=== PATIENT | male | born 1945 | race Caucasian/White ===

== ENCOUNTER → 2016-07-08 | Outpatient (RCR) | payer MEDICARE ==
--- OUTSIDE RECORDS SUMMARY | 2016-04-09 12:25 | XMS REPORT | Continuity of Care Document ---
Author Author [facility] Organization [facility] Address Unknown Phone Unavailable Care Team Providers Care Director Prison Name Role Phone CHILO OCAMPO MD PCP Insurance Providers Payer Name Policy Number Subscriber Name Relationship [employer]ps Medicare [id number] Stephon Alarcon V 18 Self / Same As Patient Blue Cross [facility] Supp [id number] Stephon Alarcon V 18 Self / Same As Patient Advance Directives Directive Response Recorded Date/Time Advance Directives Yes 10/17/14 2:34pm Health Care Power of Business Continuity Consultant Yes 10/17/14 2:34pm Organ Donor No 10/17/14 2:34pm Resuscitation Status Full Code 10/17/14 2:34pm Problems Medical Problems Problem Onset Date Status Lumbar radiculopathy Unknown Active Spinal stenosis of lumbar region Unknown Active Medications Medication Dose Route Sig Days/Qty Instructions Order Date Discontinued Date Status Telmisartan 40 Mg PO DAILY 04/08/07 05/17/11 Discontinued [Aleve] 04/08/07 11/15/08 Discontinued Aspirin 09/13/08 01/05/09 Discontinued [Nexium] 09/13/08 01/05/09 Discontinued Telmisartan 10/04/08 01/05/09 Discontinued Aspirin 10/04/08 01/18/11 Discontinued Esomeprazole Magnesium 10/04/08 01/05/09 Discontinued Promethazine HCl 25 Mg PO THREE TIMES A DAY PRN 10/04/08 10/09/11 Discontinued Dicyclomine HCl 10/04/08 11/15/08 Discontinued Naproxen Sodium 10/04/08 11/15/08 Discontinued Alprazolam 11/15/08 01/05/09 Discontinued Metoclopramide HCl (Reglan) 1 Each PO BEFORE MEALS AND AT BEDTIME 40 Qty FOR STOMACH 11/15/08 04/13/09 Discontinued Pantoprazole Sodium 1 Tab PO DAILY 30 Qty 11/15/08 04/13/09 Discontinued Ondansetron HCl 4 Mg PO EVERY 4HRS 10 Qty FOR NAUSEA AND VOMITING. 04/13/09 Discontinued Hyoscyamine Sulfate 1 - 2 Each PO Q 4 - 6 HRS PRN 30 Qty 11/15/0805/10 Discontinued Pantoprazole Sodium 01/05/09 02/09/09 Discontinued [Mycelex ] 01/05/09 04/13/09 Discontinued Multivitamins 01/05/09 01/18/11 Discontinued Alprazolam 01/05/09 01/18/11 Discontinued Dicyclomine Hcl 04/13/09 01/18/11 Discontinued Cimetidine 04/13/09 01/18/11 Discontinued Finasteride 5 Mg PO BEDTIME 01/18/11 Active Isosorbide Mononitrate 01/18/11 01/18/11 Discontinued Diphenoxylate HCl/Atropine (Lomotil) 1 - 2 Tab PO FOUR TIMES DAILY PRN 2 tabs with 1st loost stool 01/18/11 10/09/11 Discontinued [Sutent] daily with meal 01/18/11 01/18/11 Discontinued Oxycodone Hcl/Acetaminophen 1 - 2 Tab PO EVERY 6 HOURS PRN 01/18/11 10/09/11 Discontinued Mirtazapine (Remeron) BEDTIME 01/18/11 01/18/11 Discontinued Allopurinol 300 Mg PO DAILY PRN 01/18/11 01/18/11 Discontinued Amlodipine Besylate 5 Mg PO DAILY 5 mg po daily while on sutent 01/18/11 Discontinued Isosorbide Mononitrate 30 Mg PO DAILY@0630 01/18/11 08/06/11 Discontinued Dicyclomine HCl 10 Mg PO EVERY 6 HOURS PRN 01/18/11 08/06/11 Discontinued Alprazolam 1 Mg PO TWICE A DAY 01/18/11 Active Mirtazapine (Remeron) 15 Mg PO BEDTIME PRN for sleep 01/18/11 Active Pantoprazole Sodium 40 Mg PO 1700 05/17/11 Active Ondansetron HCl 8 Mg PO EVERY 8HRS PRN for nausea and vomiting 02/21/12 Discontinued Aspirin 81 Mg PO DAILY 05/17/11 12/31/11 Discontinued Carvedilol 3.125 Mg PO TWICE A DAY 05/17/11 02/21/12 Discontinued Olmesartan Med/Amlodipine/Hctz 0.5 Tab PO DAILY 05/17/11 10/09/11 Discontinued Clonidine HCl 0.3 Mg PO TWICE A DAY PRN 05/17/11 12/31/11 Discontinued Vancomycin Hcl 125 Mg PO Every 48 Hours 07/28/11 12/31/11 Discontinued Everolimus 10 Mg PO 08/05/11 08/05/11 Discontinued Sucralfate 1 Gm PO TWICE A DAY 08/06/11 09/08/12 Discontinued Melatonin/Pyridoxine Hcl 1 Mg PO BEDTIME 08/06/11 12/31/11 Discontinued Amlodipine Besylate (Norvasc 5 Mg) 5 Mg PO DAILY 10/09/11 12/31/11 Discontinued Olmesartan Med/Amlodipine/Hctz 1 Each PO DAILY 12/31/11 02/21/12 Discontinued [Sutent] 37.5 Mg PO DAILY 12/31/11 01/20/12 Discontinued Dicyclomine Hcl 20 Mg PO THREE TIMES A DAY PRN 01/20/12 09/08/12 Discontinued Pyridoxine/Melatonin 3 Mg PO BEDTIME 01/20/12 09/08/12 Discontinued Hydromorphone Hcl 4 Mg PO EVERY 4HRS PRN for severe pain 01/20/1222/05 Discontinued Oxycodone Hcl/Acetaminophen 1 - 2 Each PO EVERY 6 HOURS PRN 01/20/12 09/08/12 Discontinued Aspirin 81 Mg PO DAILY 01/20/12 Active Acetaminophen 500 Mg PO THREE TIMES A DAY PRN 02/21/12 09/08/12 Discontinued Levofloxacin 1 Each PO DAILY 2 Days 02/21/12 09/08/12 Discontinued Mirtazapine 15 Each PO BEDTIME 09/08/12 09/08/12 Discontinued Amlodipine Besylate (Norvasc 5 Mg) 5 Mg PO DAILY 09/08/12 Active Ondansetron Hcl 8 Mg PO EVERY 8HRS PRN nausea 09/08/12 09/10/12 Discontinued Melatonin 5 Mg PO BEDTIME 09/08/12 09/08/12 Discontinued Amlodipine Besylate (Norvasc 5 Mg) 5 Mg PO BEDTIME PRN 09/08/12 Active Pyridoxine/Melatonin 3 Mg PO BEDTIME 09/08/12 Active Acetaminophen 650 Mg PO EVERY 4HRS PRN 09/10/12 Active Hydrocortisone/Oatmeal/Aloe/E 28.4 Gm TP TWICE A DAY PRN 09/10/12 Active Ciprofloxacin 300 Mg PO TWICE A DAY 7 Days 09/10/12 09/10/12 Discontinued Ciprofloxacin 500 Mg PO TWICE A DAY 09/10/12 Active Ciprofloxacin 1 Tab PO DAILY 09/12/12 09/15/12 Discontinued Nitroglycerin 0.4 Mg SL PRN 09/15/12 Active Oxycodone Hcl/Acetaminophen 1 Each PO THREE TIMES A DAY PRN SEVERE PAIN 20 Qty 10/17/14 Active Social History Social History Problem Response Recorded Date/Time Alcohol Use Denies Use 10/17/2014 2:34pm Recreational Drug Use No 10/17/2014 2:34pm Recent Foreign Travel No 01/26/2013 5:58am Recent Infectious Disease Exposure No 01/26/2013 5:58am Hospitalization with Isolation Denies 10/17/2014 2:25pm Sexually Transmitted Disease No 10/17/2014 2:34pm HIV/AIDS No 10/17/2014 2:34pm Smoking Status Unknown if Ever Smoked 10/17/2014 2:34pm Query Response Start Date Stop Date Smoking Status Unknown if Ever Smoked Hospital Discharge Instructions No hospital discharge instructions. Plan of Care No plan of care. Functional Status No functional status results. Allergies, Adverse Reactions, Alerts Allergen Type Severity Reaction Status Last Updated Procaine HCl Allergy Unknown Active 09/08/12 Metronidazole HCl Allergy Active 09/08/12 clopidogrel bisulfate Allergy Active 09/08/12 Prochlorperazine Allergy Mild Active 09/08/12 metronidazole ([id number]) Allergy Active 09/08/12 procaine ([id number]) Allergy Unknown Active 09/08/12 Immunizations Name Given Type Date of Pneumonia Vaccine 02/03/10 Historical Date of Influenza Vaccine 02/13/10 Historical Vital Signs Acute Vital Signs Vital Response Date/Time Temperature (Fahrenheit) 97.9 degrees F (97.6 - 99.5) Temperature (Calculated Celsius) 36.03387 degrees C (36.4 - 37.5) Temperature Source Temporal Pulse Rate (adult) 83 bpm (60 - 90) Respiratory Rate 20 bpm (12 - 24) O2 Sat by Pulse Oximetry 94 % (88 - 100) Blood Pressure 137/83 mm Hg Pain Pain Intensity 8 Height (Feet) 5 feet Height (Inches) 11 inches Height (Calculated Centimeters) 180.321414 cm Weight (Pounds) 260 pounds Weight (Calculated Kilograms) 117.708605 kilograms Calculated BMI 36.26 Results Laboratory Results Test Name Result Units Flags Reference Collection Date/Time Result Date/ Time Comments White Blood Count 7.4 10^3/uL 4.3-11.0 10/04/2014 1:12p10/04/2014 1: 25pm Red Blood Count 5.70 10^6/uL 4.35-5.85 10/04/2014 1:12p10/04/2014 1: 25pm Hemoglobin 15.6 G/DL 13.3-17.7 10/04/2014 1:12p10/04/2014 1:25pm Hematocrit 49 % 40-54 10/04/2014 1:12p10/04/2014 1:25pm Mean Corpuscular Volume 85 FL 80-99 10/04/2014 1:12p10/04/2014 1: 25pm Mean Corpuscular Hemoglobin 27 PG 25-34 10/04/2014 1:12p10/04/2014 1: 25pm Mean Corpuscular Hemoglobin Concent 32 G/DL 32-36 10/04/2014 1:12p09/2014 1:25pm Red Cell Distribution Width 15.6 % H 10.0-14.5 10/04/2014 1:12pm 2014 1:25pm Platelet Count 202 10^3/uL 130-400 10/04/2014 1:12p10/04/2014 1:25pm Mean Platelet Volume 9.0 FL 7.4-10.4 10/04/2014 1:10/04/2014 1: 25pm Neutrophils (%) (Auto) 61 % 42-75 10/04/2014 1:10/04/2014 1:25pm Lymphocytes (%) (Auto) 27 % 12-44 10/04/2014 1:10/04/2014 1:25pm Monocytes (%) (Auto) 8 % 0-12 10/04/2014 1:10/04/2014 1:25pm Eosinophils (%) (Auto) 4 % 0-10 10/04/2014 1:10/04/2014 1:25pm Basophils (%) (Auto) 1 % 0-10 10/04/2014 1:10/04/2014 1:25pm Neutrophils # (Auto) 4.5 X 10^3 1.8-7.8 10/04/2014 1:10/04/2014 1: 25pm Lymphocytes # (Auto) 2.0 X 10^3 1.0-4.0 10/04/2014 1:10/04/2014 1: 25pm Monocytes # (Auto) 0.6 X 10^3 0.0-1.0 10/04/2014 1:10/04/2014 1: 25pm Eosinophils # (Auto) 0.3 10^3/uL 0.0-0.3 10/04/2014 1:12p10/04/2014 1 :25pm Basophils # (Auto) 0.0 10^3/uL 0.0-0.1 10/04/2014 1:10/04/2014 1: 25pm Sodium Level 140 MMOL/L 135-145 10/04/2014 1:10/04/2014 1:57pm Potassium Level 3.7 MMOL/L 3.6-5.0 10/04/2014 1:10/04/2014 1:57pm Chloride Level 104 MMOL/L 98-107 10/04/2014 1:10/04/2014 1:57pm Carbon Dioxide Level 25 MMOL/L 21-32 10/04/2014 1:12p10/04/2014 1: 57pm Blood Urea Nitrogen 16 MG/DL 7-18 10/04/2014 1:10/04/2014 1:57pm Creatinine 1.34 MG/DL H 0.60-1.30 10/04/2014 1:10/04/2014 1:57pm BUN/Creatinine Ratio 12 10/04/2014 1:10/04/2014 1:57pm Estimat Glomerular Filtration Rate 53 10/04/2014 1:10/04/2014 1:57pm GFR INTERPRETIVE DATA UNITS FOR ESTIMATED GFR (eGFR): mL/min/1.73 M2 REFERENCE RANGE FOR ESTIMATED GFR (eGFR) eGFR NORMAL eGFR >60 MODERATELY DECREASED eGFR 30-59 SEVERLY DECREASED eGFR 15-29 KIDNEY FAILURE <15 (OR DIALYSIS) Glucose Level 122 MG/DL H 70-105 10/04/2014 1:10/04/2014 1:57pm Calcium Level 9.3 MG/DL 8.5-10.1 10/04/2014 1:10/04/2014 1:57pm Total Bilirubin 0.6 MG/DL 0.1-1.0 10/04/2014 1:10/04/2014 1:57pm Alkaline Phosphatase 55 U/L 40-136 10/04/2014 1:10/04/2014 1:57pm Aspartate Amino Transf (AST/SGOT) 19 U/L 5-34 10/04/2014 1:2014 1:57pm Alanine Aminotransferase (ALT/SGPT) 22 U/L 0-55 10/04/2014 1:10/04 1:57pm Lactate Dehydrogenase 148 U/L 125-220 10/04/2014 1:10/04/2014 1: 57pm Total Protein 6.9 G/DL 6.4-8.2 10/04/2014 1:10/04/2014 1:57pm Albumin 3.8 G/DL 3.2-4.5 10/04/2014 1:10/04/2014 1:57pm White Blood Count 7.6 10^3/uL 4.3-11.0 10/17/2014 3:05pm 10/17/2014 3: 36pm Red Blood Count 5.32 10^6/uL 4.35-5.85 10/17/2014 3:05pm 10/17/2014 3: 36pm Hemoglobin 14.8 G/DL 13.3-17.7 10/17/2014 3:05pm 10/17/2014 3:36pm Hematocrit 46 % 40-54 10/17/2014 3:05pm 10/17/2014 3:36pm Mean Corpuscular Volume 86 FL 80-99 10/17/2014 3:05pm 10/17/2014 3: 36pm Mean Corpuscular Hemoglobin 28 PG 25-34 10/17/2014 3:05pm 10/17/2014 3: 36pm Mean Corpuscular Hemoglobin Concent 32 G/DL 32-36 10/17/2014 3:05pm 3:36pm Red Cell Distribution Width 15.5 % H 10.0-14.5 10/17/2014 3:05pm 2014 3:36pm Platelet Count 179 10^3/uL 130-400 10/17/2014 3:05pm 10/17/2014 3:36pm Mean Platelet Volume 9.3 FL 7.4-10.4 10/17/2014 3:05pm 10/17/2014 3: 36pm Neutrophils (%) (Auto) 64 % 42-75 10/17/2014 3:05pm 10/17/2014 3:36pm Lymphocytes (%) (Auto) 25 % 12-44 10/17/2014 3:05pm 10/17/2014 3:36pm Monocytes (%) (Auto) 7 % 0-12 10/17/2014 3:05pm 10/17/2014 3:36pm Eosinophils (%) (Auto) 4 % 0-10 10/17/2014 3:05pm 10/17/2014 3:36pm Basophils (%) (Auto) 0 % 0-10 10/17/2014 3:05pm 10/17/2014 3:36pm Neutrophils # (Auto) 4.9 X 10^3 1.8-7.8 10/17/2014 3:05pm 10/17/2014 3: 36pm Lymphocytes # (Auto) 1.9 X 10^3 1.0-4.0 10/17/2014 3:05pm 10/17/2014 3: 36pm Monocytes # (Auto) 0.5 X 10^3 0.0-1.0 10/17/2014 3:05pm 10/17/2014 3: 36pm Eosinophils # (Auto) 0.3 10^3/uL 0.0-0.3 10/17/2014 3:05pm 10/17/2014 3 :36pm Basophils # (Auto) 0.0 10^3/uL 0.0-0.1 10/17/2014 3:05pm 10/17/2014 3: 36pm Erythrocyte Sedimentation Rate 5 MM/HR 0-30 10/17/2014 3:05pm 2014 3:46pm Sodium Level 142 MMOL/L 135-145 10/17/2014 3:05pm 10/17/2014 5:06pm Potassium Level 4.5 MMOL/L 3.6-5.0 10/17/2014 3:05pm 10/17/2014 5:06pm Chloride Level 106 MMOL/L 98-107 10/17/2014 3:05pm 10/17/2014 5:06pm Carbon Dioxide Level 27 MMOL/L 21-32 10/17/2014 3:05pm 10/17/2014 5: 06pm Blood Urea Nitrogen 17 MG/DL 7-18 10/17/2014 3:05pm 10/17/2014 5:06pm Creatinine 1.28 MG/DL 0.60-1.30 10/17/2014 3:05pm 10/17/2014 5:06pm BUN/Creatinine Ratio 13 10/17/2014 3:05pm 10/17/2014 5:06pm Estimat Glomerular Filtration Rate 56 10/17/2014 3:05pm 10/17/2014 5:06pm GFR INTERPRETIVE DATA UNITS FOR ESTIMATED GFR (eGFR): mL/min/1.73 M2 REFERENCE RANGE FOR ESTIMATED GFR (eGFR) eGFR NORMAL eGFR >60 MODERATELY DECREASED eGFR 30-59 SEVERLY DECREASED eGFR 15-29 KIDNEY FAILURE <15 (OR DIALYSIS) Glucose Level 92 MG/DL 70-105 10/17/2014 3:05pm 10/17/2014 5:06pm Calcium Level 9.2 MG/DL 8.5-10.1 10/17/2014 3:05pm 10/17/2014 5:06pm Total Bilirubin 0.6 MG/DL 0.1-1.0 10/17/2014 3:05pm 10/17/2014 5:06pm Alkaline Phosphatase 59 U/L 40-136 10/17/2014 3:05pm 10/17/2014 5:06pm Aspartate Amino Transf (AST/SGOT) 18 U/L 5-34 10/17/2014 3:05pm 2014 5:06pm Alanine Aminotransferase (ALT/SGPT) 21 U/L 0-55 10/17/2014 3:05pm 10/17 5:06pm Total Protein 7.1 G/DL 6.4-8.2 10/17/2014 3:05pm 10/17/2014 5:06pm Albumin 3.9 G/DL 3.2-4.5 10/17/2014 3:05pm 10/17/2014 5:06pm Procedures No known history of procedures. Encounters Encounter Location Date/Time Departed Emergency Room [facility] 10/17/14 2:08pm Registered Recurring [facility] 10/04/14 12:49pm Recent Diagnosis
[2016-04-09 13:08] LABS: BASOPHILS % (AUTO) 0 % (0-10); EOSINOPHILS # (AUTO) 0.2 10^3/uL (0.0-0.3); EOSINOPHILS % (AUTO) 3 % (0-10); LYMPHOCYTES # (AUTO) 1.7 X 10^3 (1.0-4.0); LYMPHOCYTES % (AUTO) 26 % (12-44); MEAN CORPUSCULAR HEMOGLOBIN 30 PG (25-34); MEAN CORPUSCULAR HGB CONC 33 G/DL (32-36); MEAN CORPUSCULAR VOLUME 91 FL (80-99); MEAN PLATELET VOLUME 8.7 FL (7.4-10.4); MONOCYTES # (AUTO) 0.5 X 10^3 (0.0-1.0); MONOCYTES % (AUTO) 8 % (0-12); NEUTROPHILS # (AUTO) 4.1 X 10^3 (1.8-7.8); NEUTROPHILS % (AUTO) 62 % (42-75); PLATELET COUNT 200 10^3/uL (130-400); RED BLOOD COUNT 5.29 10^6/uL (4.35-5.85); RED CELL DISTRIBUTION WIDTH 14.2 % (10.0-14.5); WHITE BLOOD COUNT 6.5 10^3/uL (4.3-11.0)
[2016-04-09 13:42] LABS: BILIRUBIN,URINE NEGATIVE (NEGATIVE); KETONES,URINE NEGATIVE (NEGATIVE); LEUKOCYTE ESTERASE ,URINE NEGATIVE (NEGATIVE); NITRITE,URINE NEGATIVE (NEGATIVE); PH,URINE 6 (5-9); PROTEIN,URINE NEGATIVE (NEGATIVE); UROBILINOGEN,URINE NORMAL (NORMAL)
[2016-04-09 13:59] LABS: SQUAMOUS EPITHELIAL CELL,UR RARE /HPF
[2016-04-09 14:08] LABS: BILIRUBIN,TOTAL 0.5 MG/DL (0.1-1.0); CALCIUM 9.2 MG/DL (8.5-10.1); CREATININE SERUM 1.34 MG/DL (0.60-1.30); TOTAL PROTEIN 6.4 G/DL (6.4-8.2)
--- NOTE | 2016-04-09 14:30 | Diagnostic Imaging Report ---
PA and lateral views of the chest. INDICATION: Renal cell carcinomatosis. FINDINGS: There are multiple pulmonary nodules mostly in the right upper lobe seen without change. The largest nodule appears to be 1.8 cm in size. The left lung is clear. The heart size is normal. There is no effusion or pneumothorax. The mediastinum and praful appear unremarkable. Surgical clips about the right hilum seen. IMPRESSION: Stable right upper lobe pulmonary nodules. Dictated by: Dictated on workstation # [id number]
[~2016-07-08] MED LIST: AC325T PO; AC500T PO; AGM875T PO; ALEVE; ALLP300T PO; ALPR1T; ALPR1T PO; ALPR1TAB7 PO; AML5T PO; AMLO5TAB2 PO; AMOX-355 PO; ASP81CT; ASP81CT PO; ASP81TEC PO; ASPI-892; ASPI-999 PO; ASPI325T32 PO; AZIT250T PO; BACL10TA PO; BISA10SU12 PR; CALC-250 PO; CARV3.12 PO; CEFD300C3 PO; CIME200T39; CIPR-17 PO; CIPR-225 PO; CIPR100T PO; CLON0.1T PO; CLON0.3T4 PO; CPR500T PO; DICY10CA26; DICY10CA26 PO; DICY20TA10 PO; DICY20TA57; DICY20TA57 PO; DIPH1TAB25 PO; ENOX40DI8 SC; EVER10TA PO; FENO145T18 PO; FENO145T20 PO; FINA5TAB6 PO; FNST5T PO; HYDR-2890 PO; HYDR-3820 PO; HYDR-757 PO; HYDR28CR10 TP; HYDR4TAB PO; HYOS0.1216 PO; IPRA3AMP INH; ISM30TCR; ISM30TCR PO; KRIL1CAP22 PO; LEVO500T2 PO; LEVO500T69 PO; LOPE1TAB13 PO; MELA1TAB11 PO; MELA1TAB9 PO; MELA5TAB12 PO; METO10TA3 PO; MIRT15TA6; MIRT15TA6 PO; MIRT15TA8 PO; MULT-608; MYCELEX; NAPR220T76; NF-ESOM40C; NF-TELM20T; NITR0.3T6 SL; NYST15CR3 TP; Nexium; OLME1TAB26 PO; OLME1TAB30 PO; OMEG10005 PO; ONDA4TAB10 PO; ONDA8TAB2 PO; ONDA8TAB6 PO; ONDAN4ODT PO; ONDN4T PO; OXYC-272 PO; OXYC-465 PO; OXYC1TAB16 PO; Oxycodone Hcl/Acetaminophen PO; PANT40SU PO; PANT40TA PO; PANT40TA3 PO; PHEN30SP4 NS; PNT40TEC; PNT40TEC PO; POLY17PO23 PO; PRM25T PO; PROBIOTIC1 EACH PO; SCR1T1 PO; SENN-20 PO; SUCR1TAB PO; SUCR1TAB36 PO; SUTENT; SUTENT PO; TELM40T PO; TRAM50TA2 PO; VANC125C2 PO
[2016-07-08 14:29] LABS: BASOPHILS % (AUTO) 0 % (0-10); EOSINOPHILS # (AUTO) 0.2 10^3/uL (0.0-0.3); EOSINOPHILS % (AUTO) 3 % (0-10); LYMPHOCYTES # (AUTO) 1.9 X 10^3 (1.0-4.0); LYMPHOCYTES % (AUTO) 24 % (12-44); MEAN CORPUSCULAR HEMOGLOBIN 30 PG (25-34); MEAN CORPUSCULAR HGB CONC 34 G/DL (32-36); MEAN CORPUSCULAR VOLUME 90 FL (80-99); MONOCYTES # (AUTO) 0.6 X 10^3 (0.0-1.0); MONOCYTES % (AUTO) 8 % (0-12); NEUTROPHILS # (AUTO) 5.2 X 10^3 (1.8-7.8); NEUTROPHILS % (AUTO) 65 % (42-75); PLATELET COUNT 207 10^3/uL (130-400); RED BLOOD COUNT 5.35 10^6/uL (4.35-5.85)
--- NOTE | 2016-07-08 14:44 | Diagnostic Imaging Report ---
INDICATION: Renal cell carcinoma. PA and lateral chest. FINDINGS: There are granulomatous changes in the right upper lobe. The largest granuloma measures 15 mm in diameter. There are no infiltrates, effusions or pneumothoraces. Heart size and pulmonary vascularity are normal. IMPRESSION: Several calcified granulomas in right upper lobe. No change compared to exam dated 04/09/2016. Dictated by: Dictated on workstation # [id number]
[2016-07-08 15:00] LABS: ALBUMIN 4.1 G/DL (3.2-4.5); BILIRUBIN,TOTAL 0.7 MG/DL (0.1-1.0); CALCIUM 9.4 MG/DL (8.5-10.1); CREATININE SERUM 1.31 MG/DL (0.60-1.30); POTASSIUM 4.6 MMOL/L (3.6-5.0); TOTAL PROTEIN 6.8 G/DL (6.4-8.2)
== END | disposition home or self-care (01) ==
LOC: ONC 04-09 12:21
PROVIDERS: ATTEND Internal Medicine Hematology & Oncology
DX: Z08 Encounter for follow-up examination after completed treatment for malignant neoplasm (principal); Z85.528 Personal history of other malignant neoplasm of kidney; Z85.118 Personal history of other malignant neoplasm of bronchus and lung; D50.9 Iron deficiency anemia, unspecified; L98.9 Disorder of the skin and subcutaneous tissue, unspecified; I25.10 Atherosclerotic heart disease of native coronary artery without angina pectoris; I12.9 Hypertensive chronic kidney disease with stage 1 through stage 4 chronic kidney disease, or unspecified chronic kidney disease; N18.3 Chronic kidney disease, stage 3 (moderate); J43.9 Emphysema, unspecified; Z79.899 Other long term (current) drug therapy
CPT/HCPCS: 36415; 71020; 80053; 81000; 82306; 83615; 85025; 99213

== ENCOUNTER 2016-09-02 11:31 | Outpatient (CLI) | payer MEDICARE ==
[~2016-09-02] VITALS: Ht 177.8 cm; Wt 97.5 kg
[~2016-09-02 11:31] MED LIST changes: -ALPR1TAB7 PO; -ASPI-999 PO; -ASPI325T32 PO; -BACL10TA PO; -BISA10SU12 PR; -CALC-250 PO; -ENOX40DI8 SC; -FENO145T20 PO; -IPRA3AMP INH; -KRIL1CAP22 PO; -ONDA4TAB10 PO; -PANT40TA3 PO; -POLY17PO23 PO; -SENN-20 PO; -SUCR1TAB PO; -TRAM50TA2 PO
[2016-09-02 11:40] VITALS: BP 102/67
[2016-09-02 12:44] LABS: KETONES,URINE NEGATIVE (NEGATIVE); LEUKOCYTE ESTERASE ,URINE 1+ (NEGATIVE); NITRITE,URINE NEGATIVE (NEGATIVE); PH,URINE 6 (5-9); PROTEIN,URINE NEGATIVE (NEGATIVE); UROBILINOGEN,URINE 1 MG/DL (NORMAL)
[2016-09-02 12:44] LABS: BASOPHILS % (AUTO) 1 % (0-10); EOSINOPHILS # (AUTO) 0.2 10^3/uL (0.0-0.3); EOSINOPHILS % (AUTO) 3 % (0-10); LYMPHOCYTES # (AUTO) 1.8 X 10^3 (1.0-4.0); LYMPHOCYTES % (AUTO) 27 % (12-44); MEAN CORPUSCULAR HEMOGLOBIN 31 PG (25-34); MEAN CORPUSCULAR HGB CONC 34 G/DL (32-36); MEAN CORPUSCULAR VOLUME 91 FL (80-99); MEAN PLATELET VOLUME 9.7 FL (7.4-10.4); MONOCYTES # (AUTO) 0.5 X 10^3 (0.0-1.0); MONOCYTES % (AUTO) 7 % (0-12); NEUTROPHILS # (AUTO) 4.1 X 10^3 (1.8-7.8); NEUTROPHILS % (AUTO) 62 % (42-75); PLATELET COUNT 192 10^3/uL (130-400); RED BLOOD COUNT 5.51 10^6/uL (4.35-5.85); RED CELL DISTRIBUTION WIDTH 13.9 % (10.0-14.5); WHITE BLOOD COUNT 6.5 10^3/uL (4.3-11.0)
[2016-09-02] MEDS ORDERED: HYDR-3820 PO (12:45)
[2016-09-02] MEDS ORDERED: SUCR1TAB PO (12:45)
[2016-09-02] MEDS ORDERED: CALC-250 PO (12:45)
[2016-09-02 13:02] LABS: INR 1.1 (0.8-1.4); PROTHROMBIN TIME PATIENT 13.6 SEC (12.2-14.7)
[2016-09-02 13:04] LABS: BILIRUBIN,URINE 1+ (NEGATIVE); CALCIUM OXALATE CRYSTALS,UR RARE /LPF; SQUAMOUS EPITHELIAL CELL,UR RARE /HPF; WBC,URINE 0-2 /HPF
[2016-09-02 13:07] LABS: CALCIUM 9.6 MG/DL (8.5-10.1); CREATININE SERUM 1.31 MG/DL (0.60-1.30)
== END 2016-09-02 12:30 | disposition home or self-care (01) ==
LOC: PREOP 11:31
PROVIDERS: ATTEND Orthopaedic Surgery
DX: Z01.812 Encounter for preprocedural laboratory examination (principal); Z11.2 Encounter for screening for other bacterial diseases; M16.12 Unilateral primary osteoarthritis, left hip
CPT/HCPCS: 36415; 80048; 81000; 85025; 85610; 86850; 86900; 86901; 87081

== ENCOUNTER 2016-09-16 06:00 | Inpatient (IN) | payer MEDICARE ==
[~2016-09-16] VITALS: Ht 177.8 cm; Wt 97.5 kg
[~2016-09-16 06:00] MED LIST changes: +CALC-250 PO; +SUCR1TAB PO
[2016-09-16] MEDS ORDERED: LIDOCAINE 1% 10 MG/ML 0.2 ML SYR (FOR IV START) ONE (06:08)
[2016-09-16] MEDS ORDERED: ceFAZolin 2 GM/50 ML NS 50 ML IV ONE (06:08)
[2016-09-16 06:34] VITALS: BP 112/81
[2016-09-16] MEDS ORDERED: FAMOTIDINE 20MG/2ML IV (PEPCID) ONE (06:37)
[2016-09-16] MEDS ORDERED: LIDOCAINE 1% 10 MG/ML 0.2 ML SYR (FOR IV START) INJ ONE (06:45)
[2016-09-16] MEDS ORDERED: FAMOTIDINE 20MG/2ML IV (PEPCID) IV ONE (06:45)
[2016-09-16] MEDS: LACTATED RINGERS 1,000 ML IV PRN ×3 (06:46→10:11)
[2016-09-16] MEDS ORDERED: MUPIROCIN 2% OINT 22 GM (BACTROBAN) TUBE ONE (06:54)
[2016-09-16] MEDS ORDERED: GENTAMICIN 40 MG/ML 2 ML INJ SDV ONE (06:54)
[2016-09-16] MEDS ORDERED: fentaNYL INJECTION 100 MCG/2 ML AMP ONE ×2 (07:02→11:02)
[2016-09-16] MEDS ORDERED: LIDOCAINE PF 2% 10 ML (XYLOCAINE) AMP ONE (07:02)
[2016-09-16] MEDS ORDERED: LACTATED RINGERS 1,000 ML IV ONE ×3 (07:02→10:00)
[2016-09-16] MEDS ORDERED: proPOfol 200 MG/20 ML (DIPRIVAN) VIAL IV ONE (07:02)
[2016-09-16] MEDS ORDERED: MIDAZOLAM 2 MG/2 ML (VERSED) VIAL ONE (07:02)
[2016-09-16] MEDS ORDERED: ROCURONIUM 50 MG/5 ML (ZEMURON) VIAL IV ONE (07:02)
[2016-09-16] MEDS ORDERED: ONDANSETRON 4 MG/2 ML (SDV) Z0FRAN ONE (07:02)
[2016-09-16] MEDS ORDERED: SUCCINYLCHOLINE INJ 100 MG/5 ML SYR ONE (07:02)
[2016-09-16] MEDS ORDERED: ceFAZolin 2 GM/NS 50 ML IV ONE (07:15)
[2016-09-16] MEDS ORDERED: CATHETER FLUSH 10 ML SYR IV PRN (07:15)
--- NOTE | 2016-09-16 07:40 | Anesthesia-Peripheral Nerve Bl ---
Procedure Start/Stop Time Date of Procedure: Sep 16, 2016 Start Time: 07:25 Referring Physician: Aaliyah Stop Time: 07:32 Peripheral Nerve Block Peripheral Nerve Blockade Risk/Benefits/Alternatives discussed, including IV injection leading to complications or seizures, nerve irritation or damage, pneumothorax, total spinal anesthesia, injection, and/or bleeding. Approach: Femoral Side Confirmed: LEFT Indication: Req Pain Mgmt by Surgeon Specifically requested for management of pain by:Dr. Alfaro Patient Condition Vital Signs Vital Signs Date Time Temp Pulse Resp B/P (MAP) Pulse Ox O2 Delivery O2 Flow Rate FiO2 09/16/16 06:34 97.1 60 16 112/81 98 Room Air Patient Condition: Sedate/contact maintained Indication Post operative pain management Procedure Prepartation: Chlorhexidine Position: Supine [place]: Short-bevel Needle (s) Size: 22g 2" Motor response or parethesia o: Left Quad response mA: 0.3 Depth (cm): 1.5 Sedation Given: Midazolam (2mg) Injectate: ropivacaine Concentration %: 0.5 Volume (ml): 30 Narrative Injection was made incrementally with constant monitoring. Aspiration every (mls): 5 Blood Aspirated: No Pain on injection noted: No Normal Resistance on injection: Yes Events Events: None:easy well tolerated Sucess: Complete Patient Conditon Post Peripheral Nerve Block Post Peripheral Nerve Block Vital Signs: Blood Pressure: Systolic Diastolic Heart Rate Blood Pressure Systolic: 112 Blood Pressure Diastolic: 81 Pulse Rate (adult): 60 TONIA SWEET CRNA Sep 16, 2016 07:40
--- NOTE | 2016-09-16 07:42 | Diagnostic Imaging Report ---
INDICATION: Preop findings. There is profound arthritic changes to the left hip with joint space obliteration superiorly, marked sclerosis, subcortical cyst and osteophytes along both sides of the joint. There is lower lumbar spondylosis and postoperative posterior and interbody fusion. The right hip revealed moderate arthritis. IMPRESSION: Profound, left hip arthritic changes. Dictated by: Dictated on workstation # [id number]
[2016-09-16] MEDS ORDERED: diphenhydrAMINE 50 MG/ML INJ (BENADRYL) IV PRN (07:45)
[2016-09-16] MEDS ORDERED: BISACODYL 10 MG SUPP (DULCOLAX) PR PRN (07:45)
[2016-09-16] MEDS ORDERED: TRANEXAMIC ACID 100 MG/ML 10 ML INJECTION IV ONE ×2 (08:17→09:17)
[2016-09-16] MEDS ORDERED: ROPIVACAINE 5MG/ML 30ML VIAL ONE (08:28)
[2016-09-16] MEDS ORDERED: NS (IVPB) 100 ML ONE (08:31)
[2016-09-16] MEDS ORDERED: SEVOFLURANE (ULTANE) 15 ML INHAL SOLN ONE ×6 (08:32→10:13)
[2016-09-16] MEDS ORDERED: NEO/POLY/BAC (NEOSPORIN) OINT 15 GM TUBE ONE (09:43)
--- NOTE | 2016-09-16 10:27 | Progress Note-Post Operative ---
Post-Operative Progess Note Surgeon (s)/Product Promoter Sales Person (s) Surgeon Giacomo Fischer DO Product Promoter Sales Person: Osito Concepcion, RAEC, SWITCHBOARD OPERATOR SUPERVISOR Pre-Operative Diagnosis Primary OA left hip Post-Operative Diagnosis same Post-Op Procedure Note Date of Procedure: Sep 16, 2016 Name of Procedure Performed: left NNAMDI Description of the Procedure: Normal NNAMDI Findings of the Procedure Primary OA left hip Anesthesia Type general with femoral block Estimated blood loss (mL): 400 Packing: N Specimen(s) collected/removed femoral head removed, not sent OSITO CONCEPCION APRN Sep 16, 2016 10:27 am
[2016-09-16] MEDS: morphine INJ 10 MG/ML 1ML (SYR OR VIAL) IVP PRN ×4 (10:31→18:17)
[2016-09-16] MEDS ORDERED: ONDANSETRON 4 MG/2 ML (SDV) Z0FRAN IVP PRN (10:45)
[2016-09-16] MEDS: HYDROmorphone (DILAUDID) 2 MG/ML VIAL IVP PRN ×2 (10:47→10:57)
[2016-09-16] MEDS ORDERED: fentaNYL INJECTION 100 MCG/2 ML AMP IVP PRN (11:15)
--- NOTE | 2016-09-16 11:45 | Diagnostic Imaging Report ---
EXAMINATION: AP view of the pelvis. INDICATION: Post left hip arthroplasty. FINDINGS: There is a partial left hip arthroplasty seen. The femoral component is well-seated and the acetabular component is in good position. The right hip demonstrates mild osteoarthritis. There is posterior fusion hardware in the lower lumbar spine. IMPRESSION: Baseline post left hip replacement in good position. Dictated by: Dictated on workstation # [id number]
[2016-09-16 12:21] VITALS: BP 149/73
[2016-09-16] MEDS: ONDANSETRON 4 MG/2 ML (SDV) Z0FRAN IVP PRN ×2 (12:40→19:57)
[2016-09-16] MEDS: KETOROLAC 15 MG/ML VIAL IVP PRN ×2 (12:41→20:01)
[2016-09-16] MEDS: D5 1/2 NS 1000 ML IV SOLUTION 1,000 ML IV SCH ×2 (12:42→21:39)
[2016-09-16] MEDS ORDERED: KRIL1CAP22 PO (14:36)
[2016-09-16] MEDS ORDERED: PANT40TA3 PO (14:36)
[2016-09-16] MEDS ORDERED: DICY20TA10 PO (14:36)
[2016-09-16] MEDS ORDERED: FENO145T20 PO (14:36)
[2016-09-16] MEDS ORDERED: MIRT15TA6 PO (14:36)
[2016-09-16] MEDS ORDERED: CLON0.1T PO (14:36)
[2016-09-16] MEDS ORDERED: ALPR1TAB7 PO (14:36)
[2016-09-16] MEDS ORDERED: ONDA4TAB10 PO (14:36)
[2016-09-16] MEDS ORDERED: FINA5TAB6 PO (14:36)
[2016-09-16] MEDS ORDERED: AMLO5TAB2 PO (14:36)
[2016-09-16] MEDS: ASPIRIN E.C. 325 MG (ECOTRIN) TABLET PO SCH (14:51)
[2016-09-16] MEDS: BACLOFEN 10 MG (LIORESAL) TAB PO SCH ×2 (14:51→20:37)
[2016-09-16 15:45] VITALS: BP 124/60
[2016-09-16] MEDS: ceFAZolin 2 GM/50 ML NS 50 ML IV SCH ×2 (15:53→23:16)
[2016-09-16] MEDS ORDERED: SUCRALFATE 1 GM (CARAFATE) TAB PO PRN (18:15)
[2016-09-16] MEDS: ALPRAZolam 1 MG (XANAX) TAB PO PRN (19:05)
[2016-09-16] MEDS: ENOXAPARIN 40 MG/0.4 ML (LOVENOX) SYR SC SCH (19:05)
[2016-09-16 19:55] VITALS: BP 119/66
[2016-09-16] MEDS: FINASTERIDE (PROSCAR) 5 MG TAB PO SCH (20:36)
[2016-09-16] MEDS: MIRTAZAPINE 15 MG (REMERON) TAB PO SCH (20:36)
[2016-09-17 00:55] VITALS: BP 133/63
[2016-09-17] MEDS: ONDANSETRON 4 MG/2 ML (SDV) Z0FRAN IVP PRN (01:56)
[2016-09-17] MEDS: ALPRAZolam 1 MG (XANAX) TAB PO PRN ×2 (01:56→09:58)
[2016-09-17] MEDS: D5 1/2 NS 1000 ML IV SOLUTION 1,000 ML IV SCH (01:58)
[2016-09-17] MEDS: KETOROLAC 15 MG/ML VIAL IVP PRN ×3 (02:01→18:44)
[2016-09-17 04:47] VITALS: BP 111/59
[2016-09-17] MEDS: morphine INJ 10 MG/ML 1ML (SYR OR VIAL) IVP PRN (06:41)
[2016-09-17 06:56] LABS: MEAN PLATELET VOLUME 9.6 FL (7.4-10.4); RED BLOOD COUNT 3.92 10^6/uL (4.35-5.85); RED CELL DISTRIBUTION WIDTH 13.5 % (10.0-14.5); WHITE BLOOD COUNT 12.4 10^3/uL (4.3-11.0)
[2016-09-17 07:17] LABS: CALCIUM 7.7 MG/DL (8.5-10.1); CREATININE SERUM 1.24 MG/DL (0.60-1.30); POTASSIUM 3.7 MMOL/L (3.6-5.0)
[2016-09-17 08:00] VITALS: BP 99/56
--- NOTE | 2016-09-17 08:22 | OPERATIVE REPORT ---
PROCEDURE PHYSICIAN: TAYLOR ESTRADA DATE OF PROCEDURE: 09/16/2016 DICTATING PHYSICIAN: Taylor Estrada DO PREOPERATIVE DIAGNOSIS: Primary osteoarthritis, left hip. POSTOPERATIVE DIAGNOSIS: Primary osteoarthritis left hip. PROCEDURE: Left total hip arthroplasty. SURGEON: Dr. Estrada EDGE GRINDER MACHINE: ALPA Rose. nursing assistants teacher was utilized throughout the entire procedure for patient positioning, retraction of soft tissues, placement of implants, wound closure, dressing application and patient transfer. ANESTHESIA: General with femoral nerve block. INDICATIONS AND FINDINGS: The patient is a 70-year-old male seen with chief complaint of progressive left hip pain, loss of motion and sensation of his left hip wanting to give way. Despite conservative treatment, the patient continued to have persistent pain as well. X-rays revealed complete collapse of his left hip with flattening of the femoral head, significant subchondral sclerosis, and significant peripheral osteophyte formation as well. The patient was taken to surgery where a total hip arthroplasty was performed without complication utilizing the Biomet Regenerex total hip system with a 62 mm Regenerex RingLoc limited hole acetabular cup with an ArCom XL RingLoc acetabular liner +3 Hi-wall. A 10 mm Taperloc complete primary femoral porous-coated stem reduced distal implant was utilized along with a 40 mm head diameter -6 neck modular head. PROCEDURE IN DETAIL: The patient was seen by anesthesia and a femoral nerve block was performed on the left to decrease postop pain and decrease the amount of medication required during the surgical procedure. The patient was transported the operating room where general inhalation anesthetic was administered. The patient was placed in a right lateral decubitus position and secured the operating table with the pegboard system. ChloraPrep and sterile drape of the left hip and left lower extremity was performed. A lateral longitudinal incision was then made centered over the greater trochanter. The incision was deepened. The iliotibial band was identified and this was divided longitudinally with electrocautery. Retractors were placed, a significant thickening hypertrophy of the trochanteric bursa was identified and this was excised. Electrocautery was then used to complete a [place] approach to the left hip with electrocautery used to divide the vastus lateralis fascia. The gluteus medius and minimus tendons were divided and the capsules reflected off the anterior aspect of femoral head and neck. Bone hook was inserted. The hip was externally rotated, flexed and dislocated. Hypertrophic osteophyte formation about the femoral neck was removed with a bone rongeur. An osteotomy through the femoral neck was completed. The femoral head was sized to a 58 mm diameter femoral head. Retractors were placed about the acetabulum. Acetabular labrum was excised. The acetabulum was reamed hemispherically up to a diameter of 61 mm. Subchondral cysts were curetted from the acetabulum. The acetabular reamer was then used to harvest bone from the femoral head which was grafted into position in the acetabulum after thoroughly irrigating the acetabulum. The 62 mm cup was then impacted into position, secure fixation was obtained. A provisional acetabular liner was placed. Attention was directed to the proximal femur were a box chisel was used to open the proximal femur. A canal finder was inserted. The proximal femur was broached up to a 10 mm stem. The patient's x-rays demonstrated a significantly narrowed femoral canal in both the right and left hip despite the size of the patient and his femoral head. The calcar was then smoothed. A provisional femoral head was inserted. The hip was taken through a range of motion. The hip was noted to be stable with soft tissue balancing and symmetric leg lengths with a -3 mm femoral neck. The provisional components were removed. The hip was again irrigated with normal saline solution. The Hi-wall acetabular liner was then impacted into position with the buildup of the acetabular liner over the anterior/superior aspect of the hip. The 10 mm porous-coated Taperloc stem was then impacted in position. The stem remained approximately 2 mm proud and a -3 mm femoral provisional femoral head was inserted. The hip was reduced, taken through a range of motion with satisfactory soft tissue balancing. The provisional femoral head was removed. The 40 mm magna modular head -6 mm neck was then impacted into position. The hip was reduced taken through a range of motion and the hip was noted to be stable. The vastus lateralis fascia was then closed with interrupted [id number] sutures of number 2 Ethibond, reinforced with the gluteus medius and minimus and the tendons were closed with interrupted [id number] sutures of number 2 Ethibond. The repair was reinforced with a running suture of number 2 Ethibond. The iliotibial band was closed with interrupted running suture of number 1 Vicryl. The subcutaneous tissues were closed in layers of 0 and 2-0 Vicryl sutures. The skin was closed with stainless steel stevie and Adaptic Neosporin bulky dressing was placed about the left hip. The patient was awakened and was transported postop recovery with anesthesia personnel present in satisfactory condition where an AP pelvic x-ray revealed satisfactory position and alignment of the total hip components. Job ID: [id number] Dictated Date: 09/16/2016 22:08:42 Wood Miller Date: 09/17/2016 07:56:17 / aguilar
--- NOTE | 2016-09-17 09:53 | Physical Therapy Evaluation ---
PT Evaluation-General Medical Diagnosis Admission Date Sep 16, 2016 at 06:00 Medical Diagnosis: left NNAMDI Onset Date: Sep 16, 2016 Therapy Diagnosis Therapy Diagnosis: generalized weakness and debility Height/Weight Height (Feet): 5 Height (Inches): 10.00 Weight (Pounds): 215 Weight (Ounces): 0.0 Precautions Precautions/Isolations: Standard Precautions Weight Bear Status Weight Bearing Restriction: Weight Bearing/Tolerated, Full Weight Bearing Location Restriction: L LE Referral Physician: Aaliyah Reason for Referral: Evaluation/Treatment Medical History Pertinent Medical History: CAD, GERD, HTN, OA Additional Medical History renal cell cancer (left nephrectomy) Barretts esophagus lumbar spine surgery Current History elective left NNAMDI secondary to OA Reviewed History: Yes Social History Home: Single Level Current Living Status: Spouse Prior/Core FIM Prior Level of Function Functional [place] Measure 0=Not Assessed/NA 4=Minimal Assistance 1=Total Assistance 5=Supervision or Setup 2=Maximal Assistance 6=Modified [place] 3=Moderate Assistance 7=Complete [place] Bed Mobility: 6 Transfers (B,C,W/C) (FIM): 6 Gait: 6 PRN use of FWW or cane PT Evaluation-Current Subjective Patient is reluctant to participate with PT, however, agrees after much encouragement. Pain Numeric Pain Scale: 10-Worst Possible Pain Location: Left Location Body Site: Hip Pain Description: Acute Pt/Family Goals return to home with spouse Objective Patient Orientation: Normal For Age Problem Solving: Good Attachments: Oxygen, IV ROM/Strength ROM Lower Extremities left hip precautions; right LE WFL Strenght Lower Extremities left knee flexion/extension 3/5; hip flexion NT; ankle dorsi/plantarflexion 3/5 right knee flexion/extension 4-/5; hip flexion 3/5; ankle dorsi/plantarflexion 2 /5 (drop foot from prior injury) Integumentary/Posture Integumentary refer to nursing notes Bowel Incontinence: No Bladder Incontinence: No Posture WNL Neuromuscular (Tone, Coordination, Reflexes) grossly intact Sensory Vision: Functional Hearing: Functional Sensation Right Lower Extremit: Intact Sensation Left Lower Extremity: Intact Transfers Functional [place] Measure 0=Not Assessed/NA 4=Minimal Assistance 1=Total Assistance 5=Supervision or Setup 2=Maximal Assistance 6=Modified [place] 3=Moderate Assistance 7=Complete [place] Transfers (B, C, W/C) (FIM): 4 Scootin Supine to/from Sit: 4 Sit to/from Stand: 4 CGA with gait belt in place for safety; PT assist for left LE with bed mobility Gait Mode of Locomotion: Walk Anticipated Mode of Locomotion: Walk Gait (FIM): 1 Distance (FIM): 1=up to 49 ft Distance: 5' Gait Level of Assist: 4 Gait Persons Needed: 1 Gait Assistive Device: FWW Comments/Gait Description patient self limits with distance; safe, antalgic Balance Sitting Static: Normal Sitting Dynamic: Normal Standing Static: Normal Standing Dynamic: Normal Assessment/Needs 70 y.o. male, s/p elective left NNAMDI, will benefit from skilled PT to address functional strength and mobility to improve current LOF and to safely return to home with spouse at maximum LOF. Rehab Potential: Good PT Skilled Nursing Goals Manager Search Engine Goals PT Manager Search Engine Goals Time Frame: Sep 24, 2016 Transfers (B,C,W/C) (FIM): 6 Gait (FIM): 6 Gait distance (FIM): 3=150 ft Distance: 200' Gait Level of Assist: 6 Gait Assistive Device: FWW PT Plan Problem List Problem List: Activity Tolerance Treatment/Plan Treatment Plan: Continue Plan of Care Treatment Plan: Bed Mobility, Education, Functional Activity Vaishali, Functional Strength, Gait, Safety, Therapeutic Exercise, Transfers Treatment Duration: Sep 24, 2016 # of days/week 6 Visits Per Week: 11 Pt/Family Agrees w/Plan: Yes Safety Risks/Education Patient Education: Reviewed Precautions Teaching Recipient: Patient Teaching Methods: Demonstration, Discussion Response to Teaching: Verbalize Understanding, Return Demonstration Discharge Recommendations Therapy D/C Recommendations: Home w/ Family Support, Physical Therapy Home Care Time/GCodes Time In: 820 Time Out: 845 Total Billed Treatment Time: 25 Total Billed Treatment 1 visit [facility] 25 min DORY CORRALES PT Sep 17, 2016 09:53
[2016-09-17] MEDS: PANTOPRAZOLE 40 MG (PROTONIX) TAB PO SCH (09:57)
[2016-09-17] MEDS: SENNA W/DOCUSATE (SENOKOT S) TABLET PO SCH ×2 (09:57→21:20)
[2016-09-17] MEDS: BACLOFEN 10 MG (LIORESAL) TAB PO SCH ×3 (09:57→21:21)
[2016-09-17] MEDS: ASPIRIN E.C. 325 MG (ECOTRIN) TABLET PO SCH (09:57)
[2016-09-17] MEDS: HYDROcodone/APAP 10 MG/325 MG (LORTAB) TAB PO PRN ×2 (09:58→15:19)
[2016-09-17] MEDS: ENOXAPARIN 40 MG/0.4 ML (LOVENOX) SYR SC SCH (09:58)
[2016-09-17] MEDS: amLODIPine 5 MG (NORVASC) TAB PO SCH (10:01)
[2016-09-17] MEDS: RT-ALBUTEROL/IPRATROPIUM 3 ML (DUONEB) VIAL INH SCH ×3 (10:47→19:39)
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
--- NOTE | 2016-09-17 11:22 | Consultation-Hospitalist ---
HPI History of Present Illness: HPI/Chief Complaint CC: Left hip arthroplasty HPI: This is a 70-year-old white male clinic patient of Dr. Heaton's with a past medical history of renal cell carcinoma and overall chronic debilitating resulting in lifelong disability that presents after an uncomplicated left total hip arthroplasty. Overall he is doing well but he did have complications in the past following back surgery with diverticulitis and pneumonia so will monitor closely and we did order nebulized treatments check chest x-ray today the lungs are clear and overall doing well from a postop management standpoint. I did review his labs at home medication and he is feeling much better and overall getting around well considering the extensive hip surgery he had yesterday. Source: patient Exam Limitations: no limitations Date Seen 09/17/16 Attending Physician Giacomo Fischer Floyd R MD Referring Physician Date of Admission Sep 16, 2016 at 06:00 Home Medications & Allergies Home Medications Reviewed patient Home Medication Reconciliation Form Allergies Allergies Coded Allergies prochlorperazine (Verified Allergy, Mild, 09/08/12) Metronidazole HCl (Verified Allergy, Unknown, 11/16/14) Procaine HCl (Verified Allergy, Unknown, 09/08/12) Gwaflry-Bhd-Vzn Reductase Inhibitor (Unverified Allergy, Unknown, R/T KIDNEY FUNCTION, 11/16/14) clopidogrel bisulfate (Verified Allergy, Unknown, 11/16/14) metronidazole (Verified Allergy, Unknown, 11/16/14) procaine (Verified Allergy, Unknown, 09/08/12) Past Rrshcxg-Ompnvk-Gkumko Hx Patient Social History Marrital Status: Employed/Student: unemployed Alcohol Use: Denies Use Recreational Drug Use: No Smoking Status: Former Smoker Former smoker/When Quit: Jun 02, 2008 Type Used: Cigarettes Physical Abuse Screen: No Sexual Abuse: No Recent Foreign Travel: No Contact w/other who traveled: No Recent Hopitalizations: No Recent Infectious Disease Expo: No Immunizations Up To Date Tetanus Booster (TDap): Unknown Date of Pneumonia Vaccine: Mar 02, 2016 Date of Influenza Vaccine: Feb 13, 2010 Seasonal Allergies Seasonal Allergies: Yes Surgeries HX Surgeries: Yes Surgeries: Appendectomy, Coronary Stent, Cystectomy, Gallbladder, Nephrectomy Respiratory Hx Respiratory Disorders: Yes (NODULE IN RIGHT LUNG-DR GOMEZ) Cardiovascular Hx Cardiovascular Disorders: Yes (STENT IN HIS LAD) Cardiac Disorders: Coronary Artery Disease, High Cholesterol, Hypertension Neurological Hx Neurological Disorders: Yes Reproductive System Hx Reproductive Disorders: No Sexually Transmitted Disease: No HIV/AIDS: No Genitourinary Hx Genitourinary Disorders: Yes (RENAL CELL CA LEFT NEPHRECTOMY 08/08) Gastrointestinal Hx Gastrointestinal Disorders: Yes (SPASTIC COLON/DIVERTICULITIS) Gastrointestinal Disorders: Gastroesophageal Reflux, Guadarrama's Esophagus, Diverticulosis, Chronic Diarrhea, Esophagitis, Irritable Bowel Musculoskeletal Hx Musculoskeletal Disorders: Yes (FX.L4-L5,S1,TAILBONE-SURGERY/ARTHRITIS/ NEUROPATHY R LEG/FOOT DROP) Musculoskeletal Disorders: Arthritis, Foot Drop, Chronic Back Pain, Fractures Endocrine Hx Endocrine Disorders: No HEENT HX ENT Disorders: No Cancer Hx Cancer: Yes Cancer: Skin, Kidney Psychosocial Hx Psychiatric Problems: No Integumentary HX Skin/Integumentary Disorder: No Blood Transfusions Hx Blood Disorders: No Adverse Reaction to a Blood Tr: No Family Medical History Significant Family History: No Pertinent Family Hx Family Hx: No Family History of: AIDS Alzheimer's disease Cardiovascular disease Colon cancer Completed stroke Diabetes mellitus Drug abuse Hypertension Kidney disease Myocardial infarction Parkinson's disease Prostate cancer Psychosocial problem Respiratory disorder Seizure disorder Thyroid disease Tuberculosis Visual disorder Review of Systems Constitutional: see HPI EENTM: no symptoms reported Respiratory: no symptoms reported Cardiovascular: no symptoms reported Gastrointestinal: no symptoms reported Genitourinary: no symptoms reported Musculoskeletal: no symptoms reported Skin: no symptoms reported Psychiatric/Neurological: No Symptoms Reported All Other Systems Reviewed Negative Unless Noted: Yes Physical Exam Physical Exam Vital Signs Vital Sign - Last 12Hours 09/16/16 06:34 Temp 97.1 Pulse 60 Resp 16 B/P (MAP) 112/81 Pulse Ox 98 O2 Delivery Room Air Capillary Refill : General Appearance: No Apparent Distress, WD/WN, Chronically ill Eyes: Bilateral Eye Normal Inspection, Bilateral Eye PERRL HEENT: PERRL/EOMI, Normal ENT Inspection, Pharynx Normal Neck: Full Range of Motion, Normal Inspection, Non Tender, Supple, Carotid Bruit Respiratory: Chest Non Tender, Lungs Clear, Normal Breath Sounds, No Accessory Muscle Use, No Respiratory Distress Cardiovascular: Regular Rate, Rhythm, No Edema, No Gallop, No JVD, No Murmur, Normal Peripheral Pulses Gastrointestinal: Normal Bowel Sounds, No Organomegaly, No Pulsatile Mass, Non Tender, Soft Back: Normal Inspection, No CVA Tenderness, No Vertebral Tenderness Extremity: Normal Capillary Refill, Normal Inspection, Non Tender, No Calf Tenderness, No Pedal Edema Neurologic/Psychiatric: Alert, Oriented x3, No Motor/Sensory Deficits, Normal Mood/Affect Skin: Normal Color, Warm/Dry Lymphatic: No Adenopathy Results Results/Procedures Lab Laboratory Tests 09/17/16 06:25 Assessment/Plan Admission Diagnosis Assessment: Left hip arthroplasty uncomplicated POD#1 History of renal cell carcinoma Chronic debility with lifelong disability History of diverticulitis History of pneumonia postop Chronic back pain Hypertension BPH Assessment and Plan Plan: Check chest x-ray results Nebulizer treatments with incentive spirometer use Monitor for urinary retention due to history of BPH We'll follow with you Clinical Quality Measures DVT/VTE Risk/Contraindication: Risk Factor Score Per Nursin RFS Level Per Nursing on Admit: 4+=Very High LOUIS DURAN DO Sep 17, 2016 11:22
--- NOTE | 2016-09-17 11:56 | Diagnostic Imaging Report ---
INDICATION: Rhonchi, shortness of air. COMPARISON: July 2016. FINDINGS: The calcified nodularity in the right upper lobe at the apex is unchanged. No new parenchymal opacity. The hilar and mediastinal contours are unremarkable. Post operative clips project over the right hilum and are stable. COPD and air trapping are chronic. There is thoracic spondylosis, chronic. No new abnormality. IMPRESSION: Calcified nodularity in the right upper lobe. Thoracic spondylosis, air trapping, and postoperative residua are all unchanged from the prior exam. Dictated by: Dictated on workstation # [id number]
[2016-09-17 12:00] VITALS: BP 111/53
--- NOTE | 2016-09-17 13:15 | Physical Therapy Daily Note ---
PT Daily Note-Current Subjective Patient agree to therapy. Pain Numeric Pain Scale: 5-Moderate Pain Location: Left Location Body Site: Hip Pain Description: Acute Mental Status Patient Orientation: Normal For Age Attachments: IV Transfers Functional [place] Measure 0=Not Assessed/NA 4=Minimal Assistance 1=Total Assistance 5=Supervision or Setup 2=Maximal Assistance 6=Modified [place] 3=Moderate Assistance 7=Complete IndependenceIRFPAI Quality Coding Scale 6 Independent with activity with or without an assistive device 5 Patient requires set up or clean up by helper. Patient completes activity by themselves 4 Supervision or touching assist (CGA). [place] provide cues , steadying assist 3 The helper provides less than half the effort to complete the activity 2 The helper provides more than half the effort to complete the activity 1 Dependent. The helper does all the effort to complete an activity 7 Patient refused to complete or attempt activity 9 The patient did not perform the activity before the current illness or injury 88 Not attempted due to Medical conditions or safety concerns Transfers (B, C, W/C) (FIM): 5 Scootin Sit to/from Stand: 5 Weight Bearing Weight Bearing Restriction: Weight Bearing/Tolerated Location Restriction: L LE Gait Training Gait (FIM): 5 Distance (FIM): 3=150 ft Distance: 150' Gait Level of Assist: 5 Gait Persons Needed: 1 Gait Assistive Device: FWW slow, antalgic gait sequence Exercises Seated Therapy Exercises: Long arc quads Seated Reps: 15 Assessment Current Status: Excellent Progress Patient is very motivated with progress and is up in hip chair to eat lunch. Pt to increase activity as tolerated. PT Arts And Crafts Instructor Goals Arts And Crafts Instructor Goals PT Fpc Goals Time Frame: Sep 24, 2016 Transfers (B,C,W/C) (FIM): 6 Gait (FIM): 6 Gait distance (FIM): 3=150 ft Distance: 200' Gait Level of Assist: 6 Gait Assistive Device: FWW PT Plan Treatment/Plan Treatment Plan: Continue Plan of Care Treatment Plan: Bed Mobility, Education, Functional Activity Vaishali, Functional Strength, Gait, Safety, Therapeutic Exercise, Transfers Treatment Duration: Sep 24, 2016 Visits Per Week: 11 Time/GCodes Time In: 1250 Time Out: 1307 Total Billed Treatment Time: 17 Total Billed Treatment 1 visit [facility] 17 min DOYR CORRALES PT Sep 17, 2016 13:14
--- NOTE | 2016-09-17 14:35 | Progress Note (SOAP) ---
Subjective Subjective/Events-last exam POD #1 s/p left NNAMDI, no complaints. Had dyspnea and cough this AM. Treated with duoneb and hospitalist consult. Doing much better now. no complaints. Objective Exam Vital Signs Date Time Temp Pulse Resp B/P (MAP) Pulse Ox O2 Delivery O2 Flow Rate FiO2 09/17/16 12:00 100.0 97 20 111/53 96 Nasal Cannula 3.00 09/17/16 10:47 96 2.00 09/17/16 08:00 100.6 85 20 99/56 96 Nasal Cannula 3.00 09/17/16 07:53 96 3.00 09/17/16 04:47 100.0 87 12 111/59 99 Nasal Cannula 3.00 09/17/16 02:24 96 3.00 09/17/16 02:01 100.7 09/17/16 00:55 100.1 92 16 133/63 98 Nasal Cannula 3.00 09/16/16 22:31 97 3.00 09/16/16 20:00 Nasal Cannula 3.00 09/16/16 19:55 100.4 80 12 119/66 99 Nasal Cannula 3.00 09/16/16 18:35 100 3.00 09/16/16 15:45 97.6 72 16 124/60 100 Nasal Cannula 3.00 09/16/16 15:34 99 3.00 I & O 09/17/16 07:00 Intake Total 4650 ml Output Total 925 ml Balance 3725 ml Capillary Refill : General Appearance: No Apparent Distress Gastrointestinal: non tender, soft Extremity: Normal Capillary Refill, Normal Inspection (dressing left hip CDI) Neurologic/Psychiatric: Alert, Oriented x3, No Motor/Sensory Deficits, Normal Mood/Affect Skin: Normal Color, Warm/Dry Results Lab Laboratory Tests 09/17/16 06:25: White Blood Count 12.4H, Red Blood Count 3.92L, Hemoglobin 12.0L, Hematocrit 37L , Mean Corpuscular Volume 94, Mean Corpuscular Hemoglobin 31, Mean Corpuscular Hemoglobin Concent 33, Red Cell Distribution Width 13.5, Platelet Count 153, Mean Platelet Volume 9.6, Sodium Level 139, Potassium Level 3.7, Chloride Level 107, Carbon Dioxide Level 25, Anion Gap 7, Blood Urea Nitrogen 13, Creatinine 1.24, Estimat Glomerular Filtration Rate 58, BUN/Creatinine Ratio 10, Glucose Level 104, Calcium Level 7.7L Assessment/Plan Assessment/Plan Assess & Plan/Chief Complaint A: s/p left NNAMDI P: Continue current treatment, Plan to DC to home with HHC on POD 2 or 3. Clinical Quality Measures DVT/VTE Risk/Contraindication: Risk Factor Score Per Nursin RFS Level Per Nursing on Admit: 4+=Very High OSITO CONCEPCION APRN Sep 17, 2016 2:35 pm
--- NOTE | 2016-09-17 15:11 | Anesthesia-General Post-Op ---
General Patient Condition Mental Status/LOC: Same as Preop Cardiovascular: Satisfactory Nausea/Vomiting: Absent Respiratory: Satisfactory Pain: Controlled Complications: Absent Post Op Complications Complications None Follow Up Care/Instructions Patient Instructions None needed. Anesthesia/Patient Condition Patient Condition Patient is doing well, no complaints, stable vital signs, no apparent adverse anesthesia problems. No complications reported per nursing. D/C home per [facility] Criteria: No ALEXA MILLER CRNA Sep 17, 2016 15:11
[2016-09-17 16:50] VITALS: BP 118/58
[2016-09-17] MEDS ORDERED: VITAMIN D3 5,000 UNITS (CHOLECALCIFEROL ) CAPSULE PO SCH (17:00)
[2016-09-17 20:10] VITALS: BP 105/59
[2016-09-17] MEDS ORDERED: MELATONIN 3 MG TABLET PO SCH (21:00)
[2016-09-17] MEDS: MIRTAZAPINE 15 MG (REMERON) TAB PO SCH (21:20)
[2016-09-17] MEDS: FINASTERIDE (PROSCAR) 5 MG TAB PO SCH (21:20)
[2016-09-18 00:35] VITALS: BP 101/65
[2016-09-18] MEDS: ALPRAZolam 1 MG (XANAX) TAB PO PRN (01:56)
[2016-09-18 04:30] VITALS: BP 106/70
[2016-09-18 06:11] LABS: MEAN PLATELET VOLUME 9.6 FL (7.4-10.4); RED BLOOD COUNT 3.49 10^6/uL (4.35-5.85); RED CELL DISTRIBUTION WIDTH 13.4 % (10.0-14.5); WHITE BLOOD COUNT 11.3 10^3/uL (4.3-11.0)
[2016-09-18 06:30] LABS: CALCIUM 7.8 MG/DL (8.5-10.1); CREATININE SERUM 1.24 MG/DL (0.60-1.30); POTASSIUM 3.7 MMOL/L (3.6-5.0)
[2016-09-18] MEDS: RT-ALBUTEROL/IPRATROPIUM 3 ML (DUONEB) VIAL INH SCH (07:15)
[2016-09-18] MEDS ORDERED: RT-ALBUTEROL/IPRATROPIUM 3 ML (DUONEB) VIAL INH PRN (07:30)
[2016-09-18 07:45] VITALS: BP 100/59
[2016-09-18] MEDS: ASPIRIN E.C. 325 MG (ECOTRIN) TABLET PO SCH (08:54)
[2016-09-18] MEDS: PANTOPRAZOLE 40 MG (PROTONIX) TAB PO SCH (08:54)
[2016-09-18] MEDS: SENNA W/DOCUSATE (SENOKOT S) TABLET PO SCH (08:54)
[2016-09-18] MEDS: BACLOFEN 10 MG (LIORESAL) TAB PO SCH (08:54)
[2016-09-18] MEDS: ENOXAPARIN 40 MG/0.4 ML (LOVENOX) SYR SC SCH (08:55)
[2016-09-18] MEDS: HYDROcodone/APAP 10 MG/325 MG (LORTAB) TAB PO PRN (08:55)
[2016-09-18] MEDS: amLODIPine 5 MG (NORVASC) TAB PO SCH (08:55)
[2016-09-18] MEDS ORDERED: POLYETHYLENE GLYCOL 17 GM (MIRALAX) PACK PO SCH (10:30)
[2016-09-18] MEDS ORDERED: IPRA3AMP INH ×2 (10:39)
[2016-09-18] MEDS ORDERED: TRAM50TA2 PO (10:39)
[2016-09-18] MEDS ORDERED: ENOX40DI8 SC (10:39)
[2016-09-18] MEDS ORDERED: BACL10TA PO (10:39)
[2016-09-18] MEDS ORDERED: ASPI325T32 PO (10:39)
[2016-09-18] MEDS ORDERED: SENN-20 PO (10:39)
[2016-09-18] MEDS ORDERED: BISA10SU12 PR (10:39)
[2016-09-18] MEDS ORDERED: POLY17PO23 PO (10:39)
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
[2016-09-18 11:30] LABS: BILIRUBIN,URINE NEGATIVE (NEGATIVE); KETONES,URINE NEGATIVE (NEGATIVE); LEUKOCYTE ESTERASE ,URINE NEGATIVE (NEGATIVE); NITRITE,URINE NEGATIVE (NEGATIVE); PH,URINE 6 (5-9); PROTEIN,URINE NEGATIVE (NEGATIVE); UROBILINOGEN,URINE NORMAL (NORMAL)
[2016-09-18 11:39] LABS: WBC,URINE RARE /HPF
[2016-09-18 14:18] VITALS: BP 100/59
[2016-09-19] MEDS ORDERED: ASPI-999 PO (08:13)
== END 2016-09-18 11:05 | DRG 470 ==
LOC: 4TH 06:00 → SURG 06:01 → 4TH 12:01
PROVIDERS: ADMIT Orthopaedic Surgery; ATTEND Orthopaedic Surgery
PROC: 0SRB02A Replacement of Left Hip Joint with Metal on Polyethylene Synthetic Substitute, Uncemented, Open Approach (ICD-10-PCS; principal; 2016-09-16 07:43)
DX: M16.12 Unilateral primary osteoarthritis, left hip (principal); I10 Essential (primary) hypertension; F41.9 Anxiety disorder, unspecified; K21.9 Gastro-esophageal reflux disease without esophagitis; J30.2 Other seasonal allergic rhinitis; I25.10 Atherosclerotic heart disease of native coronary artery without angina pectoris; E78.00 Pure hypercholesterolemia, unspecified; M21.371 Foot drop, right foot; M54.9 Dorsalgia, unspecified; G62.9 Polyneuropathy, unspecified; N40.0 Benign prostatic hyperplasia without lower urinary tract symptoms; R30.0 Dysuria; Z85.528 Personal history of other malignant neoplasm of kidney; Z87.891 Personal history of nicotine dependence; Z95.5 Presence of coronary angioplasty implant and graft; Z90.5 Acquired absence of kidney; Z87.19 Personal history of other diseases of the digestive system
CPT/HCPCS: 36415; 71010; 72170; 80048; 81000; 85027; 94640; 94664; 94760

== ENCOUNTER 2016-09-18 11:00 | Inpatient (IN) | payer MEDICARE ==
[~2016-09-18] VITALS: Ht 172.7 cm; Wt 97.5 kg
[~2016-09-18 11:00] MED LIST changes: +ALPR1TAB7 PO; +ASPI325T32 PO; +BACL10TA PO; +BISA10SU12 PR; +ENOX40DI8 SC; +FENO145T20 PO; +IPRA3AMP INH; +KRIL1CAP22 PO; +ONDA4TAB10 PO; +PANT40TA3 PO; +POLY17PO23 PO; +SENN-20 PO; +TRAM50TA2 PO
[2016-09-18 11:39] VITALS: BP 88/62
--- NOTE | 2016-09-18 11:42 | Physical Therapy Evaluation ---
PT Evaluation-General Medical Diagnosis Admission Date Sep 18, 2016 at 11:00 Medical Diagnosis: left NNAMDI Onset Date: Sep 16, 2016 Therapy Diagnosis Therapy Diagnosis: impaired mobility, debility, impaired strength, endurance Height/Weight Height (Feet): 5 Height (Inches): 10.00 Weight (Pounds): 215 Weight (Ounces): 0.0 Weight Bear Status Weight Bearing Restriction: Weight Bearing/Tolerated Location Restriction: LE Bilateral Referral Physician: Jose L Reason for Referral: Evaluation/Treatment Medical History Pertinent Medical History: CAD, GERD, HTN, Neuropathy, OA Additional Medical History renal cell cancer (left nephrectomy), Barretts esophagus, lumbar spine surg Current History elective surgery due to OA Reviewed History: Yes Social History Home: Single Level Current Living Status: Spouse Entry Into Home: Stairs With Railing PT Steps Into Home: 2 Patient does not actually have railing at stairs but has some sturdy objects for handholds Prior/Core FIM Prior Level of Function Functional [place] Measure 0=Not Assessed/NA 4=Minimal Assistance 1=Total Assistance 5=Supervision or Setup 2=Maximal Assistance 6=Modified [place] 3=Moderate Assistance 7=Complete [place] Bed Mobility: 6 Transfers (B,C,W/C) (FIM): 6 Gait: 6 Patient states he uses a cane, will need a rolling walker. PT Evaluation-Current Subjective Patient in bed pre tx, agrees to PT. Patient states he has pain of 4/10 in left hip. He says he has foot drop, neuropathy, numbness, and weakness in right leg due to a previous injury. Patient will need to get lower extremities dressed and he will be taken down to rehab. Pt/Family Goals to be independent at home. Objective Patient Orientation: Normal For Age ROM/Strength ROM Lower Extremities NT due to recent surgery. Strenght Lower Extremities NT due to recent surgery. Integumentary/Posture Bowel Incontinence: No Bladder Incontinence: No Neuromuscular (Tone, Coordination, Reflexes) WNL Sensory Vision: Functional Hearing: Functional Sensation Right Lower Extremit: Impaired Sensation Left Lower Extremity: Impaired Sensation Lower Extremities Patient states he has some numbness just around the incision on the left hip but has significant numbness in right leg. Transfers Functional [place] Measure 0=Not Assessed/NA 4=Minimal Assistance 1=Total Assistance 5=Supervision or Setup 2=Maximal Assistance 6=Modified [place] 3=Moderate Assistance 7=Complete IndependenceIRFPAI Quality Coding Scale 6 Independent with activity with or without an assistive device 5 Patient requires set up or clean up by helper. Patient completes activity by themselves 4 Supervision or touching assist (CGA). [place] provide cues , steadying assist 3 The helper provides less than half the effort to complete the activity 2 The helper provides more than half the effort to complete the activity 1 Dependent. The helper does all the effort to complete an activity 7 Patient refused to complete or attempt activity 9 The patient did not perform the activity before the current illness or injury 88 Not attempted due to Medical conditions or safety concerns Transfers (B, C, W/C) (FIM): 2 Scootin Rollin Roll Left to Right (QC): 4 Supine to/from Sit: 2 Sit to/from Stand: 4 bed t/f WC(FIM only if WC use): 4 Sit to Lying (QC): 2 Lying to Sitting/Side of Bed(Q: 2 Sit to Stand (QC): 3 Chair/Hhw-zx-Nfpyy Xfer(QC): 3 Car Transfer (QC): 88 Patient max assist for supine <-> sit but CGA for all other bed mobility, min assist for sit to stand and transfers. Cues for safety and hand placement. Gait Does the Patient Walk?: Yes Mode of Locomotion: Walk Anticipated Mode of Locomotion: Walk Gait (FIM): 2 Walk 10 feet (QC): 4 Walk 50 ft with 2 Turns(QC): 4 Walk 150 ft (QC): 88 Walking 10ft/uneven surface-QC: 88 Distance: 50'x2 Gait Level of Assist: 4 Gait Persons Needed: 1 Gait Assistive Device: FWW Comments/Gait Description Patient can ambulate 50' with a rolling walker with CGA (including 50' with at least 2 turns of 90 degrees), antalgic, slow, patient fatigues quickly, right foot drop, decreased stance time on left leg. Wheelchair Training Does the Pt Use a Wheelchair?: Yes Wheelchair (FIM): 6 Distance: 150'x2 Wheel 50 ft with 2 turns (QC): 6 Wheel 150 ft (QC): 6 Type of Wheelchair: Manual Stairs If not tested on admit;explain Not tested due to safety reasons, patient was getting nauseated after ambulation , combined with poor endurance, right leg numbness and foot drop, patient not safe to traverse stairs at this time. Balance Sitting Static: Normal Sitting Dynamic: Normal Standing Static: Fair Standing Dynamic: Fair Picking up an Object (QC): 88 Assessment/Needs Patient has impaired mobility, strength, endurance, also has impaired function in right leg due to a previous injury. Rehab Potential: Fair PT Short Term Goals Short Term Goals Time Frame: Sep 25, 2016 Transfers (B,C,W/C) (FIM): 4 (CGA) Gait (FIM): 2 Gait Distance Comment: 100' Gait Level of Assist: 4 (CGA) Gait Assistive Device: FWW PT Skilled Nursing Goals Plant Engineering Manager Goals PT Skilled Nursing Goals Time Frame: October 09, 2016 Transfers (B,C,W/C) (FIM): 5 Sit to Lying (QC): 4 Lying-Sitting on Side/Bed(QC): 4 Sit to Stand (QC): 4 Rollin Roll Left to Right (QC): 4 Chair/Ikd-va-Cgpfk Xfer(QC): 4 Car Transfer (QC): 4 Gait (FIM): 5 Distance: 150' Walk 10 feet (QC): 4 Walk 10ft-Uneven Surface(QC): 4 Walk 50ft with 2 Turns (QC): 4 Walk 150 ft (QC): 4 Gait Level of Assist: 5 Gait Assistive Device: FWW Stairs (FIM): 2 # of Steps: 4 1 Step (curb) (QC): 4 4 Steps (QC): 4 12 Steps (QC): 88 Stairs Level Of Assist: 4 Picking up an Object (QC): 88 PT Plan Problem List Problem List: Activity Tolerance, Functional Strength, Safety, Balance, Gait, Transfer, Bed Mobility, ROM Treatment/Plan Treatment Plan: Continue Plan of Care Treatment Plan: Bed Mobility, Education, Functional Activity Vaishali, Functional Strength, Group Therapy, Gait, Safety, Therapeutic Exercise, Transfers Treatment Duration: October 09, 2016 # of days/week 5-6 Visits Per Week: 10-11 Minutes/Day (M-F): 60-90 Minutes/Day (Sat/Rees): 15-30 Pt/Family Agrees w/Plan: Yes Safety Risks/Education Patient Education: Gait Training, Transfer Techniques, Reviewed Precautions, Correct Positioning, W/C Management, Disease Process, Safety Issues Teaching Recipient: Patient Teaching Methods: Demonstration, Discussion Response to Teaching: Reinforcement Needed Discharge Recommendations Plan Patient will perform bed mobility and transfer training, balance and endurance training, functional strengthening, stair training, gait training, education, to improve functional mobility and independence at home. Therapy D/C Recommendations: Home w/ Family Support Time/GCodes Time In: 1100 Time Out: 1130 Total Billed Treatment Time: 30 Total Billed Treatment 1 visit CAMRYN 15 min GT 15 min LYNETTE FONTANEZ PT Sep 18, 2016 11:42
[2016-09-18] MEDS ORDERED: RT-ALBUTEROL/IPRATROPIUM 3 ML (DUONEB) VIAL INH PRN (11:45)
[2016-09-18] MEDS ORDERED: cloNIDine 0.1 MG (CATAPRES) TAB PO PRN (11:45)
[2016-09-18] MEDS ORDERED: BISACODYL 10 MG SUPP (DULCOLAX) PR PRN (11:45)
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
[2016-09-18] MEDS: ONDANSETRON 4 MG (ZOFRAN) ORAL DISSOLVE TAB PO PRN (13:13)
[2016-09-18] MEDS: BACLOFEN 10 MG (LIORESAL) TAB PO SCH ×2 (14:12→20:32)
--- NOTE | 2016-09-18 14:37 | ST Cognitive Linguistic Eval ---
Speech Evaluation-General Medical Diagnosis left NNAMDI Onset Date: Sep 16, 2016 Therapy Diagnosis Therapy Diagnosis: Cognitive Linguistic Skills WFL Referral Referring Physician: Dr. Yury Domingo Reason for Referral: Evaluation/Treatment Cognitive Screen Medical History Pertinent Medical History: CAD, GERD, HTN, Neuropathy, OA Reviewed History: Yes Social History Current Living Status: Spouse Speech PLF-Current Status Prior Level of Function The patient denied cognitive, speech, or language deficits prior to admission. Subjective The patient was recently admitted to [facility] following a total hip replacement. The patient greeted the clinician appropriately and was agreeable to participation in the cognitive screen. Language Eval: Auditory Comprehends Simple Yes/No Ques: Functional Indent/Objects Multiple Ndiaye: Functional Ident/Pics in Multiple Ndiaye: Functional Follows 1-Step Commands: Functional Follows Complex Directions: Functional Follows General Conversations: Functional Language Eval: Verbal Language Completes Spontaneous Greeting: Functional Produces Auto, Serial Info: Functional Imitates Simple Words/Phrases: Functional Word Finding: Functional Requests Basic Needs: Functional States Basic Personal Info: Functional Expresses Complex Ideas: Functional Cognitive Patient Orientation The patient was oriented to self, location, month, day of week, and year. Objective Cognitive Domain Attention: WNL Memory: WNL Problem Solving: Functional Executive Functions: WNL Objective Impression The patient demonstrated cognitive linguistic skills grossly within normal limits and appropriate for completion of ADL's. Communication/Social Cognition Comprehension: 5 Expression: 6 Social Interaction: 6 Problem Solvin Memory: 5 Speech Patient Assess Expression of Ideas/Wants: Expression (4) Understanding V[place]al Content: Understands (4) Brief Interview-Mental Status: Yes Repetition of Three Words: Three (3) Temporal Orientation: Year: Correct (3) Temporal Orientation: Month: Accurate within 5 days(2) Temporal Orientation: Day: Correct (1) Recall : Wear to say "Sock": No, could not recall (0) Recall : Color: Yes, no cue required (2) Recall : Bed: Yes, no cue required (2) Speech-Plan Treatment Plan Speech Therapy Treatment Plan: Discontinue ST Evaluation, only. Rehab Potential: Fair Safety Risks/Education Teaching Recipient: Patient, Significant Other Teaching Methods: Discussion Response to Teaching: Verbalize Understanding Education Topics Provided: Plan of Care, Results, Recommendations Time Speech Therapy Time In: 14:10 Speech Therapy Time Out: 14:25 Total Billed Time: 15 Billed Treatment Time 1, SPSNDCOMP MARGIE,SHAWNEE ST Sep 18, 2016 14:37
--- NOTE | 2016-09-18 15:20 | Physical Therapy Daily Note ---
PT Daily Note-Current Subjective Patient in wheelchair in room, finishing up with ST, ready for PT. Patient states his pain is worse at 9/10 in left leg, but patient states he does not want any pain meds at this time. Appearance Patient in bed post tx with nurse call, phone, tray, all needs met. Mental Status Patient Orientation: Normal For Age Transfers Functional [place] Measure 0=Not Assessed/NA 4=Minimal Assistance 1=Total Assistance 5=Supervision or Setup 2=Maximal Assistance 6=Modified [place] 3=Moderate Assistance 7=Complete IndependenceIRFPAI Quality Coding Scale 6 Independent with activity with or without an assistive device 5 Patient requires set up or clean up by helper. Patient completes activity by themselves 4 Supervision or touching assist (CGA). [place] provide cues , steadying assist 3 The helper provides less than half the effort to complete the activity 2 The helper provides more than half the effort to complete the activity 1 Dependent. The helper does all the effort to complete an activity 7 Patient refused to complete or attempt activity 9 The patient did not perform the activity before the current illness or injury 88 Not attempted due to Medical conditions or safety concerns Transfers (B, C, W/C) (FIM): 3 Scootin Rollin Supine to/from Sit: 3 Sit to/from Stand: 4 Bed to/from Chair: 4 min assist for sit to stand, cues for safety and hand placement Gait Training Gait (FIM): 1 Distance: 20', 10', 5' Gait Level of Assist: 4 Gait Persons Needed: 1 Gait Assistive Device: FWW antalgic, very slow Wheelchair Training Does the Pt Use a Wheelchair?: Yes Wheelchair (FIM): 6 Distance: 150'x2 Type of Wheelchair: Manual Exercises Standing: Mini squats Standing Reps: 10 NuStep Minutes: 15 NuStep Workload: 3 Treatments wheelchair mobility, ambulation, functional strengthening and ROM, bed mobility and transfers Assessment Current Status: Fair Progress Patient has poor endurance and more pain this afternoon, he needed many rest breaks. PT Short Term Goals Short Term Goals Time Frame: Sep 25, 2016 Transfers (B,C,W/C) (FIM): 4 (CGA) Gait (FIM): 2 Gait Distance Comment: 100' Gait Level of Assist: 4 (CGA) Gait Assistive Device: FWW Wheelchair Distance: 150'x2 PT Residential Goals Residential Goals PT Residential Goals Time Frame: October 09, 2016 Transfers (B,C,W/C) (FIM): 5 Sit to Lying (QC): 4 Lying-Sitting on Side/Bed(QC): 4 Sit to Stand (QC): 4 Rollin Roll Left to Right (QC): 4 Chair/Iqu-oz-Uftkb Xfer(QC): 4 Car Transfer (QC): 4 Gait (FIM): 5 Distance: 150' Walk 10 feet (QC): 4 Walk 10ft-Uneven Surface(QC): 4 Walk 50ft with 2 Turns (QC): 4 Walk 150 ft (QC): 4 Gait Level of Assist: 5 Gait Assistive Device: FWW Stairs (FIM): 2 # of Steps: 4 1 Step (curb) (QC): 4 4 Steps (QC): 4 12 Steps (QC): 88 Stairs Level Of Assist: 4 Picking up an Object (QC): 88 PT Plan Problem List Problem List: Activity Tolerance, Functional Strength, Safety, Balance, Gait, Transfer, Bed Mobility, ROM Treatment/Plan Treatment Plan: Continue Plan of Care Treatment Plan: Bed Mobility, Education, Functional Activity Vaishali, Functional Strength, Group Therapy, Gait, Safety, Therapeutic Exercise, Transfers Treatment Duration: October 09, 2016 Visits Per Week: 10-11 Minutes/Day (M-F): 60-90 Minutes/Day (Sat/Rees): 15-30 Safety Risks/Education Patient Education: Gait Training, Transfer Techniques, Reviewed Precautions, Correct Positioning, W/C Management, Safety Issues Teaching Recipient: Patient Teaching Methods: Demonstration, Discussion Response to Teaching: Reinforcement Needed Time/GCodes Time In: 1430 Time Out: 1515 Total Billed Treatment Time: 45 Total Billed Treatment 1 visit [facility] 15' GT 15' EX 15' LYNETTE FONTANEZ PT Sep 18, 2016 15:20
--- NOTE | 2016-09-18 15:46 | Occupational Ther Daily Note ---
OT Current Status-Daily Note Subjective Pt seen in room, up in bed, agreeable to OT.No pain mentioned but he reported he was nauseated and would like some medication for that. Nursing notified Appearance Alert, cooperative Mental Status/Objective Functional [place] Measure 0=Not Assessed/NA 4=Minimal Assistance 1=Total Assistance 5=Supervision or Setup 2=Maximal Assistance 6=Modified [place] 3=Moderate Assistance 7=Complete [place] ADL-Treatment Pt transitioned from supine to sit EOB with SBA, although movements were very slow. Sit to stand with SBA, FWW, reminder to push up from bed, not pull up from walker. Transferred to w/c with CGA, FWW. Pt propelled himself to gym area. Skilled cues to lock brakes. Pt did 13 minutes bilat UE exercise ("This feels pretty good") set at 20W resistance. He also reported that he had previously lifted weights at home (25 pounds x 100+ reps). Pt fitted with w/c that did not rub against hips and provided with cushion to make chair tall enough. Reviewed hip precautions with pt and he has good understanding of them based on education from a friend who had a hip replacement a couple of months ago. Pt education on planned ADLs for tomorrow and adapted equipment set up ( dressing stick, sock aid, binder coverstitch). Pt propelled w/c back to his room and was left up in w/c, present, all needs met. Functional [place] Measure 0=Not Assessed/NA 4=Minimal Assistance 1=Total Assistance 5=Supervision or Setup 2=Maximal Assistance 6=Modified [place] 3=Moderate Assistance 7=Complete IndependenceIRFPAI Quality Coding Scale 6 Independent with activity with or without an assistive device 5 Patient requires set up or clean up by helper. Patient completes activity by themselves 4 Supervision or touching assist (CGA). [place] provide cues , steadying assist 3 The helper provides less than half the effort to complete the activity 2 The helper provides more than half the effort to complete the activity 1 Dependent. The helper does all the effort to complete an activity 7 Patient refused to complete or attempt activity 9 The patient did not perform the activity before the current illness or injury 88 Not attempted due to Medical conditions or safety concerns Education OT Patient Education: Modified ADL techniques, Purpose of tx/functional activities, Reviewed precautions, Transfer techniques, Use of adapted equipment Teaching Methods: Discussion Response to Teaching: Reinforcement Needed OT Short Term Goals Short Term Goals 1=Demonstrate adherence to instructed precautions during ADL tasks. 2=Patient will verbalize/demonstrate understanding of assistive devices/ modifications for ADL. 3=Patient will improve strength/tolerance for activity to enable patient to perform ADL's. OT Residential Goals Residential Goals Time Frame: October 02, 2016 Eating (FIM): 6 Eating (QC): 6 Groomin Oral Hygiene (QC): 6 Bathing(FIM): 6 Shower/Bathe Self (QC): 6 Upper Body Dressing(FIM): 6 Upper Body Dressing (QC): 6 Lower Body Dressing(FIM): 6 Lower Body Dressing (QC): 3 On/Off Footwear (QC): 6 Toileting(FIM): 6 Toileting Hygiene (QC): 6 Transfers (B,C,W/C) (FIM): 6 Toilet/Commode Transfer (QC): 6 Shower Transfer(FIM): 6 Additional Goals: 1-Demonstrate ADL Tasks, 2-Verbalize Understanding, 3- ImproveStrength/Vaishali 1=Demonstrate adherence to instructed precautions during ADL tasks. 2=Patient will verbalize/demonstrate understanding of assistive devices/ modifications for ADL. 3=Patient will improve strength/tolerance for activity to enable patient to perform ADL's. OT Education/Plan Problem List/Assessment High intensity due to decr activity tolerance from CA, decreased functional use R LE, decreased UE strength, decreased functional mobility, decr self care skills Discharge Recommendations Plan/Recommendations: Continue POC Treatment Plan/Plan of Care Patient would benefit from OT for education, treatment and training to promote independence in ADL's, mobility, safety and/or upper extremity function for ADL' s. Plan of Care: ADL Retraining, Functional Mobility, Group Exercise/Act as Ind ( education, exercise, activity tolerance, functional activities), UE Funct Exercise/Act, UE Neuromus Re-Ed/Coord Treatment Duration: October 02, 2016 Visits Per Week: 10-11 Minutes/Day (M-F): 75-90 Minutes/Day (Sat/Rees): PRN Agreement: Yes Rehab Potential: Good Time/GCodes Start Time: 13:05 Stop Time: 14:10 Total Time Billed (hr/min): 65 Billed Treatment Time visit, 30 minutes ADL, 35 minutes exercise ADY RODRIGES OT Sep 18, 2016 15:46
[2016-09-18] MEDS: RT-ALBUTEROL/IPRATROPIUM 3 ML (DUONEB) VIAL INH SCH ×2 (16:38→19:24)
[2016-09-18] MEDS ORDERED: NON-FORMULARY MEDICATION 1 EA EA PO SCH (17:00)
[2016-09-18 18:00] VITALS: BP 115/71
[2016-09-18] MEDS ORDERED: ENOXAPARIN 40 MG/0.4 ML (LOVENOX) SYR SC SCH (18:00)
[2016-09-18] MEDS: FENOFIBRATE 134 MG (LOFIBRA) CAPSULE PO SCH (18:03)
[2016-09-18] MEDS: VITAMIN D3 5,000 UNITS (CHOLECALCIFEROL ) CAPSULE PO SCH (18:03)
[2016-09-18] MEDS: SENNA W/DOCUSATE (SENOKOT S) TABLET PO SCH (20:32)
[2016-09-18] MEDS: FINASTERIDE (PROSCAR) 5 MG TAB PO SCH (20:32)
[2016-09-18] MEDS: MIRTAZAPINE 15 MG (REMERON) TAB PO SCH (20:32)
[2016-09-18] MEDS: MELATONIN 3 MG TABLET PO SCH (20:32)
[2016-09-18] MEDS: POLYETHYLENE GLYCOL 17 GM (MIRALAX) PACK PO SCH (20:33)
[2016-09-18] MEDS: ALPRAZolam 1 MG (XANAX) TAB PO PRN (22:16)
[2016-09-18] MEDS: SUCRALFATE 1 GM (CARAFATE) TAB PO PRN (22:16)
[2016-09-18] MEDS: HYDROcodone/APAP 10 MG/325 MG (LORTAB) TAB PO PRN (23:08)
[2016-09-19 05:20] VITALS: BP 96/65
[2016-09-19] MEDS: PANTOPRAZOLE 40 MG (PROTONIX) TAB PO SCH (06:10)
[2016-09-19] MEDS: RT-ALBUTEROL/IPRATROPIUM 3 ML (DUONEB) VIAL INH SCH ×4 (07:42→18:38)
--- NOTE | 2016-09-19 07:43 | PM&R Post Admission Assessment ---
Post Admission Physician Asses The preadmission screen agrees with the post admission assessment that the patient is a good candidate for inpatient rehabilitation. The patient will have a comprehensive program of inpatient rehabilitation with a goal of maximizing level of functional dependence prior to discharge home with [family]. The patient will have PT/OT ninety minutes per day, each discipline, five days a week for gait strengthening, conditioning, balance, ADLs , any patient/family/caregiver training necessary. Speech therapy to do cognitive assessment and treat as indicted. Rehabilitation nursing to assist with bowel, bladder, skin, wound care, medication administration, pain management. Marketing Support Coordinator to assist with discharge planning, community reentry. SCD's for DVT prophylaxis. He appears to be well motivated to participate in three hours of therapy a day. He should be able to tolerate three hours of therapy a day from a medical standpoint. He should benefit from the three hours of therapy a day. He has a reasonable discharge plan, reasonable discharge rehabilitation goals and a supportive family. He has various comorbidities that need to be closely monitored with medications and treatments adjusted on a daily basis as needed. These include: Post-op fever Post-op anemia Post-op resp insufficiency-02 dependent HTN with hypotension at this point Barriers to discharge for this patient who had been independent prior to this and for him to be modified independent to supervision for ADLs and mobility skills prior to discharge home with spouse as well as further management of above medical issues, so as to lessen the burden of the caregivers. Risks for this patient include: 1. Fall 2. Fracture 3. DVT 4. Pulmonary embolism 5. Wound infection 6. Skin breakdown 7. Contractures 8. Poorly controlled pain 9. Urinary retention 10. UTI 11. Respiratory infection 12. Aspiration 13. Worsening hypotension 14. Poorly controlled HTN 15...Hip dislocation 16. Worsening Resp insufficiency 17. Worsening Anemia 18. Worsening post-op fever Estimated Length of Stay: 2-3 weeks Prognosis: Rehab prognosis appears good for goal of discharge home with spouse modified independent to supervision for ADLs and mobility skills. KATHY STEWARD MD Sep 19, 2016 07:43
[2016-09-19] MEDS: ASPIRIN E.C. 325 MG (ECOTRIN) TABLET PO SCH (07:57)
[2016-09-19] MEDS: BACLOFEN 10 MG (LIORESAL) TAB PO SCH ×2 (07:57→11:40)
[2016-09-19] MEDS: FENOFIBRATE 134 MG (LOFIBRA) CAPSULE PO SCH (07:57)
[2016-09-19] MEDS: SENNA W/DOCUSATE (SENOKOT S) TABLET PO SCH ×2 (07:57→21:27)
[2016-09-19] MEDS: POLYETHYLENE GLYCOL 17 GM (MIRALAX) PACK PO SCH ×2 (07:59→21:27)
[2016-09-19] MEDS ORDERED: ASPI-999 PO (08:13)
[2016-09-19] MEDS: ALPRAZolam 1 MG (XANAX) TAB PO PRN ×2 (09:00→21:29)
[2016-09-19] MEDS ORDERED: cloNIDine 0.1 MG (CATAPRES) TAB PO SCH (09:00)
[2016-09-19] MEDS ORDERED: amLODIPine 5 MG (NORVASC) TAB PO SCH (09:00)
[2016-09-19] MEDS: ONDANSETRON 4 MG (ZOFRAN) ORAL DISSOLVE TAB PO PRN (09:00)
[2016-09-19] MEDS: HYDROcodone/APAP 10 MG/325 MG (LORTAB) TAB PO PRN (09:01)
--- NOTE | 2016-09-19 09:16 | HISTORY AND PHYSICAL ---
DATE OF SERVICE: 09/18/2016 CHIEF COMPLAINT: Difficulty with walking. HISTORY OF PRESENT ILLNESS: The patient is a 70-year-old male with past medical history significant for renal cell carcinoma and disability, who had painful DJD of the left hip refractory to conservative care. The patient was admitted to the service of orthopedics and underwent a left total hip replacement at [facility] with Dr. Fischer. The patient required assistance for his ADLs and mobility skills postoperatively. He had postop anemia as well as postop respiratory insufficiency and was on O2 by nasal cannula. He was referred to inpatient rehabilitation unit after being first assessed on the surgical floor by treated by PT and OT. Currently, the patient has dyspnea on exertion,as well as limited endurance. He had been modified independent with a cane prior to this and living with his spouse in a single-level home. Currently, he is min assist for transfers and ambulation short distances with a front-wheeled walker. He has fair standing balance. He is reported to be continent of bowel and bladder. He is modified independent for eating, set up for grooming, min assist for upper body dressing and max assist for lower body dressing, mod assist for toileting. PAST MEDICAL HISTORY: Coronary artery disease, hypercholesterolemia, hypertension, renal cancer. PAST SURGICAL HISTORY: Appendectomy, coronary stent, cystectomy, cholecystectomy, nephrectomy. He has a nodule in the right lung which is being followed by Dr. Simmons. ALLERGIES: MULTIPLE INTOLERANCES, include PLAVIX, COQ10, COMPAZINE, STATINS, METRONIDAZOLE. FAMILY HISTORY: Noncontributory. SOCIAL HISTORY: Disabled, retired, as per above. REVIEW OF SYSTEMS: A 10-point review of systems is significant for hip pain, shortness of breath. MEDICATIONS: ASA 225 mg p.o. q. day, amlodipine 5 mg p.o. q. day, Catapres 0.1 mg p.o. q. day, Protonix 40 mg p.o. q. day, MiraLax 34 grams p.o. b.i.d., Senokot S one tablet p.o. b.i.d., Proscar 5 mg p.o. q. night, melatonin 3 mg p.o. q. night, Remeron 15 mg p.o. q. night, Lovenox 40 mg subcu q. day, vitamin D 5,000 units p.o. q. day, Lofibra 134 mg p.o. q. day, DuoNeb treatments q.i.d., Baclofen 10 mg p.o. t.i.d., Tramadol 50 mg p.o. q. 6 hours p.r.n. mild pain, Xanax 1 mg p.o. q. 6 hours p.r.n. anxiety, Lortab 10 one tablet p.o. q. 6 hours p.r.n. moderate pain, Carafate 1 gram p.o. q. morning and night p.r.n. heartburn. PHYSICAL EXAMINATION: GENERAL: Pleasant male sitting up at side of bed with therapy, in no acute distress. VITAL SIGNS: Temp is 99.6, pulse is 80, respirations 16, blood pressure 96/65, O2 sat 92% on 3 liters. Temperature on 09/18 was 100 degrees last evening. PRIMARY CARE PHYSICIAN: Dr. Heaton. His H and H on 09/18 was 10.7/33, WBC 11.3, platelet count 145,000. HEENT: The patient's speech is clear, grossly intact. No oral lesion is noted. O2 by nasal cannula in place. NECK: Supple without mass. HEART: Regular rhythm. LUNGS: Clear. ABDOMEN: Soft, nontender. Bowel sounds present. EXTREMITIES: Trace edema, left ankle. Incision site healing well. No calf tenderness. MUSCULOSKELETAL: The patient has function and active range of motion in both upper extremities and right lower extremity. The left lower extremity functional distal not tested, hip, due to recent surgery. NEUROLOGIC: Sensation is grossly intact to touch. Cognition intact. Strength, both upper limbs is 4/5 grossly, as well as right lower extremity, left lower extremity limited and guarded due to pain in the left hip. Distal strength, left leg, in knee and ankle, 4- to 4/5. IMPRESSION: 1. Ambulatory dysfunction secondary to degenerative joint disease of the left hip, status post left total hip replacement by Dr. Fischer, [facility]. Weightbearing as tolerated. 2. Low-grade postop fever. Monitor. 3. Postop anemia. 4. Renal cell carcinoma, status post nephrectomy. 5. Right lung lesion, being followed by Dr. Simmons, medical oncology. 6. Deep vein thrombus prophylaxis postop, on Lovenox. 7. History of diverticulitis. 8. History of postop pneumonia. 9. Chronic back pain. 10. Hypertension. Continue home medication. 11. Benign prostatic hyperplasia, on medicines. PLAN: The patient will have a comprehensive program of inpatient orthopedic rehabilitation with the goal of maximizing level of functional independence prior to discharge home with spouse and home health care. Patient will have PT, OT 90 minutes per day for gait, strengthening, conditioning and OT for ADLs and patient, family training as necessary. Any adaptive equipment and training necessary. Speech therapy to do cognitive assessment, treat as indicated. Rehabilitation Nursing to assist with bowel, bladder, skin, wound care, medication administration, pain management. Respiratory therapy to assist with O2 administration, respiratory treatments.. Will follow up regarding any weaning from 02 as necessary. director field services to assist with discharge planning and community reentry. Follow up with Dr. Vuong and Hospitalist service in lieu of Dr. Heaton as well as Dr. Fischer , orthopedics as per their schedule. Trend labs and O2 sats. Patient appears to be somewhat hypotensive at this point, will follow up with hospitalist service regarding adjusting antihypertensive medications as needed. ESTIMATED LENGTH OF STAY: Two weeks. PROGNOSIS: Rehab prognosis appears good for goal of discharging home with spouse, modified independent with supervision of ADLs with mobility skills with home health care. DIET: Regular. CODE STATUS: Full code. Job ID: [id number] DocumentID: [id number] Dictated Date: 09/19/2016 07:33:09 Mall Manager Date: 09/19/2016 08:21:14 Dictated By: KATHY STEWARD MD MTDD
--- NOTE | 2016-09-19 10:50 | Occupational Ther Daily Note ---
OT Current Status-Daily Note Subjective Pt seen in room, up in bed, agreeable to OT. Pain when moving rated 6-7 in L hip. Not described. Appearance Alert, cooperative, aware of hip precautions Mental Status/Objective Functional [place] Measure 0=Not Assessed/NA 4=Minimal Assistance 1=Total Assistance 5=Supervision or Setup 2=Maximal Assistance 6=Modified [place] 3=Moderate Assistance 7=Complete [place] ADL-Treatment Pt recalled hip precautions and followed them throughout ADLs. Functional [place] Measure 0=Not Assessed/NA 4=Minimal Assistance 1=Total Assistance 5=Supervision or Setup 2=Maximal Assistance 6=Modified [place] 3=Moderate Assistance 7=Complete IndependenceIRFPAI Quality Coding Scale 6 Independent with activity with or without an assistive device 5 Patient requires set up or clean up by helper. Patient completes activity by themselves 4 Supervision or touching assist (CGA). [place] provide cues , steadying assist 3 The helper provides less than half the effort to complete the activity 2 The helper provides more than half the effort to complete the activity 1 Dependent. The helper does all the effort to complete an activity 7 Patient refused to complete or attempt activity 9 The patient did not perform the activity before the current illness or injury 88 Not attempted due to Medical conditions or safety concerns Eating (FIM): 6 (No teeth, no dentures. Can cut up food and feed himself) Eating (QC): 6 Grooming (FIM): 5 (Washed face and hands in shower. Does not have teeth and does not have dentures. No hair to comb. ) Oral Hygiene (QC): 5 (setup) Bathing (FIM): 4 (Washed and dried all parts except lower legs (hip precautions.) Provided with long handled sponge and he was able to wash feet. pt education use of long handled sponge to wash and dry lower legs. Shower chair , grab bars, hand held shower. ) Shower/Bathe Self (QC): 3 Upper Body (FIM): 5 (Doffed and donned t shirt with setup) Upper Body Dressing (QC): 5 Lower Body Dressing (FIM): 3 (CGA when standing to lower pants. Pt educ use of dressing stick to don pants and remove socks and use of sock aid to don socks. FWW for standing. Limited due to hip precautions) Lower Body Dressing (QC): 3 On/Off Footwear (QC): 1 Toileting (FIM): 3 (CGA when standing to manage clothing, FWW. BSC. Help to wipe bottom. Pt reported he is able to use urinal without assistance. ) Toileting Hygiene (QC): 3 Transfers (B, C, W/C) (FIM): 4 (Min to CGA sit to stand and stand to sit. ABle to get legs in and out of bed. ) Toilet/Commode Transfer (FIM): 4 (CGA, BSC, FW) Toilet Transfer (QC): 4 Shower Transfer(FIM): 4 (CGA, pt education for handplacement for shower. Sgower chair, grab bars, FWW) Pt left up on BSC, call light available. All needs met. OT Short Term Goals Short Term Goals 1=Demonstrate adherence to instructed precautions during ADL tasks. 2=Patient will verbalize/demonstrate understanding of assistive devices/ modifications for ADL. 3=Patient will improve strength/tolerance for activity to enable patient to perform ADL's. OT Slot Router Goals Senior Living Goals Time Frame: October 02, 2016 Eating (FIM): 6 Eating (QC): 6 Groomin Oral Hygiene (QC): 6 Bathing(FIM): 6 Shower/Bathe Self (QC): 6 Upper Body Dressing(FIM): 6 Upper Body Dressing (QC): 6 Lower Body Dressing(FIM): 6 Lower Body Dressing (QC): 3 On/Off Footwear (QC): 6 Toileting(FIM): 6 Toileting Hygiene (QC): 6 Transfers (B,C,W/C) (FIM): 6 Toilet/Commode Transfer (QC): 6 Shower Transfer(FIM): 6 Additional Goals: 1-Demonstrate ADL Tasks, 2-Verbalize Understanding, 3- ImproveStrength/Vaishali 1=Demonstrate adherence to instructed precautions during ADL tasks. 2=Patient will verbalize/demonstrate understanding of assistive devices/ modifications for ADL. 3=Patient will improve strength/tolerance for activity to enable patient to perform ADL's. OT Education/Plan Problem List/Assessment High intensity due to decr activity tolerance from CA, decreased functional use R LE, decreased UE strength, decreased functional mobility, decr self care skills Discharge Recommendations Plan/Recommendations: Continue POC Treatment Plan/Plan of Care Patient would benefit from OT for education, treatment and training to promote independence in ADL's, mobility, safety and/or upper extremity function for ADL' s. Plan of Care: ADL Retraining, Functional Mobility, Group Exercise/Act as Ind ( education, exercise, activity tolerance, functional activities), UE Funct Exercise/Act, UE Neuromus Re-Ed/Coord Treatment Duration: October 02, 2016 Visits Per Week: 10-11 Minutes/Day (M-F): 75-90 Minutes/Day (Sat/Rees): PRN Agreement: Yes Rehab Potential: Good Time/GCodes Start Time: 08:30 Stop Time: 09:30 Total Time Billed (hr/min): 60 Billed Treatment Time visit, 60 minutes ADL ADY RODRIGES OT Sep 19, 2016 10:50
--- NOTE | 2016-09-19 11:28 | Progress Note-Hospitalist ---
Progress Note Progress Notes/Assess & Plan Date Seen 09/19/16 Diagonsis/Assessment & Plan Chart Review: Max fever 100, Hgb 11.4, Urine negative obtained yesterday, receiving Neb treatments, and DVT prophylaxis bar helper: Pt is feeling nauseous on meds. DC Baclofen. Patient Interview: Physical exam stable Pt has been ambulating Urine test normal Pt will continue breathing treatments Pt's current PCP is Dr. Heaton No fever, vital signs stable, pleasant, improved Regular rate and rhythm, clear to auscultation bilaterally Positive bowel sounds No edema Assessment: Left hip arthroplasty uncomplicated POD#3 History of renal cell carcinoma Chronic debility with lifelong disability History of diverticulitis History of pneumonia postop receiving Nebs and using IS with good results Chronic back pain Hypertension BPH Dysuria post op checking UA which was negative Plan: DC Baclofen Monitor closely Scribed by Reyes Faulkner under the direct supervision of Dr. Vuong. LOUIS VUONG DO Sep 19, 2016 11:28
--- NOTE | 2016-09-19 12:44 | Physical Therapy Daily Note ---
PT Daily Note-Current Subjective AGreeable to PT. Transfers Functional [place] Measure 0=Not Assessed/NA 4=Minimal Assistance 1=Total Assistance 5=Supervision or Setup 2=Maximal Assistance 6=Modified [place] 3=Moderate Assistance 7=Complete IndependenceIRFPAI Quality Coding Scale 6 Independent with activity with or without an assistive device 5 Patient requires set up or clean up by helper. Patient completes activity by themselves 4 Supervision or touching assist (CGA). [place] provide cues , steadying assist 3 The helper provides less than half the effort to complete the activity 2 The helper provides more than half the effort to complete the activity 1 Dependent. The helper does all the effort to complete an activity 7 Patient refused to complete or attempt activity 9 The patient did not perform the activity before the current illness or injury 88 Not attempted due to Medical conditions or safety concerns Transfers (B, C, W/C) (FIM): 4 Scootin Rollin Supine to/from Sit: 4 Sit to/from Stand: 4 (CGA for safety) Weight Bearing Weight Bearing Restriction: Weight Bearing/Tolerated Gait Training Does the Patient Walk?: Yes Gait (FIM): 5 Distance (FIM): 3=150 ft Distance: 150 ft x 3 Gait Assistive Device: FWW gait is steady with no noted LOB Exercises Supine Ex: Ankle pumps, Quad Set, Heel Slides, Short Arc Quads, Hip abd/add Supine Reps: 12 (to increase functional strngth for gait and transfers) Assessment Current Status: Good Progress Improved functional transfers and increased ambulation distance. Pt making functional gains. PT Short Term Goals Short Term Goals Time Frame: Sep 25, 2016 Gait (FIM): 2 Gait Distance Comment: 100' Gait Level of Assist: 4 (CGA) Gait Assistive Device: FWW Wheelchair Distance: 150'x2 PT Manufacturing Director Goals Manufacturing Director Goals PT Detention Goals Time Frame: October 09, 2016 Transfers (B,C,W/C) (FIM): 5 Sit to Lying (QC): 4 Lying-Sitting on Side/Bed(QC): 4 Sit to Stand (QC): 4 Rollin Roll Left to Right (QC): 4 Chair/Etz-jq-Aohqj Xfer(QC): 4 Car Transfer (QC): 4 Gait (FIM): 5 Distance: 150' Walk 10 feet (QC): 4 Walk 10ft-Uneven Surface(QC): 4 Walk 50ft with 2 Turns (QC): 4 Walk 150 ft (QC): 4 Gait Level of Assist: 5 Gait Assistive Device: FWW Stairs (FIM): 2 # of Steps: 4 1 Step (curb) (QC): 4 4 Steps (QC): 4 12 Steps (QC): 88 Stairs Level Of Assist: 4 Picking up an Object (QC): 88 PT Plan Problem List Problem List: Activity Tolerance, Functional Strength Treatment/Plan Treatment Plan: Continue Plan of Care Treatment Plan: Bed Mobility, Education, Functional Activity Vaishali, Functional Strength, Group Therapy, Gait, Safety, Therapeutic Exercise, Transfers Treatment Duration: October 09, 2016 Visits Per Week: 10-11 Minutes/Day (M-F): 60-90 Minutes/Day (Sat/Rees): 15-30 Safety Risks/Education Patient Education: Transfer Techniques, Safety Issues Teaching Recipient: Patient Teaching Methods: Demonstration, Discussion Response to Teaching: Reinforcement Needed Time/GCodes Time In: 1000 Time Out: 1100 Total Billed Treatment Time: 60 Total Billed Treatment visit EX 30 GT 30 SARAI REGAN PT Sep 19, 2016 12:44
--- NOTE | 2016-09-19 15:35 | Physical Therapy Daily Note ---
PT Daily Note-Current Subjective Agreeable to PT. Expresses that he does not like to ride the nu step. Mental Status Patient Orientation: Person, Place, Time, Situation Transfers Functional [place] Measure 0=Not Assessed/NA 4=Minimal Assistance 1=Total Assistance 5=Supervision or Setup 2=Maximal Assistance 6=Modified [place] 3=Moderate Assistance 7=Complete IndependenceIRFPAI Quality Coding Scale 6 Independent with activity with or without an assistive device 5 Patient requires set up or clean up by helper. Patient completes activity by themselves 4 Supervision or touching assist (CGA). [place] provide cues , steadying assist 3 The helper provides less than half the effort to complete the activity 2 The helper provides more than half the effort to complete the activity 1 Dependent. The helper does all the effort to complete an activity 7 Patient refused to complete or attempt activity 9 The patient did not perform the activity before the current illness or injury 88 Not attempted due to Medical conditions or safety concerns Treatments Gait training with FWW to include up down curb step with cues/education on correct sequencing, able to complete with 50% cues and CGA. Pt then went up/ down 4 steps with B handrails with skilled cues for sequencing. Gait x 200 ft with FWW with CGA. Pt sat on side of bed, then decided to toilet. Pt able to walk to toilet with FWW with SBA and transferred onto commode with SBA. Assessment Current Status: Good Progress Functional gait and tranfers are improving. Progressing towards est goals. PT Short Term Goals Short Term Goals Time Frame: Sep 25, 2016 Gait (FIM): 2 (met 09/19/16) Gait Distance Comment: 100' Gait Level of Assist: 4 (CGA) Gait Assistive Device: FWW Wheelchair Distance: 150'x2 PT Correction Goals Sole Leveler Machine Goals PT Correction Goals Time Frame: October 09, 2016 Transfers (B,C,W/C) (FIM): 5 Sit to Lying (QC): 4 Lying-Sitting on Side/Bed(QC): 4 Sit to Stand (QC): 4 Rollin Roll Left to Right (QC): 4 Chair/Ujz-af-Ooujg Xfer(QC): 4 Car Transfer (QC): 4 Gait (FIM): 5 Distance: 150' Walk 10 feet (QC): 4 Walk 10ft-Uneven Surface(QC): 4 Walk 50ft with 2 Turns (QC): 4 Walk 150 ft (QC): 4 Gait Level of Assist: 5 Gait Assistive Device: FWW Stairs (FIM): 2 # of Steps: 4 1 Step (curb) (QC): 4 4 Steps (QC): 4 12 Steps (QC): 88 Stairs Level Of Assist: 4 Picking up an Object (QC): 88 PT Plan Problem List Problem List: Activity Tolerance, Functional Strength, Safety, Balance, Gait, Transfer, Bed Mobility Treatment/Plan Treatment Plan: Continue Plan of Care Treatment Plan: Bed Mobility, Education, Functional Activity Vaishali, Functional Strength, Group Therapy, Gait, Safety, Therapeutic Exercise, Transfers Treatment Duration: October 09, 2016 Visits Per Week: 10-11 Minutes/Day (M-F): 60-90 Minutes/Day (Sat/Rees): 15-30 Safety Risks/Education Patient Education: Steps Teaching Recipient: Patient Teaching Methods: Demonstration, Discussion Response to Teaching: Return Demonstration Time/GCodes Time In: 1405 Time Out: 1435 Total Billed Treatment Time: 30 Total Billed Treatment visit GT 30 SARAI REGAN PT Sep 19, 2016 15:35
--- NOTE | 2016-09-19 15:35 | Occupational Ther Daily Note ---
OT Current Status-Daily Note Subjective Pt seen in room, up in bed, agreeable to OT. No pain mentioned Appearance Alert, cooperative Mental Status/Objective Functional [place] Measure 0=Not Assessed/NA 4=Minimal Assistance 1=Total Assistance 5=Supervision or Setup 2=Maximal Assistance 6=Modified [place] 3=Moderate Assistance 7=Complete [place] ADL-Treatment Functional [place] Measure 0=Not Assessed/NA 4=Minimal Assistance 1=Total Assistance 5=Supervision or Setup 2=Maximal Assistance 6=Modified [place] 3=Moderate Assistance 7=Complete IndependenceIRFPAI Quality Coding Scale 6 Independent with activity with or without an assistive device 5 Patient requires set up or clean up by helper. Patient completes activity by themselves 4 Supervision or touching assist (CGA). [place] provide cues , steadying assist 3 The helper provides less than half the effort to complete the activity 2 The helper provides more than half the effort to complete the activity 1 Dependent. The helper does all the effort to complete an activity 7 Patient refused to complete or attempt activity 9 The patient did not perform the activity before the current illness or injury 88 Not attempted due to Medical conditions or safety concerns Other Treatment Pt transitioned from supine to sit EOB without assistance, but moving slowly. Sit to stand with CGA, FWW. Walked to www/c and sat with CGA, FWW. pt propelled himself to the gym and did 15 minutes bilat UE exercise on arm bike set at 20W resistance (increased time). Exercise to help with standing during ADLs and transfers. Pt worked at steady pace and did not require any recovery periods. Pt was left up in gym in w/c for PT, all needs met. Education OT Patient Education: Exercise program, Progress toward Goal/Update tx plan, Purpose of tx/functional activities Teaching Methods: Discussion OT Short Term Goals Short Term Goals 1=Demonstrate adherence to instructed precautions during ADL tasks. 2=Patient will verbalize/demonstrate understanding of assistive devices/ modifications for ADL. 3=Patient will improve strength/tolerance for activity to enable patient to perform ADL's. OT Vocational Counselor Goals Vocational Counselor Goals Time Frame: October 02, 2016 Eating (FIM): 6 Eating (QC): 6 Groomin Oral Hygiene (QC): 6 Bathing(FIM): 6 Shower/Bathe Self (QC): 6 Upper Body Dressing(FIM): 6 Upper Body Dressing (QC): 6 Lower Body Dressing(FIM): 6 Lower Body Dressing (QC): 3 On/Off Footwear (QC): 6 Toileting(FIM): 6 Toileting Hygiene (QC): 6 Transfers (B,C,W/C) (FIM): 6 Toilet/Commode Transfer (QC): 6 Shower Transfer(FIM): 6 Additional Goals: 1-Demonstrate ADL Tasks, 2-Verbalize Understanding, 3- ImproveStrength/Vaishali 1=Demonstrate adherence to instructed precautions during ADL tasks. 2=Patient will verbalize/demonstrate understanding of assistive devices/ modifications for ADL. 3=Patient will improve strength/tolerance for activity to enable patient to perform ADL's. OT Education/Plan Problem List/Assessment High intensity due to decr activity tolerance from CA, decreased functional use R LE, decreased UE strength, decreased functional mobility, decr self care skills Discharge Recommendations Plan/Recommendations: Continue POC Treatment Plan/Plan of Care Patient would benefit from OT for education, treatment and training to promote independence in ADL's, mobility, safety and/or upper extremity function for ADL' s. Plan of Care: ADL Retraining, Functional Mobility, Group Exercise/Act as Ind ( education, exercise, activity tolerance, functional activities), UE Funct Exercise/Act, UE Neuromus Re-Ed/Coord Treatment Duration: October 02, 2016 Visits Per Week: 10-11 Minutes/Day (M-F): 75-90 Minutes/Day (Sat/Rees): PRN Agreement: Yes Rehab Potential: Good Time/GCodes Start Time: 13:30 Stop Time: 14:00 Total Time Billed (hr/min): 30 Billed Treatment Time visit, 30 minutes exercise ADY RODRIGES OT Sep 19, 2016 15:35
[2016-09-19] MEDS: VITAMIN D3 5,000 UNITS (CHOLECALCIFEROL ) CAPSULE PO SCH (18:03)
[2016-09-19 18:20] VITALS: BP 97/60
[2016-09-19] MEDS: LOPERAMIDE 2 MG (IMODIUM) CAP PO PRN (21:26)
[2016-09-19] MEDS: FINASTERIDE (PROSCAR) 5 MG TAB PO SCH (21:27)
[2016-09-19] MEDS: MELATONIN 3 MG TABLET PO SCH (21:27)
[2016-09-19] MEDS: MIRTAZAPINE 15 MG (REMERON) TAB PO SCH (21:27)
[2016-09-20 06:00] VITALS: BP 96/60
[2016-09-20] MEDS: RT-ALBUTEROL/IPRATROPIUM 3 ML (DUONEB) VIAL INH SCH ×4 (06:30→18:27)
[2016-09-20] MEDS: PANTOPRAZOLE 40 MG (PROTONIX) TAB PO SCH (06:45)
[2016-09-20] MEDS: FENOFIBRATE 134 MG (LOFIBRA) CAPSULE PO SCH (07:42)
[2016-09-20] MEDS: VITAMIN D3 5,000 UNITS (CHOLECALCIFEROL ) CAPSULE PO SCH (07:42)
[2016-09-20] MEDS: ALPRAZolam 1 MG (XANAX) TAB PO PRN ×2 (07:43→23:02)
[2016-09-20] MEDS: ASPIRIN E.C. 325 MG (ECOTRIN) TABLET PO SCH (07:43)
[2016-09-20] MEDS: SENNA W/DOCUSATE (SENOKOT S) TABLET PO SCH ×2 (07:54→19:59)
[2016-09-20] MEDS: POLYETHYLENE GLYCOL 17 GM (MIRALAX) PACK PO SCH ×2 (07:54→20:00)
[2016-09-20 09:48] LABS: BASOPHILS % (AUTO) 0 % (0-10); EOSINOPHILS # (AUTO) 0.5 10^3/uL (0.0-0.3); EOSINOPHILS % (AUTO) 6 % (0-10); LYMPHOCYTES # (AUTO) 1.4 X 10^3 (1.0-4.0); LYMPHOCYTES % (AUTO) 17 % (12-44); MEAN CORPUSCULAR HEMOGLOBIN 31 PG (25-34); MEAN CORPUSCULAR HGB CONC 33 G/DL (32-36); MEAN CORPUSCULAR VOLUME 93 FL (80-99); MEAN PLATELET VOLUME 9.6 FL (7.4-10.4); MONOCYTES # (AUTO) 0.6 X 10^3 (0.0-1.0); MONOCYTES % (AUTO) 7 % (0-12); NEUTROPHILS # (AUTO) 5.9 X 10^3 (1.8-7.8); NEUTROPHILS % (AUTO) 70 % (42-75); PLATELET COUNT 67 10^3/uL (130-400); RED BLOOD COUNT 3.74 10^6/uL (4.35-5.85); RED CELL DISTRIBUTION WIDTH 13.4 % (10.0-14.5); WHITE BLOOD COUNT 8.4 10^3/uL (4.3-11.0)
[2016-09-20 10:08] LABS: ALANINE AMINOTRANSFERASE 12 U/L (0-55); ANION GAP 12 MMOL/L (5-14); ASPARTATE AMINO TRANSFERASE 20 U/L (5-34); BILIRUBIN,TOTAL 0.7 MG/DL (0.1-1.0); BLOOD UREA NITROGEN 15 MG/DL (7-18); BUN/CREATININE RATIO 14; CALCIUM 8.4 MG/DL (8.5-10.1); CARBON DIOXIDE 20 MMOL/L (21-32); CHLORIDE 107 MMOL/L (98-107); CREATININE SERUM 1.09 MG/DL (0.60-1.30); GFR ESTIMATED > 60; GLUCOSE 130 MG/DL (70-105); POTASSIUM 4.1 MMOL/L (3.6-5.0); SODIUM 139 MMOL/L (135-145); TOTAL PROTEIN 5.5 G/DL (6.4-8.2)
--- NOTE | 2016-09-20 10:32 | Physical Therapy Daily Note ---
PT Daily Note-Current Subjective Patient states, "So you're going to torture me?" Agrees to PT. Patient states he does not want pain medication because of how it makes him feel. Pain Numeric Pain Scale: 8 Location: Left Location Body Site: Hip Pain Description: Acute Comment: refuses pain medication Mental Status Patient Orientation: Normal For Age Transfers Functional [place] Measure 0=Not Assessed/NA 4=Minimal Assistance 1=Total Assistance 5=Supervision or Setup 2=Maximal Assistance 6=Modified [place] 3=Moderate Assistance 7=Complete IndependenceIRFPAI Quality Coding Scale 6 Independent with activity with or without an assistive device 5 Patient requires set up or clean up by helper. Patient completes activity by themselves 4 Supervision or touching assist (CGA). [place] provide cues , steadying assist 3 The helper provides less than half the effort to complete the activity 2 The helper provides more than half the effort to complete the activity 1 Dependent. The helper does all the effort to complete an activity 7 Patient refused to complete or attempt activity 9 The patient did not perform the activity before the current illness or injury 88 Not attempted due to Medical conditions or safety concerns Transfers (B, C, W/C) (FIM): 5 Scootin Supine to/from Sit: 5 Sit to/from Stand: 5 Sit to Lying (QC): 5 Sit to Stand (QC): 5 Weight Bearing Weight Bearing Restriction: Weight Bearing/Tolerated Location Restriction: L LE Gait Training Does the Patient Walk?: Yes Gait (FIM): 5 Distance (FIM): 3=150 ft Distance: 150' x 4 Walk 10 feet (QC): 5 Walk 50 ft with 2 Turns(QC): 5 Walk 150 ft (QC): 5 Gait Level of Assist: 5 Gait Assistive Device: FWW slow, steady gait sequence Exercises Supine Ex: Ankle pumps, Quad Set, Heel Slides, Short Arc Quads Supine Reps: 20 (x 3 sets in supine AROM) Seated Therapy Exercises: Ankle pumps, Long arc quads Seated Reps: 20 (x 3 set AROM) Assessment Patient self limits with activity and is refusing to participate with Group activity this p.m. Education with patient on importance of fully participating with program and patient continues to decline activity. PT to increase activity as tolerated by patient. PT Short Term Goals Short Term Goals Time Frame: Sep 25, 2016 Gait (FIM): 2 (met 09/19/16) Gait Distance Comment: 100' Gait Level of Assist: 4 (CGA) Gait Assistive Device: FWW Wheelchair Distance: 150'x2 PT Longterm Goals Longterm Goals PT Longterm Goals Time Frame: October 09, 2016 Transfers (B,C,W/C) (FIM): 5 Sit to Lying (QC): 4 Lying-Sitting on Side/Bed(QC): 4 Sit to Stand (QC): 4 Rollin Roll Left to Right (QC): 4 Chair/Mac-ue-Bpjxa Xfer(QC): 4 Car Transfer (QC): 4 Gait (FIM): 5 Distance: 150' Walk 10 feet (QC): 4 Walk 10ft-Uneven Surface(QC): 4 Walk 50ft with 2 Turns (QC): 4 Walk 150 ft (QC): 4 Gait Level of Assist: 5 Gait Assistive Device: FWW Stairs (FIM): 2 # of Steps: 4 1 Step (curb) (QC): 4 4 Steps (QC): 4 12 Steps (QC): 88 Stairs Level Of Assist: 4 Picking up an Object (QC): 88 PT Plan Treatment/Plan Treatment Plan: Continue Plan of Care Treatment Plan: Bed Mobility, Education, Functional Activity Vaishali, Functional Strength, Group Therapy, Gait, Safety, Therapeutic Exercise, Transfers Treatment Duration: October 09, 2016 Visits Per Week: 10-11 Minutes/Day (M-F): 60-90 Minutes/Day (Sat/Rees): 15-30 Time/GCodes Time In: 1000 Time Out: 1100 Total Billed Treatment Time: 60 Total Billed Treatment 1 visit EX x 2 30 min GT x 2 30 min DORY CORRALES PT Sep 20, 2016 10:32
--- NOTE | 2016-09-20 11:43 | Occupational Ther Daily Note ---
OT Current Status-Daily Note Subjective Pt seen in room, up in bed, agreeable to OT, with encouragement. Pt reported he had multiple bouts of diarrhea last night and is fatigued from this. He is concerned about getting dehydrated. Appearance Alert, cooperative Mental Status/Objective Functional [place] Measure 0=Not Assessed/NA 4=Minimal Assistance 1=Total Assistance 5=Supervision or Setup 2=Maximal Assistance 6=Modified [place] 3=Moderate Assistance 7=Complete [place] ADL-Treatment Pt was able to move from supine to sit EOB without assistance. He stood with SBA , FWW, with bed elevated. He bathed tanya area in front with bath pack and had help to wash tanya in back. Pt walked SBA for safety, FWW to w/c and propelled himself to gym. Functional [place] Measure 0=Not Assessed/NA 4=Minimal Assistance 1=Total Assistance 5=Supervision or Setup 2=Maximal Assistance 6=Modified [place] 3=Moderate Assistance 7=Complete IndependenceIRFPAI Quality Coding Scale 6 Independent with activity with or without an assistive device 5 Patient requires set up or clean up by helper. Patient completes activity by themselves 4 Supervision or touching assist (CGA). [place] provide cues , steadying assist 3 The helper provides less than half the effort to complete the activity 2 The helper provides more than half the effort to complete the activity 1 Dependent. The helper does all the effort to complete an activity 7 Patient refused to complete or attempt activity 9 The patient did not perform the activity before the current illness or injury 88 Not attempted due to Medical conditions or safety concerns Lower Body Dressing (FIM): 5 (Donned slipper socks with sock aid on L, no help on R. Pt is careful to follow hip precautions. Pants up and down with SBA, FWW) Other Treatment Pt did 15 minutes bilat UE exercise on arm bike set at 25W (increased resistance ). He also did 15 reps bilat UE ex with 2.5# weight bar. Strengthening to help with transfers and standing during ADLs. pt reported some discomfort in L shoulder and, after discussion, we think it might be from increased use of arms during weight-bearing with FWW. He said it is not painful enough to stop doing exercise. Pt returned to his room per w/c, transferred to bed with SBA, FWW and was able to get legs into bed. All needs met. Education OT Patient Education: Modified ADL techniques, Progress toward Goal/Update tx plan, Purpose of tx/functional activities, Transfer techniques, Use of adapted equipment Teaching Recipient: Patient Response to Teaching: Reinforcement Needed OT Short Term Goals Short Term Goals 1=Demonstrate adherence to instructed precautions during ADL tasks. 2=Patient will verbalize/demonstrate understanding of assistive devices/ modifications for ADL. 3=Patient will improve strength/tolerance for activity to enable patient to perform ADL's. OT Air Traffic Supervisor Goals Shelter Goals Time Frame: October 02, 2016 Eating (FIM): 6 Eating (QC): 6 Groomin Oral Hygiene (QC): 6 Bathing(FIM): 6 Shower/Bathe Self (QC): 6 Upper Body Dressing(FIM): 6 Upper Body Dressing (QC): 6 Lower Body Dressing(FIM): 6 Lower Body Dressing (QC): 3 On/Off Footwear (QC): 6 Toileting(FIM): 6 Toileting Hygiene (QC): 6 Transfers (B,C,W/C) (FIM): 6 Toilet/Commode Transfer (QC): 6 Shower Transfer(FIM): 6 Additional Goals: 1-Demonstrate ADL Tasks, 2-Verbalize Understanding, 3- ImproveStrength/Vaishali 1=Demonstrate adherence to instructed precautions during ADL tasks. 2=Patient will verbalize/demonstrate understanding of assistive devices/ modifications for ADL. 3=Patient will improve strength/tolerance for activity to enable patient to perform ADL's. OT Education/Plan Problem List/Assessment High intensity due to decr activity tolerance from CA, decreased functional use R LE, decreased UE strength, decreased functional mobility, decr self care skills Discharge Recommendations Plan/Recommendations: Continue POC Treatment Plan/Plan of Care Patient would benefit from OT for education, treatment and training to promote independence in ADL's, mobility, safety and/or upper extremity function for ADL' s. Plan of Care: ADL Retraining, Functional Mobility, Group Exercise/Act as Ind ( education, exercise, activity tolerance, functional activities), UE Funct Exercise/Act, UE Neuromus Re-Ed/Coord Treatment Duration: October 02, 2016 Visits Per Week: 10-11 Minutes/Day (M-F): 75-90 Minutes/Day (Sat/Rees): PRN Agreement: Yes Rehab Potential: Good Time/GCodes Start Time: 09:00 Stop Time: 10:00 Total Time Billed (hr/min): 60 Billed Treatment Time visit, 30 minutes ADL, 30 minutes exercise ADY RODRIGES OT Sep 20, 2016 11:43
[2016-09-20] MEDS: DICYCLOMINE 10 MG (BENTYL) CAP PO PRN ×2 (15:25→23:02)
[2016-09-20] MEDS: LOPERAMIDE 2 MG (IMODIUM) CAP PO PRN ×2 (15:25→23:04)
--- NOTE | 2016-09-20 15:31 | Physical Therapy Daily Note ---
PT Daily Note-Current Subjective Patient in bed pre tx, agrees to PT, reports pain of 8-9/10 in left hip and states he has had diarrhea and requests some meds from the nurse for that. Appearance Patient BTB post tx with nurse call, phone, tray, all needs met. Family in the room. Mental Status Patient Orientation: Normal For Age Transfers Functional [place] Measure 0=Not Assessed/NA 4=Minimal Assistance 1=Total Assistance 5=Supervision or Setup 2=Maximal Assistance 6=Modified [place] 3=Moderate Assistance 7=Complete IndependenceIRFPAI Quality Coding Scale 6 Independent with activity with or without an assistive device 5 Patient requires set up or clean up by helper. Patient completes activity by themselves 4 Supervision or touching assist (CGA). [place] provide cues , steadying assist 3 The helper provides less than half the effort to complete the activity 2 The helper provides more than half the effort to complete the activity 1 Dependent. The helper does all the effort to complete an activity 7 Patient refused to complete or attempt activity 9 The patient did not perform the activity before the current illness or injury 88 Not attempted due to Medical conditions or safety concerns Transfers (B, C, W/C) (FIM): 4 Scootin Rollin Supine to/from Sit: 4 Sit to/from Stand: 4 Patient min assist for getting left leg into and out of bed, CGA for transfers Gait Training Gait (FIM): 4 Distance: 150'x2 Gait Level of Assist: 4 Gait Persons Needed: 1 Gait Assistive Device: FWW antalgic, slow, CGA Exercises Patient abided by hip precautions while on the NuStep NuStep Minutes: 10 NuStep Workload: 3 Treatments bed mobility and transfers, ambulation, functional strengthening Assessment Current Status: Fair Progress improving endurance and strength PT Short Term Goals Short Term Goals Time Frame: Sep 25, 2016 Gait (FIM): 2 (met 09/19/16) Gait Distance Comment: 100' Gait Level of Assist: 4 (CGA) Gait Assistive Device: FWW Wheelchair Distance: 150'x2 PT Scrap Separator Goals Scrap Separator Goals PT Scrap Separator Goals Time Frame: October 09, 2016 Transfers (B,C,W/C) (FIM): 5 Sit to Lying (QC): 4 Lying-Sitting on Side/Bed(QC): 4 Sit to Stand (QC): 4 Rollin Roll Left to Right (QC): 4 Chair/Din-xl-Klaeo Xfer(QC): 4 Car Transfer (QC): 4 Gait (FIM): 5 Distance: 150' Walk 10 feet (QC): 4 Walk 10ft-Uneven Surface(QC): 4 Walk 50ft with 2 Turns (QC): 4 Walk 150 ft (QC): 4 Gait Level of Assist: 5 Gait Assistive Device: FWW Stairs (FIM): 2 # of Steps: 4 1 Step (curb) (QC): 4 4 Steps (QC): 4 12 Steps (QC): 88 Stairs Level Of Assist: 4 Picking up an Object (QC): 88 PT Plan Problem List Problem List: Activity Tolerance, Functional Strength, Safety, Balance, Gait, Transfer, Bed Mobility, ROM Treatment/Plan Treatment Plan: Continue Plan of Care Treatment Plan: Bed Mobility, Education, Functional Activity Vaishali, Functional Strength, Group Therapy, Gait, Safety, Therapeutic Exercise, Transfers Treatment Duration: October 09, 2016 Visits Per Week: 10-11 Minutes/Day (M-F): 60-90 Minutes/Day (Sat/Rees): 15-30 Safety Risks/Education Patient Education: Gait Training, Transfer Techniques, Correct Positioning, Safety Issues Teaching Recipient: Patient Teaching Methods: Demonstration, Discussion Response to Teaching: Reinforcement Needed Time/GCodes Time In: 1500 Time Out: 1530 Total Billed Treatment Time: 30 Total Billed Treatment 1 visit EX 10 min GT 20 min LYNETTE FONTANEZ PT Sep 20, 2016 15:30
--- NOTE | 2016-09-20 15:39 | Occupational Ther Daily Note ---
OT Current Status-Daily Note Subjective Pt seen inroom, up in bed, agreeable to OT. Did not want to do group therapy and preferred 1:1 time. Appearance Alert, cooperative Mental Status/Objective Functional [place] Measure 0=Not Assessed/NA 4=Minimal Assistance 1=Total Assistance 5=Supervision or Setup 2=Maximal Assistance 6=Modified [place] 3=Moderate Assistance 7=Complete [place] ADL-Treatment Functional [place] Measure 0=Not Assessed/NA 4=Minimal Assistance 1=Total Assistance 5=Supervision or Setup 2=Maximal Assistance 6=Modified [place] 3=Moderate Assistance 7=Complete IndependenceIRFPAI Quality Coding Scale 6 Independent with activity with or without an assistive device 5 Patient requires set up or clean up by helper. Patient completes activity by themselves 4 Supervision or touching assist (CGA). [place] provide cues , steadying assist 3 The helper provides less than half the effort to complete the activity 2 The helper provides more than half the effort to complete the activity 1 Dependent. The helper does all the effort to complete an activity 7 Patient refused to complete or attempt activity 9 The patient did not perform the activity before the current illness or injury 88 Not attempted due to Medical conditions or safety concerns Transfers (B, C, W/C) (FIM): 5 (Able to get legs out and in bed, following hip precautions. Sit to stand SBA, FWW) Other Treatment Pt walked with SBA for safety, FWW to gym area. Did 15 reps bilat UE ex with 3# weight, working on shoulders, elbows, forearms and wrists. Also did chair pushups which he said helped with the discomfort on his shoulder. Exercise to strengthen arms to help with transfers and standing during ADLs. Pt walked back to his room, SBA, FWW and got into bed with SBA, following hip precautions. Pt left up in bed, all needs met. Education OT Patient Education: Exercise program, Progress toward Goal/Update tx plan OT Short Term Goals Short Term Goals 1=Demonstrate adherence to instructed precautions during ADL tasks. 2=Patient will verbalize/demonstrate understanding of assistive devices/ modifications for ADL. 3=Patient will improve strength/tolerance for activity to enable patient to perform ADL's. OT Retirement Goals Retirement Goals Time Frame: October 02, 2016 Eating (FIM): 6 Eating (QC): 6 Groomin Oral Hygiene (QC): 6 Bathing(FIM): 6 Shower/Bathe Self (QC): 6 Upper Body Dressing(FIM): 6 Upper Body Dressing (QC): 6 Lower Body Dressing(FIM): 6 Lower Body Dressing (QC): 3 On/Off Footwear (QC): 6 Toileting(FIM): 6 Toileting Hygiene (QC): 6 Transfers (B,C,W/C) (FIM): 6 Toilet/Commode Transfer (QC): 6 Shower Transfer(FIM): 6 Additional Goals: 1-Demonstrate ADL Tasks, 2-Verbalize Understanding, 3- ImproveStrength/Vaishali 1=Demonstrate adherence to instructed precautions during ADL tasks. 2=Patient will verbalize/demonstrate understanding of assistive devices/ modifications for ADL. 3=Patient will improve strength/tolerance for activity to enable patient to perform ADL's. OT Education/Plan Problem List/Assessment High intensity due to decr activity tolerance from CA, decreased functional use R LE, decreased UE strength, decreased functional mobility, decr self care skills Discharge Recommendations Plan/Recommendations: Continue POC Treatment Plan/Plan of Care Patient would benefit from OT for education, treatment and training to promote independence in ADL's, mobility, safety and/or upper extremity function for ADL' s. Plan of Care: ADL Retraining, Functional Mobility, Group Exercise/Act as Ind ( education, exercise, activity tolerance, functional activities), UE Funct Exercise/Act, UE Neuromus Re-Ed/Coord Treatment Duration: October 02, 2016 Visits Per Week: 10-11 Minutes/Day (M-F): 75-90 Minutes/Day (Sat/Rees): PRN Agreement: Yes Rehab Potential: Good Time/GCodes Start Time: 13:15 Stop Time: 13:50 Total Time Billed (hr/min): 35 Billed Treatment Time visit, 35 minutes exercise ADY RODRIGES OT Sep 20, 2016 15:39
[2016-09-20] MEDS: HYDROcodone/APAP 10 MG/325 MG (LORTAB) TAB PO PRN (16:28)
[2016-09-20 18:57] VITALS: BP 92/56
--- NOTE | 2016-09-20 21:45 | PM & R (SOAP) Progress Note ---
Subjective Subjective/Events-last exam Patient was seen in his room this evening Had BM with [facility] Patient min assist for transfers Appreciate DR Watts note Mild post-op fever resolved Objective Exam Last Set of Vital Signs Vital Signs Date Time Temp Pulse Resp B/P (MAP) Pulse Ox O2 Delivery O2 Flow Rate FiO2 09/20/16 18:57 96.5 81 16 92/56 97 Room Air 09/19/16 09:07 3.00 Capillary Refill : I&O Intake and Output 09/20/16 00:00 Intake Total 1670 ml Output Total 2175 ml Balance -505 ml Intake Oral 1670 ml Output Urine Total 2175 ml General: Alert, Oriented X3, Cooperative, No Acute Distress HEENT: Atraumatic, PERRLA, EOMI, Mucous Memb Moist/[place] Neck: Supple, No JVD Lungs: Clear to Auscultation Heart: Regular Rate Abdomen: Normal Bowel Sounds, Soft, No Tenderness Extremities: No Edema (trace edema left ankle) Neuro: Other (weakness left proximal hip due to recent surgery) Results Lab Laboratory Tests 09/19/16 07:05: Hemoglobin 11.4L, Hematocrit 34L 09/20/16 09:42: Hemoglobin 11.5L, Hematocrit 35L, White Blood Count 8.4, Red Blood Count 3.74L, Mean Corpuscular Volume 93, Mean Corpuscular Hemoglobin 31, Mean Corpuscular Hemoglobin Concent 33, Red Cell Distribution Width 13.4, Platelet Count 67L, Mean Platelet Volume 9.6, Neutrophils (%) (Auto) 70, Lymphocytes (%) (Auto) 17, Monocytes (%) (Auto) 7, Eosinophils (%) (Auto) 6, Basophils (%) (Auto) 0, Neutrophils # (Auto) 5.9, Lymphocytes # (Auto) 1.4, Monocytes # (Auto) 0.6, Eosinophils # (Auto) 0.5H, Basophils # (Auto) 0.0, Sodium Level 139, Potassium Level 4.1, Chloride Level 107, Carbon Dioxide Level 20L, Anion Gap 12, Blood Urea Nitrogen 15, Creatinine 1.09, Estimat Glomerular Filtration Rate > 60, BUN/ Creatinine Ratio 14, Glucose Level 130H, Calcium Level 8.4L, Total Bilirubin 0.7 , Aspartate Amino Transf (AST/SGOT) 20, Alanine Aminotransferase (ALT/SGPT) 12, Alkaline Phosphatase 37L, Total Protein 5.5L, Albumin 3.0L Assessment/Plan Assessment L THR for DJD DR Fischer Lowgrade fever postop resolved renal cell CA s/p nephrectomy-remote DVT Prophylaxis on Lovenox HTN controlled Chronic back pain POstop anemia BPH on meds Plan Continue PT/OT ST has signed off F/U with KATHY Hayes MD Sep 20, 2016 21:45
--- NOTE | 2016-09-20 21:51 | Individualized Plan of Care ---
Individualized Plan of Care Rehab Nursing IPOC Order Admission Date Sep 18, 2016 at 11:00 Current Orders Orders Cbc With Automated Diff (09/20/16 09:29) Comprehensive Metabolic Panel (09/20/16 09:29) Patient Visit (09/20/16 ) Exercise Therap, Ea 15 Min (09/20/16 ) Gait Training, Ea 15 Min (09/20/16 ) Patient Visit (09/20/16 ) Gait Training, Ea 15 Min (09/20/16 ) Exercise Therap, Ea 15 Min (09/20/16 ) Rehab Nursing Orders: Diseage Management, Pain Management, Wound Management Toilet every (bladder): (hrs): 2 hours while awake prn Other Nursing Orders: Adjust meds as needed for postop constipation PT IPOC Problem List: Activity Tolerance, Functional Strength, Safety, Balance, Gait, Transfer, Bed Mobility, ROM Treatment Plan: Continue Plan of Care Bed Mobility, Education, Functional Activity Vaishali, Functional Strength, Group Therapy, Gait, Safety, Therapeutic Exercise, Transfers Treatment Duration: October 09, 2016 Visits Per Week: 10-11 Minutes/Day (M-F): 60-90 Minutes/Day (Sat/Rees): 15-30 OT IPOC Problems: Decreased Activ Tolerance, Decreased UE Strength, Dependent Transfers , Impaired Funct Balance, Impaired Self-Care Skills OT Problems High intensity due to decr activity tolerance from CA, decreased functional use R LE, decreased UE strength, decreased functional mobility, decr self care skills Plan of Care: ADL Retraining, Functional Mobility, Group Exercise/Act as Ind ( education, exercise, activity tolerance, functional activities), UE Funct Exercise/Act, UE Neuromus Re-Ed/Coord Treatment Duration: October 02, 2016 Visits Per Week: 10-11 Minutes/Day (M-F): 75-90 Minutes/Day (Sat/Rees): PRN ST IPOC Speech Therapy Treatment Plan: Discontinue ST Physician IPOC Medical Issues being managed closely and that require the 24 hour availability of a physician:pain management postop constipation Chronic back pain Post-op fever resolved Medical Issues: Bowel/Bladder Function, DVT Prophylaxis, Falls Precautions, Fluid/Electrolyte/Nutrition Balance, Infection Protection, Pain Management, Wound Care, Other (List) (as per above) Brief Synthesis of Preadmission Screen, Post-Admission Evaluation, and Therapy Evaluations: 70 yo male s/p Left THR for painful DJD refractory to conservative care Patient has multiple comorbidities including chronic back pain renal cell CA s/p nephrectomy BPH and HTN and postop anemia and low grade fever resolved Had been Independent prior to this Medical Prognosis: good Anticipated Length of Stay: 10/02/16 Rehab Goals Modified [place] for adls and mobility skills Anticipated discharge destinat: Home with spouse and [facility] KATHY STEWARD MD Sep 20, 2016 21:51
[2016-09-20] MEDS: MELATONIN 3 MG TABLET PO SCH (23:02)
[2016-09-20] MEDS: FINASTERIDE (PROSCAR) 5 MG TAB PO SCH (23:02)
[2016-09-20] MEDS: MIRTAZAPINE 15 MG (REMERON) TAB PO SCH (23:02)
[2016-09-21] MEDS: HYDROcodone/APAP 10 MG/325 MG (LORTAB) TAB PO PRN ×2 (04:54→23:08)
[2016-09-21 05:38] VITALS: BP 97/60
[2016-09-21] MEDS: PANTOPRAZOLE 40 MG (PROTONIX) TAB PO SCH (05:53)
[2016-09-21] MEDS: RT-ALBUTEROL/IPRATROPIUM 3 ML (DUONEB) VIAL INH SCH ×4 (06:35→19:41)
[2016-09-21] MEDS: ALPRAZolam 1 MG (XANAX) TAB PO PRN ×2 (07:46→20:50)
[2016-09-21] MEDS: FENOFIBRATE 134 MG (LOFIBRA) CAPSULE PO SCH (07:46)
[2016-09-21] MEDS: POLYETHYLENE GLYCOL 17 GM (MIRALAX) PACK PO SCH ×2 (07:47→20:50)
[2016-09-21] MEDS: ASPIRIN E.C. 325 MG (ECOTRIN) TABLET PO SCH (07:47)
[2016-09-21] MEDS: SENNA W/DOCUSATE (SENOKOT S) TABLET PO SCH ×2 (07:47→20:51)
--- NOTE | 2016-09-21 09:44 | Physical Therapy Daily Note ---
PT Daily Note-Current Subjective Patient is in bed and agrees to PT. Pain Numeric Pain Scale: 5-Moderate Pain Location: Left Location Body Site: Hip Pain Description: Acute Mental Status Patient Orientation: Normal For Age Transfers Functional [place] Measure 0=Not Assessed/NA 4=Minimal Assistance 1=Total Assistance 5=Supervision or Setup 2=Maximal Assistance 6=Modified [place] 3=Moderate Assistance 7=Complete IndependenceIRFPAI Quality Coding Scale 6 Independent with activity with or without an assistive device 5 Patient requires set up or clean up by helper. Patient completes activity by themselves 4 Supervision or touching assist (CGA). [place] provide cues , steadying assist 3 The helper provides less than half the effort to complete the activity 2 The helper provides more than half the effort to complete the activity 1 Dependent. The helper does all the effort to complete an activity 7 Patient refused to complete or attempt activity 9 The patient did not perform the activity before the current illness or injury 88 Not attempted due to Medical conditions or safety concerns Transfers (B, C, W/C) (FIM): 5 Scootin Rollin Roll Left to Right (QC): 5 Supine to/from Sit: 5 Sit to/from Stand: 5 Sit to Lying (QC): 5 Sit to Stand (QC): 5 Weight Bearing Weight Bearing Restriction: Weight Bearing/Tolerated Location Restriction: L LE Gait Training Does the Patient Walk?: Yes Gait (FIM): 5 Distance: 200' Walk 10 feet (QC): 5 Walk 50 ft with 2 Turns(QC): 5 Walk 150 ft (QC): 5 Gait Level of Assist: 5 Gait Assistive Device: FWW very slow and antalgic with 2 standing recovery periods Assessment Patient is progressing with treatment with increase in distance. PT to increase activity as tolerated by patient. PT Short Term Goals Short Term Goals Time Frame: Sep 25, 2016 Gait (FIM): 2 (met 09/19/16) Gait Distance Comment: 100' Gait Level of Assist: 4 (CGA) Gait Assistive Device: FWW Wheelchair Distance: 150'x2 PT [facility]ci Goals Customs Entry Writer Goals PT Customs Entry Writer Goals Time Frame: October 09, 2016 Transfers (B,C,W/C) (FIM): 5 Sit to Lying (QC): 4 Lying-Sitting on Side/Bed(QC): 4 Sit to Stand (QC): 4 Rollin Roll Left to Right (QC): 4 Chair/Hyq-vq-Fobiu Xfer(QC): 4 Car Transfer (QC): 4 Gait (FIM): 5 Distance: 150' Walk 10 feet (QC): 4 Walk 10ft-Uneven Surface(QC): 4 Walk 50ft with 2 Turns (QC): 4 Walk 150 ft (QC): 4 Gait Level of Assist: 5 Gait Assistive Device: FWW Stairs (FIM): 2 # of Steps: 4 1 Step (curb) (QC): 4 4 Steps (QC): 4 12 Steps (QC): 88 Stairs Level Of Assist: 4 Picking up an Object (QC): 88 PT Plan Treatment/Plan Treatment Plan: Continue Plan of Care Treatment Plan: Bed Mobility, Education, Functional Activity Vaishali, Functional Strength, Group Therapy, Gait, Safety, Therapeutic Exercise, Transfers Treatment Duration: October 09, 2016 Visits Per Week: 10-11 Minutes/Day (M-F): 60-90 Minutes/Day (Sat/Rees): 15-30 Time/GCodes Time In: 850 Time Out: 905 Total Billed Treatment Time: 15 Total Billed Treatment 1 visit GT 15 min DORY CORRALES PT Sep 21, 2016 09:44
[2016-09-21] MEDS: DICYCLOMINE 10 MG (BENTYL) CAP PO PRN ×2 (14:32→20:50)
[2016-09-21] MEDS: VITAMIN D3 5,000 UNITS (CHOLECALCIFEROL ) CAPSULE PO SCH (17:17)
[2016-09-21 18:00] VITALS: BP 104/68
[2016-09-21] MEDS: SUCRALFATE 1 GM (CARAFATE) TAB PO PRN (20:49)
[2016-09-21] MEDS: MELATONIN 3 MG TABLET PO SCH (20:50)
[2016-09-21] MEDS: MIRTAZAPINE 15 MG (REMERON) TAB PO SCH (20:50)
[2016-09-21] MEDS: FINASTERIDE (PROSCAR) 5 MG TAB PO SCH (20:50)
[2016-09-22 06:00] VITALS: BP 106/65
[2016-09-22] MEDS: PANTOPRAZOLE 40 MG (PROTONIX) TAB PO SCH (06:11)
[2016-09-22] MEDS: RT-ALBUTEROL/IPRATROPIUM 3 ML (DUONEB) VIAL INH SCH ×4 (06:21→19:20)
[2016-09-22] MEDS: FENOFIBRATE 134 MG (LOFIBRA) CAPSULE PO SCH (09:18)
[2016-09-22] MEDS: POLYETHYLENE GLYCOL 17 GM (MIRALAX) PACK PO SCH ×2 (09:18→21:28)
[2016-09-22] MEDS: ALPRAZolam 1 MG (XANAX) TAB PO PRN ×2 (09:18→21:31)
[2016-09-22] MEDS: ASPIRIN E.C. 325 MG (ECOTRIN) TABLET PO SCH (09:18)
[2016-09-22] MEDS: HYDROcodone/APAP 10 MG/325 MG (LORTAB) TAB PO PRN ×2 (09:19→17:36)
[2016-09-22] MEDS: SENNA W/DOCUSATE (SENOKOT S) TABLET PO SCH ×2 (09:20→21:29)
[2016-09-22] MEDS: DICYCLOMINE 10 MG (BENTYL) CAP PO PRN ×2 (10:45→17:36)
[2016-09-22] MEDS: VITAMIN D3 5,000 UNITS (CHOLECALCIFEROL ) CAPSULE PO SCH (17:20)
[2016-09-22 17:49] VITALS: BP 102/66
[2016-09-22] MEDS: SUCRALFATE 1 GM (CARAFATE) TAB PO PRN (21:30)
[2016-09-22] MEDS: FINASTERIDE (PROSCAR) 5 MG TAB PO SCH (21:31)
[2016-09-22] MEDS: MIRTAZAPINE 15 MG (REMERON) TAB PO SCH (21:31)
[2016-09-22] MEDS: MELATONIN 3 MG TABLET PO SCH (21:31)
[2016-09-23 06:05] VITALS: BP 122/72
[2016-09-23] MEDS: RT-ALBUTEROL/IPRATROPIUM 3 ML (DUONEB) VIAL INH SCH ×4 (06:32→20:00)
[2016-09-23] MEDS: PANTOPRAZOLE 40 MG (PROTONIX) TAB PO SCH (06:40)
[2016-09-23] MEDS: ALPRAZolam 1 MG (XANAX) TAB PO PRN ×2 (08:38→21:20)
[2016-09-23] MEDS: FENOFIBRATE 134 MG (LOFIBRA) CAPSULE PO SCH (08:38)
[2016-09-23] MEDS: ASPIRIN E.C. 325 MG (ECOTRIN) TABLET PO SCH (08:38)
[2016-09-23] MEDS: POLYETHYLENE GLYCOL 17 GM (MIRALAX) PACK PO SCH ×2 (08:38→08:52)
[2016-09-23] MEDS: SENNA W/DOCUSATE (SENOKOT S) TABLET PO SCH ×2 (08:38→21:22)
[2016-09-23] MEDS: LOPERAMIDE 2 MG (IMODIUM) CAP PO PRN (09:00)
[2016-09-23] MEDS: ONDANSETRON 4 MG (ZOFRAN) ORAL DISSOLVE TAB PO PRN (09:00)
--- NOTE | 2016-09-23 09:58 | Physical Therapy Daily Note ---
PT Daily Note-Current Subjective Patient in bed pre tx, he does not want to participate in therapy due to nausea and diarrhea. Patient has called for meds for both of those reasons. With encouragement he agrees to bed exercises but he does not want to ambulate or get to the gym because he is afraid he will throw up or have a bowel accident. Pain rated at 4/10 in left hip. Patient has significant swelling in left leg 3 + edema. Appearance Patient on toilet post tx, has nurse call, instructed to call them when he is done going to the bathroom. Mental Status Patient Orientation: Normal For Age Transfers Functional [place] Measure 0=Not Assessed/NA 4=Minimal Assistance 1=Total Assistance 5=Supervision or Setup 2=Maximal Assistance 6=Modified [place] 3=Moderate Assistance 7=Complete IndependenceIRFPAI Quality Coding Scale 6 Independent with activity with or without an assistive device 5 Patient requires set up or clean up by helper. Patient completes activity by themselves 4 Supervision or touching assist (CGA). [place] provide cues , steadying assist 3 The helper provides less than half the effort to complete the activity 2 The helper provides more than half the effort to complete the activity 1 Dependent. The helper does all the effort to complete an activity 7 Patient refused to complete or attempt activity 9 The patient did not perform the activity before the current illness or injury 88 Not attempted due to Medical conditions or safety concerns Transfers (B, C, W/C) (FIM): 4 Scootin Rollin Roll Left to Right (QC): 6 Supine to/from Sit: 6 Sit to/from Stand: 4 Sit to Lying (QC): 6 Sit to Stand (QC): 4 Chair/Wpn-sc-Mfipm Xfer(QC): 4 Bed to/from Chair: 4 Car Transfer (QC): 88 Patient performs bed mobility with mod I, transfers with CGA. Patient transferred from the bed to the recliner and then after sitting and doing an exercises he needed to go to the bathroom, patient performed a toilet transfers with CGA. Gait Training Gait (FIM): 1 Distance: 20' Walk 10 feet (QC): 4 Gait Level of Assist: 4 Gait Persons Needed: 1 Gait Assistive Device: FWW Patient ambulated from his chair to the bathroom and onto the toilet with CGA using a rolling walker. Exercises Supine Ex: Ankle pumps, Quad Set, Glut sets, Heel Slides, Short Arc Quads, Straight leg raise, Hip abd/add Supine Reps: 20 Treatments bed mobility and transfers, ambulation, functional strengthening Assessment Current Status: Poor Progress No change in mobility. Patient needed extra time and rest due to nausea and anxiousness about diarrhea. PT Short Term Goals Short Term Goals Time Frame: Sep 25, 2016 Gait (FIM): 2 (met 09/19/16) Gait Distance Comment: 100' Gait Level of Assist: 4 (CGA) Gait Assistive Device: FWW Wheelchair Distance: 150'x2 PT Mcc Goals Mcc Goals PT [place] Goals Time Frame: October 09, 2016 Transfers (B,C,W/C) (FIM): 5 Sit to Lying (QC): 4 Lying-Sitting on Side/Bed(QC): 4 Sit to Stand (QC): 4 Rollin Roll Left to Right (QC): 4 Chair/Mvr-up-[place] Xfer(QC): 4 Car Transfer (QC): 4 Gait (FIM): 5 Distance: 150' Walk 10 feet (QC): 4 Walk 10ft-Uneven Surface(QC): 4 Walk 50ft with 2 Turns (QC): 4 Walk 150 ft (QC): 4 Gait Level of Assist: 5 Gait Assistive Device: FWW Stairs (FIM): 2 # of Steps: 4 1 Step (curb) (QC): 4 4 Steps (QC): 4 12 Steps (QC): 88 Stairs Level Of Assist: 4 Picking up an Object (QC): 88 PT Plan Problem List Problem List: Activity Tolerance, Functional Strength, Safety, Balance, Gait, Transfer, Bed Mobility Treatment/Plan Treatment Plan: Continue Plan of Care Treatment Plan: Bed Mobility, Education, Functional Activity Vaishali, Functional Strength, Group Therapy, Gait, Safety, Therapeutic Exercise, Transfers Treatment Duration: October 09, 2016 Visits Per Week: 10-11 Minutes/Day (M-F): 60-90 Minutes/Day (Sat/Rees): 15-30 Safety Risks/Education Patient Education: Gait Training, Transfer Techniques, Correct Positioning, Safety Issues Teaching Recipient: Patient Teaching Methods: Demonstration, Discussion Response to Teaching: Reinforcement Needed Time/GCodes Time In: 845 Time Out: 930 Total Billed Treatment Time: 45 Total Billed Treatment 1 visit EX 15min GT 10 min FA 20 min LYNETTE FONTANEZ PT Sep 23, 2016 09:58
[2016-09-23] MEDS: DICYCLOMINE 10 MG (BENTYL) CAP PO PRN ×2 (13:53→21:19)
--- NOTE | 2016-09-23 15:52 | Occupational Ther Daily Note ---
OT Current Status-Daily Note Subjective Pt seen in room, up in bed, agreeable to OT. Pt asked for shower. occasional pain mentioned in L hip but not rated or described. Pt concerned about having diarrhea and doesn't want to get far from toilet. Appearance Alert, cooperative. Unhappy about confusion re: discharge and options Mental Status/Objective Functional [place] Measure 0=Not Assessed/NA 4=Minimal Assistance 1=Total Assistance 5=Supervision or Setup 2=Maximal Assistance 6=Modified [place] 3=Moderate Assistance 7=Complete [place] ADL-Treatment Functional [place] Measure 0=Not Assessed/NA 4=Minimal Assistance 1=Total Assistance 5=Supervision or Setup 2=Maximal Assistance 6=Modified [place] 3=Moderate Assistance 7=Complete IndependenceIRFPAI Quality Coding Scale 6 Independent with activity with or without an assistive device 5 Patient requires set up or clean up by helper. Patient completes activity by themselves 4 Supervision or touching assist (CGA). [place] provide cues , steadying assist 3 The helper provides less than half the effort to complete the activity 2 The helper provides more than half the effort to complete the activity 1 Dependent. The helper does all the effort to complete an activity 7 Patient refused to complete or attempt activity 9 The patient did not perform the activity before the current illness or injury 88 Not attempted due to Medical conditions or safety concerns Bathing (FIM): 5 (Pt washed and dried all parts, shower chair, grab bar, hand held shower, long handled sponge. ) Upper Body (FIM): 5 (Doffed and donned shirt with setup) Lower Body Dressing (FIM): 4 (CGA when standing to pull pants up, FWW. Doffed slipper sock with dressing stick and donned sock with sock aid. pt follows hip precautions.) Transfers (B, C, W/C) (FIM): 4 (CGA, FWW. Pt was able to get both legs into bed without help. ) Shower Transfer(FIM): 4 (CGA, shower chair, FWW. With grab bars) Pt left up in bed, all needs met. present Education OT Patient Education: Modified ADL techniques, Progress toward Goal/Update tx plan, Purpose of tx/functional activities, Transfer techniques, Use of adapted equipment Teaching Recipient: Patient Teaching Methods: Demonstration, Discussion Response to Teaching: Verbalize Understanding, Return Demonstration, Reinforcement Needed OT Short Term Goals Short Term Goals 1=Demonstrate adherence to instructed precautions during ADL tasks. 2=Patient will verbalize/demonstrate understanding of assistive devices/ modifications for ADL. 3=Patient will improve strength/tolerance for activity to enable patient to perform ADL's. OT Quality Checker Goals Quality Checker Goals Time Frame: October 02, 2016 Eating (FIM): 6 Eating (QC): 6 Groomin Oral Hygiene (QC): 6 Bathing(FIM): 6 Shower/Bathe Self (QC): 6 Upper Body Dressing(FIM): 6 Upper Body Dressing (QC): 6 Lower Body Dressing(FIM): 6 Lower Body Dressing (QC): 3 On/Off Footwear (QC): 6 Toileting(FIM): 6 Toileting Hygiene (QC): 6 Transfers (B,C,W/C) (FIM): 6 Toilet/Commode Transfer (QC): 6 Shower Transfer(FIM): 6 Additional Goals: 1-Demonstrate ADL Tasks, 2-Verbalize Understanding, 3- ImproveStrength/Vaishali 1=Demonstrate adherence to instructed precautions during ADL tasks. 2=Patient will verbalize/demonstrate understanding of assistive devices/ modifications for ADL. 3=Patient will improve strength/tolerance for activity to enable patient to perform ADL's. OT Education/Plan Problem List/Assessment High intensity due to decr activity tolerance from CA, decreased functional use R LE, decreased UE strength, decreased functional mobility, decr self care skills Discharge Recommendations Plan/Recommendations: Continue POC Treatment Plan/Plan of Care Patient would benefit from OT for education, treatment and training to promote independence in ADL's, mobility, safety and/or upper extremity function for ADL' s. Plan of Care: ADL Retraining, Functional Mobility, Group Exercise/Act as Ind ( education, exercise, activity tolerance, functional activities), UE Funct Exercise/Act, UE Neuromus Re-Ed/Coord Treatment Duration: October 02, 2016 Visits Per Week: 10-11 Minutes/Day (M-F): 75-90 Minutes/Day (Sat/Rees): PRN Agreement: Yes Rehab Potential: Good Time/GCodes Start Time: 11:25 Stop Time: 12:25 Total Time Billed (hr/min): 60 Billed Treatment Time visit, 60 minutes ADL ADY RODRIGES OT Sep 23, 2016 15:52
--- NOTE | 2016-09-23 16:05 | Occupational Ther Daily Note ---
OT Current Status-Daily Note Subjective Pt seen in room, up in bed, agreeable to OT. Appearance Alert, cooperative Mental Status/Objective Functional [place] Measure 0=Not Assessed/NA 4=Minimal Assistance 1=Total Assistance 5=Supervision or Setup 2=Maximal Assistance 6=Modified [place] 3=Moderate Assistance 7=Complete [place] ADL-Treatment Pt was able to get legs out of bed without help. CGA sit to stand and walking to w/c. Pt was transported to gym per w/c (in case he has bowel trouble) and did 16 minutes bilat UE ex with arm bike set at 25W resistance. Exercise to strengthen arms to help with transfers and standing during ADLs. He needed to toilet so was returned to room, toilet transfer completed and pt left up on toilet with call light and in room. Functional [place] Measure 0=Not Assessed/NA 4=Minimal Assistance 1=Total Assistance 5=Supervision or Setup 2=Maximal Assistance 6=Modified [place] 3=Moderate Assistance 7=Complete IndependenceIRFPAI Quality Coding Scale 6 Independent with activity with or without an assistive device 5 Patient requires set up or clean up by helper. Patient completes activity by themselves 4 Supervision or touching assist (CGA). [place] provide cues , steadying assist 3 The helper provides less than half the effort to complete the activity 2 The helper provides more than half the effort to complete the activity 1 Dependent. The helper does all the effort to complete an activity 7 Patient refused to complete or attempt activity 9 The patient did not perform the activity before the current illness or injury 88 Not attempted due to Medical conditions or safety concerns Toileting (FIM): 4 (CGA managing clothing, tall toilet, grab bars, FWW) Toilet/Commode Transfer (FIM): 4 (CGA, tall toilet, grab bars, FWW) Education OT Patient Education: Exercise program, Modified ADL techniques, Progress toward Goal/Update tx plan, Transfer techniques Response to Teaching: Verbalize Understanding, Return Demonstration OT Short Term Goals Short Term Goals 1=Demonstrate adherence to instructed precautions during ADL tasks. 2=Patient will verbalize/demonstrate understanding of assistive devices/ modifications for ADL. 3=Patient will improve strength/tolerance for activity to enable patient to perform ADL's. OT Director Educational Radio Goals Assisted Goals Time Frame: October 02, 2016 Eating (FIM): 6 Eating (QC): 6 Groomin Oral Hygiene (QC): 6 Bathing(FIM): 6 Shower/Bathe Self (QC): 6 Upper Body Dressing(FIM): 6 Upper Body Dressing (QC): 6 Lower Body Dressing(FIM): 6 Lower Body Dressing (QC): 3 On/Off Footwear (QC): 6 Toileting(FIM): 6 Toileting Hygiene (QC): 6 Transfers (B,C,W/C) (FIM): 6 Toilet/Commode Transfer (QC): 6 Shower Transfer(FIM): 6 Additional Goals: 1-Demonstrate ADL Tasks, 2-Verbalize Understanding, 3- ImproveStrength/Vaishali 1=Demonstrate adherence to instructed precautions during ADL tasks. 2=Patient will verbalize/demonstrate understanding of assistive devices/ modifications for ADL. 3=Patient will improve strength/tolerance for activity to enable patient to perform ADL's. OT Education/Plan Problem List/Assessment High intensity due to decr activity tolerance from CA, decreased functional use R LE, decreased UE strength, decreased functional mobility, decr self care skills Discharge Recommendations Plan/Recommendations: Continue POC Treatment Plan/Plan of Care Patient would benefit from OT for education, treatment and training to promote independence in ADL's, mobility, safety and/or upper extremity function for ADL' s. Plan of Care: ADL Retraining, Functional Mobility, Group Exercise/Act as Ind ( education, exercise, activity tolerance, functional activities), UE Funct Exercise/Act, UE Neuromus Re-Ed/Coord Treatment Duration: October 02, 2016 Visits Per Week: 10-11 Minutes/Day (M-F): 75-90 Minutes/Day (Sat/Rees): PRN Agreement: Yes Rehab Potential: Good Time/GCodes Start Time: 13:10 Stop Time: 13:40 Total Time Billed (hr/min): 30 Billed Treatment Time visit, 25 minutes exercise, 5 minutes ADL ADY RODRIGES OT Sep 23, 2016 16:05
[2016-09-23] MEDS: VITAMIN D3 5,000 UNITS (CHOLECALCIFEROL ) CAPSULE PO SCH (17:36)
[2016-09-23 18:00] VITALS: BP 117/66
--- NOTE | 2016-09-23 19:17 | PM & R (SOAP) Progress Note ---
Subjective Subjective/Events-last exam Patient was seen in his room this evening C/O loose stools Meds adjusted.Patient min assist for transfers Appreciate current therapy notes as well as labs Objective Exam Last Set of Vital Signs Vital Signs Date Time Temp Pulse Resp B/P (MAP) Pulse Ox O2 Delivery O2 Flow Rate FiO2 09/23/16 15:10 94 09/23/16 09:00 Room Air 09/23/16 06:05 99.4 86 20 122/72 09/19/16 09:07 3.00 Capillary Refill : I&O Intake and Output 09/23/16 00:00 Intake Total 1850 ml Balance 1850 ml Intake Oral 1850 ml # Voids 9 # Bowel Movements 2 General: Alert, Oriented X3, Cooperative, No Acute Distress HEENT: Atraumatic, PERRLA, EOMI, Mucous Memb Moist/[place] Neck: Supple, No JVD Lungs: Clear to Auscultation Heart: Regular Rate Abdomen: Normal Bowel Sounds, Soft, No Tenderness Extremities: No Edema (trace edema left ankle) Neuro: Other (weakness left proximal hip due to recent surgery) Assessment/Plan Assessment L THR for DJD DR Fischer Lowgrade fever postop resolved renal cell CA s/p nephrectomy-remote DVT Prophylaxis on Lovenox HTN controlled Chronic back pain POstop anemia BPH on meds Plan Continue PT/OT ST has signed off F/U with DR Yevgeniy marquez-Appreciate her notes Adjusst bowel prep meds See orderes. KATHY STEWARD MD Sep 23, 2016 19:17
[2016-09-23] MEDS: MIRTAZAPINE 15 MG (REMERON) TAB PO SCH (21:19)
[2016-09-23] MEDS: MELATONIN 3 MG TABLET PO SCH (21:20)
[2016-09-23] MEDS: FINASTERIDE (PROSCAR) 5 MG TAB PO SCH (21:21)
[2016-09-23] MEDS: HYDROcodone/APAP 10 MG/325 MG (LORTAB) TAB PO PRN (22:07)
[2016-09-24 06:00] VITALS: BP 112/70
[2016-09-24] MEDS: PANTOPRAZOLE 40 MG (PROTONIX) TAB PO SCH (06:50)
[2016-09-24] MEDS: RT-ALBUTEROL/IPRATROPIUM 3 ML (DUONEB) VIAL INH SCH ×4 (06:54→18:39)
[2016-09-24] MEDS: FENOFIBRATE 134 MG (LOFIBRA) CAPSULE PO SCH (08:20)
[2016-09-24] MEDS: ALPRAZolam 1 MG (XANAX) TAB PO PRN ×2 (08:20→22:06)
[2016-09-24] MEDS: HYDROcodone/APAP 10 MG/325 MG (LORTAB) TAB PO PRN ×2 (08:20→22:57)
[2016-09-24] MEDS: SENNA W/DOCUSATE (SENOKOT S) TABLET PO SCH ×2 (08:20→22:06)
[2016-09-24] MEDS: ASPIRIN E.C. 325 MG (ECOTRIN) TABLET PO SCH (08:20)
--- NOTE | 2016-09-24 10:01 | Physical Therapy Daily Note ---
PT Daily Note-Current Subjective Patient in bed pre tx, agrees to PT, states he is feeling better and has 3/10 pain in left leg. He still has 3+ pitting edema in thigh. Patient is discharging home tomorrow. Appearance Patient BTB post tx with nurse call, phone, tray, all needs met. Mental Status Patient Orientation: Normal For Age Transfers Functional [place] Measure 0=Not Assessed/NA 4=Minimal Assistance 1=Total Assistance 5=Supervision or Setup 2=Maximal Assistance 6=Modified [place] 3=Moderate Assistance 7=Complete IndependenceIRFPAI Quality Coding Scale 6 Independent with activity with or without an assistive device 5 Patient requires set up or clean up by helper. Patient completes activity by themselves 4 Supervision or touching assist (CGA). [place] provide cues , steadying assist 3 The helper provides less than half the effort to complete the activity 2 The helper provides more than half the effort to complete the activity 1 Dependent. The helper does all the effort to complete an activity 7 Patient refused to complete or attempt activity 9 The patient did not perform the activity before the current illness or injury 88 Not attempted due to Medical conditions or safety concerns Transfers (B, C, W/C) (FIM): 6 Scootin Rollin Roll Left to Right (QC): 6 Supine to/from Sit: 6 Sit to/from Stand: 6 Sit to Lying (QC): 6 Sit to Stand (QC): 6 Chair/Uub-rv-Uatxi Xfer(QC): 6 Bed to/from Chair: 6 Car Transfer (QC): 88 safe transfers, appropriate use of hands Gait Training Does the Patient Walk?: Yes Gait (FIM): 5 Distance: 150'x2 Walk 10 feet (QC): 5 Walk 50 ft with 2 Turns(QC): 5 Walk 150 ft (QC): 5 Walking 10ft/uneven surface-QC: 5 Gait Level of Assist: 5 Gait Persons Needed: 1 Gait Assistive Device: FWW slow, antalgic ambulation Stair Training Stair Training: Handrails/: 2 handrails Stairs (FIM): 5 #of Steps: 12 1 Step (curb) (QC): 4 4 Steps (QC): 4 12 Steps (QC): 4 Stairs: Pattern: Step to Level of Assist: 5 cues for foot placement Balance Picking up an Object (QC): 88 Exercises LAQ alternating for 5 min NuStep Minutes: 15 NuStep Workload: 4 Treatments bed mobility and transfers, ambulation, functional strengthening, stair training Assessment Current Status: Fair Progress Patient still fatigues fairly easily and needs rest breaks between activities PT Short Term Goals Short Term Goals Time Frame: Sep 25, 2016 Gait (FIM): 2 (met 09/19/16) Gait Distance Comment: 100' Gait Level of Assist: 4 (CGA) Gait Assistive Device: FWW Wheelchair Distance: 150'x2 PT Space Control Supervisor Goals Detention Goals PT Space Control Supervisor Goals Time Frame: October 09, 2016 Transfers (B,C,W/C) (FIM): 5 Sit to Lying (QC): 4 Lying-Sitting on Side/Bed(QC): 4 Sit to Stand (QC): 4 Rollin Roll Left to Right (QC): 4 Chair/Pgd-lm-Zhkrk Xfer(QC): 4 Car Transfer (QC): 4 Gait (FIM): 5 Distance: 150' Walk 10 feet (QC): 4 Walk 10ft-Uneven Surface(QC): 4 Walk 50ft with 2 Turns (QC): 4 Walk 150 ft (QC): 4 Gait Level of Assist: 5 Gait Assistive Device: FWW Stairs (FIM): 2 # of Steps: 4 1 Step (curb) (QC): 4 4 Steps (QC): 4 12 Steps (QC): 88 Stairs Level Of Assist: 4 Picking up an Object (QC): 88 PT Plan Problem List Problem List: Activity Tolerance, Functional Strength, Safety, Balance, Gait, Transfer, ROM Treatment/Plan Treatment Plan: Continue Plan of Care Treatment Plan: Bed Mobility, Education, Functional Activity Vaishali, Functional Strength, Group Therapy, Gait, Safety, Therapeutic Exercise, Transfers Treatment Duration: October 09, 2016 Visits Per Week: 10-11 Minutes/Day (M-F): 60-90 Minutes/Day (Sat/Rees): 15-30 Safety Risks/Education Patient Education: Gait Training, Transfer Techniques, Steps, Safety Issues Teaching Recipient: Patient Teaching Methods: Demonstration, Discussion Response to Teaching: Reinforcement Needed Time/GCodes Time In: 900 Time Out: 1000 Total Billed Treatment Time: 60 Total Billed Treatment 1 visit EX 15 min FA 15 min GT 30 min LYNETTE FONTANEZ PT Sep 24, 2016 10:00
--- NOTE | 2016-09-24 13:28 | Physical Therapy Daily Note ---
PT Daily Note-Current Subjective Patient agrees to PT. He report he is very motivated to return to home tomorrow. Pain Numeric Pain Scale: 5-Moderate Pain Location: Left Location Body Site: Hip Pain Description: Ache Mental Status Patient Orientation: Normal For Age Transfers Functional [place] Measure 0=Not Assessed/NA 4=Minimal Assistance 1=Total Assistance 5=Supervision or Setup 2=Maximal Assistance 6=Modified [place] 3=Moderate Assistance 7=Complete IndependenceIRFPAI Quality Coding Scale 6 Independent with activity with or without an assistive device 5 Patient requires set up or clean up by helper. Patient completes activity by themselves 4 Supervision or touching assist (CGA). [place] provide cues , steadying assist 3 The helper provides less than half the effort to complete the activity 2 The helper provides more than half the effort to complete the activity 1 Dependent. The helper does all the effort to complete an activity 7 Patient refused to complete or attempt activity 9 The patient did not perform the activity before the current illness or injury 88 Not attempted due to Medical conditions or safety concerns Transfers (B, C, W/C) (FIM): 6 Scootin Rollin Roll Left to Right (QC): 5 Supine to/from Sit: 6 Sit to/from Stand: 6 Sit to Lying (QC): 5 Sit to Stand (QC): 5 Weight Bearing Weight Bearing Restriction: Weight Bearing/Tolerated Location Restriction: L LE Gait Training Does the Patient Walk?: Yes Gait (FIM): 6 Distance (FIM): 3=150 ft Distance: 350' x 1; 250' x 2 Walk 10 feet (QC): 6 Walk 50 ft with 2 Turns(QC): 6 Walk 150 ft (QC): 6 Gait Level of Assist: 6 Gait Assistive Device: FWW antalgic; functional Exercises Seated Therapy Exercises: Ankle pumps, Long arc quads Seated Reps: 20 Assessment Patient is very pleased with progress and will return to home with home health intervention. PT Short Term Goals Short Term Goals Time Frame: Sep 25, 2016 Gait (FIM): 2 (met 09/19/16) Gait Distance Comment: 100' Gait Level of Assist: 4 (CGA) Gait Assistive Device: FWW Wheelchair Distance: 150'x2 PT Field Crop Grower Goals Mcfp Goals PT Field Crop Grower Goals Time Frame: October 09, 2016 Transfers (B,C,W/C) (FIM): 5 Sit to Lying (QC): 4 Lying-Sitting on Side/Bed(QC): 4 Sit to Stand (QC): 4 Rollin Roll Left to Right (QC): 4 Chair/Kux-dp-Gjflx Xfer(QC): 4 Car Transfer (QC): 4 Gait (FIM): 5 Distance: 150' Walk 10 feet (QC): 4 Walk 10ft-Uneven Surface(QC): 4 Walk 50ft with 2 Turns (QC): 4 Walk 150 ft (QC): 4 Gait Level of Assist: 5 Gait Assistive Device: FWW Stairs (FIM): 2 # of Steps: 4 1 Step (curb) (QC): 4 4 Steps (QC): 4 12 Steps (QC): 88 Stairs Level Of Assist: 4 Picking up an Object (QC): 88 PT Plan Treatment/Plan Treatment Plan: Continue Plan of Care Treatment Plan: Bed Mobility, Education, Functional Activity Vaishali, Functional Strength, Group Therapy, Gait, Safety, Therapeutic Exercise, Transfers Treatment Duration: October 09, 2016 Visits Per Week: 10-11 Minutes/Day (M-F): 60-90 Minutes/Day (Sat/Rees): 15-30 Time/GCodes Time In: 1255 Time Out: 1325 Total Billed Treatment Time: 30 Total Billed Treatment 1 visit GT x 2 30 min DORY CORRALES PT Sep 24, 2016 13:28
--- NOTE | 2016-09-24 15:33 | Occupational Ther Daily Note ---
OT Current Status-Daily Note Subjective Pt seen in room, up in bed, agreeable to OT. Pt reported L leg was less swollen today and felt much better. He is looking forward to going home tomorrow. Appearance Alert, cooperative Mental Status/Objective Functional [place] Measure 0=Not Assessed/NA 4=Minimal Assistance 1=Total Assistance 5=Supervision or Setup 2=Maximal Assistance 6=Modified [place] 3=Moderate Assistance 7=Complete [place] ADL-Treatment pt follows hip precautions 100% of the time during ADLs and functional activities. Functional [place] Measure 0=Not Assessed/NA 4=Minimal Assistance 1=Total Assistance 5=Supervision or Setup 2=Maximal Assistance 6=Modified [place] 3=Moderate Assistance 7=Complete IndependenceIRFPAI Quality Coding Scale 6 Independent with activity with or without an assistive device 5 Patient requires set up or clean up by helper. Patient completes activity by themselves 4 Supervision or touching assist (CGA). [place] provide cues , steadying assist 3 The helper provides less than half the effort to complete the activity 2 The helper provides more than half the effort to complete the activity 1 Dependent. The helper does all the effort to complete an activity 7 Patient refused to complete or attempt activity 9 The patient did not perform the activity before the current illness or injury 88 Not attempted due to Medical conditions or safety concerns Eating (FIM): 7 (Pt able to cut food and feed himself. Does not have teeth or dentures) Eating (QC): 6 Grooming (FIM): 5 (Pt washed face and hands with setup. Does not have hair to brush or dentures to clean. has not shaved. ) Oral Hygiene (QC): 5 (setup to rinse mouth) Bathing (FIM): 5 (Washed and dried all parts with SBA when standing. Long handled sponge to wash and dry L foot. ) Shower/Bathe Self (QC): 5 (setup) Upper Body (FIM): 5 (undressed and dressed with setup) Upper Body Dressing (QC): 5 (setup) Lower Body Dressing (FIM): 5 (Setup, SBA when standing, FWW. Used soft sock aid and liked it better than hard one. Also used dressing stick and head mva reactor operator. Pt is interested in purchasing a hip kit and separate sock aid. SW notified) Lower Body Dressing (QC): 4 (SBA when standing) On/Off Footwear (QC): 5 (setup) Toileting (FIM): 5 (SBA for standing, tall toilet, grab bars, FWW) Toileting Hygiene (QC): 4 (SBA when standing, FWW, tall toielt, grab bars) Toilet/Commode Transfer (FIM): 5 (SBA, tall toilet, grab bars, FWW) Toilet Transfer (QC): 4 (SBA) Shower Transfer(FIM): 5 (SBA, shower chair, grab bars, FWW) Other Treatment Pt walked to gym with SBA for safety, FWW, stopping one time for a brief recovery period. Got in and out of chair made taller with w/c cushion with SBA, FWW. Pt did 17 minutes bilat UE exercise with arm bike set at 25W resistance, with no breaks. To strengthen arms to make it easier to gt up and down from chairs with arms. While exercising, also talked about chairs at home and how he can modify his recliner to keep within hip precautions. pt returned to room, got into bed with SBA, all needs met. Education OT Patient Education: Modified ADL techniques, Purpose of tx/functional activities, Use of adapted equipment Teaching Recipient: Patient Teaching Methods: Demonstration, Discussion Response to Teaching: Return Demonstration OT Short Term Goals Short Term Goals 1=Demonstrate adherence to instructed precautions during ADL tasks. 2=Patient will verbalize/demonstrate understanding of assistive devices/ modifications for ADL. 3=Patient will improve strength/tolerance for activity to enable patient to perform ADL's. OT Patient Care Representative Goals Detention Goals Time Frame: October 02, 2016 Eating (FIM): 6 Eating (QC): 6 Groomin Oral Hygiene (QC): 6 Bathing(FIM): 6 Shower/Bathe Self (QC): 6 Upper Body Dressing(FIM): 6 Upper Body Dressing (QC): 6 Lower Body Dressing(FIM): 6 Lower Body Dressing (QC): 3 On/Off Footwear (QC): 6 Toileting(FIM): 6 Toileting Hygiene (QC): 6 Transfers (B,C,W/C) (FIM): 6 Toilet/Commode Transfer (QC): 6 Shower Transfer(FIM): 6 Additional Goals: 1-Demonstrate ADL Tasks, 2-Verbalize Understanding, 3- ImproveStrength/Vaishali 1=Demonstrate adherence to instructed precautions during ADL tasks. 2=Patient will verbalize/demonstrate understanding of assistive devices/ modifications for ADL. 3=Patient will improve strength/tolerance for activity to enable patient to perform ADL's. OT Education/Plan Problem List/Assessment High intensity due to decr activity tolerance from CA, decreased functional use R LE, decreased UE strength, decreased functional mobility, decr self care skills Discharge Recommendations Plan/Recommendations: Continue POC Treatment Plan/Plan of Care Patient would benefit from OT for education, treatment and training to promote independence in ADL's, mobility, safety and/or upper extremity function for ADL' s. Plan of Care: ADL Retraining, Functional Mobility, Group Exercise/Act as Ind ( education, exercise, activity tolerance, functional activities), UE Funct Exercise/Act, UE Neuromus Re-Ed/Coord Treatment Duration: October 02, 2016 Visits Per Week: 10-11 Minutes/Day (M-F): 75-90 Minutes/Day (Sat/Rees): PRN Agreement: Yes Rehab Potential: Good Time/GCodes Start Time: 11:00 Stop Time: 12:00 Total Time Billed (hr/min): 60 Billed Treatment Time visit, 38 minutes ADL, 22 minutes exercise ADY RODRIGES OT Sep 24, 2016 15:33
--- NOTE | 2016-09-24 15:57 | Occupational Ther Daily Note ---
OT Current Status-Daily Note Subjective Pt seen inroom, up in bed, agreeable to OT but preferred to do exercises in bed. No pain mentioned but he had just finished with PT and was tired. Appearance Alert, cooperative Mental Status/Objective Functional [place] Measure 0=Not Assessed/NA 4=Minimal Assistance 1=Total Assistance 5=Supervision or Setup 2=Maximal Assistance 6=Modified [place] 3=Moderate Assistance 7=Complete [place] ADL-Treatment Functional [place] Measure 0=Not Assessed/NA 4=Minimal Assistance 1=Total Assistance 5=Supervision or Setup 2=Maximal Assistance 6=Modified [place] 3=Moderate Assistance 7=Complete IndependenceIRFPAI Quality Coding Scale 6 Independent with activity with or without an assistive device 5 Patient requires set up or clean up by helper. Patient completes activity by themselves 4 Supervision or touching assist (CGA). [place] provide cues , steadying assist 3 The helper provides less than half the effort to complete the activity 2 The helper provides more than half the effort to complete the activity 1 Dependent. The helper does all the effort to complete an activity 7 Patient refused to complete or attempt activity 9 The patient did not perform the activity before the current illness or injury 88 Not attempted due to Medical conditions or safety concerns Other Treatment Pt did bilat UE ex with 3# weight, doing as many as 25 reps. Pt demonstrated the different exercises that he has done at home (he used a 4# weight, he thought) in the evening. Weight was backed off a pound due to decreased activity tolerance after surgery. 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 Pt worked on shoulder, elbows, forearms and wrists, to help with getting up and down for transfers and dressing. pt left up in bed, 2 rails up, all needs met. OT Short Term Goals Short Term Goals 1=Demonstrate adherence to instructed precautions during ADL tasks. 2=Patient will verbalize/demonstrate understanding of assistive devices/ modifications for ADL. 3=Patient will improve strength/tolerance for activity to enable patient to perform ADL's. OT Intermediate Goals Pharmacy Benefits Coordinator Goals Time Frame: October 02, 2016 Eating (FIM): 6 Eating (QC): 6 Groomin Oral Hygiene (QC): 6 Bathing(FIM): 6 Shower/Bathe Self (QC): 6 Upper Body Dressing(FIM): 6 Upper Body Dressing (QC): 6 Lower Body Dressing(FIM): 6 Lower Body Dressing (QC): 3 On/Off Footwear (QC): 6 Toileting(FIM): 6 Toileting Hygiene (QC): 6 Transfers (B,C,W/C) (FIM): 6 Toilet/Commode Transfer (QC): 6 Shower Transfer(FIM): 6 Additional Goals: 1-Demonstrate ADL Tasks, 2-Verbalize Understanding, 3- ImproveStrength/Vaishali 1=Demonstrate adherence to instructed precautions during ADL tasks. 2=Patient will verbalize/demonstrate understanding of assistive devices/ modifications for ADL. 3=Patient will improve strength/tolerance for activity to enable patient to perform ADL's. OT Education/Plan Problem List/Assessment High intensity due to decr activity tolerance from CA, decreased functional use R LE, decreased UE strength, decreased functional mobility, decr self care skills Discharge Recommendations Plan/Recommendations: Continue POC Treatment Plan/Plan of Care Patient would benefit from OT for education, treatment and training to promote independence in ADL's, mobility, safety and/or upper extremity function for ADL' s. Plan of Care: ADL Retraining, Functional Mobility, Group Exercise/Act as Ind ( education, exercise, activity tolerance, functional activities), UE Funct Exercise/Act, UE Neuromus Re-Ed/Coord Treatment Duration: October 02, 2016 Visits Per Week: 10-11 Minutes/Day (M-F): 75-90 Minutes/Day (Sat/Rees): PRN Agreement: Yes Rehab Potential: Good Time/GCodes Start Time: 13:30 Stop Time: 14:00 Total Time Billed (hr/min): 30 Billed Treatment Time visit, 30 minutes exercise ADY RODRIGES OT Sep 24, 2016 15:56
[2016-09-24] MEDS: VITAMIN D3 5,000 UNITS (CHOLECALCIFEROL ) CAPSULE PO SCH (17:26)
[2016-09-24] MEDS: DICYCLOMINE 10 MG (BENTYL) CAP PO PRN (17:39)
[2016-09-24] MEDS: ONDANSETRON 4 MG (ZOFRAN) ORAL DISSOLVE TAB PO PRN (18:43)
[2016-09-24 18:57] VITALS: BP 115/75
--- NOTE | 2016-09-24 18:57 | PM & R (SOAP) Progress Note ---
Subjective Subjective/Events-last exam Patient was seen in his room this AM Discussed case with SW Patient insistent upon discharge tomorrow Patient SBA for transfers Objective Exam Last Set of Vital Signs Vital Signs Date Time Temp Pulse Resp B/P (MAP) Pulse Ox O2 Delivery O2 Flow Rate FiO2 09/24/16 18:39 97 09/24/16 06:00 98.7 85 18 112/70 Room Air 09/19/16 09:07 3.00 Capillary Refill : I&O Intake and Output 09/24/16 00:00 Intake Total 2050 ml Output Total 1900 ml Balance 150 ml Intake Oral 2050 ml Output Urine Total 1900 ml # Bowel Movements 4 General: Alert, Oriented X3, Cooperative, No Acute Distress HEENT: Atraumatic, PERRLA, EOMI, Mucous Memb Moist/[place] Neck: Supple, No JVD Lungs: Clear to Auscultation Heart: Regular Rate Abdomen: Normal Bowel Sounds, Soft, No Tenderness Extremities: No Edema (trace edema left ankle) Neuro: Other (weakness left proximal hip due to recent surgery) Assessment/Plan Assessment L THR for DJD DR Fischer Lowgrade fever postop resolved renal cell CA s/p nephrectomy-remote DVT Prophylaxis on Lovenox HTN controlled Chronic back pain POstop anemia BPH on meds Plan Continue PT/OT ST has signed off F/U with DR Yevgeniy marquez-Appreciate her notes Adjusted bowel prep meds Discharge moved up to tomorrow See orders RX for DME Walker provided F/U with PCP and DR Fischer Orth[facility]. KATHY STEWARD MD Sep 24, 2016 18:57
[2016-09-24] MEDS ORDERED: HYDR-3820 PO (19:02)
[2016-09-24] MEDS: SUCRALFATE 1 GM (CARAFATE) TAB PO PRN (21:05)
[2016-09-24] MEDS: MIRTAZAPINE 15 MG (REMERON) TAB PO SCH (22:06)
[2016-09-24] MEDS: FINASTERIDE (PROSCAR) 5 MG TAB PO SCH (22:06)
[2016-09-24] MEDS: MELATONIN 3 MG TABLET PO SCH (22:06)
[2016-09-25 05:00] VITALS: BP 117/58
[2016-09-25] MEDS: PANTOPRAZOLE 40 MG (PROTONIX) TAB PO SCH (06:03)
[2016-09-25] MEDS: RT-ALBUTEROL/IPRATROPIUM 3 ML (DUONEB) VIAL INH SCH (07:06)
--- NOTE | 2016-09-25 08:16 | PM & R (SOAP) Progress Note ---
Subjective Subjective/Events-last exam Patient was seen in his room this AM Concerened re recurrent Pneumonia that he has had in the past Discussed with RN Chest clear both anteriorly and posteriorly Objective Exam Last Set of Vital Signs Vital Signs Date Time Temp Pulse Resp B/P (MAP) Pulse Ox O2 Delivery O2 Flow Rate FiO2 09/25/16 07:08 94 09/25/16 05:00 98.0 80 20 117/58 Room Air 09/19/16 09:07 3.00 Capillary Refill : I&O Intake and Output 09/25/16 00:00 Intake Total 1960 ml Output Total 1000 ml Balance 960 ml Intake Oral 1960 ml Output Urine Total 1000 ml # Voids 3 General: Alert, Oriented X3, Cooperative, No Acute Distress HEENT: Atraumatic, PERRLA, EOMI, Mucous Memb Moist/Phenix Neck: Supple, No JVD Lungs: Clear to Auscultation Heart: Regular Rate Abdomen: Normal Bowel Sounds, Soft, No Tenderness Extremities: No Edema (trace edema left ankle) Neuro: Other (weakness left proximal hip due to recent surgery) Assessment/Plan Assessment L THR for DJD DR Fischer Lowgrade fever postop resolved renal cell CA s/p nephrectomy-remote DVT Prophylaxis on Lovenox HTN controlled Chronic back pain POstop anemia BPH on meds Plan Discharge today to home with family and HHC RX for DME Walker provided F/U with PCP and DR Fischer [facility]. See orders Patient reassured KATHY STEWARD MD Sep 25, 2016 08:16
[2016-09-25] MEDS: ASPIRIN E.C. 325 MG (ECOTRIN) TABLET PO SCH (09:14)
[2016-09-25] MEDS: FENOFIBRATE 134 MG (LOFIBRA) CAPSULE PO SCH (09:14)
[2016-09-25] MEDS: SENNA W/DOCUSATE (SENOKOT S) TABLET PO SCH (09:38)
[2016-09-25] MEDS: DICYCLOMINE 10 MG (BENTYL) CAP PO PRN (10:25)
[2016-09-25] MEDS: HYDROcodone/APAP 10 MG/325 MG (LORTAB) TAB PO PRN (10:58)
[2016-09-25 11:20] VITALS: BP 117/58
--- NOTE | 2016-09-25 13:07 | Occupational Ther Daily Note ---
OT Current Status-Daily Note Subjective Pt seen in room, up in bed, agreeable to OT. Pt and voiced no concerns about going home and feel prepared. Mental Status/Objective Functional [place] Measure 0=Not Assessed/NA 4=Minimal Assistance 1=Total Assistance 5=Supervision or Setup 2=Maximal Assistance 6=Modified [place] 3=Moderate Assistance 7=Complete [place] ADL-Treatment Functional [place] Measure 0=Not Assessed/NA 4=Minimal Assistance 1=Total Assistance 5=Supervision or Setup 2=Maximal Assistance 6=Modified [place] 3=Moderate Assistance 7=Complete IndependenceIRFPAI Quality Coding Scale 6 Independent with activity with or without an assistive device 5 Patient requires set up or clean up by helper. Patient completes activity by themselves 4 Supervision or touching assist (CGA). [place] provide cues , steadying assist 3 The helper provides less than half the effort to complete the activity 2 The helper provides more than half the effort to complete the activity 1 Dependent. The helper does all the effort to complete an activity 7 Patient refused to complete or attempt activity 9 The patient did not perform the activity before the current illness or injury 88 Not attempted due to Medical conditions or safety concerns Other Treatment Pt and have talked with social work about hip kit equipment and believe that they have all ADL issues addressed. He is confident that he can follow hip precautions. Pt would benefit from home health OT home evaluation. DC OT. See tx plan for goals met. OT Short Term Goals Short Term Goals 1=Demonstrate adherence to instructed precautions during ADL tasks. 2=Patient will verbalize/demonstrate understanding of assistive devices/ modifications for ADL. 3=Patient will improve strength/tolerance for activity to enable patient to perform ADL's. OT Fci Goals Fci Goals Time Frame: October 02, 2016 Eating (FIM): 6 (met -25-17) Eating (QC): 6 (met 25-17) Groomin (Not met -25-17) Oral Hygiene (QC): 6 (Not met -25-17) Bathing(FIM): 6 (Not met -25-17) Shower/Bathe Self (QC): 6 (Not met -25-17) Upper Body Dressing(FIM): 6 (Not met -25-17) Upper Body Dressing (QC): 6 (Not met -25-17) Lower Body Dressing(FIM): 6 (Not met 4-25-17) Lower Body Dressing (QC): 3 (Not met 09-24-16) On/Off Footwear (QC): 6 (Not met 09-24-16) Toileting(FIM): 6 (Not met 09-24-16) Toileting Hygiene (QC): 6 (Not met 09-24-16) Transfers (B,C,W/C) (FIM): 6 (Not met 09-24-16) Toilet/Commode Transfer(FIM): 6 (Not met 09-24-16) Toilet/Commode Transfer (QC): 6 (Not met 09-24-16) Shower Transfer(FIM): 6 (Not met 09-24-16) Additional Goals: 1-Demonstrate ADL Tasks, 2-Verbalize Understanding, 3- ImproveStrength/Vaishali 1=Demonstrate adherence to instructed precautions during ADL tasks. 2=Patient will verbalize/demonstrate understanding of assistive devices/ modifications for ADL. 3=Patient will improve strength/tolerance for activity to enable patient to perform ADL's. OT Education/Plan Problem List/Assessment High intensity due to decr activity tolerance from CA, decreased functional use R LE, decreased UE strength, decreased functional mobility, decr self care skills Discharge Recommendations Plan/Recommendations: Discharge/Goals Met (see tx plan for specifics) Therapy D/C Recommendations: Occupational Therapy Home Care Equpiment Recommendations-D/C: Hip Kit, Sock Aide Treatment Plan/Plan of Care Patient would benefit from OT for education, treatment and training to promote independence in ADL's, mobility, safety and/or upper extremity function for ADL' s. Plan of Care: ADL Retraining, Functional Mobility, Group Exercise/Act as Ind ( education, exercise, activity tolerance, functional activities), UE Funct Exercise/Act, UE Neuromus Re-Ed/Coord Treatment Duration: October 02, 2016 Visits Per Week: 10-11 Minutes/Day (M-F): 75-90 Minutes/Day (Sat/Rees): PRN Agreement: Yes Rehab Potential: Good Time/GCodes Start Time: 09:20 Stop Time: 09:25 Total Time Billed (hr/min): 5 Billed Treatment Time visit, 5 min ADL ADY RODRIGES OT Sep 25, 2016 13:07
--- NOTE | 2016-09-25 13:13 | Therapy Team Discharge Summary ---
Therapy Discharge Summary Discharge Recommendations Date of Discharge Therapy D/C Recommendations: Home w/ Family Support Physical Therapy Patient came to rehab following a left NNAMDI. Upon admission, patient performed supine to sit with max assist, CGA for other bed mobility, and min assist for transfers, was able to ambulate 50' with a rolling walker with CGA, and propel a manual wheelchair 150' with mod I. Patient has been performing bed mobility and transfer training, balance and endurance training, functional strengthening , stair training, gait training, and education. 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 Now, patient performs bed mobility and transfers with mod I, ambulates 150' with a rolling walker with SBA (including 50' with at least 2 turns of 90 degrees and 10' over an uneven surface), and can go up and down 12 steps using 2 handrails with CGA. Patient is being discharged from this facility and will be discharged from PT at this time. PT Gang Sawyer Goals Assisted Goals PT Gang Sawyer Goals Time Frame: October 09, 2016 Transfers (B,C,W/C) (FIM): 5 Roll Left to Right (QC): 4 Sit to Lying (QC): 4 Lying-Sitting on Side/Bed(QC): 4 Sit to Stand (QC): 4 Chair/Gdd-ab-Zdlaj Xfer(QC): 4 Car Transfer (QC): 4 Gait (FIM): 5 Distance: 150' Walk 10 feet (QC): 4 Walk 10ft-Uneven Surface(QC): 4 Walk 50ft with 2 Turns (QC): 4 Walk 150 ft (QC): 4 Gait Level of Assist: 5 Gait Assistive Device: FWW Stairs (FIM): 2 # of Steps: 4 1 Step (curb) (QC): 4 4 Steps (QC): 4 12 Steps (QC): 88 Stairs Level Of Assist: 4 Picking up an Object (QC): 88 OT Assisted Goals Assisted Goals Time Frame: October 02, 2016 Eating (FIM): 6 Eating (QC): 6 Oral Hygiene (QC): 6 Grooming(FIM): 6 Bathing(FIM): 6 Shower/Bathe Self (QC): 6 Upper Body Dressing(FIM): 6 Upper Body Dressing (QC): 6 Lower Body Dressing(FIM): 6 Lower Body Dressing (QC): 3 On/Off Footwear (QC): 6 Toileting(FIM): 6 Toileting Hygiene (QC): 6 Transfers (B,C,W/C) (FIM): 6 Toilet/Commode Transfer (QC): 6 Shower Transfer(FIM): 6 Additional Goals: 1-Demonstrate ADL Tasks, 2-Verbalize Understanding, 3- ImproveStrength/Vaishali 1=Demonstrate adherence to instructed precautions during ADL tasks. 2=Patient will verbalize/demonstrate understanding of assistive devices/ modifications for ADL. 3=Patient will improve strength/tolerance for activity to enable patient to perform ADL's. LYNETTE FONTANEZ PT Sep 25, 2016 13:13
--- NOTE | 2016-09-25 13:17 | Therapy Team Discharge Summary ---
Therapy Discharge Summary Discharge Recommendations Date of Discharge Therapy D/C Recommendations: Occupational Therapy Home Care Occupational Therapy Pt was seen for skilled OT to increase his independence in basic self care to allow him to return home safely after total hip replacement, with recovery made more difficult by decreased functional use R LE and hip precautions. On admission pt needed setup help for grooming, was mod I with eating, needed min assist with bathing, upper body dressing, toilet transfer and shower transfer and needed mod assist with lower body dressing and toileting. By discharge he was independent with eating, needed setup with grooming, bathing, dressing and SBA for toileting, toilet transfers and shower transfers. Equipment used included financial administrator, dressing stick, sock aid and long handled sponge. Pt would benefit from home health OT. See tx plan for goals met. DC OT. PT Archery Equipment Hay Sorter Goals Assisted Goals PT Assisted Goals Time Frame: October 09, 2016 Transfers (B,C,W/C) (FIM): 5 Roll Left to Right (QC): 4 Sit to Lying (QC): 4 Lying-Sitting on Side/Bed(QC): 4 Sit to Stand (QC): 4 Chair/Hqn-nv-Qfhak Xfer(QC): 4 Car Transfer (QC): 4 Gait (FIM): 5 Distance: 150' Walk 10 feet (QC): 4 Walk 10ft-Uneven Surface(QC): 4 Walk 50ft with 2 Turns (QC): 4 Walk 150 ft (QC): 4 Gait Level of Assist: 5 Gait Assistive Device: FWW Stairs (FIM): 2 # of Steps: 4 1 Step (curb) (QC): 4 4 Steps (QC): 4 12 Steps (QC): 88 Stairs Level Of Assist: 4 Picking up an Object (QC): 88 OT Assisted Goals Assisted Goals Time Frame: October 02, 2016 Eating (FIM): 6 (met 4-25-17) Eating (QC): 6 (met 4-25-17) Oral Hygiene (QC): 6 (Not met 4-25-17) Grooming(FIM): 6 (Not met 4-25-17) Bathing(FIM): 6 (Not met 4-25-17) Shower/Bathe Self (QC): 6 (Not met 4-25-17) Upper Body Dressing(FIM): 6 (Not met 4-25-17) Upper Body Dressing (QC): 6 (Not met 09-24-16) Lower Body Dressing(FIM): 6 (Not met 09-24-16) Lower Body Dressing (QC): 3 (Not met 09-24-16) On/Off Footwear (QC): 6 (Not met 09-24-16) Toileting(FIM): 6 (Not met 09-24-16) Toileting Hygiene (QC): 6 (Not met 09-24-16) Transfers (B,C,W/C) (FIM): 6 (Not met 09-24-16) Toilet/Commode Transfer(FIM): 6 (Not met 09-24-16) Toilet/Commode Transfer (QC): 6 (Not met 09-24-16) Shower Transfer(FIM): 6 (Not met 09-24-16) Additional Goals: 1-Demonstrate ADL Tasks, 2-Verbalize Understanding, 3- ImproveStrength/Vaishali 1=Demonstrate adherence to instructed precautions during ADL tasks. 2=Patient will verbalize/demonstrate understanding of assistive devices/ modifications for ADL. 3=Patient will improve strength/tolerance for activity to enable patient to perform ADL's. ADY RODRIGES OT Sep 25, 2016 13:17
--- NOTE | 2016-09-26 09:55 | Physical Therapy Daily Note ---
PT Daily Note-Current Transfers Functional [place] Measure 0=Not Assessed/NA 4=Minimal Assistance 1=Total Assistance 5=Supervision or Setup 2=Maximal Assistance 6=Modified [place] 3=Moderate Assistance 7=Complete IndependenceIRFPAI Quality Coding Scale 6 Independent with activity with or without an assistive device 5 Patient requires set up or clean up by helper. Patient completes activity by themselves 4 Supervision or touching assist (CGA). [place] provide cues , steadying assist 3 The helper provides less than half the effort to complete the activity 2 The helper provides more than half the effort to complete the activity 1 Dependent. The helper does all the effort to complete an activity 7 Patient refused to complete or attempt activity 9 The patient did not perform the activity before the current illness or injury 88 Not attempted due to Medical conditions or safety concerns Transfers (B, C, W/C) (FIM): 6 Scootin Rollin Supine to/from Sit: 6 Weight Bearing Weight Bearing Restriction: Weight Bearing/Tolerated Location Restriction: L LE Gait Training Gait (FIM): 6 Distance (FIM): 3=150 ft Distance: 250' x 2 Gait Level of Assist: 6 Gait Assistive Device: FWW slow and antalgic Exercises Supine Ex: Ankle pumps, Quad Set, Heel Slides Supine Reps: 15 Seated Therapy Exercises: Long arc quads Seated Reps: 15 Assessment Patient tolerated treatment and will dismiss to home this week. PT Short Term Goals Short Term Goals Time Frame: Sep 25, 2016 Gait (FIM): 2 (met 09/19/16) Gait Distance Comment: 100' Gait Level of Assist: 4 (CGA) Gait Assistive Device: FWW Wheelchair Distance: 150'x2 PT Skilled Nursing Goals Skilled Nursing Goals PT Neuropathologist Goals Time Frame: October 09, 2016 Transfers (B,C,W/C) (FIM): 5 Gait (FIM): 5 Distance: 150' Gait Level of Assist: 5 Gait Assistive Device: FWW Stairs (FIM): 2 # of Steps: 4 Stairs Level Of Assist: 4 PT Plan Treatment/Plan Treatment Plan: Continue Plan of Care Treatment Plan: Bed Mobility, Education, Functional Activity Vaishali, Functional Strength, Group Therapy, Gait, Safety, Therapeutic Exercise, Transfers Treatment Duration: October 09, 2016 Visits Per Week: 10-11 Minutes/Day (M-F): 60-90 Minutes/Day (Sat/Rees): 15-30 Time/GCodes Time In: 1300 Time Out: 1330 Total Billed Treatment Time: 30 Total Billed Treatment 1 visit EX 15 min GT 15 min Note from 09/23/16 (had charted in wrong chart) this is the correction DORY CORRALES PT Sep 26, 2016 09:55
--- NOTE | 2016-09-27 15:18 | DISCHARGE SUMMARY ---
DATE OF SERVICE: 09/25/2016 HISTORY OF PRESENT ILLNESS: The patient is a 70-year-old male with a past medical history significant for renal cell carcinoma and disability who had painful DJD of the left hip, refractory to conservative care. The patient was admitted to the service of orthopedics, Dr. Fischer, and underwent a left total hip replacement at [facility]. The patient required assistance for his ADLs and mobility skills postoperatively. He had postop anemia as well as postop respiratory insufficiency and was on O2 by nasal cannula. He was referred to inpatient rehabilitation unit for ongoing therapies. The patient had some dyspnea on exertion associated with limited endurance. He had been modified independent with a cane prior to this, living with his spouse in a single level home. PAST MEDICAL HISTORY: Coronary artery disease, hypercholesterolemia, hypertension, renal cancer, appendectomy, coronary stents, cholecystectomy, nephrectomy, has a nodule in the right lung which is being followed by Dr. Lombardo in medical oncology. MEDICAL COURSE: The patient was followed by Drs. Domigno and Yevgeniy while on rehab unit. His incision was healing well. He had decreased pain. He was afebrile during his stay. Pulse on 09/25 was 80, respirations 20, blood pressure 117/58, O2 sat 94% on room air. Chemistry on 09/20, showed normal electrolytes, BUN and creatinine, CO2 was low at 20, albumin low at 3, total protein 5.5, alk phos low at 37, glucose elevated at 130, calcium low at 8.4. CBC on 09/20 showed WBC 8.4, H and H 11.5/38, platelet count 67K. REHABILITATION COURSE: He progress well with his therapies. He had increased strength and endurance. He requested an early discharge to home with family with home health care. Speech therapy did initial cognitive assessment and found him to be functional and signed off. OCCUPATIONAL THERAPY NOTE: Upon admission, he required set up for grooming, was modified independent for eating, was min assist for bathing, upper body dressing, toilet transfers and shower transfers and required mod assist for lower body dressing and toileting. By discharge, he independent with eating, needed set up for grooming, bathing, dressing, and standby assist for toileting, toilet transfers and shower transfers. Equipment used included plastering supervisor, dressing stick, sock and long handled sponge. OT noted the patient would benefit from home health OT. PHYSICAL THERAPY NOTE: Upon admission, the patient performed supine to sit with max assist. He was contact guard for other bed mobility. He was min assist for transfers. He was able to ambulate 50 feet with a wheeled walker with contact guard and propelled a manual wheelchair 150 feet with modified independence. Upon discharge, he is modified independent with bed mobility and transfers, can ambulate 150 feet with a wheeled walker with standby assist and go up and down 12 steps using 2 handrails with contact guard. His hypertension was well controlled. He did have a low grade postop fever which resolved with nebulized treatments and incentive spirometry with respiratory therapy assisting with this. DISCHARGE INSTRUCTIONS: The patient is discharged to home with and home health care. He is weightbearing as tolerated, left lower extremity. he will have follow up with Dr. Fischer and PCP, Dr. Heaton as per their schedule. DISCHARGE MEDICATIONS: Hydrocodone APAP 10/325 one tablet p.o. q. 6 hours p.r.n. moderate pain, Xanax 1 mg p.o. q. 6 hours p.r.n. anxiety, ASA 1 mg p.o. daily, vitamin D 5000 units p.o. daily, dicyclomine 20 mg p.o. t.i.d., p.r.n. abdominal pain, fenofibrate 145 mg p.o. daily, Melatonin 5 mg p.o. at bedtime, Shahbaz Red omega-3 krill oil soft gels 1 capsule p.o. q. evening, Imodium 1 tablet p.o. daily p.r.n. diarrhea, melatonin 1 mg p.o. at bedtime, mirtazapine 15 mg p.o. at bedtime, Zofran 4 mg p.o. q. 8 hours p.r.n. nausea and vomiting, Protonix 40 mg p.o. daily, Carafate 1 g p.o. q.i.d. a.c. and at bedtime p.r.n. heartburn. DISCHARGE DIAGNOSES: 1. Rehabilitation, ambulatory dysfunction secondary to DJD left hip, refractory to conservative care, status post left total hip replacement with Dr. Fischer. Weightbearing as tolerated. Improving. 2. Right lung lesion being followed by Dr. Lombardo. 3. Hypertension controlled on medication. 4. Coronary artery disease, stable. 5. Hypercholesterolemia on medication. 6. History of kidney cancer. 7. Benign prostatic hypertrophy. 8. Status post nephrectomy. 9. Postop anemia, improving. 10. Postop fever, resolved. 11. Hypoalbuminemia. 12. Hypoglycemia. 13. Hypocalcemia. CONDITION AT DISCHARGE: Improved and stable. PROGNOSIS: Rehab prognosis appears good for continued improvement at home with home health care, return to independent living with assistance from spouse as needed. Job ID: [id number] DocumentID: [id number] Dictated Date: 09/26/2016 19:50:57 Acetylene Operator Date: 09/27/2016 15:17:12 Dictated By: KATHY DOMINGO MD MTDD
== END 2016-09-25 17:17 | disposition home health service (06) | DRG 561 ==
LOC: ENPENDDIS 09-25 12:00
PROVIDERS: ADMIT Physical Medicine & Rehabilitation; ATTEND Physical Medicine & Rehabilitation
DX: Z47.1 Aftercare following joint replacement surgery (principal); Z96.642 Presence of left artificial hip joint; R91.1 Solitary pulmonary nodule; I10 Essential (primary) hypertension; I25.10 Atherosclerotic heart disease of native coronary artery without angina pectoris; E78.00 Pure hypercholesterolemia, unspecified; N40.0 Benign prostatic hyperplasia without lower urinary tract symptoms; Z85.528 Personal history of other malignant neoplasm of kidney; Z90.5 Acquired absence of kidney; D64.9 Anemia, unspecified; R50.82 Postprocedural fever
CPT/HCPCS: 36415; 80053; 85014; 85018; 85025; 94640; 94760

== ENCOUNTER 2016-11-05 12:34 | Outpatient (RCR) | payer MEDICARE ==
[~2016-11-05 12:34] MED LIST changes: +ASPI-999 PO
[2016-11-05 13:14] LABS: BASOPHILS % (AUTO) 1 % (0-10); EOSINOPHILS # (AUTO) 0.3 10^3/uL (0.0-0.3); EOSINOPHILS % (AUTO) 4 % (0-10); LYMPHOCYTES # (AUTO) 1.8 X 10^3 (1.0-4.0); LYMPHOCYTES % (AUTO) 26 % (12-44); MEAN CORPUSCULAR HEMOGLOBIN 29 PG (25-34); MEAN CORPUSCULAR HGB CONC 32 G/DL (32-36); MEAN CORPUSCULAR VOLUME 91 FL (80-99); MEAN PLATELET VOLUME 8.9 FL (7.4-10.4); MONOCYTES # (AUTO) 0.6 X 10^3 (0.0-1.0); MONOCYTES % (AUTO) 8 % (0-12); NEUTROPHILS # (AUTO) 4.3 X 10^3 (1.8-7.8); NEUTROPHILS % (AUTO) 62 % (42-75); PLATELET COUNT 251 10^3/uL (130-400); RED BLOOD COUNT 4.84 10^6/uL (4.35-5.85); RED CELL DISTRIBUTION WIDTH 14.1 % (10.0-14.5)
[2016-11-05 13:58] LABS: ALANINE AMINOTRANSFERASE 10 U/L (0-55); ALBUMIN 3.7 G/DL (3.2-4.5); ANION GAP 8 MMOL/L (5-14); ASPARTATE AMINO TRANSFERASE 13 U/L (5-34); BILIRUBIN,TOTAL 0.5 MG/DL (0.1-1.0); BLOOD UREA NITROGEN 16 MG/DL (7-18); BUN/CREATININE RATIO 14; CALCIUM 9.3 MG/DL (8.5-10.1); CARBON DIOXIDE 26 MMOL/L (21-32); CHLORIDE 107 MMOL/L (98-107); CREATININE SERUM 1.17 MG/DL (0.60-1.30); GFR ESTIMATED > 60; GLUCOSE 94 MG/DL (70-105); LACTATE DEHYDROGENASE 141 U/L (125-220); POTASSIUM 4.3 MMOL/L (3.6-5.0); SODIUM 141 MMOL/L (135-145); TOTAL PROTEIN 6.4 G/DL (6.4-8.2)
--- NOTE | 2016-11-05 14:37 | Diagnostic Imaging Report ---
INDICATION: Renal cell carcinoma. EXAMINATION: PA and lateral chest. FINDINGS: There are some opacifications in the right upper lobe that could be granulomas. These were present on the CT dated 02/04/2016 and appear unchanged. There are no infiltrates, effusions, or pneumothoraces. The heart size and pulmonary vascularity are normal. IMPRESSION: Multiple opacities in the right upper lobe, stable from prior studies. These are likely granulomas. No acute abnormality is seen. Dictated by: Dictated on workstation # [id number]
[2016-12-05] MEDS ORDERED: CLON0.1T PO (11:00)
[2016-12-05] MEDS ORDERED: HYDR-3816 PO (12:49)
== END 2017-02-03 | disposition home or self-care (01) ==
LOC: ONC 12:34
PROVIDERS: ATTEND Internal Medicine Hematology & Oncology
DX: Z08 Encounter for follow-up examination after completed treatment for malignant neoplasm (principal); Z85.528 Personal history of other malignant neoplasm of kidney; Z85.118 Personal history of other malignant neoplasm of bronchus and lung; D50.9 Iron deficiency anemia, unspecified; L98.9 Disorder of the skin and subcutaneous tissue, unspecified; I25.10 Atherosclerotic heart disease of native coronary artery without angina pectoris; I12.9 Hypertensive chronic kidney disease with stage 1 through stage 4 chronic kidney disease, or unspecified chronic kidney disease; N18.3 Chronic kidney disease, stage 3 (moderate); J43.9 Emphysema, unspecified; Z79.899 Other long term (current) drug therapy
CPT/HCPCS: 36415; 71020; 80053; 83615; 85025; 99213

== ENCOUNTER 2016-12-02 05:31 | Outpatient (CLI) | payer MEDICARE ==
[~2016-12-02] VITALS: Ht 177.8 cm; Wt 93.0 kg
== END 2016-12-02 10:20 ==
LOC: PREOP 05:31
PROVIDERS: ATTEND Surgery
DX: Z01.818 Encounter for other preprocedural examination (principal); H93.92 Unspecified disorder of left ear

== ENCOUNTER 2016-12-05 09:59 | Day surgery (SDC) | payer MEDICARE ==
[~2016-12-05] VITALS: Ht 177.8 cm; Wt 93.0 kg
[2016-12-05] MEDS ORDERED: ceFAZolin 1,000 MG (ANCEF) VIAL ONE (10:04)
[2016-12-05] MEDS ORDERED: NS (IVPB) 50 ML ONE (10:04)
--- OUTSIDE RECORDS SUMMARY | 2016-12-05 10:12 | XMS REPORT | Continuity of Care Document ---
Author Author [facility] Organization [facility] Address Unknown Phone Unavailable Allergies Active Description Code Type Severity Reaction Onset Reported/Identified Relationship to Patient Clinical Status Yes prochlorperazine [id number] Drug Allergy Mild N/A 09/08/2012 Yes procaine [id number] Drug Allergy Unknown N/A 09/08/2012 Yes Procaine HCl [id number] Drug Allergy Unknown N/A 09/08/2012 Yes clopidogrel bisulfate [id number] Drug Allergy Unknown N/A 11/16/2014 Yes metronidazole [id number] Drug Allergy Unknown N/A 11/16/2014 Yes Metronidazole HCl [id number] Drug Allergy Unknown N/A 11/16/2014 Yes Zhbdmlm-Qlo-Mgh Reductase Inhibitor [id number] Drug Allergy Unknown R/T KIDNEY FUNC 11/16/2014 Medications Problems Date Dx Coded Attending Type Code Diagnosis Diagnosed By 10/09/2011 Ot 008.45 10/09/2011 Ot 197.0 10/09/2011 Ot 276.51 10/09/2011 Ot 584.9 10/09/2011 Ot 585.9 10/09/2011 Ot 724.2 10/09/2011 Ot 789.03 10/09/2011 Ot V10.52 10/09/2011 Ot V45.73 01/23/2012 Ot 189.0 01/23/2012 Ot 276.50 01/23/2012 Ot 427.31 01/23/2012 Ot 496 01/23/2012 Ot V15.82 01/02/2014 MEI GOMEZ Ot 189.0 MALIG NEOPL KIDNEY 01/02/2014 MEI GOMEZ Ot 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 01/02/2014 MEI GOMEZ Ot 272.4 HYPERLIPIDEMIA NEC/NOS 01/02/2014 MEI GOMEZ Ot V58.69 OTH MED,LT,CURRENT USE 06/09/2014 MEI GOMEZ Ot 189.0 06/09/2014 JASON, BOBAN N Ot 197.0 06/09/2014 JASON, BOBAN N Ot 272.4 06/09/2014 JASON, BOBAN N Ot V58.69 06/09/2014 JASON, BOBAN N Ot 189.0 06/09/2014 JASON, BOBAN N Ot 197.0 06/09/2014 JASON, BOBAN N Ot 272.4 06/09/2014 JASON, BOBAN N Ot V58.69 06/16/2014 JASON, BOBAN N Ot 189.0 06/16/2014 JASON, BOBAN N Ot 197.0 06/16/2014 JASON, BOBAN N Ot 272.4 06/16/2014 JASON, BOBAN N Ot V58.69 06/17/2014 JASON, BOBAN N Ot 189.0 06/17/2014 JASON, BOBAN N Ot 197.0 06/17/2014 JASON, BOBAN N Ot 272.4 06/17/2014 JASON, BOBAN N Ot V58.69 07/07/2014 DILIA WHITE DIRECT RESPONSE CONSULTANT Ot 189.0 07/11/2014 DILIA WHITE DIRECT RESPONSE CONSULTANT Ot 189.0 07/28/2014 JASON, BOBAN N Ot 189.0 07/28/2014 JASON, BOBAN N Ot 197.0 07/28/2014 JASON, BOBAN N Ot 272.4 07/28/2014 JASON, BOBAN N Ot V58.69 07/28/2014 JASON, BOBAN N Ot 189.0 07/28/2014 JASON, BOBAN N Ot 197.0 07/28/2014 JASON, BOBAN N Ot 272.4 07/28/2014 JASON, BOBAN N Ot V58.69 09/14/2014 JASON, BOBAN N Ot 189.0 MALIG NEOPL KIDNEY 09/14/2014 JASON, BOBAN N Ot 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 09/14/2014 JASON, BOBAN N Ot 272.4 HYPERLIPIDEMIA NEC/NOS 09/14/2014 JASON, BOBAN N Ot V58.69 OTH MED,LT,CURRENT USE 10/04/2014 JASON, BOBAN N Ot 189.0 10/04/2014 JASON, BOBAN N Ot 197.0 10/04/2014 JASON, BOBAN N Ot 272.4 10/04/2014 JASON, BOBAN N Ot V58.69 10/04/2014 JASON, BOBAN N Ot 189.0 10/04/2014 JASON, BOBAN N Ot 197.0 10/04/2014 JASON, BOBAN N Ot 272.4 10/04/2014 JASON, BOBAN N Ot V58.69 10/04/2014 JASON, BOBAN N Ot 189.0 10/04/2014 JASON, BOBAN N Ot 197.0 10/04/2014 JASON, BOBAN N Ot 272.4 10/04/2014 JASON, BOBAN N Ot V58.69 10/04/2014 JASON, BOBAN N Ot 189.0 10/04/2014 JASON, BOBAN N Ot 197.0 10/04/2014 JASON, BOBAN N Ot 272.4 10/04/2014 JASON, BOBAN N Ot V58.69 10/04/2014 JASON, MEI N Ot 189.0 10/04/2014 JASON, MEI N Ot 197.0 10/04/2014 JASON, BOBAN N Ot 272.4 10/04/2014 JASON, BOBAN N Ot V58.69 10/05/2014 JASON, MEI N Ot 189.0 10/05/2014 JASON, BOBAN N Ot 197.0 10/05/2014 JASON, BOBAN N Ot 272.4 10/05/2014 JASON, BOBAN N Ot V58.69 10/17/2014 HARSH STEARNS WAIST CUTTER Ot 724.02 SPINAL STENOSIS, LUMBAR REG, W/OUT NEURO 10/17/2014 HARSH STEARNS WAIST CUTTER Ot 724.2 LUMBAGO 10/17/2014 HARSH STEARNS WAIST CUTTER Ot 724.4 LUMBOSACRAL NEURITIS NOS 10/17/2014 Ot 189.0 10/17/2014 Ot 197.0 10/17/2014 Ot 492.8 10/17/2014 Ot 562.10 10/17/2014 Ot 786.6 10/17/2014 DILIA WHITE DIRECT RESPONSE CONSULTANT Ot 189.0 10/17/2014 DILIA WHITE DIRECT RESPONSE CONSULTANT Ot 197.0 10/17/2014 DILIA WHITE DIRECT RESPONSE CONSULTANT Ot 403.90 10/17/2014 DILIA WHITE S DIRECT RESPONSE CONSULTANT Ot 414.00 10/17/2014 WHITEDILIA Sanchez S DIRECT RESPONSE CONSULTANT Ot 492.8 10/17/2014 WHITEDILIA Sanchez S DIRECT RESPONSE CONSULTANT Ot 585.3 10/17/2014 DILIA WHITE S DIRECT RESPONSE CONSULTANT Ot V58.69 10/17/2014 WHITEDILIA Sanchez S DIRECT RESPONSE CONSULTANT Ot 189.0 10/17/2014 WHITEDILIA Sanchez S DIRECT RESPONSE CONSULTANT Ot 197.0 10/17/2014 WHITEDILIA Sanchez S DIRECT RESPONSE CONSULTANT Ot 268.9 10/17/2014 WHITEDILIA Sanchez S DIRECT RESPONSE CONSULTANT Ot 403.90 10/17/2014 WHITEDILIA S DIRECT RESPONSE CONSULTANT Ot 414.00 10/17/2014 WHITEDILIA Sanchez S DIRECT RESPONSE CONSULTANT Ot 492.8 10/17/2014 WHITEDILIA Sanchez S DIRECT RESPONSE CONSULTANT Ot 585.3 10/17/2014 DILIA WHITE S DIRECT RESPONSE CONSULTANT Ot V58.69 10/17/2014 DILIA WHITE S DIRECT RESPONSE CONSULTANT Ot 189.0 10/17/2014 JSAON, BOBAN N Ot 189.0 10/17/2014 JASON, BOBAN N Ot 197.0 10/17/2014 JASON, BOBAN N Ot 272.4 10/17/2014 JASON, BOBAN N Ot V58.69 12/01/2014 MIGUEL HOU JESSI [place] Ot 278.01 12/01/2014 MIGUEL HOU JESSI [place] Ot 327.23 12/01/2014 MIGUEL HOU JESSI Baylee Ot 458.9 12/01/2014 JESSI RIVERA DO Ot 530.81 12/01/2014 MIGUEL HOU JESSI [place] Ot 722.10 12/01/2014 MIGUEL HOU JESSI [place] Ot 785.0 12/01/2014 MIGUEL HOU JESSI [place] Ot V10.51 12/01/2014 MIGUEL HOU JESSI [place] Ot V45.4 12/01/2014 MIGUEL HOU JESSI [place] Ot V85.37 12/01/2014 MIGUEL HOU JESSI [place] Ot 278.01 12/01/2014 MIGUEL HOU JESSI [place] Ot 327.23 12/01/2014 MIGUEL HOU JESSI [place] Ot 458.9 12/01/2014 JESSI RIVERA DO Ot 530.81 12/01/2014 MIGUEL HOU JESSI [place] Ot 722.10 12/01/2014 JESSI RIVERA DO Ot 785.0 12/01/2014 JESSI RIVERA DO Ot V10.51 12/01/2014 JESSI RIVERA DO Ot V45.4 12/01/2014 JESSI RIVERA DO Ot V85.37 12/06/2014 JESSI RIVERA DO Ot 278.01 12/06/2014 JESSI RIVERA DO Ot 327.23 12/06/2014 JESSI RIVERA DO Ot 458.9 12/06/2014 JESSI RIVERA DO Ot 530.81 12/06/2014 JESSI RIVERA DO Ot 722.10 12/06/2014 JESSI RIVERA DO Ot 785.0 12/06/2014 JESSI RIVERA DO Ot V10.51 12/06/2014 JESSI RIVERA DO Ot V45.4 12/06/2014 JESSI RIVERA DO Ot V85.37 12/06/2014 JESSI RIVERA DO Ot 273.8 DIS PLAS PROTEIN MET NEC 12/06/2014 JESSI RIVERA DO Ot 276.2 ACIDOSIS 12/06/2014 JESSI RIVERA DO Ot 276.50 VOLUME DEPLETION, UNSPECIFIED 12/06/2014 JESSI RIVERA DO Ot 276.69 OTHER FLUID OVERLOAD 12/06/2014 JESSI RIVERA DO Ot 276.8 HYPOPOTASSEMIA 12/06/2014 JESSI RIVERA DO Ot 278.01 MORBID OBESITY 12/06/2014 JESSI RIVERA DO Ot 300.00 ANXIETY STATE NOS 12/06/2014 JESSI RIVERA DO Ot 327.23 OBSTRUCTIVE SLEEP APNEA (ADULT) (PEDIATR 12/06/2014 JESSI RIVERA DO Ot 403.90 HYPTNSV [facility] KID DIS, UNSPEC, W CHR KD ST 12/06/2014 JESSI RIVERA DO Ot 414.00 CORON ATHEROSCLER NOS TYPE VESSEL, NATIV 12/06/2014 JESSI RIVERA DO Ot 458.29 OTHER IATROGENIC HYPOTENSION 12/06/2014 JESSI RIVERA DO Ot 458.9 12/06/2014 JESSI RIVERA DO Ot 530.81 ESOPHAGEAL REFLUX 12/06/2014 JESSI RIVERA DO Ot 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 12/06/2014 JESSI RIVERA DO Ot 564.1 IRRITABLE BOWEL SYNDROME 12/06/2014 JESSI RIVERA DO Ot 584.9 ACUTE RENAL FAILURE, UNSPECIFIED 12/06/2014 JESSI RIVERA DO Ot 585.9 CHRONIC KIDNEY DISEASE, UNSPECIFIED 12/06/2014 JESSI RIVERA DO Ot 714.0 RHEUMATOID ARTHRITIS 12/06/2014 JESSI RIVERA DO Ot 719.59 JT STIFFNESS NEC-MULT JT 12/06/2014 JESSI RIVERA DO Ot 722.10 LUMBAR DISC DISPLACEMENT 12/06/2014 JESSI RIVERA DO Ot 785.0 12/06/2014 JESSI RIVERA DO Ot 907.3 LT EFF NERV INJ TRNK NEC 12/06/2014 JESSI RIVERA DO Ot 995.94 SIRS DUE TO NONINFECTIOUS PROCESS W ACUT 12/06/2014 JESSI RIVERA DO Ot 998.11 HEMOR COMPLIC A PROCEDURE 12/06/2014 JESSI RIVERA DO Ot E929.9 LATE EFF ACCIDENT NOS 12/06/2014 JESSI RIVERA DO Ot V10.51 12/06/2014 JESSI RIVERA DO Ot V10.52 HX OF KIDNEY MALIGNANCY 12/06/2014 JESSI RIVERA DO Ot V45.4 ARTHRODESIS STATUS 12/06/2014 JESSI RIVERA DO Ot V45.73 ACQRD ABSENCE OF KIDNEY 12/06/2014 JESSI RIVERA DO Ot V45.82 PERCUTANEOUS TRANSLUM CORON ANGIOPLASTY 12/06/2014 JESSI RIVERA DO Ot V85.37 BODY MASS INDEX 37.0-37.9, ADULT 12/07/2014 JASON, BOBAN N Ot 189.0 12/07/2014 JASON, BOBHUEY N Ot 197.0 12/07/2014 JASON, BOBAN N Ot 272.4 12/07/2014 JASON, BOBAN N Ot V58.69 12/08/2014 JASON, BOBAN N Ot 189.0 12/08/2014 JASON, BOBAN N Ot 197.0 12/08/2014 JASON, BOBAN N Ot 272.4 12/08/2014 JASON, BOBAN N Ot V58.69 01/02/2015 JASON, BOBAN N Ot 189.0 MALIG NEOPL KIDNEY 01/02/2015 JASON, BOBAN N Ot 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 01/02/2015 JASON, BOBAN N Ot 272.4 HYPERLIPIDEMIA NEC/NOS 01/02/2015 JASON, BOBAN N Ot V58.69 OTH MED,LT,CURRENT USE 01/25/2015 JASON, BOBAN N Ot 189.0 01/25/2015 JASON, BOBAN N Ot 197.0 01/25/2015 JASON, BOBAN N Ot 272.4 01/25/2015 JASON, BOBAN N Ot V58.69 01/25/2015 JASON, BOBAN N Ot 189.0 01/25/2015 JASON, BOBAN N Ot 197.0 01/25/2015 JASON, BOBAN N Ot 272.4 01/25/2015 JASON, BOBAN N Ot V58.69 02/22/2015 JASON, BOBAN N Ot 189.0 02/22/2015 JASON, BOBAN N Ot 197.0 02/22/2015 JASON, BOBAN N Ot 272.4 02/22/2015 JASON, BOBAN N Ot C64.9 02/22/2015 JASON, BOBAN N Ot C78.00 02/22/2015 JASON, BOBAN N Ot V58.69 02/22/2015 DILIA WHITE DIRECT RESPONSE CONSULTANT Ot 189.0 02/22/2015 DILIA WHITE DIRECT RESPONSE CONSULTANT Ot 197.0 02/22/2015 DILIA WHITE DIRECT RESPONSE CONSULTANT Ot 272.4 02/22/2015 DILIA WHITE DIRECT RESPONSE CONSULTANT Ot V58.69 03/01/2015 JASON, BOBAN N Ot 189.0 MALIG NEOPL KIDNEY 03/01/2015 JASON, BOBAN N Ot 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 03/01/2015 JASON, BOBAN N Ot 272.4 HYPERLIPIDEMIA NEC/NOS 03/01/2015 JASON, BOBAN N Ot 280.9 IRON DEFIC ANEMIA NOS 03/01/2015 JASON, BOBAN N Ot 403.90 HYPTNSV CHR KID DIS, UNSPEC, W CHR KD ST 03/01/2015 JASON, BOBAN N Ot 414.00 CORON ATHEROSCLER NOS TYPE VESSEL, NATIV 03/01/2015 JASON, BOBAN N Ot 492.8 EMPHYSEMA NEC 03/01/2015 JASON, BOBAN N Ot 585.3 CHRONIC KIDNEY DISEASE, STAGE III (MODER 03/01/2015 MEI GOMEZ Ot C64.9 03/01/2015 MEI GOMEZ Ot C78.00 03/01/2015 MEI GOMEZ Ot V58.69 OT MED,LT,CURRENT USE 03/01/2015 MEI GOMEZ Ot V87.41 PERSONAL HISTORY OF ANTINEOPLASTIC CHEMO 03/01/2015 WHITEDILIA Sanchez S DIRECT RESPONSE CONSULTANT Ot 189.0 03/01/2015 WHITEDILIA Sanchez S DIRECT RESPONSE CONSULTANT Ot 197.0 03/01/2015 WHITEDILIA Sanchez S DIRECT RESPONSE CONSULTANT Ot 272.4 03/01/2015 DILIA WHITE S DIRECT RESPONSE CONSULTANT Ot V58.69 03/08/2015 WHITEDILIA S DIRECT RESPONSE CONSULTANT Ot 189.0 03/08/2015 WHITEDILIA S DIRECT RESPONSE CONSULTANT Ot 197.0 03/15/2015 WHITEDILIA S DIRECT RESPONSE CONSULTANT Ot 189.0 03/15/2015 WHITEDILIA S DIRECT RESPONSE CONSULTANT Ot 197.0 03/20/2015 WHITEDILIA S DIRECT RESPONSE CONSULTANT Ot 189.0 03/20/2015 WHITEDILIA S DIRECT RESPONSE CONSULTANT Ot 197.0 03/23/2015 WHITEDILIA S DIRECT RESPONSE CONSULTANT Ot 189.0 03/23/2015 WHITEDILIA Sanchez S DIRECT RESPONSE CONSULTANT Ot 197.0 04/12/2015 Ot E78.5 04/12/2015 Ot I10 04/12/2015 Ot I25.10 04/12/2015 Ot R07.89 04/19/2015 Ot E78.5 04/19/2015 Ot I10 04/19/2015 Ot I25.10 04/19/2015 Ot R07.89 04/24/2015 CHANELLE SINGER MD Ot E78.5 04/24/2015 CHANELLE SINGER MD Ot I10 04/24/2015 CHANELLE SINGER MD Ot I25.10 04/24/2015 CHANELLE SINGER MD Ot R07.89 05/02/2015 CHANELLE SINGER MD Ot E78.5 05/02/2015 CHANELLE SINGER MD Ot I10 05/02/2015 CHANELLE SINGER MD Ot I25.10 05/02/2015 CHANELLE SINGER MD Ot R07.89 05/23/2015 DILIA WHITE DIRECT RESPONSE CONSULTANT Ot D50.9 05/23/2015 WHITEDILIA Sanchez DIRECT RESPONSE CONSULTANT Ot I12.9 05/23/2015 WHITEDILIA Sanchez DIRECT RESPONSE CONSULTANT Ot I25.10 05/23/2015 WHITEDILIA Sanchez DIRECT RESPONSE CONSULTANT Ot J43.9 05/23/2015 WHITEDILIA Sanchez DIRECT RESPONSE CONSULTANT Ot L98.9 05/23/2015 WHITEDILIA DIRECT RESPONSE CONSULTANT Ot N18.9 05/23/2015 CHRISTOPHERDILIA DIRECT RESPONSE CONSULTANT Ot Z08 05/23/2015 WHITEDILIA Sanchez DIRECT RESPONSE CONSULTANT Ot Z79.899 05/23/2015 CHRISTOPHERDILIA DIRECT RESPONSE CONSULTANT Ot Z85.118 05/23/2015 CHRISTOPHERDILIA DIRECT RESPONSE CONSULTANT Ot Z85.528 05/24/2015 WHITEDILIA Sanchez DIRECT RESPONSE CONSULTANT Ot D50.9 05/24/2015 CHRISTOPHERDILIA DIRECT RESPONSE CONSULTANT Ot I12.9 05/24/2015 CHRISTOPHERDILIA DIRECT RESPONSE CONSULTANT Ot I25.10 05/24/2015 WHITEDILIA Sanchez DIRECT RESPONSE CONSULTANT Ot J43.9 05/24/2015 WHITEDILIA Sanchez DIRECT RESPONSE CONSULTANT Ot L98.9 05/24/2015 WHITEDILIA Sanchez DIRECT RESPONSE CONSULTANT Ot N18.9 05/24/2015 WHITEDILIA Sanchez DIRECT RESPONSE CONSULTANT Ot Z08 05/24/2015 WHITEDILIA Sanchez DIRECT RESPONSE CONSULTANT Ot Z79.899 05/24/2015 WHITEDILIA Sanchez DIRECT RESPONSE CONSULTANT Ot Z85.118 05/24/2015 CHRISTOPHERDILIA DIRECT RESPONSE CONSULTANT Ot Z85.528 06/14/2015 Ot 189.0 06/14/2015 Ot 197.0 06/14/2015 Ot 492.8 06/14/2015 Ot 562.10 06/14/2015 Ot 786.6 06/14/2015 CHRISTOPHERDILIA DIRECT RESPONSE CONSULTANT Ot 189.0 06/14/2015 CHRISTOPHERDILIA DIRECT RESPONSE CONSULTANT Ot 197.0 06/14/2015 CHRISTOPHERDILIA S DIRECT RESPONSE CONSULTANT Ot 403.90 06/14/2015 CHRISTOPHER DILIA Sanchez DIRECT RESPONSE CONSULTANT Ot 414.00 06/14/2015 CHRISTOPHER DILIA S DIRECT RESPONSE CONSULTANT Ot 492.8 06/14/2015 CHRISTOPHER DILIA S DIRECT RESPONSE CONSULTANT Ot 585.3 06/14/2015 DILIA WHITE DIRECT RESPONSE CONSULTANT Ot V58.69 06/14/2015 DILIA WHITE S DIRECT RESPONSE CONSULTANT Ot 189.0 06/14/2015 DILIA WHITE S DIRECT RESPONSE CONSULTANT Ot 197.0 06/14/2015 DILIA WHITE S DIRECT RESPONSE CONSULTANT Ot 268.9 06/14/2015 DILIA WHITE S DIRECT RESPONSE CONSULTANT Ot 403.90 06/14/2015 DILIA WHITE S DIRECT RESPONSE CONSULTANT Ot 414.00 06/14/2015 DILIA WHITE S DIRECT RESPONSE CONSULTANT Ot 492.8 06/14/2015 DILIA WHITE S DIRECT RESPONSE CONSULTANT Ot 585.3 06/14/2015 DILIA WHITE S DIRECT RESPONSE CONSULTANT Ot V58.69 06/14/2015 DILIA WHITE S DIRECT RESPONSE CONSULTANT Ot 189.0 06/14/2015 DILIA WHITE S DIRECT RESPONSE CONSULTANT Ot 189.0 06/14/2015 DILIA WHITE S DIRECT RESPONSE CONSULTANT Ot 197.0 06/14/2015 DILIA WHITE S DIRECT RESPONSE CONSULTANT Ot 272.4 06/14/2015 DILIA WHITE S DIRECT RESPONSE CONSULTANT Ot V58.69 06/14/2015 JESIS RIVERA DO Ot 724.00 06/14/2015 JESSI RIVERA DO Ot V72.84 06/14/2015 DILIA WHITE DIRECT RESPONSE CONSULTANT Ot 189.0 06/14/2015 DILIA WHITE DIRECT RESPONSE CONSULTANT Ot 197.0 06/14/2015 DILIA WHITE S DIRECT RESPONSE CONSULTANT Ot 189.0 06/14/2015 DILIA WHITE S DIRECT RESPONSE CONSULTANT Ot 197.0 06/14/2015 MEI GOMEZ N Ot 189.0 06/14/2015 JASON, BOBAN N Ot 197.0 06/14/2015 JASON, BOBAN N Ot 272.4 06/14/2015 JASON, BOBAN N Ot C64.9 06/14/2015 JASON, BOBAN N Ot C78.00 06/14/2015 JASON, BOBAN N Ot V58.69 06/14/2015 Ot E78.5 06/14/2015 Ot I10 06/14/2015 Ot I25.10 06/14/2015 Ot R07.89 06/14/2015 CHANELLE SINGER MD Ot E78.5 06/14/2015 CHANELLE SINGER MD Ot I10 06/14/2015 ENMANUEL BONILLA, BASHAR J Ot I25.10 06/14/2015 ENMANUEL BONILLA, BASDEANDRE J Ot R07.89 06/14/2015 DILIA WHITE DIRECT RESPONSE CONSULTANT Ot D50.9 06/14/2015 DILIA WHITE S DIRECT RESPONSE CONSULTANT Ot I12.9 06/14/2015 DILIA WHITE S DIRECT RESPONSE CONSULTANT Ot I25.10 06/14/2015 DILIA WHITE S DIRECT RESPONSE CONSULTANT Ot J43.9 06/14/2015 DILIA WHITE S DIRECT RESPONSE CONSULTANT Ot L98.9 06/14/2015 DILIA WHITE S DIRECT RESPONSE CONSULTANT Ot N18.9 06/14/2015 WHITEDILIA Sanchez S DIRECT RESPONSE CONSULTANT Ot Z08 06/14/2015 DILIA WHITE S DIRECT RESPONSE CONSULTANT Ot Z79.899 06/14/2015 DILIA WHITE S DIRECT RESPONSE CONSULTANT Ot Z85.118 06/14/2015 DILIA WHITE S DIRECT RESPONSE CONSULTANT Ot Z85.528 06/14/2015 Ot 189.0 06/14/2015 Ot 197.0 06/14/2015 Ot 492.8 06/14/2015 Ot 562.10 06/14/2015 Ot 786.6 06/14/2015 WHITEDILIA Sanchez S DIRECT RESPONSE CONSULTANT Ot 189.0 06/14/2015 WHITEDILIA Sanchez S DIRECT RESPONSE CONSULTANT Ot 197.0 06/14/2015 WHITEDILIA Sanchez S DIRECT RESPONSE CONSULTANT Ot 403.90 06/14/2015 WHITEDILIA Sanchez S DIRECT RESPONSE CONSULTANT Ot 414.00 06/14/2015 WHITEDILIA S DIRECT RESPONSE CONSULTANT Ot 492.8 06/14/2015 WHITEDILIA Sanchez S DIRECT RESPONSE CONSULTANT Ot 585.3 06/14/2015 WHITEDILIA Sanchez S DIRECT RESPONSE CONSULTANT Ot V58.69 06/14/2015 WHITEDILIA Sanchez S DIRECT RESPONSE CONSULTANT Ot 189.0 06/14/2015 WHITEDILIA S DIRECT RESPONSE CONSULTANT Ot 197.0 06/14/2015 CHRISTOPHERDILIA S DIRECT RESPONSE CONSULTANT Ot 268.9 06/14/2015 WHITEDILIA S DIRECT RESPONSE CONSULTANT Ot 403.90 06/14/2015 CHRISTOPHERDILIA S DIRECT RESPONSE CONSULTANT Ot 414.00 06/14/2015 CHRISTOPHER DILIA S DIRECT RESPONSE CONSULTANT Ot 492.8 06/14/2015 CHRISTOPHER DILIA S DIRECT RESPONSE CONSULTANT Ot 585.3 06/14/2015 DILIA WHITE S DIRECT RESPONSE CONSULTANT Ot V58.69 06/14/2015 DILIA WHITE S DIRECT RESPONSE CONSULTANT Ot 189.0 06/14/2015 WHITEDILIA Sanchez S DIRECT RESPONSE CONSULTANT Ot 189.0 06/14/2015 WHITEDILIA Sanchez S DIRECT RESPONSE CONSULTANT Ot 197.0 06/14/2015 WHITEDILIA Sanchez S DIRECT RESPONSE CONSULTANT Ot 272.4 06/14/2015 WHITEDILIA Sanchez S DIRECT RESPONSE CONSULTANT Ot V58.69 06/14/2015 JESSI RIVERA DO Ot 724.00 06/14/2015 JESSI RIVERA DO Ot V72.84 06/14/2015 DILIA WHITE S DIRECT RESPONSE CONSULTANT Ot 189.0 06/14/2015 DILIA WHITE S DIRECT RESPONSE CONSULTANT Ot 197.0 06/14/2015 WHITEDILIA Sanchez S DIRECT RESPONSE CONSULTANT Ot 189.0 06/14/2015 DILIA WHITE S DIRECT RESPONSE CONSULTANT Ot 197.0 06/14/2015 MEI GOMEZ N Ot 189.0 06/14/2015 JASON, BOBHUEY N Ot 197.0 06/14/2015 JASON, BOBAN N Ot 272.4 06/14/2015 JASON, BOBAN N Ot C64.9 06/14/2015 JASON, BOBAN N Ot C78.00 06/14/2015 JASON, BOBAN N Ot V58.69 06/14/2015 Ot E78.5 06/14/2015 Ot I10 06/14/2015 Ot I25.10 06/14/2015 Ot R07.89 06/14/2015 ENMANUEL BONILLA, CHANELLE Robb Ot E78.5 06/14/2015 ENMANUEL BONILLA, CHANELLE Robb Ot I10 06/14/2015 ENMANUEL BONILLA, CHANELLE Robb Ot I25.10 06/14/2015 ENMANUEL BONILLA, CHANELLE Robb Ot R07.89 06/14/2015 DILIA WHITE S DIRECT RESPONSE CONSULTANT Ot D50.9 06/14/2015 WHITEDILIA Sanchez S DIRECT RESPONSE CONSULTANT Ot I12.9 06/14/2015 WHITEDILIA Sanchez S DIRECT RESPONSE CONSULTANT Ot I25.10 06/14/2015 WHITEDILIA Sanchez S DIRECT RESPONSE CONSULTANT Ot J43.9 06/14/2015 WHITEDILIA S DIRECT RESPONSE CONSULTANT Ot L98.9 06/14/2015 DILIA WHITE DIRECT RESPONSE CONSULTANT Ot N18.9 06/14/2015 DILIA WHITE DIRECT RESPONSE CONSULTANT Ot Z08 06/14/2015 DILIA WHITE DIRECT RESPONSE CONSULTANT Ot Z79.899 06/14/2015 DILIA WHITE DIRECT RESPONSE CONSULTANT Ot Z85.118 06/14/2015 DILIA WHITE DIRECT RESPONSE CONSULTANT Ot Z85.528 07/10/2015 JESSI RIVERA DO Ot M25.561 07/10/2015 JESSI RIVERA DO Ot M54.5 07/13/2015 JESSI RIVERA DO Ot M25.561 07/13/2015 JESSI RIVERA DO Ot M54.5 08/21/2015 JASONJUANAN N Ot 189.0 08/21/2015 JASON, BOBAN N Ot 197.0 08/21/2015 JASON, BOBAN N Ot 272.4 08/21/2015 JASON BOBHUEY N Ot C64.9 08/21/2015 JASONMEI N Ot C78.00 08/21/2015 JASON BOBAN N Ot V58.69 08/29/2015 JASON, BOBAN N Ot 189.0 08/29/2015 JASON, BOBAN N Ot 197.0 08/29/2015 JASON, BOBAN N Ot 272.4 08/29/2015 JASON, BOBAN N Ot V58.69 09/29/2015 JASON BOBAN N Ot D50.9 IRON DEFICIENCY ANEMIA, UNSPECIFIED 09/29/2015 JASONMEI JAMES N Ot I12.9 HYPERTENSIVE CHRONIC KIDNEY DISEASE W ST 09/29/2015 JUAN GOMEZAN N Ot I25.10 ATHSCL HEART DISEASE OF [place] CORONARY 09/29/2015 JASONJUAN JAMESAN N Ot J43.9 EMPHYSEMA, UNSPECIFIED 09/29/2015 JASONJUANAN N Ot L98.9 DISORDER OF THE SKIN AND SUBCUTANEOUS TI 09/29/2015 MEI GOMEZ N Ot N18.9 CHRONIC KIDNEY DISEASE, UNSPECIFIED 09/29/2015 JUAN GOMEZAN N Ot Z08 ENCNTR FOR FOLLOW-UP EXAM AFTER TRTMT FO 09/29/2015 MEI GOMEZ N Ot Z79.899 OTHER NURSING HOME (CURRENT) DRUG THERAPY 09/29/2015 MEI GOMEZ N Ot Z85.118 PERSONAL HISTORY OF MALIGNANT NEOPLASM O 09/29/2015 MEI GOMEZ N Ot Z85.528 PERSONAL HISTORY OF OTHER MALIGNANT NEOP 10/04/2015 MEI GOMEZ Deja Ot D50.9 IRON DEFICIENCY ANEMIA, UNSPECIFIED 10/04/2015 MEI GOMEZ N Ot I12.9 HYPERTENSIVE CHRONIC KIDNEY DISEASE W ST 10/04/2015 JASON JUANHUEY N Ot I25.10 ATHSCL HEART DISEASE OF [place] CORONARY 10/04/2015 JASON JUANHUEY N Ot J43.9 EMPHYSEMA, UNSPECIFIED 10/04/2015 MEI GOMEZ N Ot L98.9 DISORDER OF THE SKIN AND SUBCUTANEOUS TI 10/04/2015 JASON JUANHUEY N Ot N18.9 CHRONIC KIDNEY DISEASE, UNSPECIFIED 10/04/2015 JASON, JUANHUEY N Ot Z08 ENCNTR FOR FOLLOW-UP EXAM AFTER TRTMT FO 10/04/2015 MEI GOMEZ N Ot Z79.899 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 10/04/2015 JASON, JUANHUEY N Ot Z85.118 PERSONAL HISTORY OF MALIGNANT NEOPLASM O 10/04/2015 JASONMEI JAMES N Ot Z85.528 PERSONAL HISTORY OF OTHER MALIGNANT NEOP 11/26/2015 MEI GOMEZ N Ot D50.9 IRON DEFICIENCY ANEMIA, UNSPECIFIED 11/26/2015 MEI GOMEZ N Ot I12.9 HYPERTENSIVE CHRONIC KIDNEY DISEASE W ST 11/26/2015 MEI GOMEZ N Ot I25.10 ATHSCL HEART DISEASE OF [place] CORONARY 11/26/2015 MEI GOMEZ N Ot J43.9 EMPHYSEMA, UNSPECIFIED 11/26/2015 JASON JUANHUEY N Ot L98.9 DISORDER OF THE SKIN AND SUBCUTANEOUS TI 11/26/2015 MEI GOMEZ N Ot N18.9 CHRONIC KIDNEY DISEASE, UNSPECIFIED 11/26/2015 JASON, JUANHUEY N Ot Z08 ENCNTR FOR FOLLOW-UP EXAM AFTER TRTMT FO 11/26/2015 JASON JUANHUEY N Ot Z79.899 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 11/26/2015 JASON JUANHUEY N Ot Z85.118 PERSONAL HISTORY OF MALIGNANT NEOPLASM O 11/26/2015 JASON, JUANHUEY N Ot Z85.528 PERSONAL HISTORY OF OTHER MALIGNANT NEOP 11/28/2015 MEI GOMEZ N Ot D50.9 IRON DEFICIENCY ANEMIA, UNSPECIFIED 11/28/2015 MEI GOMEZ N Ot I12.9 HYPERTENSIVE CHRONIC KIDNEY DISEASE W ST 11/28/2015 MEI GOMEZ N Ot I25.10 ATHSCL HEART DISEASE OF [place] CORONARY 11/28/2015 MEI GOMEZ N Ot J43.9 EMPHYSEMA, UNSPECIFIED 11/28/2015 MEI GOMEZ N Ot L98.9 DISORDER OF THE SKIN AND SUBCUTANEOUS TI 11/28/2015 MEI GOMEZ N Ot N18.9 CHRONIC KIDNEY DISEASE, UNSPECIFIED 11/28/2015 MEI GOMEZ N Ot Z08 ENCNTR FOR FOLLOW-UP EXAM AFTER TRTMT FO 11/28/2015 MEI GOMEZ N Ot Z79.899 OTHER NURSING HOME (CURRENT) DRUG THERAPY 11/28/2015 JASONMEI JAMES N Ot Z85.118 PERSONAL HISTORY OF MALIGNANT NEOPLASM O 11/28/2015 JASON, JUANHUEY N Ot Z85.528 PERSONAL HISTORY OF OTHER MALIGNANT NEOP 12/01/2015 MEI GOMEZ N Ot D50.9 IRON DEFICIENCY ANEMIA, UNSPECIFIED 12/01/2015 MEI GOMEZ N Ot I12.9 HYPERTENSIVE CHRONIC KIDNEY DISEASE W ST 12/01/2015 MEI GOMEZ N Ot I25.10 ATHSCL HEART DISEASE OF [place] CORONARY 12/01/2015 MEI GOMEZ N Ot J43.9 EMPHYSEMA, UNSPECIFIED 12/01/2015 MEI GOMEZ N Ot L98.9 DISORDER OF THE SKIN AND SUBCUTANEOUS TI 12/01/2015 MEI GOMEZ N Ot N18.9 CHRONIC KIDNEY DISEASE, UNSPECIFIED 12/01/2015 MEI GOMEZ N Ot Z08 ENCNTR FOR FOLLOW-UP EXAM AFTER TRTMT FO 12/01/2015 MEI GOMEZ N Ot Z79.899 OTHER NURSING HOME (CURRENT) DRUG THERAPY 12/01/2015 JASON JUANHUEY N Ot Z85.118 PERSONAL HISTORY OF MALIGNANT NEOPLASM O 12/01/2015 JASON BOBAN N Ot Z85.528 PERSONAL HISTORY OF OTHER MALIGNANT NEOP 12/05/2015 HARSH STEARNS APRN Ot C64.2 MALIGNANT NEOPLASM OF LEFT KIDNEY, EXCEP 12/05/2015 HARSH STEARNS APRN Ot C79.9 SECONDARY MALIGNANT NEOPLASM OF UNSPECIF 12/05/2015 HARSH STEARNS WAIST CUTTER Ot K57.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 12/05/2015 HARSH STEARNS WAIST CUTTER Ot R91.1 SOLITARY PULMONARY NODULE 12/05/2015 HARSH STEARNS WAIST CUTTER Ot Z90.5 ACQUIRED ABSENCE OF KIDNEY 12/07/2015 HARSH STEARNS WAIST CUTTER Ot C64.2 MALIGNANT NEOPLASM OF LEFT KIDNEY, EXCEP 12/07/2015 HARSH STEARNS WAIST CUTTER Ot C79.9 SECONDARY MALIGNANT NEOPLASM OF UNSPECIF 12/07/2015 HARSH STEARNS WAIST CUTTER Ot K57.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 12/07/2015 HARSH STEARNS WAIST CUTTER Ot R91.1 SOLITARY PULMONARY NODULE 12/07/2015 HARSH STEARNS WAIST CUTTER Ot Z90.5 ACQUIRED ABSENCE OF KIDNEY 12/27/2015 DILIA WHITE DIRECT RESPONSE CONSULTANT Ot C64.2 MALIGNANT NEOPLASM OF LEFT KIDNEY, EXCEP 12/27/2015 DILIA WHITE DIRECT RESPONSE CONSULTANT Ot 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 01/01/2016 DILIA WHITE DIRECT RESPONSE CONSULTANT Ot C64.2 MALIGNANT NEOPLASM OF LEFT KIDNEY, EXCEP 01/01/2016 DILIA WHITEP Ot 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 01/03/2016 DILIA WHITEP Ot D50.9 IRON DEFICIENCY ANEMIA, UNSPECIFIED 01/03/2016 DILIA WHITE DIRECT RESPONSE CONSULTANT Ot I12.9 HYPERTENSIVE CHRONIC KIDNEY DISEASE W ST 01/03/2016 DILIA WHITE DIRECT RESPONSE CONSULTANT Ot I25.10 ATHSCL HEART DISEASE OF [place] CORONARY 01/03/2016 DILIA WHITE DIRECT RESPONSE CONSULTANT Ot J43.9 EMPHYSEMA, UNSPECIFIED 01/03/2016 DILIA WHITEP Ot L98.9 DISORDER OF THE SKIN AND SUBCUTANEOUS TI 01/03/2016 DILIA WHITEP Ot N18.3 CHRONIC KIDNEY DISEASE, STAGE 3 ( MODERAT 01/03/2016 DILIA WHITEP Ot Z08 ENCNTR FOR FOLLOW-UP EXAM AFTER TRTMT FO 01/03/2016 DILIA WHITEP Ot Z79.899 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 01/03/2016 DILIA WHITE DIRECT RESPONSE CONSULTANT Ot Z85.118 PERSONAL HISTORY OF MALIGNANT NEOPLASM O 01/03/2016 DILIA WHITE DIRECT RESPONSE CONSULTANT Ot Z85.528 PERSONAL HISTORY OF OTHER MALIGNANT NEOP 01/11/2016 MEEK SORIA MD Ot Z01.818 ENCOUNTER FOR OTHER PREPROCEDURAL EXAMIN 01/16/2016 DILIA WHITE DIRECT RESPONSE CONSULTANT Ot C64.2 MALIGNANT NEOPLASM OF LEFT KIDNEY, EXCEP 01/16/2016 DILIA WHITE DIRECT RESPONSE CONSULTANT Ot 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 01/17/2016 Ot 189.0 MALIG NEOPL KIDNEY 01/17/2016 Ot 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 01/17/2016 Ot 492.8 EMPHYSEMA NEC 01/17/2016 Ot 562.10 DIVERTICULOSIS COLON (W/O MENT OF HEMORR 01/17/2016 Ot 786.6 CHEST SWELLING/MASS/LUMP 01/17/2016 DILIA WHITE DIRECT RESPONSE CONSULTANT Ot 189.0 MALIG NEOPL KIDNEY 01/17/2016 DILIA WHITE S DIRECT RESPONSE CONSULTANT Ot 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 01/17/2016 DILIA WHITE S DIRECT RESPONSE CONSULTANT Ot 403.90 HYPTNSV CHR KID DIS, UNSPEC, W CHR KD ST 01/17/2016 DILIA WHITE S DIRECT RESPONSE CONSULTANT Ot 414.00 CORON ATHEROSCLER NOS TYPE VESSEL, NATIV 01/17/2016 DILIA WHITE S DIRECT RESPONSE CONSULTANT Ot 492.8 EMPHYSEMA NEC 01/17/2016 DILIA WHITE S DIRECT RESPONSE CONSULTANT Ot 585.3 CHRONIC KIDNEY DISEASE, STAGE III ( MODER 01/17/2016 DILIA WHITE DIRECT RESPONSE CONSULTANT Ot V58.69 OTH MED,LT,CURRENT USE 01/17/2016 DILIA WHITE S DIRECT RESPONSE CONSULTANT Ot 189.0 MALIG NEOPL KIDNEY 01/17/2016 DILIA WHITE S DIRECT RESPONSE CONSULTANT Ot 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 01/17/2016 DILIA WHITE S DIRECT RESPONSE CONSULTANT Ot 268.9 VITAMIN D DEFICIENCY NOS 01/17/2016 DILIA WHITE S DIRECT RESPONSE CONSULTANT Ot 403.90 HYPTNSV CHR 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, UNSPEC, W CHR KD ST 01/17/2016 DILIA WHITE S DIRECT RESPONSE CONSULTANT Ot 414.00 CORON ATHEROSCLER NOS TYPE VESSEL, NATIV 01/17/2016 DILIA WHITE S DIRECT RESPONSE CONSULTANT Ot 492.8 EMPHYSEMA NEC 01/17/2016 DILIA WHITE S DIRECT RESPONSE CONSULTANT Ot 585.3 CHRONIC KIDNEY DISEASE, STAGE III ( MODER 01/17/2016 DILIA WHITE S DIRECT RESPONSE CONSULTANT Ot V58.69 OTH MED,LT,CURRENT USE 01/17/2016 DILIA WHITE S DIRECT RESPONSE CONSULTANT Ot 189.0 MALIG NEOPL KIDNEY 01/17/2016 WHITE, HILAH S DIRECT RESPONSE CONSULTANT Ot 189.0 MALIG NEOPL KIDNEY 01/17/2016 WHITE, HILAH S DIRECT RESPONSE CONSULTANT Ot 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 01/17/2016 DILIA WHITE S DIRECT RESPONSE CONSULTANT Ot 272.4 HYPERLIPIDEMIA NEC/NOS 01/17/2016 DILIA WHITE S DIRECT RESPONSE CONSULTANT Ot V58.69 OTH MED,LT,CURRENT USE 01/17/2016 MIGUEL DO JESSI [place] Ot 724.00 SPINAL STENOSIS NOS 01/17/2016 MIGUEL HOU JESSI [place] Ot V72.84 EXAM PRE-OPERATIVE NOS 01/17/2016 DILIA WHITE S DIRECT RESPONSE CONSULTANT Ot 189.0 MALIG NEOPL KIDNEY 01/17/2016 WHITE, DILIA S DIRECT RESPONSE CONSULTANT Ot 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 01/17/2016 WHITE, DILIA S DIRECT RESPONSE CONSULTANT Ot 189.0 MALIG NEOPL KIDNEY 01/17/2016 WHITE, HILAH S DIRECT RESPONSE CONSULTANT Ot 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 01/17/2016 Ot E78.5 HYPERLIPIDEMIA, UNSPECIFIED 01/17/2016 Ot I10 ESSENTIAL (PRIMARY) HYPERTENSION 01/17/2016 Ot I25.10 ATHSCL HEART DISEASE OF [place] CORONARY 01/17/2016 Ot R07.89 OTHER CHEST PAIN 01/17/2016 CHANELLE SINGER MD Ot E78.5 HYPERLIPIDEMIA, UNSPECIFIED 01/17/2016 CHANELLE SINGER MD Ot I10 ESSENTIAL (PRIMARY) HYPERTENSION 01/17/2016 CHANELLE SINGER MD Ot I25.10 ATHSCL HEART DISEASE OF [place] CORONARY 01/17/2016 CHANELLE SINGER MD Ot R07.89 OTHER CHEST PAIN 01/17/2016 DILIA WHITE S DIRECT RESPONSE CONSULTANT Ot D50.9 IRON DEFICIENCY ANEMIA, UNSPECIFIED 01/17/2016 DILIA WHITE S DIRECT RESPONSE CONSULTANT Ot I12.9 HYPERTENSIVE CHRONIC KIDNEY DISEASE W ST 01/17/2016 DILIA WHITE DIRECT RESPONSE CONSULTANT Ot I25.10 ATHSCL HEART DISEASE OF [place] CORONARY 01/17/2016 DILIA WHITEP Ot J43.9 EMPHYSEMA, UNSPECIFIED 01/17/2016 DILIA WHITE Ot L98.9 DISORDER OF THE SKIN AND SUBCUTANEOUS TI 01/17/2016 DILIA WHITE DIRECT RESPONSE CONSULTANT Ot N18.9 CHRONIC KIDNEY DISEASE, UNSPECIFIED 01/17/2016 DILIA WHITEP Ot Z08 ENCNTR FOR FOLLOW-UP EXAM AFTER TRTMT FO 01/17/2016 DILIA WHITEP Ot Z79.899 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 01/17/2016 DILIA WHITEP Ot Z85.118 PERSONAL HISTORY OF MALIGNANT NEOPLASM O 01/17/2016 DILIA WHITEP Ot Z85.528 PERSONAL HISTORY OF OTHER MALIGNANT NEOP 01/17/2016 JESSI RIVERA DO Ot M25.561 PAIN IN RIGHT KNEE 01/17/2016 JESSI RIVERA DO Ot M54.5 LOW BACK PAIN 01/17/2016 MEI GOMEZ Ot D50.9 IRON DEFICIENCY ANEMIA, UNSPECIFIED 01/17/2016 MEI GOMEZ Ot I12.9 HYPERTENSIVE CHRONIC KIDNEY DISEASE W ST 01/17/2016 MEI GOMEZ Ot I25.10 ATHSCL HEART DISEASE OF [place] CORONARY 01/17/2016 MEI GOMEZ Ot J43.9 EMPHYSEMA, UNSPECIFIED 01/17/2016 MEI GOMEZ Ot L98.9 DISORDER OF THE SKIN AND SUBCUTANEOUS TI 01/17/2016 MEI GOMEZ Ot N18.9 CHRONIC KIDNEY DISEASE, UNSPECIFIED 01/17/2016 MEI GOMEZ Ot Z08 ENCNTR FOR FOLLOW-UP EXAM AFTER TRTMT FO 01/17/2016 MEI GOMEZ Ot Z79.899 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 01/17/2016 MEI GOMEZ N Ot Z85.118 PERSONAL HISTORY OF MALIGNANT NEOPLASM O 01/17/2016 MEI GOMEZ N Ot Z85.528 PERSONAL HISTORY OF OTHER MALIGNANT NEOP 01/17/2016 DILIA WHITE DIRECT RESPONSE CONSULTANT Ot C64.2 MALIGNANT NEOPLASM OF LEFT KIDNEY, EXCEP 01/17/2016 WHITE, HILAH S DIRECT RESPONSE CONSULTANT Ot 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 01/17/2016 WHITEDILIA DIRECT RESPONSE CONSULTANT Ot D50.9 IRON DEFICIENCY ANEMIA, UNSPECIFIED 01/17/2016 CHRISTOPHER DILIA Sanchez DIRECT RESPONSE CONSULTANT Ot I12.9 HYPERTENSIVE CHRONIC KIDNEY DISEASE W ST 01/17/2016 CHRISTOPHER DILIA LYNP Ot I25.10 ATHSCL HEART DISEASE OF [place] CORONARY 01/17/2016 CHRISTOPHER DILIA Sanchez DIRECT RESPONSE CONSULTANT Ot J43.9 EMPHYSEMA, UNSPECIFIED 01/17/2016 CHRISTOPHER DILIA Sanchez DIRECT RESPONSE CONSULTANT Ot L98.9 DISORDER OF THE SKIN AND SUBCUTANEOUS TI 01/17/2016 CHRISTOPHER DILIA Sanchez DIRECT RESPONSE CONSULTANT Ot N18.3 CHRONIC KIDNEY DISEASE, STAGE 3 ( MODERAT 01/17/2016 CHRISTOPHER DILIA Sanchez DIRECT RESPONSE CONSULTANT Ot Z08 ENCNTR FOR FOLLOW-UP EXAM AFTER TRTMT FO 01/17/2016 CHRISTOPHER DILIA Sanchez DIRECT RESPONSE CONSULTANT Ot Z79.899 OTHER NURSING HOME (CURRENT) DRUG THERAPY 01/17/2016 CHRISTOPHER DILIA Sanchez DIRECT RESPONSE CONSULTANT Ot Z85.118 PERSONAL HISTORY OF MALIGNANT NEOPLASM O 01/17/2016 CHRISTOPHER DILIA Sanchez DIRECT RESPONSE CONSULTANT Ot Z85.528 PERSONAL HISTORY OF OTHER MALIGNANT NEOP 01/17/2016 MEEK SORIA MD Ot K21.0 GASTRO-ESOPHAGEAL REFLUX DISEASE WITH ES 01/17/2016 MEEK SORIA MD, Ot 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 01/17/2016 MEEK SORIA MD, Ot K29.70 GASTRITIS, UNSPECIFIED, WITHOUT BLEEDING 01/17/2016 MEEK SORIA MD, Ot K57.90 DVRTCLOS OF INTEST, PART UNSP, W/O PERF 01/17/2016 MEEK SORIA MD, Ot K64.0 FIRST DEGREE HEMORRHOIDS 01/18/2016 MEEK SORIA MD, Ot K21.0 GASTRO-ESOPHAGEAL REFLUX DISEASE WITH ES 01/18/2016 MEEK SORIA MD, Ot 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 01/18/2016 MEEK SORIA MD, Ot K29.70 GASTRITIS, UNSPECIFIED, WITHOUT BLEEDING 01/18/2016 MEEK SORIA MD Ot K57.90 DVRTCLOS OF INTEST, PART UNSP, W/O PERF 01/18/2016 MEEK SORIA MD, Ot K64.0 FIRST DEGREE HEMORRHOIDS 01/23/2016 MEEK SORIA MD, Ot K21.0 GASTRO-ESOPHAGEAL REFLUX DISEASE WITH ES 01/23/2016 MEEK SORIA MD, Ot 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 01/23/2016 MEEK SORIA MD, Ot K29.70 GASTRITIS, UNSPECIFIED, WITHOUT BLEEDING 01/23/2016 MEEK SORIA MD, Ot K57.90 DVRTCLOS OF INTEST, PART UNSP, W/O PERF 01/23/2016 MEEK SORIA MD, Ot K64.0 FIRST DEGREE HEMORRHOIDS 01/23/2016 DILIA WHITEP Ot D50.9 IRON DEFICIENCY ANEMIA, UNSPECIFIED 01/23/2016 DILIA WHITEP Ot I12.9 HYPERTENSIVE CHRONIC KIDNEY DISEASE W ST 01/23/2016 DILIA WHITEP Ot I25.10 ATHSCL HEART DISEASE OF [place] CORONARY 01/23/2016 DILIA WHITEP Ot J43.9 EMPHYSEMA, UNSPECIFIED 01/23/2016 DILIA WHITE Ot L98.9 DISORDER OF THE SKIN AND SUBCUTANEOUS TI 01/23/2016 DILIA WHITEP Ot N18.3 CHRONIC KIDNEY DISEASE, STAGE 3 ( MODERAT 01/23/2016 DILIA WHITE DIRECT RESPONSE CONSULTANT Ot Z08 ENCNTR FOR FOLLOW-UP EXAM AFTER TRTMT FO 01/23/2016 DILIA WHITE DIRECT RESPONSE CONSULTANT Ot Z79.899 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 01/23/2016 DILIA WHITEP Ot Z85.118 PERSONAL HISTORY OF MALIGNANT NEOPLASM O 01/23/2016 DILIA WHITE DIRECT RESPONSE CONSULTANT Ot Z85.528 PERSONAL HISTORY OF OTHER MALIGNANT NEOP 01/25/2016 DILIA WHITEP Ot C64.2 MALIGNANT NEOPLASM OF LEFT KIDNEY, EXCEP 01/25/2016 DILIA WHITEP Ot 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 01/27/2016 MEEK SORIA MD, Ot K21.0 GASTRO-ESOPHAGEAL REFLUX DISEASE WITH ES 01/27/2016 MEEK SORIA MD, Ot 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 01/27/2016 MEEK SORIA MD, Ot K29.70 GASTRITIS, UNSPECIFIED, WITHOUT BLEEDING 01/27/2016 MEEK SORIA MD, Ot K57.90 DVRTCLOS OF INTEST, PART UNSP, W/O PERF 01/27/2016 MEEK SORIA MD, Ot K64.0 FIRST DEGREE HEMORRHOIDS 02/01/2016 DILIA WHITE Ot D50.9 IRON DEFICIENCY ANEMIA, UNSPECIFIED 02/01/2016 DILIA WHITE Ot I12.9 HYPERTENSIVE CHRONIC KIDNEY DISEASE W ST 02/01/2016 DILIA WHITE Ot I25.10 ATHSCL HEART DISEASE OF [place] CORONARY 02/01/2016 DILIA WHITE Ot J43.9 EMPHYSEMA, UNSPECIFIED 02/01/2016 DILIA WHITE Ot L98.9 DISORDER OF THE SKIN AND SUBCUTANEOUS TI 02/01/2016 DILIA WHITE Ot N18.3 CHRONIC KIDNEY DISEASE, STAGE 3 ( MODERAT 02/01/2016 DILIA WHITE Ot Z08 ENCNTR FOR FOLLOW-UP EXAM AFTER TRTMT FO 02/01/2016 DILIA WHITE Ot Z79.899 OTHER NURSING HOME (CURRENT) DRUG THERAPY 02/01/2016 DILIA WHITE Ot Z85.118 PERSONAL HISTORY OF MALIGNANT NEOPLASM O 02/01/2016 DILIA WHITE Ot Z85.528 PERSONAL HISTORY OF OTHER MALIGNANT NEOP 02/04/2016 CAMERON MAX MD, Ot I10 ESSENTIAL (PRIMARY) HYPERTENSION 02/04/2016 CAMERON MAX MD, Ot I25.10 ATHSCL HEART DISEASE OF [place] CORONARY 02/04/2016 CAMERON MAX MD, Ot I45.10 UNSPECIFIED RIGHT BUNDLE-BRANCH BLOCK 02/04/2016 CAMERON MAX MD, Ot J43.9 EMPHYSEMA, UNSPECIFIED 02/04/2016 CAMERON MAX MD, Ot K21.9 GASTRO-ESOPHAGEAL REFLUX DISEASE WITHOUT 02/04/2016 CAMERON MAX MD, Ot K57.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 02/04/2016 BRUEGGEMANN MD, CAMERON T Ot M16.12 UNILATERAL PRIMARY OSTEOARTHRITIS, LEFT 02/04/2016 CAMERON MAX MD Ot N39.0 URINARY TRACT INFECTION, SITE NOT SPECIF 02/04/2016 CAMERON MAX MD Ot R07.89 OTHER CHEST PAIN 02/04/2016 CAMERON MAX MD Ot Z85.528 PERSONAL HISTORY OF OTHER MALIGNANT NEOP 02/04/2016 CAMERON MAX MD Ot Z90.49 ACQUIRED ABSENCE OF OTHER SPECIFIED PART 02/04/2016 CAMERON MAX MD Ot Z90.5 ACQUIRED ABSENCE OF KIDNEY 02/14/2016 CHILO OCAMPO MD Ot E78.5 HYPERLIPIDEMIA, UNSPECIFIED 02/14/2016 CHILO OCAMPO MD Ot G57.91 UNSPECIFIED MONONEUROPATHY OF RIGHT [place] 02/14/2016 CHILO OCAMPO MD Ot I10 ESSENTIAL (PRIMARY) HYPERTENSION 02/14/2016 CHILO OCAMPO MD R Ot I25.10 ATHSCL HEART DISEASE OF [place] CORONARY 02/14/2016 CHILO OCAMPO MD R Ot I65.23 OCCLUSION AND STENOSIS OF BILATERAL [place] 02/14/2016 CHILO OCAMPO MD R Ot J18.9 PNEUMONIA, UNSPECIFIED ORGANISM 02/14/2016 CHILO OCAMPO MD Ot 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 02/14/2016 CHILO OCAMPO MD Ot M21.371 FOOT DROP, RIGHT FOOT 02/14/2016 CHILO OCAMPO MD Ot R07.9 CHEST PAIN, UNSPECIFIED 02/14/2016 CHILO OCAMPO MD Ot R91.8 OTHER NONSPECIFIC ABNORMAL FINDING OF [place] 02/14/2016 CHILO OCAMPO MD R Ot Z85.528 PERSONAL HISTORY OF OTHER MALIGNANT NEOP 02/14/2016 CHILO OCAMPO MD Ot Z87.440 PERSONAL HISTORY OF URINARY (TRACT) INFE 02/14/2016 CHILO OCAMPO MD Ot Z87.891 PERSONAL HISTORY OF NICOTINE DEPENDENCE 02/14/2016 CHILO OCAMPO MD R Ot Z90.5 ACQUIRED ABSENCE OF KIDNEY 02/14/2016 CHILO OCAMPO MD R Ot Z95.5 PRESENCE OF CORONARY ANGIOPLASTY IMPLANT 05/24/2016 MEI GOMEZ N Ot D50.9 IRON DEFICIENCY ANEMIA, UNSPECIFIED 05/24/2016 MEI GOMEZ N Ot I12.9 HYPERTENSIVE CHRONIC KIDNEY DISEASE W ST 05/24/2016 MEI GOMEZ N Ot I25.10 ATHSCL HEART DISEASE OF [place] CORONARY 05/24/2016 MEI GOMEZ N Ot J43.9 EMPHYSEMA, UNSPECIFIED 05/24/2016 JASON MEI N Ot L98.9 DISORDER OF THE SKIN AND SUBCUTANEOUS TI 05/24/2016 JASON JUANHUEY N Ot N18.3 CHRONIC KIDNEY DISEASE, STAGE 3 (MODERAT 05/24/2016 JASON MEI N Ot Z08 ENCNTR FOR FOLLOW-UP EXAM AFTER TRTMT FO 05/24/2016 JASON MEI N Ot Z79.899 OTHER NURSING HOME (CURRENT) DRUG THERAPY 05/24/2016 JASON, MEI N Ot Z85.118 PERSONAL HISTORY OF MALIGNANT NEOPLASM O 05/24/2016 JASON, MEI N Ot Z85.528 PERSONAL HISTORY OF OTHER MALIGNANT NEOP 06/06/2016 JASONMEI N Ot D50.9 IRON DEFICIENCY ANEMIA, UNSPECIFIED 06/06/2016 JASON MEI N Ot I12.9 HYPERTENSIVE CHRONIC KIDNEY DISEASE W ST 06/06/2016 JASON JUANHUEY N Ot I25.10 ATHSCL HEART DISEASE OF [place] CORONARY 06/06/2016 JASON JUANHUEY N Ot J43.9 EMPHYSEMA, UNSPECIFIED 06/06/2016 JASON MEI N Ot L98.9 DISORDER OF THE SKIN AND SUBCUTANEOUS TI 06/06/2016 JASON MEI N Ot N18.3 CHRONIC KIDNEY DISEASE, STAGE 3 (MODERAT 06/06/2016 JASON MEI N Ot Z08 ENCNTR FOR FOLLOW-UP EXAM AFTER TRTMT FO 06/06/2016 JASON MEI N Ot Z79.899 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 06/06/2016 JASONMEI N Ot Z85.118 PERSONAL HISTORY OF MALIGNANT NEOPLASM O 06/06/2016 JASONMEI N Ot Z85.528 PERSONAL HISTORY OF OTHER MALIGNANT NEOP 07/08/2016 JASONMEI N Ot D50.9 IRON DEFICIENCY ANEMIA, UNSPECIFIED 07/08/2016 MEI GOMEZ N Ot I12.9 HYPERTENSIVE CHRONIC KIDNEY DISEASE W ST 07/08/2016 MEI GOMEZ N Ot I25.10 ATHSCL HEART DISEASE OF [place] CORONARY 07/08/2016 MEI GOMEZ N Ot J43.9 EMPHYSEMA, UNSPECIFIED 07/08/2016 MEI GOMEZ N Ot L98.9 DISORDER OF THE SKIN AND SUBCUTANEOUS TI 07/08/2016 JASON JUANHUEY N Ot N18.3 CHRONIC KIDNEY DISEASE, STAGE 3 (MODERAT 07/08/2016 JASON JUANHUEY N Ot Z08 ENCNTR FOR FOLLOW-UP EXAM AFTER TRTMT FO 07/08/2016 MEI GOMEZ N Ot Z79.899 OTHER NURSING HOME (CURRENT) DRUG THERAPY 07/08/2016 JASON MEI N Ot Z85.118 PERSONAL HISTORY OF MALIGNANT NEOPLASM O 07/08/2016 JASON MEI N Ot Z85.528 PERSONAL HISTORY OF OTHER MALIGNANT NEOP 07/09/2016 JASONMEI Ot D50.9 IRON DEFICIENCY ANEMIA, UNSPECIFIED 07/09/2016 JASON JUANHUEY N Ot I12.9 HYPERTENSIVE CHRONIC KIDNEY DISEASE W ST 07/09/2016 MEI GOMEZ N Ot I25.10 ATHSCL HEART DISEASE OF [place] CORONARY 07/09/2016 MEI GOMEZ Deja Ot J43.9 EMPHYSEMA, UNSPECIFIED 07/09/2016 MEI GOMEZ N Ot L98.9 DISORDER OF THE SKIN AND SUBCUTANEOUS TI 07/09/2016 JASON JUANHUEY N Ot N18.3 CHRONIC KIDNEY DISEASE, STAGE 3 (MODERAT 07/09/2016 JASON MEI Short Ot Z08 ENCNTR FOR FOLLOW-UP EXAM AFTER TRTMT FO 07/09/2016 JASON MEI N Ot Z79.899 OTHER NURSING HOME (CURRENT) DRUG THERAPY 07/09/2016 JASON MEI N Ot Z85.118 PERSONAL HISTORY OF MALIGNANT NEOPLASM O 07/09/2016 JASONMEI N Ot Z85.528 PERSONAL HISTORY OF OTHER MALIGNANT NEOP 07/31/2016 Ot 189.0 MALIG NEOPL KIDNEY 07/31/2016 Ot 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 07/31/2016 Ot 585.9 CHRONIC KIDNEY DISEASE, UNSPECIFIED 09/02/2016 TAYLOR ESTRADA DO Ot M16.12 UNILATERAL PRIMARY OSTEOARTHRITIS, LEFT 09/02/2016 NATALIE DO, TAYLOR Caballero Ot Z01.812 ENCOUNTER FOR PREPROCEDURAL LABORATORY E 09/02/2016 NATALIE DO, TAYLOR Caballero Ot Z11.2 ENCOUNTER FOR SCREENING FOR OTHER BACTER 09/03/2016 NATALIE DO, TAYLOR Caballero Ot M16.12 UNILATERAL PRIMARY OSTEOARTHRITIS, LEFT 09/03/2016 NATALIE DO, TAYLOR Caballero Ot Z01.812 ENCOUNTER FOR PREPROCEDURAL LABORATORY E 09/03/2016 NATALIE DO, TAYLOR Federico Ot Z11.2 ENCOUNTER FOR SCREENING FOR OTHER BACTER 09/08/2016 NATALIE DO, TAYLOR Caballero Ot M16.12 UNILATERAL PRIMARY OSTEOARTHRITIS, LEFT 09/08/2016 NATALIE DO, TAYLOR Caballero Ot Z01.812 ENCOUNTER FOR PREPROCEDURAL LABORATORY E 09/08/2016 NATALIE DO, TAYLOR Caballero Ot Z11.2 ENCOUNTER FOR SCREENING FOR OTHER BACTER 09/18/2016 NATALIE DO, TYALOR Federico Ot E78.00 PURE HYPERCHOLESTEROLEMIA, UNSPECIFIED 09/18/2016 NATALIE DO, TAYLOR Caballero Ot F41.9 ANXIETY DISORDER, UNSPECIFIED 09/18/2016 NATALIE DO, TAYLOR Caballero Ot G62.9 POLYNEUROPATHY, UNSPECIFIED 09/18/2016 NATALIE DO, TAYLOR Caballero Ot I10 ESSENTIAL (PRIMARY) HYPERTENSION 09/18/2016 NATALIE DO, TAYLRO Caballero Ot I25.10 ATHSCL HEART DISEASE OF [place] CORONARY 09/18/2016 NATALIE DO, TAYLOR Caballero Ot J30.2 OTHER SEASONAL ALLERGIC RHINITIS 09/18/2016 NATALIE DO, TAYLOR Caballero Ot K21.9 GASTRO-ESOPHAGEAL REFLUX DISEASE WITHOUT 09/18/2016 NATALIE DO, TAYLOR Caballero Ot M16.12 UNILATERAL PRIMARY OSTEOARTHRITIS, LEFT 09/18/2016 NATALIE DO, TAYLOR Caballero Ot M21.371 FOOT DROP, RIGHT FOOT 09/18/2016 NATALIE DO, TAYLOR Caballero Ot M54.9 DORSALGIA, UNSPECIFIED 09/18/2016 NATALIE DOTAYLOR Ot N40.0 BENIGN PROSTATIC HYPERPLASIA WITHOUT LOW 09/18/2016 NATALIE DO, TAYLOR Caballero Ot R30.0 DYSURIA 09/18/2016 NATALIE DO, TAYLOR Caballero Ot Z85.528 PERSONAL HISTORY OF OTHER MALIGNANT NEOP 09/18/2016 NATALIE DOTAYLOR Ot Z87.19 PERSONAL HISTORY OF OTHER DISEASES OF TH 09/18/2016 NATALIE TAYLOR HOU Ot Z87.891 PERSONAL HISTORY OF NICOTINE DEPENDENCE 09/18/2016 NATALIE HOUTAYLOR Ot Z90.5 ACQUIRED ABSENCE OF KIDNEY 09/18/2016 NATALIE HOU TAYLOR Caballero Ot Z95.5 PRESENCE OF CORONARY ANGIOPLASTY IMPLANT 09/18/2016 DILIA WHITE DIRECT RESPONSE CONSULTANT Ot C64.2 MALIGNANT NEOPLASM OF LEFT KIDNEY, EXCEP 09/18/2016 DILIA WHITE DIRECT RESPONSE CONSULTANT Ot 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 09/25/2016 NICHELLE BONILLA KATHY E Ot D64.9 ANEMIA, UNSPECIFIED 09/25/2016 NICHELLE BONILLA KATHY E Ot E78.00 PURE HYPERCHOLESTEROLEMIA, UNSPECIFIED 09/25/2016 NICHELLE BONILLA KATHY E Ot I10 ESSENTIAL (PRIMARY) HYPERTENSION 09/25/2016 NICHELLE BONILLA KATHY E Ot I25.10 ATHSCL HEART DISEASE OF [place] CORONARY 09/25/2016 KATHY STEWARD MD E Ot N40.0 BENIGN PROSTATIC HYPERPLASIA WITHOUT LOW 09/25/2016 NICHELLE BONILLA KATHY E Ot R50.82 POSTPROCEDURAL FEVER 09/25/2016 NICHELLE BONILLA KATHY E Ot R91.1 SOLITARY PULMONARY NODULE 09/25/2016 KATHY STEWARD MD E Ot Z47.1 AFTERCARE FOLLOWING JOINT REPLACEMENT GREGORY 09/25/2016 KATHY STEWARD MD E Ot Z85.528 PERSONAL HISTORY OF OTHER MALIGNANT NEOP 09/25/2016 STEPHEN STEWARD MDIC E Ot Z90.5 ACQUIRED ABSENCE OF KIDNEY 09/25/2016 NICHELLE BONILLA KATHY E Ot Z96.642 PRESENCE OF LEFT ARTIFICIAL HIP JOINT 10/17/2016 DILIA WHITE DIRECT RESPONSE CONSULTANT Ot C64.2 MALIGNANT NEOPLASM OF LEFT KIDNEY, EXCEP 10/17/2016 DILIA WHITE DIRECT RESPONSE CONSULTANT Ot 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 10/17/2016 JESSI RIVERA DO Ot M25.561 PAIN IN RIGHT KNEE 10/17/2016 JESSI RIVERA DO Ot M54.5 LOW BACK PAIN 11/05/2016 MEI GOMEZ Ot D50.9 IRON DEFICIENCY ANEMIA, UNSPECIFIED 11/05/2016 MEI GOMEZ Ot I12.9 HYPERTENSIVE CHRONIC KIDNEY DISEASE W ST 11/05/2016 MEI GOMEZ Ot I25.10 ATHSCL HEART DISEASE OF [place] CORONARY 11/05/2016 MEI GOMEZ Ot J43.9 EMPHYSEMA, UNSPECIFIED 11/05/2016 JASON, MEI N Ot L98.9 DISORDER OF THE SKIN AND SUBCUTANEOUS TI 11/05/2016 MEI GOMEZ N Ot N18.3 CHRONIC KIDNEY DISEASE, STAGE 3 (MODERAT 11/05/2016 MEI GOMEZ N Ot Z08 ENCNTR FOR FOLLOW-UP EXAM AFTER TRTMT FO 11/05/2016 MEI GOMEZ N Ot Z79.899 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 11/05/2016 JASONEMI N Ot Z85.118 PERSONAL HISTORY OF MALIGNANT NEOPLASM O 11/05/2016 JASON BOBAN N Ot Z85.528 PERSONAL HISTORY OF OTHER MALIGNANT NEOP 11/07/2016 JASON, BOBHUEY N Ot D50.9 IRON DEFICIENCY ANEMIA, UNSPECIFIED 11/07/2016 JASON, BOBHUEY N Ot I12.9 HYPERTENSIVE CHRONIC KIDNEY DISEASE W ST 11/07/2016 JASON JUANHUEY N Ot I25.10 ATHSCL HEART DISEASE OF [place] CORONARY 11/07/2016 JASONMEI N Ot J43.9 EMPHYSEMA, UNSPECIFIED 11/07/2016 JASON, BOBHUEY N Ot L98.9 DISORDER OF THE SKIN AND SUBCUTANEOUS TI 11/07/2016 MEI GOMEZ N Ot N18.3 CHRONIC KIDNEY DISEASE, STAGE 3 (MODERAT 11/07/2016 MEI GOMEZ N Ot Z08 ENCNTR FOR FOLLOW-UP EXAM AFTER TRTMT FO 11/07/2016 MEI GOMEZ N Ot Z79.899 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 11/07/2016 JASONMEI N Ot Z85.118 PERSONAL HISTORY OF MALIGNANT NEOPLASM O 11/07/2016 JASON, BOBAN N Ot Z85.528 PERSONAL HISTORY OF OTHER MALIGNANT NEOP 11/07/2016 JASON, BOBAN N Ot D50.9 IRON DEFICIENCY ANEMIA, UNSPECIFIED 11/07/2016 JASON, BOBAN N Ot I12.9 HYPERTENSIVE CHRONIC KIDNEY DISEASE W ST 11/07/2016 JASON, BOBAN N Ot I25.10 ATHSCL HEART DISEASE OF [place] CORONARY 11/07/2016 JASON, JUANAN N Ot J43.9 EMPHYSEMA, UNSPECIFIED 11/07/2016 JASON, BOBAN N Ot L98.9 DISORDER OF THE SKIN AND SUBCUTANEOUS TI 11/07/2016 MEI GOMEZ N Ot N18.3 CHRONIC KIDNEY DISEASE, STAGE 3 (MODERAT 11/07/2016 MEI GOMEZ N Ot Z08 ENCNTR FOR FOLLOW-UP EXAM AFTER TRTMT FO 11/07/2016 MEI GOMEZ N Ot Z79.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 11/07/2016 MEI GOMEZ N Ot Z85.118 PERSONAL HISTORY OF MALIGNANT NEOPLASM O 11/07/2016 MEI GOMEZ N Ot Z85.528 PERSONAL HISTORY OF OTHER MALIGNANT NEOP 11/07/2016 MEI GOMEZ N Ot D50.9 IRON DEFICIENCY ANEMIA, UNSPECIFIED 11/07/2016 MEI GOMEZ N Ot I12.9 HYPERTENSIVE CHRONIC KIDNEY DISEASE W ST 11/07/2016 MEI GOMEZ Deja Ot I25.10 ATHSCL HEART DISEASE OF [place] CORONARY 11/07/2016 MEI GOMEZ Deja Ot J43.9 EMPHYSEMA, UNSPECIFIED 11/07/2016 MEI GOMEZ Deja Ot L98.9 DISORDER OF THE SKIN AND SUBCUTANEOUS TI 11/07/2016 MEI GOMEZ N Ot N18.3 CHRONIC KIDNEY DISEASE, STAGE 3 (MODERAT 11/07/2016 MEI GOMEZ N Ot Z08 ENCNTR FOR FOLLOW-UP EXAM AFTER TRTMT FO 11/07/2016 MEI GOMEZ N Ot Z79.899 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 11/07/2016 MEI GOMEZ N Ot Z85.118 PERSONAL HISTORY OF MALIGNANT NEOPLASM O 11/07/2016 MEI GOMEZ N Ot Z85.528 PERSONAL HISTORY OF OTHER MALIGNANT NEOP 11/30/2016 Ot 189.0 MALIG NEOPL KIDNEY 11/30/2016 Ot 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 11/30/2016 Ot 585.9 CHRONIC KIDNEY DISEASE, UNSPECIFIED Procedures Code Description Performed By Performed On 77.79 11/28/2014 81.37 11/28/2014 81.62 11/28/2014 84.51 11/28/2014 [id number] REPLACE L HIP JT W METAL ON POLY, UNCEME 09/16/2016 Results Test Result Range Complete blood count (CBC) with automated white blood cell (WBC) differential - 02/04/16 11:01 Blood leukocytes automated count (number/volume) 8.0 10*3/ uL 4.3-11.0 Blood erythrocytes automated count (number/volume) 5.72 10*6 /uL 4.35-5.85 Venous blood hemoglobin measurement (mass/volume) 17.3 g/dL 13.3-17.7 Blood hematocrit (volume fraction) 51 % 40-54 Automated erythrocyte mean corpuscular volume 89 [foz_us] 80-99 Automated erythrocyte mean corpuscular hemoglobin (mass per erythrocyte) 30 pg 25-34 Automated erythrocyte mean corpuscular hemoglobin concentration measurement ( mass/volume) 34 g/dL 32-36 Automated erythrocyte distribution width ratio 14.0 % 10.0-14.5 Automated blood platelet count (count/volume) 203 10*3/uL 130-400 Automated blood platelet mean volume measurement 9.4 [foz_us ] 7.4-10.4 Automated blood neutrophils/100 leukocytes 64 % 42-75 Automated blood lymphocytes/100 leukocytes 25 % 12-44 Blood monocytes/100 leukocytes 8 % 0-12 Automated blood eosinophils/100 leukocytes 3 % 0-10 Automated blood basophils/100 leukocytes 0 % 0-10 Blood neutrophils automated count (number/volume) 5.1 10*3 1.8-7.8 Blood lymphocytes automated count (number/volume) 2.0 10*3 1.0-4.0 Blood monocytes automated count (number/volume) 0.6 10*3 0.0-1.0 Automated eosinophil count 0.3 10*3/uL 0.0-0.3 Automated blood basophil count (count/volume) 0.0 10*3/uL 0.0-0.1 Comprehensive metabolic panel - 02/04/16 11:01 Serum or plasma sodium measurement (moles/volume) 141 mmol/ L 135-145 Serum or plasma potassium measurement (moles/volume) 3.9 mmol/L 3.6-5.0 Serum or plasma chloride measurement (moles/volume) 107 mmol /L 98-107 Carbon dioxide 23 mmol/L 21-32 Serum or plasma anion gap determination (moles/volume) 11 mmol/L 5-14 Serum or plasma urea nitrogen measurement (mass/volume) 13 mg/dL 7-18 Serum or plasma creatinine measurement (mass/volume) 1.39 mg /dL 0.60-1.30 Serum or plasma urea nitrogen/creatinine mass ratio 9 NRG Serum or plasma creatinine measurement with calculation of estimated glomerular filtration rate 51 NRG Serum or plasma glucose measurement (mass/volume) 103 mg/dL 70-105 Serum or plasma calcium measurement (mass/volume) 9.5 mg/dL 8.5-10.1 Serum or plasma total bilirubin measurement (mass/volume) 0.8 mg/dL 0.1-1.0 Serum or plasma alkaline phosphatase measurement (enzymatic activity/volume) 53 U/L 40-136 Serum or plasma aspartate aminotransferase measurement (enzymatic activity/ volume) 19 U/L 5-34 Serum or plasma alanine aminotransferase measurement (enzymatic activity/volume ) 25 U/L 0-55 Serum or plasma protein measurement (mass/volume) 6.8 g/dL 6.4-8.2 Serum or plasma albumin measurement (mass/volume) 4.2 g/dL 3.2-4.5 Magnesium - 02/04/16 11:01 Magnesium 2.1 mg/dL 1.8-2.4 Serum or plasma troponin i.cardiac measurement (mass/volume) - 02/04/16 11:01 Serum or plasma troponin i.cardiac measurement (mass/volume) < ng/mL <0.30 Myoglobin, serum - 02/04/16 11:01 Myoglobin, serum 74.7 ng/mL 10.0-92.0 Lipase - 02/04/16 11:01 Lipase 17 U/L 8-78 PT panel in platelet poor plasma by coagulation assay - 02/04/16 11:01 Prothrombin time (PT) in platelet poor plasma by coagulation assay 13.3 s 12.2-14.7 INR in platelet poor plasma or blood by coagulation assay 1.0 0.8-1.4 Activated partial thromboplastin time (aPTT) in platelet poor plasma bycoagulation assay - 02/04/16 11:01 Activated partial thromboplastin time (aPTT) in platelet poor plasma bycoagulation assay 31 s 24-35 Complete urinalysis with reflex to culture - 02/04/16 11:20 Urine color determination YELLOW NRG Urine clarity determination CLEAR NRG Urine pH measurement by test strip 6.5 5 -9 Specific gravity of urine by test strip 1.010 1.016-1.022 Urine protein assay by test strip, semi-quantitative 1+ NEGATIVE Urine glucose detection by automated test strip NEGATIVE NEGATIVE Erythrocytes detection in urine sediment by light microscopy NEGATIVE NEGATIVE Urine ketones detection by automated test strip NEGATIVE NEGATIVE Urine nitrite detection by test strip NEGATIVE NEGATIVE Urine total bilirubin detection by test strip 1+ NEGATIVE Urine urobilinogen measurement by automated test strip (mass/volume) 1 mg/dL NORMAL Urine leukocyte esterase detection by dipstick 1+ NEGATIVE Automated urine sediment erythrocyte count by microscopy (number/high power field) NONE NRG Automated urine sediment leukocyte count by microscopy (number/high power field ) [HPF] NRG Bacteria detection in urine sediment by light microscopy MODERATE NRG Squamous epithelial cells detection in urine sediment by light microscopy NONE NRG Crystals detection in urine sediment by light microscopy NONE NRG Casts detection in urine sediment by light microscopy NONE NRG Mucus detection in urine sediment by light microscopy LARGE NRG Complete urinalysis with reflex to culture YES NRG Bacterial urine culture - 02/04/16 11:20 Bacterial urine culture NG NRG Complete blood count (CBC) with automated white blood cell (WBC) differential - 02/11/16 11:05 Blood leukocytes automated count (number/volume) 8.1 10*3/ uL 4.3-11.0 Blood erythrocytes automated count (number/volume) 5.72 10*6 /uL 4.35-5.85 Venous blood hemoglobin measurement (mass/volume) 17.3 g/dL 13.3-17.7 Blood hematocrit (volume fraction) 50 % 40-54 Automated erythrocyte mean corpuscular volume 88 [foz_us] 80-99 Automated erythrocyte mean corpuscular hemoglobin (mass per erythrocyte) 30 pg 25-34 Automated erythrocyte mean corpuscular hemoglobin concentration measurement ( mass/volume) 35 g/dL 32-36 Automated erythrocyte distribution width ratio 14.0 % 10.0-14.5 Automated blood platelet count (count/volume) 193 10*3/uL 130-400 Automated blood platelet mean volume measurement 9.5 [foz_us ] 7.4-10.4 Automated blood neutrophils/100 leukocytes 49 % 42-75 Automated blood lymphocytes/100 leukocytes 39 % 12-44 Blood monocytes/100 leukocytes 9 % 0-12 Automated blood eosinophils/100 leukocytes 3 % 0-10 Automated blood basophils/100 leukocytes 0 % 0-10 Blood neutrophils automated count (number/volume) 4.0 10*3 1.8-7.8 Blood lymphocytes automated count (number/volume) 3.1 10*3 1.0-4.0 Blood monocytes automated count (number/volume) 0.7 10*3 0.0-1.0 Automated eosinophil count 0.2 10*3/uL 0.0-0.3 Automated blood basophil count (count/volume) 0.0 10*3/uL 0.0-0.1 Comprehensive metabolic panel - 02/11/16 11:05 Serum or plasma sodium measurement (moles/volume) 140 mmol/ L 135-145 Serum or plasma potassium measurement (moles/volume) 3.4 mmol/L 3.6-5.0 Serum or plasma chloride measurement (moles/volume) 106 mmol /L 98-107 Carbon dioxide 21 mmol/L 21-32 Serum or plasma anion gap determination (moles/volume) 13 mmol/L 5-14 Serum or plasma urea nitrogen measurement (mass/volume) 15 mg/dL 7-18 Serum or plasma creatinine measurement (mass/volume) 1.53 mg /dL 0.60-1.30 Serum or plasma urea nitrogen/creatinine mass ratio 10 NRG Serum or plasma creatinine measurement with calculation of estimated glomerular filtration rate 45 NRG Serum or plasma glucose measurement (mass/volume) 99 mg/dL 70-105 Serum or plasma calcium measurement (mass/volume) 9.5 mg/dL 8.5-10.1 Serum or plasma total bilirubin measurement (mass/volume) 0.7 mg/dL 0.1-1.0 Serum or plasma alkaline phosphatase measurement (enzymatic activity/volume) 52 U/L 40-136 Serum or plasma aspartate aminotransferase measurement (enzymatic activity/ volume) 17 U/L 5-34 Serum or plasma alanine aminotransferase measurement (enzymatic activity/volume ) 18 U/L 0-55 Serum or plasma protein measurement (mass/volume) 7.0 g/dL 6.4-8.2 Serum or plasma albumin measurement (mass/volume) 4.2 g/dL 3.2-4.5 Serum or plasma troponin i.cardiac measurement (mass/volume) - 02/11/16 11:05 Serum or plasma troponin i.cardiac measurement (mass/volume) < ng/mL <0.30 Serum or plasma troponin i.cardiac measurement (mass/volume) - 02/11/16 16:53 Serum or plasma troponin i.cardiac measurement (mass/volume) < ng/mL <0.30 Complete urinalysis with reflex to culture - 02/11/16 18:55 Urine color determination YELLOW NRG Urine clarity determination CLEAR NRG Urine pH measurement by test strip 6 5- 9 Specific gravity of urine by test strip 1.015 1.016-1.022 Urine protein assay by test strip, semi-quantitative NEGATIVE NEGATIVE Urine glucose detection by automated test strip NEGATIVE NEGATIVE Erythrocytes detection in urine sediment by light microscopy 1+ NEGATIVE Urine ketones detection by automated test strip NEGATIVE NEGATIVE Urine nitrite detection by test strip NEGATIVE NEGATIVE Urine total bilirubin detection by test strip NEGATIVE NEGATIVE Urine urobilinogen measurement by automated test strip (mass/volume) NORMAL NORMAL Urine leukocyte esterase detection by dipstick NEGATIVE NEGATIVE Automated urine sediment erythrocyte count by microscopy (number/high power field) [HPF] NRG Automated urine sediment leukocyte count by microscopy (number/high power field ) NONE NRG Bacteria detection in urine sediment by light microscopy NONE NRG Crystals detection in urine sediment by light microscopy NONE NRG Casts detection in urine sediment by light microscopy NONE NRG Mucus detection in urine sediment by light microscopy NEGATIVE NRG Complete urinalysis with reflex to culture YES NRG Bacterial urine culture - 02/11/16 18:55 Bacterial urine culture NG NRG Complete blood count (CBC) with automated white blood cell (WBC) differential - 02/12/16 04:35 Blood leukocytes automated count (number/volume) 8.1 10*3/ uL 4.3-11.0 Blood erythrocytes automated count (number/volume) 4.98 10*6 /uL 4.35-5.85 Venous blood hemoglobin measurement (mass/volume) 15.2 g/dL 13.3-17.7 Blood hematocrit (volume fraction) 44 % 40-54 Automated erythrocyte mean corpuscular volume 88 [foz_us] 80-99 Automated erythrocyte mean corpuscular hemoglobin (mass per erythrocyte) 31 pg 25-34 Automated erythrocyte mean corpuscular hemoglobin concentration measurement ( mass/volume) 35 g/dL 32-36 Automated erythrocyte distribution width ratio 14.0 % 10.0-14.5 Automated blood platelet count (count/volume) 193 10*3/uL 130-400 Automated blood platelet mean volume measurement 9.6 [foz_us ] 7.4-10.4 Automated blood neutrophils/100 leukocytes 90 % 42-75 Automated blood lymphocytes/100 leukocytes 9 % 12-44 Blood monocytes/100 leukocytes 1 % 0-12 Automated blood eosinophils/100 leukocytes 0 % 0-10 Automated blood basophils/100 leukocytes 0 % 0-10 Blood neutrophils automated count (number/volume) 7.3 10*3 1.8-7.8 Blood lymphocytes automated count (number/volume) 0.7 10*3 1.0-4.0 Blood monocytes automated count (number/volume) 0.1 10*3 0.0-1.0 Automated eosinophil count 0.0 10*3/uL 0.0-0.3 Automated blood basophil count (count/volume) 0.0 10*3/uL 0.0-0.1 Blood manual differential performed detection - 02/12/16 04:35 Blood monocytes/100 leukocytes 1 % NRG Manual blood segmented neutrophils/100 leukocytes 90 % NRG Blood band neutrophils/100 leukocytes 0 % NRG Manual blood lymphocytes/100 leukocytes 9 % NRG Manual eosinophils/100 leukocytes in nose 0 % NRG Manual blood basophils/100 leukocytes 0 % NRG Blood erythrocyte morphology finding identification NORMAL NRG Magnesium - 02/12/16 04:35 Magnesium 2.0 mg/dL 1.8-2.4 Arterial blood gas measurement - 02/12/16 10:50 Blood pCO2 33 mm[Hg] 35-45 Blood pO2 68 mm[Hg] 79-93 Arterial blood bicarbonate measurement (moles/volume) 21 mmol/L 23-27 Arterial blood base excess by calculation -3.2 mmol/L -2.5-2.5 Arterial blood oxygen saturation measurement 95 % 94-100 * Inhaled oxygen flow rate NC NRG Arterial blood pH measurement with patient temperature correction 7.42 7.37-7.43 Arterial blood carbon dioxide, total measurement (moles/volume) 21.5 mmol/L 21.0-31.0 Body site RT RAD NRG Assessment of wrist artery patency prior to arterial puncture YES-POS NRG Setting of ventilation mode NO NRG Measurement of body temperature 97.6 NRG Capillary blood glucose measurement by glucometer (mass/volume) - 02/12/16 16: 13 Capillary blood glucose measurement by glucometer (mass/volume) 142 mg/dL 70-110 Complete blood count (CBC) with automated white blood cell (WBC) differential - 02/13/16 04:30 Blood leukocytes automated count (number/volume) 16.5 10*3/ uL 4.3-11.0 Blood erythrocytes automated count (number/volume) 4.74 10*6 /uL 4.35-5.85 Venous blood hemoglobin measurement (mass/volume) 14.7 g/dL 13.3-17.7 Blood hematocrit (volume fraction) 43 % 40-54 Automated erythrocyte mean corpuscular volume 90 [foz_us] 80-99 Automated erythrocyte mean corpuscular hemoglobin (mass per erythrocyte) 31 pg 25-34 Automated erythrocyte mean corpuscular hemoglobin concentration measurement ( mass/volume) 34 g/dL 32-36 Automated erythrocyte distribution width ratio 14.4 % 10.0-14.5 Automated blood platelet count (count/volume) 183 10*3/uL 130-400 Automated blood platelet mean volume measurement 9.6 [foz_us ] 7.4-10.4 Automated blood neutrophils/100 leukocytes 81 % 42-75 Automated blood lymphocytes/100 leukocytes 14 % 12-44 Blood monocytes/100 leukocytes 6 % 0-12 Automated blood eosinophils/100 leukocytes 0 % 0-10 Automated blood basophils/100 leukocytes 0 % 0-10 Blood neutrophils automated count (number/volume) 13.3 10*3 1.8-7.8 Blood lymphocytes automated count (number/volume) 2.3 10*3 1.0-4.0 Blood monocytes automated count (number/volume) 0.9 10*3 0.0-1.0 Automated eosinophil count 0.0 10*3/uL 0.0-0.3 Automated blood basophil count (count/volume) 0.0 10*3/uL 0.0-0.1 Comprehensive metabolic panel - 02/13/16 04:30 Serum or plasma sodium measurement (moles/volume) 142 mmol/ L 135-145 Serum or plasma potassium measurement (moles/volume) 4.1 mmol/L 3.6-5.0 Serum or plasma chloride measurement (moles/volume) 113 mmol /L 98-107 Carbon dioxide 21 mmol/L 21-32 Serum or plasma anion gap determination (moles/volume) 8 mmol/L 5-14 Serum or plasma urea nitrogen measurement (mass/volume) 19 mg/dL 7-18 Serum or plasma creatinine measurement (mass/volume) 1.23 mg /dL 0.60-1.30 Serum or plasma urea nitrogen/creatinine mass ratio 15 NRG Serum or plasma creatinine measurement with calculation of estimated glomerular filtration rate 59 NRG Serum or plasma glucose measurement (mass/volume) 105 mg/dL 70-105 Serum or plasma calcium measurement (mass/volume) 8.4 mg/dL 8.5-10.1 Serum or plasma total bilirubin measurement (mass/volume) 0.2 mg/dL 0.1-1.0 Serum or plasma alkaline phosphatase measurement (enzymatic activity/volume) 38 U/L 40-136 Serum or plasma aspartate aminotransferase measurement (enzymatic activity/ volume) 12 U/L 5-34 Serum or plasma alanine aminotransferase measurement (enzymatic activity/volume ) 13 U/L 0-55 Serum or plasma protein measurement (mass/volume) 5.3 g/dL 6.4-8.2 Serum or plasma albumin measurement (mass/volume) 3.3 g/dL 3.2-4.5 Complete blood count (CBC) with automated white blood cell (WBC) differential - 02/14/16 04:50 Blood leukocytes automated count (number/volume) 8.2 10*3/ uL 4.3-11.0 Blood erythrocytes automated count (number/volume) 4.60 10*6 /uL 4.35-5.85 Venous blood hemoglobin measurement (mass/volume) 14.2 g/dL 13.3-17.7 Blood hematocrit (volume fraction) 42 % 40-54 Automated erythrocyte mean corpuscular volume 91 [foz_us] 80-99 Automated erythrocyte mean corpuscular hemoglobin (mass per erythrocyte) 31 pg 25-34 Automated erythrocyte mean corpuscular hemoglobin concentration measurement ( mass/volume) 34 g/dL 32-36 Automated erythrocyte distribution width ratio 14.6 % 10.0-14.5 Automated blood platelet count (count/volume) 156 10*3/uL 130-400 Automated blood platelet mean volume measurement 9.6 [foz_us ] 7.4-10.4 Automated blood neutrophils/100 leukocytes 54 % 42-75 Automated blood lymphocytes/100 leukocytes 35 % 12-44 Blood monocytes/100 leukocytes 7 % 0-12 Automated blood eosinophils/100 leukocytes 3 % 0-10 Automated blood basophils/100 leukocytes 0 % 0-10 Blood neutrophils automated count (number/volume) 4.5 10*3 1.8-7.8 Blood lymphocytes automated count (number/volume) 2.9 10*3 1.0-4.0 Blood monocytes automated count (number/volume) 0.6 10*3 0.0-1.0 Automated eosinophil count 0.3 10*3/uL 0.0-0.3 Automated blood basophil count (count/volume) 0.0 10*3/uL 0.0-0.1 Whole blood basic metabolic panel - 02/14/16 04:50 Serum or plasma sodium measurement (moles/volume) 142 mmol/ L 135-145 Serum or plasma potassium measurement (moles/volume) 3.9 mmol/L 3.6-5.0 Serum or plasma chloride measurement (moles/volume) 111 mmol /L 98-107 Carbon dioxide 21 mmol/L 21-32 Serum or plasma anion gap determination (moles/volume) 10 mmol/L 5-14 Serum or plasma urea nitrogen measurement (mass/volume) 20 mg/dL 7-18 Serum or plasma creatinine measurement (mass/volume) 1.21 mg /dL 0.60-1.30 Serum or plasma urea nitrogen/creatinine mass ratio 17 NRG Serum or plasma creatinine measurement with calculation of estimated glomerular filtration rate 60 NRG Serum or plasma glucose measurement (mass/volume) 82 mg/dL 70-105 Serum or plasma calcium measurement (mass/volume) 8.1 mg/dL 8.5-10.1 Methicillin resistant Staphylococcus aureus (MRSA) screening culture - 12:15 Methicillin resistant Staphylococcus aureus (MRSA) screening culture NEG NRG Complete blood count (CBC) with automated white blood cell (WBC) differential - 09/02/16 12:20 Blood leukocytes automated count (number/volume) 6.5 10*3/ uL 4.3-11.0 Blood erythrocytes automated count (number/volume) 5.51 10*6 /uL 4.35-5.85 Venous blood hemoglobin measurement (mass/volume) 17.1 g/dL 13.3-17.7 Blood hematocrit (volume fraction) 50 % 40-54 Automated erythrocyte mean corpuscular volume 91 [foz_us] 80-99 Automated erythrocyte mean corpuscular hemoglobin (mass per erythrocyte) 31 pg 25-34 Automated erythrocyte mean corpuscular hemoglobin concentration measurement ( mass/volume) 34 g/dL 32-36 Automated erythrocyte distribution width ratio 13.9 % 10.0-14.5 Automated blood platelet count (count/volume) 192 10*3/uL 130-400 Automated blood platelet mean volume measurement 9.7 [foz_us ] 7.4-10.4 Automated blood neutrophils/100 leukocytes 62 % 42-75 Automated blood lymphocytes/100 leukocytes 27 % 12-44 Blood monocytes/100 leukocytes 7 % 0-12 Automated blood eosinophils/100 leukocytes 3 % 0-10 Automated blood basophils/100 leukocytes 1 % 0-10 Blood neutrophils automated count (number/volume) 4.1 10*3 1.8-7.8 Blood lymphocytes automated count (number/volume) 1.8 10*3 1.0-4.0 Blood monocytes automated count (number/volume) 0.5 10*3 0.0-1.0 Automated eosinophil count 0.2 10*3/uL 0.0-0.3 Automated blood basophil count (count/volume) 0.0 10*3/uL 0.0-0.1 PT panel in platelet poor plasma by coagulation assay - 09/02/16 12:20 Prothrombin time (PT) in platelet poor plasma by coagulation assay 13.6 s 12.2-14.7 INR in platelet poor plasma or blood by coagulation assay 1.1 0.8-1.4 Whole blood basic metabolic panel - 09/02/16 12:20 Serum or plasma sodium measurement (moles/volume) 141 mmol/ L 135-145 Serum or plasma potassium measurement (moles/volume) 4.0 mmol/L 3.6-5.0 Serum or plasma chloride measurement (moles/volume) 108 mmol /L 98-107 Carbon dioxide 25 mmol/L 21-32 Serum or plasma anion gap determination (moles/volume) 8 mmol/L 5-14 Serum or plasma urea nitrogen measurement (mass/volume) 17 mg/dL 7-18 Serum or plasma creatinine measurement (mass/volume) 1.31 mg /dL 0.60-1.30 Serum or plasma urea nitrogen/creatinine mass ratio 13 NRG Serum or plasma creatinine measurement with calculation of estimated glomerular filtration rate 54 NRG Serum or plasma glucose measurement (mass/volume) 98 mg/dL 70-105 Serum or plasma calcium measurement (mass/volume) 9.6 mg/dL 8.5-10.1 Blood type T Indirect antibody screen panel - 09/02/16 12:20 ABO+Rh group OP NRG Blood group antibody screen NEGATIVE NRG Complete urinalysis with reflex to culture - 09/02/16 12:23 Urine color determination YELLOW NRG Urine clarity determination CLEAR NRG Urine pH measurement by test strip 6 5- 9 Specific gravity of urine by test strip 1.025 1.016-1.022 Urine protein assay by test strip, semi-quantitative NEGATIVE NEGATIVE Urine glucose detection by automated test strip NEGATIVE NEGATIVE Erythrocytes detection in urine sediment by light microscopy NEGATIVE NEGATIVE Urine ketones detection by automated test strip NEGATIVE NEGATIVE Urine nitrite detection by test strip NEGATIVE NEGATIVE Urine total bilirubin detection by test strip 1+ NEGATIVE Urine urobilinogen measurement by automated test strip (mass/volume) 1 mg/dL NORMAL Urine leukocyte esterase detection by dipstick 1+ NEGATIVE Automated urine sediment erythrocyte count by microscopy (number/high power field) NONE NRG Automated urine sediment leukocyte count by microscopy (number/high power field ) [HPF] NRG Bacteria detection in urine sediment by light microscopy TRACE NRG Squamous epithelial cells detection in urine sediment by light microscopy RARE NRG Crystals detection in urine sediment by light microscopy PRESENT NRG Casts detection in urine sediment by light microscopy NONE NRG Mucus detection in urine sediment by light microscopy SMALL NRG Complete urinalysis with reflex to culture NO NRG Calcium oxalate crystals detection in urine sediment by light microscopy RARE NRG Blood type T Indirect antibody screen panel - 09/16/16 06:20 ABO+Rh group OP NRG Transfusion band number [id number] NRG Blood group antibody screen NEGATIVE NRG Automated blood complete blood count (hemogram) panel - 09/17/16 06:25 Blood leukocytes automated count (number/volume) 12.4 10*3/ uL 4.3-11.0 Blood erythrocytes automated count (number/volume) 3.92 10*6 /uL 4.35-5.85 Venous blood hemoglobin measurement (mass/volume) 12.0 g/dL 13.3-17.7 Blood hematocrit (volume fraction) 37 % 40-54 Automated erythrocyte mean corpuscular volume 94 [foz_us] 80-99 Automated erythrocyte mean corpuscular hemoglobin (mass per erythrocyte) 31 pg 25-34 Automated erythrocyte mean corpuscular hemoglobin concentration measurement ( mass/volume) 33 g/dL 32-36 Automated erythrocyte distribution width ratio 13.5 % 10.0-14.5 Automated blood platelet count (count/volume) 153 10*3/uL 130-400 Automated blood platelet mean volume measurement 9.6 [foz_us ] 7.4-10.4 Whole blood basic metabolic panel - 09/17/16 06:25 Serum or plasma sodium measurement (moles/volume) 139 mmol/ L 135-145 Serum or plasma potassium measurement (moles/volume) 3.7 mmol/L 3.6-5.0 Serum or plasma chloride measurement (moles/volume) 107 mmol /L 98-107 Carbon dioxide 25 mmol/L 21-32 Serum or plasma anion gap determination (moles/volume) 7 mmol/L 5-14 Serum or plasma urea nitrogen measurement (mass/volume) 13 mg/dL 7-18 Serum or plasma creatinine measurement (mass/volume) 1.24 mg /dL 0.60-1.30 Serum or plasma urea nitrogen/creatinine mass ratio 10 NRG Serum or plasma creatinine measurement with calculation of estimated glomerular filtration rate 58 NRG Serum or plasma glucose measurement (mass/volume) 104 mg/dL 70-105 Serum or plasma calcium measurement (mass/volume) 7.7 mg/dL 8.5-10.1 Automated blood complete blood count (hemogram) panel - 09/18/16 05:43 Blood leukocytes automated count (number/volume) 11.3 10*3/ uL 4.3-11.0 Blood erythrocytes automated count (number/volume) 3.49 10*6 /uL 4.35-5.85 Venous blood hemoglobin measurement (mass/volume) 10.7 g/dL 13.3-17.7 Blood hematocrit (volume fraction) 33 % 40-54 Automated erythrocyte mean corpuscular volume 93 [foz_us] 80-99 Automated erythrocyte mean corpuscular hemoglobin (mass per erythrocyte) 31 pg 25-34 Automated erythrocyte mean corpuscular hemoglobin concentration measurement ( mass/volume) 33 g/dL 32-36 Automated erythrocyte distribution width ratio 13.4 % 10.0-14.5 Automated blood platelet count (count/volume) 145 10*3/uL 130-400 Automated blood platelet mean volume measurement 9.6 [foz_us ] 7.4-10.4 Whole blood basic metabolic panel - 09/18/16 05:43 Serum or plasma sodium measurement (moles/volume) 136 mmol/ L 135-145 Serum or plasma potassium measurement (moles/volume) 3.7 mmol/L 3.6-5.0 Serum or plasma chloride measurement (moles/volume) 104 mmol /L 98-107 Carbon dioxide 24 mmol/L 21-32 Serum or plasma anion gap determination (moles/volume) 8 mmol/L 5-14 Serum or plasma urea nitrogen measurement (mass/volume) 17 mg/dL 7-18 Serum or plasma creatinine measurement (mass/volume) 1.24 mg /dL 0.60-1.30 Serum or plasma urea nitrogen/creatinine mass ratio 14 NRG Serum or plasma creatinine measurement with calculation of estimated glomerular filtration rate 58 NRG Serum or plasma glucose measurement (mass/volume) 116 mg/dL 70-105 Serum or plasma calcium measurement (mass/volume) 7.8 mg/dL 8.5-10.1 Complete urinalysis with reflex to culture - 09/18/16 11:25 Urine color determination YELLOW NRG Urine clarity determination CLEAR NRG Urine pH measurement by test strip 6 5- 9 Specific gravity of urine by test strip 1.010 1.016-1.022 Urine protein assay by test strip, semi-quantitative NEGATIVE NEGATIVE Urine glucose detection by automated test strip NEGATIVE NEGATIVE Erythrocytes detection in urine sediment by light microscopy NEGATIVE NEGATIVE Urine ketones detection by automated test strip NEGATIVE NEGATIVE Urine nitrite detection by test strip NEGATIVE NEGATIVE Urine total bilirubin detection by test strip NEGATIVE NEGATIVE Urine urobilinogen measurement by automated test strip (mass/volume) NORMAL NORMAL Urine leukocyte esterase detection by dipstick NEGATIVE NEGATIVE Automated urine sediment erythrocyte count by microscopy (number/high power field) NONE NRG Automated urine sediment leukocyte count by microscopy (number/high power field ) RARE NRG Bacteria detection in urine sediment by light microscopy NEGATIVE NRG Crystals detection in urine sediment by light microscopy NONE NRG Casts detection in urine sediment by light microscopy NONE NRG Mucus detection in urine sediment by light microscopy NEGATIVE NRG Complete urinalysis with reflex to culture NO NRG Whole blood hemoglobin and hematocrit panel - 09/19/16 07:05 Venous blood hemoglobin measurement (mass/volume) 11.4 g/dL 13.3-17.7 Blood hematocrit (volume fraction) 34 % 40-54 Complete blood count (CBC) with automated white blood cell (WBC) differential - 09/20/16 09:42 Blood leukocytes automated count (number/volume) 8.4 10*3/ uL 4.3-11.0 Blood erythrocytes automated count (number/volume) 3.74 10*6 /uL 4.35-5.85 Venous blood hemoglobin measurement (mass/volume) 11.5 g/dL 13.3-17.7 Blood hematocrit (volume fraction) 35 % 40-54 Automated erythrocyte mean corpuscular volume 93 [foz_us] 80-99 Automated erythrocyte mean corpuscular hemoglobin (mass per erythrocyte) 31 pg 25-34 Automated erythrocyte mean corpuscular hemoglobin concentration measurement ( mass/volume) 33 g/dL 32-36 Automated erythrocyte distribution width ratio 13.4 % 10.0-14.5 Automated blood platelet count (count/volume) 67 10*3/uL 130-400 Automated blood platelet mean volume measurement 9.6 [foz_us ] 7.4-10.4 Automated blood neutrophils/100 leukocytes 70 % 42-75 Automated blood lymphocytes/100 leukocytes 17 % 12-44 Blood monocytes/100 leukocytes 7 % 0-12 Automated blood eosinophils/100 leukocytes 6 % 0-10 Automated blood basophils/100 leukocytes 0 % 0-10 Blood neutrophils automated count (number/volume) 5.9 10*3 1.8-7.8 Blood lymphocytes automated count (number/volume) 1.4 10*3 1.0-4.0 Blood monocytes automated count (number/volume) 0.6 10*3 0.0-1.0 Automated eosinophil count 0.5 10*3/uL 0.0-0.3 Automated blood basophil count (count/volume) 0.0 10*3/uL 0.0-0.1 Comprehensive metabolic panel - 09/20/16 09:42 Serum or plasma sodium measurement (moles/volume) 139 mmol/ L 135-145 Serum or plasma potassium measurement (moles/volume) 4.1 mmol/L 3.6-5.0 Serum or plasma chloride measurement (moles/volume) 107 mmol /L 98-107 Carbon dioxide 20 mmol/L 21-32 Serum or plasma anion gap determination (moles/volume) 12 mmol/L 5-14 Serum or plasma urea nitrogen measurement (mass/volume) 15 mg/dL 7-18 Serum or plasma creatinine measurement (mass/volume) 1.09 mg /dL 0.60-1.30 Serum or plasma urea nitrogen/creatinine mass ratio 14 NRG Serum or plasma creatinine measurement with calculation of estimated glomerular filtration rate > NRG Serum or plasma glucose measurement (mass/volume) 130 mg/dL 70-105 Serum or plasma calcium measurement (mass/volume) 8.4 mg/dL 8.5-10.1 Serum or plasma total bilirubin measurement (mass/volume) 0.7 mg/dL 0.1-1.0 Serum or plasma alkaline phosphatase measurement (enzymatic activity/volume) 37 U/L 40-136 Serum or plasma aspartate aminotransferase measurement (enzymatic activity/ volume) 20 U/L 5-34 Serum or plasma alanine aminotransferase measurement (enzymatic activity/volume ) 12 U/L 0-55 Serum or plasma protein measurement (mass/volume) 5.5 g/dL 6.4-8.2 Serum or plasma albumin measurement (mass/volume) 3.0 g/dL 3.2-4.5 Encounters ACCT No. Visit Date/Time Discharge Status Pt. Type Provider Facility Loc./Unit Complaint [id number] 09/18/2016 11:00:00 2016 17:17:00 DIS Inpatient NICHELLE BONILLA, KATHY Anaya [facility] IRF LEFT HIP OA S/P LEFT THR [id number] 09/16/2016 06:00:00 2016 11:05:00 DIS Inpatient TAYLOR ESTRADA DO [facility] 4TH LEFT HIP POA [id number] 09/02/2016 11:31:00 2016 12:30:00 DIS Outpatient TAYLOR ESTRADA DO [facility] PREOP LEFT HIP POA [id number] 07/08/2016 14:02:00 2016 00:01:00 DIS Outpatient MEI GOMEZ [facility] ONC [id number] 02/11/2016 12:28:00 2015 13:10:00 DIS Inpatient DAMARIS BONILLA, CHILO R [facility] 4TH MULTILOBAR LUNG INFILTRATE/SOB [id number] 02/04/2016 10:55:00 2015 14:00:00 DIS Emergency WINTER BONILLA, CAMERON Boggs [facility] ER CHEST PAIN, ABD PAIN, NAUSEA [id number] 01/17/2016 09:01:00 2015 12:45:00 DIS Outpatient MEEK SORIA MD [facility] SDC SCREENINGCIRO [id number] 01/11/2016 05:36:00 2015 11:02:00 DIS Outpatient MEEK SORIA MD [facility] PREOP SCREENING,CIRO [id number] 12/05/2015 17:08:00 2015 19:23:00 DIS Emergency STEARNSHARSH WAIST CUTTER [facility] ER CHEST PAIN [id number] 08/28/2015 14:39:00 2015 00:01:00 DIS Outpatient MEI GOMEZ [facility] ONC [id number] 04/25/2015 12:24:00 2014 23:59:59 CLS Outpatient WHITEASHWINIAH S DIRECT RESPONSE CONSULTANT [facility] ONC [id number] 03/22/2015 07:53:00 2014 23:59:59 CLS Outpatient ENMANUEL BONILLA, CHANELLE Robb [facility] CARD CAD,HTN,HLD [id number] 02/28/2015 13:06:00 2014 00:01:00 DIS Outpatient MEI GOMEZ [facility] ONC [id number] 02/21/2015 09:09:00 2014 23:59:59 CLS Outpatient WHITEASHWINIAH S DIRECT RESPONSE CONSULTANT [facility] RAD RENAL CELL CARCINOMA W/LUNG METS [id number] 02/13/2015 10:44:00 2014 23:59:59 CLS Outpatient WHITE HILAH S DIRECT RESPONSE CONSULTANT [facility] RAD RENAL CELL CARCINOMA [id number] 01/31/2015 12:41:00 2014 23:59:59 CLS Outpatient WHITE HILAH S DIRECT RESPONSE CONSULTANT [facility] ONC [id number] 10/04/2014 12:49:00 2014 00:01:00 DIS Outpatient MEI GOMEZ [facility] ONC [id number] 11/29/2014 08:55:00 2014 09:40:00 DIS Inpatient JESSI RIVERA DO [facility] SURGICAL STENOSIS [id number] 11/16/2014 15:47:00 2014 23:59:59 CLS Outpatient JESSI RIVERA DO [facility] PREOP STENOSIS [id number] 10/17/2014 14:08:00 2014 17:10:00 DIS Emergency HARSH STEARNS Cezar BAUMAN [facility] ER BACK PAIN [id number] 06/16/2014 12:41:00 2014 00:01:00 DIS Outpatient MEI GOMEZ Deja [facility] ONC [id number] 06/07/2014 13:04:00 2014 23:59:59 CLS Outpatient DILIA WHITEP [facility] RAD RENAL CELL CARCINOMA [id number] 03/08/2014 12:32:00 2013 23:59:59 CLS Outpatient DILIA WHITEP [facility] ONC [id number] 10/04/2013 13:25:00 2013 00:01:00 DIS Outpatient MEI GOMEZ Deja [facility] ONC [id number] 11/30/2013 12:58:00 2013 23:59:59 CLS Outpatient DILIA WHITE DIRECT RESPONSE CONSULTANT [facility] ONC [id number] 08/23/2013 13:06:00 2013 00:01:00 DIS Outpatient [id number] 06/08/2013 10:28:00 2013 23:59:59 CLS Outpatient [id number] 05/18/2013 12:22:00 2012 23:59:59 CLS Outpatient [id number] 02/23/2013 12:26:00 2012 23:59:59 CLS Outpatient [id number] 01/26/2013 05:59:00 2012 08:27:00 DIS Emergency [id number] 01/19/2013 14:04:00 2012 23:59:59 CLS Outpatient [id number] 12/17/2012 14:27:00 2012 23:59:59 CLS Outpatient [id number] 10/21/2012 15:13:00 2012 12:58:00 DIS Outpatient [id number] 10/13/2012 12:22:00 2012 23:59:59 CLS Outpatient [id number] 12/05/2016 11:00:00 PEN MEEK Armas MD [facility] SDC LESION LEFT EAR [id number] 11/05/2016 12:34:00 ACT Outpatient MEI GOMEZ [facility] ONC [id number] 01/02/2016 12:34:00 ACT Outpatient DILIA WHITE DIRECT RESPONSE CONSULTANT [facility] ONC [id number] 12/26/2015 13:07:00 ACT Outpatient DILIA WHITE [facility] RAD PULMONARY NODULE,RENAL CELL CARCINOMA [id number] 06/14/2015 14:31:00 ACT Outpatient JESSI RIVERA DO [facility] RAD KNEE PAIN, BACK PAIN [id number] 03/20/2015 12:34:00 Document Registration [id number] 11/16/2014 16:08:00 Document Registration [id number] 11/16/2014 16:08:00 Document Registration [id number] 08/16/2013 09:53:00 Document Registration [id number] 02/24/2012 16:00:00 Document Registration
[2016-12-05 10:15] VITALS: BP 111/72
[2016-12-05] MEDS ORDERED: CATHETER FLUSH 10 ML SYR IV PRN (10:15)
[2016-12-05] MEDS: LACTATED RINGERS 1,000 ML IV SCH ×2 (10:15→12:36)
[2016-12-05] MEDS ORDERED: ceFAZolin 1 GM/NS 50 ML IVPB IV ONE ×2 (10:15)
--- NOTE | 2016-12-05 10:25 | Progress Note-Pre Operative ---
Pre-Operative Progress Note H&P Reviewed The H&P was reviewed, patient examined and no changes noted. Date Seen by Provider: Dec 05, 2016 Time Seen by Provider: 10:24 Date H&P Reviewed: Dec 05, 2016 Time H&P Reviewed: 10:24 Pre-Operative Diagnosis: left ear recurrent basal cell cancer MEEK SORIA MD Dec 05, 2016 10:25
[2016-12-05] MEDS ORDERED: ACETAMINOPHEN 325 MG TABLET/CAPLET (TYLENOL) PO PRN (10:30)
[2016-12-05] MEDS ORDERED: HYDROcodone/APAP 5 MG/325 MG (LORTAB) TAB PO ONE (10:30)
[2016-12-05] MEDS ORDERED: ONDANSETRON 4 MG/2 ML (SDV) Z0FRAN IVP PRN ×2 (10:30→13:45)
[2016-12-05] MEDS ORDERED: morphine INJ 10 MG/ML 1ML (SYR OR VIAL) IVP PRN (10:30)
[2016-12-05] MEDS ORDERED: CLON0.1T PO (11:00)
[2016-12-05] MEDS ORDERED: BUP/EPI 0.5% 1:200,000 (MARCAINE) 10ML VIAL IJ ONE (11:32)
[2016-12-05] MEDS ORDERED: proPOfol 200 MG/20 ML (DIPRIVAN) VIAL IV ONE (11:49)
[2016-12-05] MEDS ORDERED: fentaNYL INJECTION 100 MCG/2 ML AMP ONE (11:49)
[2016-12-05] MEDS ORDERED: MIDAZOLAM 2 MG/2 ML (VERSED) VIAL ONE (11:49)
[2016-12-05] MEDS ORDERED: SEVOFLURANE (ULTANE) 15 ML INHAL SOLN ONE (11:54)
[2016-12-05] MEDS ORDERED: LACTATED RINGERS 1,000 ML IV ONE (11:54)
[2016-12-05] MEDS ORDERED: ONDANSETRON 4 MG/2 ML (SDV) Z0FRAN ONE (11:54)
[2016-12-05] MEDS ORDERED: NEO/POLY/BAC (NEOSPORIN) OINT 15 GM TUBE ONE (12:38)
--- NOTE | 2016-12-05 12:48 | Progress Note-Post Operative ---
Post-Operative Progess Note Surgeon (s)/Car Construction Superintendent (s) Surgeon MEEK SORIA MD Car Construction Superintendent: wilfred lee MUSIC ENGRAVER Pre-Operative Diagnosis left ear recurrent basal cell cancer Post-Operative Diagnosis same 2.5x1.5cm. Procedure & Operative Findings Date of Procedure 12/05/16 Procedure Performed/Findings excision skin lesion left ear 2.5x1.5cm with intermediate closure. Anesthesia Type general LMA Estimated Blood Loss Estimated blood loss (mL): minimal Specimens/Packing Specimens Removed left ear lesion MEEK SORIA MD Dec 05, 2016 12:48 pm
[2016-12-05] MEDS ORDERED: HYDR-3816 PO (12:49)
--- NOTE | 2016-12-05 12:50 | Discharge Inst-Surgical ---
D/C Lap Instructions-ESTELLA New, Converted, or Re-Newed RX: RX on Chart Follow Up Appt in 1 week Activity as tolerated Regular Diet Symptoms to Report: Fever over 101 degree F, Nausea/Vomiting Infection Signs and Symptoms to report: Increased redness, Foul odor of wound, Increased drainage Bathing instructions: May shower Operative Area Clean/Dry; Keep incision clean/dry If any problems/questions: Contact your physician or go to Emergency Room MEEK SORIA MD Dec 05, 2016 12:50 pm
[2016-12-05] MEDS ORDERED: NEO/POLY/BAC (NEOSPORIN) OINT 15 GM TUBE TOP SCH (13:00)
[2016-12-05] MEDS ORDERED: NEO/POLY/BAC (NEOSPORIN) OINT 15 GM TUBE TOP ONE (13:15)
[2016-12-05 13:50] VITALS: BP 116/90
[2016-12-05] MEDS ORDERED: HYDROcodone/APAP 7.5 MG/325 MG (LORTAB, LORCET PLUS) TABLET PO ONE (13:50)
[2016-12-05] MEDS ORDERED: HYDROcodone/APAP 7.5 MG/325 MG (LORTAB, LORCET PLUS) TABLET PO PRN (14:06)
[2016-12-05 14:15] VITALS: BP 109/72
--- NOTE | 2016-12-06 15:01 | OPERATIVE REPORT ---
PROCEDURE PHYSICIAN: MEEK LEYVA DATE OF PROCEDURE: 12/06/2016 ATTENDING PRIMARY CARE PHYSICIAN: Dr. Wolf Heaton. PREOPERATIVE DIAGNOSIS: Symptomatic recurrent basal cell skin cancer of the left ear. POSTOPERATIVE DIAGNOSIS: Symptomatic recurrent basal cell skin cancer of the left ear. Detentions approximately 2.5 x 1.5 cm in size. PROCEDURE: Excision left ear lesion and intermediate closure. SURGEON: Dr. Leyva. AD TERMINAL MAKEUP OPERATOR: Shantanu Garibay APRN. ANESTHESIA: General laryngeal mask airway. ESTIMATED BLOOD LOSS: Minimal. FINDINGS: Superficial lesion, which is recurrent approximately 2.5 x 1.5 cm in size. Mr. Mike Alarcon is a 71-year-old male known to us. We had seen him for a history of Guadarrama's esophagus, as well as findings of a high-grade dysplasia noted. He then was referred to gastroenterology where he underwent an ablative procedure. His last EGD was in April 2016 which showed Guadarrama's with a low grade dysplasia. He was seen in the office for a persistent lesion of the left ear for the past year. He reports that this first dry and scaly and would flake off and then heal. He also states that the lesion would become pruritic and bleed. The lesion was a raised, hyperkeratotic at approximately 2.5 x 1.5 cm in size. This appeared to be consistent with a basal cell skin cancer. He has also had basal cell skin cancers removed from the left upper and inner nose. He tried medical management with Efudex cream; however, the lesion grew larger in size. The patient was brought to the operating room, laid supine on the table. After adequate IV pain and sedative medications and general laryngeal mask airway intubation, the left ear and face were prepped and draped in standard surgical fashion. 0.5% Marcaine with epinephrine was used to anesthetize skin of the lesion. The lesion was measured out to approximately 2.5 x 1.5 cm in size and along the most lateral rim of the midportion of the ear. We then proceeded with full excision of the lesion using a 15 blade until the cartilage was identified and part of the cartilage was resected using a 15 blade as well. Good hemostasis was achieved using electrocautery. We then proceeded with lateral flaps using electrocautery. The skin edges were then approximated using interrupted 3-0 Prolene interrupted sutures. Good hemostasis was observed. The wound was then cleaned and covered with bacitracin ointment. The patient tolerated well. We will start IV and oral pain medications as well as a clear liquid diet. Once he is tolerating clears, has good pain control with oral pain medication, and ambulating well, we will discharge him home. He will be instructed to follow-up in the office in approximately 7 to 10 days for reevaluation of the wound as well as suture removal. Job ID: [id number] Dictated Date: 12/05/2016 12:44:25 Musical Engineer Date: 12/06/2016 14:41:52 / aguilar
== END 2016-12-05 14:54 | disposition home or self-care (01) ==
LOC: SDC 09:59
PROVIDERS: ATTEND Surgery
DX: C44.219 Basal cell carcinoma of skin of left ear and external auricular canal (principal); I25.10 Atherosclerotic heart disease of native coronary artery without angina pectoris; I10 Essential (primary) hypertension; E78.5 Hyperlipidemia, unspecified; Z85.528 Personal history of other malignant neoplasm of kidney; Z79.899 Other long term (current) drug therapy; Z95.5 Presence of coronary angioplasty implant and graft
CPT/HCPCS: 87081

== ENCOUNTER 2017-02-22 16:37 | Emergency (ER) | payer MEDICARE ==
[~2017-02-22] VITALS: Ht 180.3 cm; Wt 95.3 kg
[~2017-02-22 16:37] MED LIST changes: +HYDR-3816 PO
[2017-02-22] MEDS ORDERED: ONDANSETRON 4 MG/2 ML (SDV) Z0FRAN IVP ONE (17:30)
[2017-02-22 17:35] LABS: BASOPHILS % (AUTO) 0 % (0-10); EOSINOPHILS # (AUTO) 0.2 10^3/uL (0.0-0.3); EOSINOPHILS % (AUTO) 2 % (0-10); LYMPHOCYTES % (AUTO) 27 % (12-44); MEAN CORPUSCULAR HEMOGLOBIN 30 PG (25-34); MEAN CORPUSCULAR HGB CONC 34 G/DL (32-36); MEAN CORPUSCULAR VOLUME 88 FL (80-99); MEAN PLATELET VOLUME 9.4 FL (7.4-10.4); MONOCYTES # (AUTO) 0.5 X 10^3 (0.0-1.0); MONOCYTES % (AUTO) 8 % (0-12); NEUTROPHILS # (AUTO) 4.5 X 10^3 (1.8-7.8); NEUTROPHILS % (AUTO) 63 % (42-75); PLATELET COUNT 206 10^3/uL (130-400); RED CELL DISTRIBUTION WIDTH 14.5 % (10.0-14.5); WHITE BLOOD COUNT 7.2 10^3/uL (4.3-11.0)
[2017-02-22 17:45] LABS: INR 1.1 (0.8-1.4)
[2017-02-22 17:51] LABS: ALANINE AMINOTRANSFERASE 14 U/L (0-55); ALBUMIN 3.7 GM/DL (3.2-4.5); ANION GAP 11 MMOL/L (5-14); ASPARTATE AMINO TRANSFERASE 17 U/L (5-34); BILIRUBIN,TOTAL 0.7 MG/DL (0.1-1.0); BLOOD UREA NITROGEN 14 MG/DL (7-18); BUN/CREATININE RATIO 11; CALCIUM 9.2 MG/DL (8.5-10.1); CARBON DIOXIDE 21 MMOL/L (21-32); CHLORIDE 107 MMOL/L (98-107); CREATININE SERUM 1.22 MG/DL (0.60-1.30); GFR ESTIMATED 59; GLUCOSE 98 MG/DL (70-105); MAGNESIUM 1.8 MG/DL (1.8-2.4); SODIUM 139 MMOL/L (135-145); TOTAL PROTEIN 6.4 GM/DL (6.4-8.2)
--- NOTE | 2017-02-22 17:51 | Diagnostic Imaging Report ---
EXAMINATION: Chest radiograph, portable AP view. DATE: February 22, 2017 at 1732 hours. INDICATION: 71-year-old male, chest pain for several days. Elevated blood pressure. COMPARISON: November 05, 2016. FINDINGS: There are multiple subjacent nodular opacities in the right upper lobe. There is a larger right upper lobe nodular opacity which measures 1.5 cm in size. These nodules appeared present previously. There are also subtle very small areas of nodularity overlying the left upper lobe. These were also previously present. Stable overall appearance of the cardiomediastinal silhouette. There is no identified pneumothorax. There is no large pleural effusion. There is no identified interval focal airspace consolidation. IMPRESSION: 1. Multiple small bilateral upper lobe pulmonary nodules including 1.5 cm right upper lobe pulmonary nodule. These do appear similar since November 05, 2016. Pulmonary nodules are seen on comparison CT chest imaging dating back to August 16, 2013 and are unchanged compatible with benign etiology. Some of these are also compatible with benign calcified granulomas. 2. No identified interval acute cardiopulmonary abnormality. Dictated by: Dictated on workstation # [id number]
[2017-02-22 17:57] LABS: MYOGLOBIN SERUM 48.8 NG/ML (10.0-92.0)
[2017-02-22] MEDS ORDERED: PROCHLORPERAZINE 10 MG/2ML INJ (COMPAZINE) IV ONE (18:00)
[2017-02-22] MEDS ORDERED: diphenhydrAMINE 50 MG/ML INJ (BENADRYL) IVP ONE (18:00)
[2017-02-22] MEDS ORDERED: IOHEXOL 350 MG/ML 100 ML (OMNIPAQUE 350) VIAL IV ONE (18:00)
[2017-02-22] MEDS ORDERED: NS 100 ML (IVPB) BAG IV ONE (18:00)
--- NOTE | 2017-02-22 18:00 | ED Chest Pain ---
General Chief Complaint: Chest Pain Stated Complaint: CP Source: patient, family Exam Limitations: no limitations History of Present Illness Time seen by provider: 17:55 Initial Comments This 71-year-old white male presents with a complaint of abdominal pain diarrhea and nausea without vomiting for the last 2 days after completion of a 14 day course of Keflex for an ear infection. The patient states that the epigastric fullness concerns him that it may be his heart. The patient's had no associated shortness of breath, fever, or chill. Significant past medical history includes renal cell carcinoma and secondary nephrectomy, excision of an apparent cancer left ear with secondary infection O stopper notably for which he was placed on the Keflex. The patient has had chest pain evaluated in the past leading to a single stent years ago. A significant concern for the patient is that he has had recent marked fluctuations in his blood pressure. The patient had long-standing hypertension for which his slot shift manager Dr. Chaparro had adjusted him to a recent point where he is taking very little of his blood pressure medicine. The patient has lost 60 pounds recently after having his teeth extracted and being unable to eat. Allergies and Home Medications Allergies Coded Allergies: prochlorperazine (Verified Allergy, Mild, 09/08/12) Metronidazole HCl (Verified Allergy, Unknown, 11/16/14) Trtzmin-Nvc-Jjd Reductase Inhibitor (Unverified Allergy, Unknown, R/T KIDNEY FUNCTION, 11/16/14) clopidogrel bisulfate (Verified Allergy, Unknown, 11/16/14) metronidazole (Verified Allergy, Unknown, 11/16/14) Home Medications Alprazolam 1 Mg Tablet, 1 MG PO Q6H PRN for ANXIETY, (Reported) Aspirin 81 Mg Tab.chew, 81 MG PO DAILY, (Reported) Clonidine HCl 0.1 Mg Tablet, 0.1 MG PO DAILY, (Reported) Dicyclomine HCl 20 Mg Tablet, 20 MG PO TID PRN for ABDOMINAL PAIN, (Reported) Fenofibrate Nanocrystallized 145 Mg Tablet, 145 MG PO DAILY@1700, (Reported) Finasteride 5 Mg Tablet, 5 MG PO HS, (Reported) Hydrocodone/Acetaminophen 1 Each Tablet, 1 EA PO Q6H PRN for PAIN-MODERATE for 14 Days, #60 Prescribed by: KATHY STEWARD on 09/24/161901 Hydrocodone/Acetaminophen 1 Each Tablet, 1-2 EACH PO Q4H, #35 Prescribed by: MEEK SORIA on 12/05/16 1249 Krill/Om-3/Dha/Epa/Phospho/Ast 1 Each Capsule, 1 CAP PO DAILY@1700, (Reported) Loperamide Hcl/Simethicone 1 Each Tablet, 1 TAB PO UD PRN for DIARRHEA, ( Reported) Melatonin/Pyridoxine Hcl 1 Each Tablet, 1 MG PO HS, (Reported) Mirtazapine 15 Mg Tablet, 15 MG PO HS, (Reported) Ondansetron HCl 4 Mg Tablet, 4 MG PO Q8H PRN for NAUSEA/VOMITING-1ST LINE, ( Reported) Pantoprazole Sodium 40 Mg Tablet.dr, 40 MG PO DAILY, (Reported) Review of Systems Constitutional: chills, diaphoresis, No fever, malaise, weakness EENTM: No Blurred Vision, Ear Pain (on his left where he is having his surgeries.) Respiratory: Denies Cough, Denies Shortness of Air Cardiovascular: Chest Pain Gastrointestinal: Denies Abdomen Distended, Abdominal Pain, Diarrhea, Nausea Genitourinary: Denies Burning, Denies Discharge Musculoskeletal: No back pain Skin: No rash Psychiatric/Neurological: No Symptoms Reported Endocrine: No Symptoms Reported Hematologic/Lymphatic: No Symptoms Reported Past Lkrgkzf-Zbjlxi-Bicbku Hx Patient Social History Type Used: Cigarettes Former Smoker, Quit: Dec 02, 2000 Recent Foreign Travel: No Contact w/Someone Who Travel: No Recent Hopitalizations: No Immunizations Up To Date Tetanus Booster (TDap): Unknown Date of Pneumonia Vaccine: Mar 11, 2016 Date of Influenza Vaccine: Mar 11, 2016 Seasonal Allergies Seasonal Allergies: Yes Surgeries History of Surgeries: Yes (LEFT NEPHRECTOMY,BACK L4-L5,) Surgeries: Appendectomy, Coronary Stent, Gallbladder Respiratory History of Respiratory Disorde: Yes (NODULE IN RIGHT LUNG-DR GOMEZ) Respiratory Disorders: COPD Cardiovascular History of Cardiac Disorders: Yes (STENT IN HIS LAD) Cardiac Disorders: Coronary Artery Disease, High Cholesterol, Hypertension Neurological History of Neurological Disord: Yes Neurological Disorders: TIA Reproductive System Hx Reproductive Disorders: No Sexually Transmitted Disease: No HIV/AIDS: No Genitourinary History of Genitourinary Disor: Yes (left kidney removed, ) Gastrointestinal History of Gastrointestinal Di: Yes Gastrointestinal Disorders: Gastroesophageal Reflux, Guadarrama's Esophagus, Diverticulosis, Chronic Diarrhea, Esophagitis, Irritable Bowel Musculoskeletal History of Musculoskeletal Dis: Yes (FX.L4-L5,S1,TAILBONE-SURGERY/ARTHRITIS/ NEUROPATHY R LEG/FOOT DROP) Musculoskeletal Disorders: Arthritis, Foot Drop, Chronic Back Pain, Fractures Endocrine History of Endocrine Disorders: No Cancer History of Cancer: Yes Cancer: Skin, Kidney Psychosocial History of Psychiatric Problem: No Integumentary History of Skin or Integumenta: No Blood Transfusions History of Blood Disorders: No Adverse Reaction to a Blood Tr: No (HAS HAD BLOOD WITH NO REACTION) Reviewed Nursing Assessment Reviewed/Agree w Nursing PMH: Yes Family Medical History Significant Family History: No Pertinent Family Hx Family Medial History: No Family History of: AIDS Alzheimer's disease Cardiovascular disease Colon cancer Completed stroke Diabetes mellitus Drug abuse Hypertension Kidney disease Myocardial infarction Parkinson's disease Prostate cancer Psychosocial problem Respiratory disorder Seizure disorder Thyroid disease Tuberculosis Visual disorder Physical Exam Vital Signs Vital Sign - Last 12Hours 02/22/17 16:40 Temp 98.1 Pulse 80 Resp 16 B/P (MAP) 152/80 Pulse Ox 98 O2 Delivery Mechanical Ventilator Capillary Refill : General Appearance: Anxious, Cachetic, Mild Distress, Thin HEENT: Other (recent surgery to left ear) Neck: Normal Inspection Respiratory: Lungs Clear, Normal Breath Sounds, No Accessory Muscle Use, No Respiratory Distress Cardiovascular: Regular Rate, Rhythm, No Edema, No Gallop, No Murmur Gastrointestinal: Normal Bowel Sounds, No Distended, Tenderness (mild diffuse tenderness was noted.) Extremity: Normal Capillary Refill, Normal Inspection, Normal Range of Motion Neurologic/Psychiatric: Alert, No Motor/Sensory Deficits, Normal Mood/Affect Skin: Normal Color, Warm/Dry Progress/Results/Core Measures Results/Orders Lab Results Laboratory Tests Test 02/22/17 17:20 Range/Units White Blood Count 7.2 4.3-11.0 10^3/uL Red Blood Count 5.00 4.35-5.85 10^6/uL Hemoglobin 15.0 13.3-17.7 G/DL Hematocrit 44 40-54 % Mean Corpuscular Volume 88 80-99 FL Mean Corpuscular Hemoglobin 30 25-34 PG Mean Corpuscular Hemoglobin Concent 34 32-36 G/DL Red Cell Distribution Width 14.5 10.0-14.5 % Platelet Count 206 130-400 10^3/uL Mean Platelet Volume 9.4 7.4-10.4 FL Neutrophils (%) (Auto) 63 42-75 % Lymphocytes (%) (Auto) 27 12-44 % Monocytes (%) (Auto) 8 0-12 % Eosinophils (%) (Auto) 2 0-10 % Basophils (%) (Auto) 0 0-10 % Neutrophils # (Auto) 4.5 1.8-7.8 X 10^3 Lymphocytes # (Auto) 2.0 1.0-4.0 X 10^3 Monocytes # (Auto) 0.5 0.0-1.0 X 10^3 Eosinophils # (Auto) 0.2 0.0-0.3 10^3/uL Basophils # (Auto) 0.0 0.0-0.1 10^3/uL Prothrombin Time 14.0 12.2-14.7 SEC INR Comment 1.1 0.8-1.4 Activated Partial Thromboplast Time 28 24-35 SEC Sodium Level 139 135-145 MMOL/L Potassium Level 4.0 3.6-5.0 MMOL/L Chloride Level 107 98-107 MMOL/L Carbon Dioxide Level 21 21-32 MMOL/L Anion Gap 11 5-14 MMOL/L Blood Urea Nitrogen 14 7-18 MG/DL Creatinine 1.22 0.60-1.30 MG/DL Estimat Glomerular Filtration Rate 59 BUN/Creatinine Ratio 11 Glucose Level 98 70-105 MG/DL Calcium Level 9.2 8.5-10.1 MG/DL Magnesium Level 1.8 1.8-2.4 MG/DL Total Bilirubin 0.7 0.1-1.0 MG/DL Aspartate Amino Transf (AST/SGOT) 17 5-34 U/L Alanine Aminotransferase (ALT/SGPT) 14 0-55 U/L Alkaline Phosphatase 52 40-136 U/L Myoglobin 48.8 10.0-92.0 NG/ML Troponin I < 0.30 <0.30 NG/ML Total Protein 6.4 6.4-8.2 GM/DL Albumin 3.7 3.2-4.5 GM/DL My Orders Orders - FANTAANDRA MD Cbc With Automated Diff (02/22/17 16:56) Magnesium (02/22/17 16:56) Chest 1 View, Ap/Pa Only (02/22/17 16:56) Ekg Tracing (02/22/17 16:56) Cardiac Profile 1 (9/23/17 16:56) Comprehensive Metabolic Panel (02/22/17 16:56) Myoglobin Serum (02/22/17 16:56) Protime With Inr (02/22/17 16:56) Partial Thromboplastin Time (02/22/17 16:56) O2 (02/22/17 16:56) Monitor-Rhythm Ecg Trace Only (02/22/17 16:56) Lipid Panel (02/23/17 06:00) Saline Lock/Iv-Start (02/22/17 16:56) Ondansetron Injection (Zofran Injectio (02/22/17 17:30) Diphenhydramine Injection (Benadryl Inje (02/22/17 18:00) C Difficile Ag + Toxin A/B. (02/22/17 17:49) Ct Abdomen/Pelvis W (02/22/17 17:49) Prochlorperazine Injection (Compazine In (02/22/17 18:00) Iohexol Injection (Omnipaque 350 Mg/Ml 1 (02/22/17 18:00) Ns (Ivpb) (Sodium Chloride 0.9% Ivpb Bag (02/22/17 18:00) Pharmacy Communication (Pharmacy Communi (02/22/17 17:57) Medications Given in ED Current Medications Medications Dose Ordered Sig/Oscar Route Start Time Stop Time Status Last Admin Dose Admin Ondansetron HCl 4 mg ONCE ONCE IVP 02/22/17 17:30 02/22/17 17:31 DC 02/22/17 17:42 4 MG Vital Signs/I&O Vital Sign - Last 12Hours 02/22/17 16:40 Temp 98.1 Pulse 80 Resp 16 B/P (MAP) 152/80 Pulse Ox 98 O2 Delivery Mechanical Ventilator Progress Note : Time: 18:52 Progress Note After long conversation with the patient's I believe his problems are that with his recent weight loss he is very sensitive to his blood pressure medication. I think it would be reasonable for him to discontinue blood pressure medicine for tonight and tomorrow and then call and talk with Dr. Vásquez on Friday. I'm waiting to complete the CT the abdomen and pelvis just to make certain that there is no pathology present that we can see on imaging. However I think the patient would benefit from holiness of his normal gut vipul with Lactobacillus. Patient is initiated that course of action last 24 hours night encouraged him to continue until he can follow up with his primary care physician, Dr. Gunn, early next week. Patient's laboratory evaluation was essentially unremarkable. His EKG demonstrated a normal sinus rhythm and his troponin was normal. Abdomen the patient was treated with then anti-emetics in the emergency department he was much improved and ready for discharge. Departure Impression Impression: Primary Impression: Generalized abdominal pain Disposition: HOME, SELF-CARE Condition: Improved Departure-Patient Inst. Decision time for Depature: 18:56 Referrals: CHILO OCAMPO MD (PCP) Primary Care Physician MEI GOMEZ (Family) Primary Care Physician CHANELLE VÁSQUEZ MD Patient Instructions: Acute Abdomen (Belly Pain) Add. Discharge Instructions: Continue with lactobacillus for your stomach. Stop her blood pressure medication called Dr. Vásquez on Friday. Close follow-up with Dr. Gunn next week. Return if any problems. All discharge instructions reviewed with patient and/or family. Voiced understanding. ANDRA JEWELL MD Feb 22, 2017 18:00
--- NOTE | 2017-02-22 19:51 | Diagnostic Imaging Report ---
PROCEDURE: CT abdomen and pelvis without contrast. TECHNIQUE: Multiple contiguous axial images were obtained through the abdomen and pelvis without the use of intravenous contrast. DATE: 02/22/2017. COMPARISON: CT chest, abdomen, and pelvis 02/04/2016. INDICATION: 71-year-old male, abdominal pain. History of renal cell carcinoma. FINDINGS: There are limitations for evaluation of the abdominal organs, neoplastic processes, abscess, and limited evaluation of the vasculature relating to the lack of intravenous contrast. There is very mild dependent atelectasis in the lung bases. The heart is mildly enlarged. There is no identified pericardial effusion. The liver is normal in size and contour. The patient is status post cholecystectomy. There is no identified intrahepatic or extrahepatic bile duct dilation. There is no abnormal dilation of the main pancreatic duct. Noncontrast evaluation of the pancreatic parenchyma is unremarkable. The spleen is not enlarged. The right adrenal gland is unremarkable. There is no adrenal nodule or mass. The left kidney is absent. There is an exophytic low-attenuation right renal lesion on axial image #41 which measures 1.7 cm in size with internal attenuation of 0 Hounsfield units consistent with benign cysts. There is no right-sided hydronephrosis. There is no right renal or ureteral stone. The urinary bladder is unremarkable. There is streak artifact which does somewhat limit evaluation of the pelvis relating to the left hip prosthesis. There is diverticulosis without evidence of acute diverticulitis. The intestinal tract is not distended. There are no findings to suggest acute appendicitis. There is no free intraperitoneal air. There is no drainable fluid collection. There is no free pelvic fluid. There are atherosclerotic calcifications. There is no identified abnormally enlarged lymph node within the abdomen or pelvis which meets CT size criteria for adenopathy. As mentioned above, there is a left hip prosthesis. There are multilevel postoperative-related changes of the lumbar spine. There is no identified acute bony abnormality. IMPRESSION: CT ABDOMEN AND PELVIS. 1. No identified acute abnormality within the abdomen or pelvis. 2. The left kidney is absent. 3. Diverticulosis without evidence of acute diverticulitis. 4. Previously noted left lower lobe pulmonary nodule on prior CT of 02/04/2016 is not currently identified. Dictated by: Dictated on workstation # [id number]
[2017-02-22 20:23] VITALS: BP 152/80
== END 2017-02-22 20:23 | disposition home or self-care (01) ==
LOC: EDUNIT# 16:37 → ER 16:39
DX: R10.84 Generalized abdominal pain (principal); K21.9 Gastro-esophageal reflux disease without esophagitis; I25.10 Atherosclerotic heart disease of native coronary artery without angina pectoris; E78.00 Pure hypercholesterolemia, unspecified; I10 Essential (primary) hypertension; J44.9 Chronic obstructive pulmonary disease, unspecified; Z87.891 Personal history of nicotine dependence; Z85.828 Personal history of other malignant neoplasm of skin; Z85.528 Personal history of other malignant neoplasm of kidney; Z87.81 Personal history of (healed) traumatic fracture; Z86.73 Personal history of transient ischemic attack (TIA), and cerebral infarction without residual deficits; Z95.5 Presence of coronary angioplasty implant and graft; Z90.49 Acquired absence of other specified parts of digestive tract; Z90.5 Acquired absence of kidney
CPT/HCPCS: 36415; 71010; 74176; 80053; 83735; 83874; 84484; 85025; 85610; 85730; 93005; 93041; 96374; 96375

== ENCOUNTER 2017-06-03 12:32 | Outpatient (RCR) | payer MEDICARE ==
[~2017-06-03 12:32] MED LIST changes: +HYDR-34 PO; -HYDR-3816 PO
[2017-06-03 12:56] LABS: BASOPHILS % (AUTO) 0 % (0-10); EOSINOPHILS # (AUTO) 0.2 10^3/uL (0.0-0.3); EOSINOPHILS % (AUTO) 3 % (0-10); HEMATOCRIT 47 % (40-54); HEMOGLOBIN 15.7 G/DL (13.3-17.7); LYMPHOCYTES % (AUTO) 25 % (12-44); MEAN CORPUSCULAR HEMOGLOBIN 31 PG (25-34); MEAN CORPUSCULAR HGB CONC 34 G/DL (32-36); MEAN CORPUSCULAR VOLUME 91 FL (80-99); MEAN PLATELET VOLUME 9.2 FL (7.4-10.4); MONOCYTES # (AUTO) 0.7 X 10^3 (0.0-1.0); MONOCYTES % (AUTO) 9 % (0-12); NEUTROPHILS % (AUTO) 63 % (42-75); PLATELET COUNT 209 10^3/uL (130-400); RED BLOOD COUNT 5.12 10^6/uL (4.35-5.85); RED CELL DISTRIBUTION WIDTH 13.8 % (10.0-14.5); WHITE BLOOD COUNT 7.9 10^3/uL (4.3-11.0)
--- NOTE | 2017-06-03 12:56 | Diagnostic Imaging Report ---
INDICATION: Renal cell carcinoma. Metastases. FINDINGS: Two views of the chest show normal heart size and vascularity. There are multiple densities, some of which appear calcified, in the right upper lobe. Most of these are subcentimeter. The largest measures approximately 2 cm. These are similar to multiple exams dating back to 2015 and therefore most likely benign. No new lesions are seen. There is no infiltrate or effusion. There is no acute bony abnormality. IMPRESSION: There are multiple nodular densities in the right upper lobe, which are stable compared to a 2015 study. No acute abnormality is seen. Dictated by: Dictated on workstation # [id number]
[2017-06-03 13:15] LABS: ALBUMIN 3.9 GM/DL (3.2-4.5); BILIRUBIN,TOTAL 0.8 MG/DL (0.1-1.0); CALCIUM 9.3 MG/DL (8.5-10.1); CREATININE SERUM 1.23 MG/DL (0.60-1.30); POTASSIUM 3.7 MMOL/L (3.6-5.0); TOTAL PROTEIN 6.8 GM/DL (6.4-8.2)
== END 2017-09-01 | disposition home or self-care (01) ==
LOC: ONC 12:32
PROVIDERS: ATTEND Internal Medicine Hematology & Oncology
DX: Z08 Encounter for follow-up examination after completed treatment for malignant neoplasm (principal); Z85.528 Personal history of other malignant neoplasm of kidney; Z85.118 Personal history of other malignant neoplasm of bronchus and lung; D50.9 Iron deficiency anemia, unspecified; E55.9 Vitamin D deficiency, unspecified; L98.9 Disorder of the skin and subcutaneous tissue, unspecified; I25.10 Atherosclerotic heart disease of native coronary artery without angina pectoris; I12.9 Hypertensive chronic kidney disease with stage 1 through stage 4 chronic kidney disease, or unspecified chronic kidney disease; N18.3 Chronic kidney disease, stage 3 (moderate); J43.9 Emphysema, unspecified; Z79.899 Other long term (current) drug therapy
CPT/HCPCS: 36415; 71046; 80053; 82306; 83615; 85025; 99213

== ENCOUNTER 2017-12-09 12:55 | Outpatient (RCR) | payer MEDICARE ==
[~2017-12-09 12:55] MED LIST changes: +AMLO5TAB7 PO; -FENO145T20 PO; +FENO145T37 PO; +HYDR-4226 PO; -HYDR-757 PO; -IPRA3AMP INH; +IPRA3AMP31 INH
[2017-12-09 13:25] LABS: BASOPHILS % (AUTO) 0 % (0-10); EOSINOPHILS # (AUTO) 0.2 10^3/uL (0.0-0.3); EOSINOPHILS % (AUTO) 3 % (0-10); HEMATOCRIT 45 % (40-54); HEMOGLOBIN 15.5 G/DL (13.3-17.7); LYMPHOCYTES # (AUTO) 1.9 X 10^3 (1.0-4.0); LYMPHOCYTES % (AUTO) 26 % (12-44); MEAN CORPUSCULAR HEMOGLOBIN 32 PG (25-34); MEAN CORPUSCULAR HGB CONC 34 G/DL (32-36); MEAN CORPUSCULAR VOLUME 92 FL (80-99); MEAN PLATELET VOLUME 9.3 FL (7.4-10.4); MONOCYTES # (AUTO) 0.5 X 10^3 (0.0-1.0); MONOCYTES % (AUTO) 7 % (0-12); NEUTROPHILS # (AUTO) 4.7 X 10^3 (1.8-7.8); NEUTROPHILS % (AUTO) 64 % (42-75); PLATELET COUNT 211 10^3/uL (130-400); RED BLOOD COUNT 4.88 10^6/uL (4.35-5.85); RED CELL DISTRIBUTION WIDTH 14.1 % (10.0-14.5); WHITE BLOOD COUNT 7.4 10^3/uL (4.3-11.0)
[2017-12-09 13:47] LABS: BILIRUBIN,TOTAL 0.5 MG/DL (0.1-1.0); CALCIUM 9.4 MG/DL (8.5-10.1); CREATININE SERUM 1.24 MG/DL (0.60-1.30); POTASSIUM 4.3 MMOL/L (3.6-5.0); TOTAL PROTEIN 6.7 GM/DL (6.4-8.2)
--- NOTE | 2017-12-09 16:12 | Diagnostic Imaging Report ---
EXAMINATION: PA and lateral Chest at 1:29 p.m. INDICATION: Renal cell carcinoma. FINDINGS: The heart size is within normal limits and stable when compared to 06/03/2017. The multiple nodular densities in the right upper lobe seen previously are again evident and no different. These findings also seem similar to the previous chest exam of 04/25/2015. The lungs are clear. There is no sign of failure, pneumonia, or pleural effusion to indicate an acute abnormality. Surgical clips are again seen about the right hilum. The mediastinum is not widened. The osseous structures are intact. IMPRESSION: Stable chest. There has been no adverse change since the prior exam. Dictated by: Dictated on workstation # [id number]
== END 2017-12-30 | disposition home or self-care (01) ==
LOC: ONC 12:55
PROVIDERS: ATTEND Internal Medicine Hematology & Oncology
DX: Z08 Encounter for follow-up examination after completed treatment for malignant neoplasm (principal); Z85.528 Personal history of other malignant neoplasm of kidney; Z85.118 Personal history of other malignant neoplasm of bronchus and lung; D50.9 Iron deficiency anemia, unspecified; E55.9 Vitamin D deficiency, unspecified; L98.9 Disorder of the skin and subcutaneous tissue, unspecified; I25.10 Atherosclerotic heart disease of native coronary artery without angina pectoris; I12.9 Hypertensive chronic kidney disease with stage 1 through stage 4 chronic kidney disease, or unspecified chronic kidney disease; N18.3 Chronic kidney disease, stage 3 (moderate); J43.9 Emphysema, unspecified; Z79.899 Other long term (current) drug therapy
CPT/HCPCS: 36415; 71046; 80053; 83615; 85025; 99213

== ENCOUNTER 2018-06-09 12:41 | Outpatient (CLI) | payer MEDICARE ==
[~2018-06-09] VITALS: Ht 177.8 cm; Wt 99.8 kg
[~2018-06-09 12:41] MED LIST changes: -CHOL500050 PO; -ONDA8TAB12 PO
[2018-06-09 12:52] VITALS: BP 123/75
[2018-06-09] MEDS ORDERED: MELA1TAB9 PO (13:00)
[2018-06-09] MEDS ORDERED: AMLO5TAB7 PO (13:00)
[2018-06-09] MEDS ORDERED: ONDA8TAB12 PO (13:00)
[2018-06-09] MEDS ORDERED: HYDR-3820 PO (13:00)
[2018-06-09] MEDS ORDERED: CHOL500050 PO (13:04)
[2018-06-09] MEDS ORDERED: SUCR1TAB PO (13:04)
[2018-06-09 13:26] LABS: BILIRUBIN,URINE NEGATIVE (NEGATIVE); CLARITY,URINE CLEAR; COLOR,URINE YELLOW; GLUCOSE, URINE (UA) NEGATIVE (NEGATIVE); KETONES,URINE NEGATIVE (NEGATIVE); LEUKOCYTE ESTERASE ,URINE NEGATIVE (NEGATIVE); NITRITE,URINE NEGATIVE (NEGATIVE); PH,URINE 6 (5-9); PROTEIN,URINE NEGATIVE (NEGATIVE); UROBILINOGEN,URINE NORMAL (NORMAL)
[2018-06-09 13:33] LABS: BACTERIA,URINE NEGATIVE /HPF; SQUAMOUS EPITHELIAL CELL,UR RARE /HPF
[2018-06-10] MEDS ORDERED: SUCR1TAB36 PO (14:01)
[2018-06-10] MEDS ORDERED: ALPR1TAB7 PO (14:01)
== END 2018-06-09 13:40 | disposition home or self-care (01) ==
LOC: PREOP 12:41
PROVIDERS: ATTEND Orthopaedic Surgery
DX: Z01.818 Encounter for other preprocedural examination (principal); Z11.2 Encounter for screening for other bacterial diseases; M17.11 Unilateral primary osteoarthritis, right knee; M79.661 Pain in right lower leg
CPT/HCPCS: 81000; 87081

== ENCOUNTER 2018-06-09 13:47 | Outpatient (RCR) | payer MEDICARE ==
[~2018-06-09 13:47] MED LIST changes: -AMLO5TAB7 PO; +AMLO5TAB9 PO; +CHOL500050 PO; +ONDA8TAB12 PO
[2018-06-10] MEDS ORDERED: SUCR1TAB36 PO (14:01)
[2018-06-10] MEDS ORDERED: ALPR1TAB7 PO (14:01)
[2018-06-18] MEDS ORDERED: HYDR-3820 PO (07:11)
[2018-06-18] MEDS ORDERED: SENN-20 PO (07:11)
== END 2018-09-07 | disposition home or self-care (01) ==
LOC: ONC 13:47
PROVIDERS: ATTEND Internal Medicine Hematology & Oncology
DX: Z08 Encounter for follow-up examination after completed treatment for malignant neoplasm (principal); Z85.528 Personal history of other malignant neoplasm of kidney; Z85.118 Personal history of other malignant neoplasm of bronchus and lung; D50.9 Iron deficiency anemia, unspecified; E55.9 Vitamin D deficiency, unspecified; L98.9 Disorder of the skin and subcutaneous tissue, unspecified; I25.10 Atherosclerotic heart disease of native coronary artery without angina pectoris; I12.9 Hypertensive chronic kidney disease with stage 1 through stage 4 chronic kidney disease, or unspecified chronic kidney disease; N18.3 Chronic kidney disease, stage 3 (moderate); J43.9 Emphysema, unspecified; Z79.899 Other long term (current) drug therapy
CPT/HCPCS: 99213

== ENCOUNTER → 2018-06-09 | Outpatient (CLI) | payer MEDICARE ==
[~2018-06-09] MED LIST changes: +CHOL500050 PO; +LACT1CAP74 PO; +ONDA8TAB12 PO; -POLY17PO23 PO; +POLY17PO31 PO; +SULF1TAB35 PO
--- NOTE | 2018-06-09 15:43 | Diagnostic Imaging Report ---
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 Follow up. COMPARISON: 05/30/2018. FINDINGS: Frontal and lateral radiographic views of the chest were obtained and again show 1.8 cm nodular opacity in the right suprahilar region with multiple other smaller micronodular opacities more peripherally. Appearance is stable compared to prior exam. There is no new focal consolidation, large effusion, nor pneumothorax. Cardiac silhouette and pulmonary vasculature are within normal limits. Bony structures show no gross acute abnormalities. IMPRESSION: 1. Stable exam of the chest showing multiple nodular and micronodular opacities within the right upper lobe. 2. No acute adverse interval change. Dictated by: Dictated on workstation # [id number]
== END ==
LOC: RAD 15:03
PROVIDERS: ATTEND Nurse Practitioner Adult Health
DX: C64.2 Malignant neoplasm of left kidney, except renal pelvis (principal); C78.01 Secondary malignant neoplasm of right lung
CPT/HCPCS: 71046

== ENCOUNTER 2018-06-16 05:58 | Inpatient (IN) | payer MEDICARE ==
--- NOTE | 2018-06-10 14:03 | NUR ---
CALLED AND SPOKE WITH THE PATIENT ABOUT HIS MEDICATIONS HE HAD A LIST AND TOLD ME EXACTLY HOW HE TAKES THEM. 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
[~2018-06-16] VITALS: Ht 177.8 cm; Wt 99.8 kg
[~2018-06-16 05:58] MED LIST changes: +AMLO5TAB7 PO; -AMLO5TAB9 PO
[2018-06-16] MEDS ORDERED: LACTATED RINGERS 1,000 ML IV PRN (06:08)
[2018-06-16 06:15] VITALS: BP 93/73
[2018-06-16] MEDS ORDERED: ONDANSETRON 4 MG/2 ML (SDV) Z0FRAN IVP ONE (06:15)
[2018-06-16] MEDS ORDERED: DEXAMETHASONE 4 MG/ML SDV (DECADRON) IV ONE (06:15)
[2018-06-16] MEDS ORDERED: CELECOXIB 100 MG (CeleBREX) CAP PO ONE (06:15)
[2018-06-16] MEDS ORDERED: CLINDAMYCIN 900 MG/50 ML IVPB 50 ML IV ONE (06:15)
[2018-06-16] MEDS ORDERED: GABAPENTIN 600 MG (NEURONTIN) TAB PO ONE (06:15)
[2018-06-16] MEDS: LACTATED RINGERS 1,000 ML IV PRN ×2 (06:40→08:51)
[2018-06-16] MEDS ORDERED: BUPIVACAINE 0.5% 30 ML (SENSORCAINE) VIAL ONE (06:44)
[2018-06-16] MEDS ORDERED: MIDAZOLAM 2 MG/2 ML (VERSED) VIAL ONE (06:44)
[2018-06-16] MEDS ORDERED: fentaNYL INJECTION 100 MCG/2 ML AMP ONE (06:45)
[2018-06-16] MEDS ORDERED: FAMOTIDINE 20MG/2ML IV (PEPCID) ONE (06:55)
[2018-06-16] MEDS ORDERED: NEO/POLY/BAC (NEOSPORIN) OINT 15 GM TUBE ONE (07:00)
[2018-06-16] MEDS ORDERED: FAMOTIDINE 20MG/2ML IV (PEPCID) IV ONE (07:00)
[2018-06-16] MEDS ORDERED: GENTAMICIN 40 MG/ML 2 ML INJ SDV ONE (07:00)
--- OUTSIDE RECORDS SUMMARY | 2018-06-16 07:48 | XMS REPORT | Continuity of Care Document ---
Author Author [facility] Organization [facility] Address Unknown Phone Unavailable Allergies Active Description Code Type Severity Reaction Onset Reported/Identified Relationship to Patient Clinical Status Yes prochlorperazine [id number] Drug Allergy Mild N/A 09/08/2012 Yes procaine [id number] Drug Allergy Unknown N/A 09/08/2012 Yes Procaine HCl [id number] Drug Allergy Unknown N/A 09/08/2012 Yes clopidogrel bisulfate [id number] Drug Allergy Unknown N/A 11/16/2014 Yes metronidazole [id number] Drug Allergy Unknown N/A 11/16/2014 Yes Metronidazole HCl [id number] Drug Allergy Unknown N/A 11/16/2014 Yes Iarewmt-Ihu-Dps Reductase Inhibitor [id number] Drug Allergy Unknown R/T KIDNEY FUNC 11/16/2014 Yes amoxicillin [id number] Drug Allergy Severe N/A 03/21/2018 Yes clavulanic acid [id number] Drug Allergy Severe N/A 03/21/2018 Yes Iodinated Contrast- Oral and IV Dye [id number] Drug Allergy Unknown R/T KIDNEY FUNC 06/15/2018 Yes NSAIDS (Non-Steroidal Anti-Inflamma [id number] Drug Allergy Unknown R/T KIDNEY FUNC 06/15/2018 Medications There is no data. Problems Date Dx Coded Attending Type Code Diagnosis Diagnosed By 10/09/2011 Ot 008.45 INTESTINAL INFECTION DUE TO CLOSTRIDIUM 10/09/2011 Ot 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 10/09/2011 Ot 276.51 DEHYDRATION 10/09/2011 Ot 584.9 ACUTE RENAL FAILURE, UNSPECIFIED 10/09/2011 Ot 585.9 CHRONIC KIDNEY DISEASE, UNSPECIFIED 10/09/2011 Ot 724.2 LUMBAGO 10/09/2011 Ot 789.03 ABDOMINAL PAIN, RIGHT LOWER QUADRANT 10/09/2011 Ot V10.52 HX OF KIDNEY MALIGNANCY 10/09/2011 Ot V45.73 ACQRD ABSENCE OF KIDNEY 01/23/2012 Ot 189.0 MALIG NEOPL KIDNEY 01/23/2012 Ot 276.50 VOLUME DEPLETION, UNSPECIFIED 01/23/2012 Ot 427.31 ATRIAL FIBRILLATION 01/23/2012 Ot 496 CHR AIRWAY OBSTRUCT NEC 01/23/2012 Ot V15.82 HISTORY OF TOBACCO USE 01/02/2014 JASON, BOBAN N Ot 189.0 MALIG NEOPL KIDNEY 01/02/2014 JASON, BOBAN N Ot 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 01/02/2014 JASON, BOBAN N Ot 272.4 HYPERLIPIDEMIA NEC/NOS 01/02/2014 JASON, BOBAN N Ot V58.69 OTH MED,LT,CURRENT USE 06/09/2014 JASON, BOBAN N Ot 189.0 06/09/2014 [...] BOBAN N Ot V58.69 07/07/2014 DILIA WHITE GOLF BALL COVER TREATER Ot 189.0 07/11/2014 DILIA WHITE GOLF BALL COVER TREATER Ot 189.0 07/28/2014 JASON, BOBAN N Ot [...] JASON, BOBAN N Ot V58.69 10/05/2014 JASON, BOBAN N Ot 189.0 10/05/2014 JASON, BOBAN N Ot 197.0 10/05/2014 JASON, BOBAN N Ot 272.4 10/05/2014 JASON, BOBAN N Ot V58.69 10/17/2014 STEARNS, PETER J MATERIAL HANDLER LOADER Ot 724.02 SPINAL STENOSIS, LUMBAR REG, W/OUT NEURO 10/17/2014 HARSH STEARNS MATERIAL HANDLER LOADER Ot 724.2 LUMBAGO 10/17/2014 HARSH STEARNS MATERIAL HANDLER LOADER Ot 724.4 LUMBOSACRAL NEURITIS NOS 10/17/2014 Ot 189.0 10/17/2014 Ot 197.0 10/17/2014 Ot 492.8 10/17/2014 Ot 562.10 10/17/2014 Ot 786.6 10/17/2014 CHRISTOPHER DILIA S GOLF BALL COVER TREATER Ot 189.0 10/17/2014 CHRISTOPHER DILIA S GOLF BALL COVER TREATER Ot 197.0 10/17/2014 CHRISTOPHER DILIA S GOLF BALL COVER TREATER Ot 403.90 10/17/2014 CHRISTOPHER DILIA S GOLF BALL COVER TREATER Ot 414.00 10/17/2014 CHRISTOPHER DILIA S GOLF BALL COVER TREATER Ot 492.8 10/17/2014 CHRISTOPHER DILIA S GOLF BALL COVER TREATER Ot 585.3 10/17/2014 CHRISTOPHER DILIA S GOLF BALL COVER TREATER Ot V58.69 10/17/2014 CHRISTOPHER DILIA S GOLF BALL COVER TREATER Ot 189.0 10/17/2014 CHRISTOPHER DILIA S GOLF BALL COVER TREATER Ot 197.0 10/17/2014 CHRISTOPHER DILIA S GOLF BALL COVER TREATER Ot 268.9 10/17/2014 CHRISTOPHER DILIA S GOLF BALL COVER TREATER Ot 403.90 10/17/2014 CHRISTOPHER ASHWINIAH S GOLF BALL COVER TREATER Ot 414.00 10/17/2014 CHRISTOPHER DILIA S GOLF BALL COVER TREATER Ot 492.8 10/17/2014 CHRISTOPHER DILIA S GOLF BALL COVER TREATER Ot 585.3 10/17/2014 CHRISTOPHER DILIA S GOLF BALL COVER TREATER Ot V58.69 10/17/2014 CHRISTOPHER DILIA S GOLF BALL COVER TREATER Ot 189.0 10/17/2014 JASON, MEI N Ot 189.0 10/17/2014 JASONMEI JAMES N Ot 197.0 10/17/2014 JASONMEI JAMES N Ot 272.4 10/17/2014 JASON, BOBHUEY N Ot V58.69 12/01/2014 JESSI RIVERA DO Ot 278.01 12/01/2014 JESSI RIVERA DO Ot 327.23 12/01/2014 JESSI RIVERA DO Ot 458.9 12/01/2014 JESSI RIVERA DO Ot 530.81 12/01/2014 MIGUEL DOJESSI Ot 722.10 12/01/2014 MIGUEL DOJESSI Ot 785.0 12/01/2014 MIGUEL DO JESSI [place] Ot V10.51 12/01/2014 MIGUEL DOJESSI Ot V45.4 12/01/2014 MIGUEL DOJESSI Ot V85.37 12/01/2014 MIGUEL DO JESSI [place] Ot 278.01 12/01/2014 MIGUEL DO JESSI [place] Ot 327.23 12/01/2014 MIGUEL DO JESSI [place] Ot 458.9 12/01/2014 MIGUEL DO JESSI [place] Ot 530.81 12/01/2014 MIGUEL DO JESSI [place] Ot 722.10 12/01/2014 MIGUEL DO JESSI [place] Ot 785.0 12/01/2014 MIGUEL DO JESSI [place] Ot V10.51 12/01/2014 MIGUEL DO JESSI [place] Ot V45.4 12/01/2014 MIGUEL DO JESSI [place] Ot V85.37 12/06/2014 MIGUEL HOU JESSI [place] Ot 278.01 12/06/2014 MIGUEL DO JESSI [place] Ot 327.23 12/06/2014 MIGUEL DO JESSI [place] Ot 458.9 12/06/2014 MIGUEL DO JESSI [place] Ot 530.81 12/06/2014 MIGUEL DO JESSI [place] Ot 722.10 12/06/2014 MIGUEL DO JESSI [place] Ot 785.0 12/06/2014 MIGUEL HOU JESSI [place] Ot V10.51 12/06/2014 MIGUEL DO JESSI [place] Ot V45.4 12/06/2014 MIGUEL HOU JESSI [place] Ot V85.37 12/06/2014 MIGUEL HOU JESSI [place] Ot 273.8 DIS PLAS PROTEIN MET NEC 12/06/2014 MIGUEL HOU JESSI [place] Ot 276.2 ACIDOSIS 12/06/2014 MIGUEL HOU JESSI [place] Ot 276.50 VOLUME DEPLETION, UNSPECIFIED 12/06/2014 MIGUEL HOU JESSI [place]lee Ot 276.69 OTHER FLUID OVERLOAD 12/06/2014 MIGUEL HOU JESSI [place] Ot 276.8 HYPOPOTASSEMIA 12/06/2014 MIGUEL HOU JESSI [place] Ot 278.01 MORBID OBESITY 12/06/2014 MIGUEL HOU JESSI [place] Ot 300.00 ANXIETY STATE NOS 12/06/2014 JESSI RIVERA DO Ot 327.23 OBSTRUCTIVE SLEEP APNEA (ADULT) (PEDIATR 12/06/2014 JESSI RIVERA DO Ot 403.90 HYPTNSV CHR KID DIS, UNSPEC, W CHR KD ST 12/06/2014 JESSI RIVEAR DO Ot 414.00 CORON ATHEROSCLER NOS TYPE [...] JASON, BOBAN N Ot 189.0 12/07/2014 JASON, BOBAN N Ot 197.0 12/07/2014 JASON, BOBAN N [...] 02/22/2015 JASON, BOBAN N Ot V58.69 02/22/2015 WHITEDILIA Sanchez S GOLF BALL COVER TREATER Ot 189.0 02/22/2015 WHITEDILIA S GOLF BALL COVER TREATER Ot 197.0 02/22/2015 WHITEDILIA S GOLF BALL COVER TREATER Ot 272.4 02/22/2015 WHITEDILIA Sanchez S GOLF BALL COVER TREATER Ot V58.69 03/01/2015 JASON, BOBAN N Ot 189.0 MALIG NEOPL KIDNEY 03/01/2015 MEI GOMEZ N Ot 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 03/01/2015 MEI GOMEZ N Ot 272.4 HYPERLIPIDEMIA NEC/NOS 03/01/2015 MEI GOMEZ N Ot 280.9 IRON DEFIC ANEMIA NOS 03/01/2015 MEI GOMEZ N Ot 403.90 HYPTNSV CHR KID DIS, UNSPEC, W CHR KD ST 03/01/2015 MEI GOMEZ N Ot 414.00 CORON ATHEROSCLER NOS TYPE VESSEL, NATIV 03/01/2015 MEI GOMEZ N Ot 492.8 EMPHYSEMA NEC 03/01/2015 MEI GOMEZ N Ot 585.3 CHRONIC KIDNEY DISEASE, STAGE III (MODER 03/01/2015 MEI GOMEZ N Ot C64.9 03/01/2015 MEI GOMEZ N Ot C78.00 03/01/2015 MEI GOMEZ N Ot V58.69 OTH MED,LT,CURRENT USE 03/01/2015 MEI GOMEZ N Ot V87.41 PERSONAL HISTORY OF ANTINEOPLASTIC CHEMO 03/01/2015 DILIA WHITE GOLF BALL COVER TREATER Ot 189.0 03/01/2015 DILIA WHITE GOLF BALL COVER TREATER Ot 197.0 03/01/2015 DILIA WHITE GOLF BALL COVER TREATER Ot 272.4 03/01/2015 DILIA WHITE GOLF BALL COVER TREATER Ot V58.69 03/08/2015 DILIA WHITE GOLF BALL COVER TREATER Ot 189.0 03/08/2015 DILIA WHITE GOLF BALL COVER TREATER Ot 197.0 03/15/2015 DILIA WHITE GOLF BALL COVER TREATER Ot 189.0 03/15/2015 DILIA WHITE GOLF BALL COVER TREATER Ot 197.0 03/20/2015 DILIA WHITE GOLF BALL COVER TREATER Ot 189.0 03/20/2015 DILIA WHITE GOLF BALL COVER TREATER Ot 197.0 03/23/2015 DILIA WHITE GOLF BALL COVER TREATER Ot 189.0 03/23/2015 DILIA WHITE GOLF BALL COVER TREATER Ot 197.0 04/12/2015 Ot E78.5 04/12/2015 Ot I10 04/12/2015 Ot I25.10 04/12/2015 Ot R07.89 04/19/2015 Ot E78.5 04/19/2015 Ot I10 04/19/2015 Ot I25.10 04/19/2015 Ot R07.89 04/24/2015 ENMANUEL BONILLA, CHANELLE Robb Ot E78.5 04/24/2015 ENMANUEL BONILLA, CHANELLE Robb Ot I10 04/24/2015 ENMANUEL BONILLA, CHANELLE Robb Ot I25.10 04/24/2015 ENMANUEL BONILLA, CHANELLE Robb Ot R07.89 05/02/2015 ENMANUEL BONILLA, CHANELLE Robb Ot E78.5 05/02/2015 ENMANUEL BONILLA, CHANELLE Robb Ot I10 05/02/2015 ENMANUEL BONILLA, CHANELLE Robb Ot I25.10 05/02/2015 ENMANUEL BONILLA, CHANELLE Robb Ot R07.89 05/23/2015 DILIA WHITE GOLF BALL COVER TREATER Ot D50.9 05/23/2015 DILIA WHITE S GOLF BALL COVER TREATER Ot I12.9 05/23/2015 DILIA WHITE GOLF BALL COVER TREATER Ot I25.10 05/23/2015 DILIA WHITE GOLF BALL COVER TREATER Ot J43.9 05/23/2015 DILIA WHITE S GOLF BALL COVER TREATER Ot L98.9 05/23/2015 DILIA WHITE S GOLF BALL COVER TREATER Ot N18.9 05/23/2015 DILIA WHITE S GOLF BALL COVER TREATER Ot Z08 05/23/2015 DILIA WHITE S GOLF BALL COVER TREATER Ot Z79.899 05/23/2015 DILIA WHITE S GOLF BALL COVER TREATER Ot Z85.118 05/23/2015 DILIA WHITE S GOLF BALL COVER TREATER Ot Z85.528 05/24/2015 DILIA WHITE S GOLF BALL COVER TREATER Ot D50.9 05/24/2015 DILIA WHITE S GOLF BALL COVER TREATER Ot I12.9 05/24/2015 DILIA WHITE S GOLF BALL COVER TREATER Ot I25.10 05/24/2015 DILIA WHITE S GOLF BALL COVER TREATER Ot J43.9 05/24/2015 DILIA WHITE S GOLF BALL COVER TREATER Ot L98.9 05/24/2015 DILIA WHITE S GOLF BALL COVER TREATER Ot N18.9 05/24/2015 DILIA WHITE S GOLF BALL COVER TREATER Ot Z08 05/24/2015 DILIA WHITE S GOLF BALL COVER TREATER Ot Z79.899 05/24/2015 DILIA WHITE S GOLF BALL COVER TREATER Ot Z85.118 05/24/2015 DILIA WHITE GOLF BALL COVER TREATER Ot Z85.528 06/14/2015 Ot 189.0 06/14/2015 Ot 197.0 06/14/2015 Ot 492.8 06/14/2015 Ot 562.10 06/14/2015 Ot 786.6 06/14/2015 DILIA WHITE GOLF BALL COVER TREATER Ot 189.0 06/14/2015 DILIA WHITE S GOLF BALL COVER TREATER Ot 197.0 06/14/2015 WHITEDILIA Sanchez S GOLF BALL COVER TREATER Ot 403.90 06/14/2015 WHITEDILIA Sanchez S GOLF BALL COVER TREATER Ot 414.00 06/14/2015 WHITEDILIA Sanchez S GOLF BALL COVER TREATER Ot 492.8 06/14/2015 DILIA WHITE S GOLF BALL COVER TREATER Ot 585.3 06/14/2015 DILIA WHITE S GOLF BALL COVER TREATER Ot V58.69 06/14/2015 DILIA WHITE S GOLF BALL COVER TREATER Ot 189.0 06/14/2015 WHITEDILIA Sanchez S GOLF BALL COVER TREATER Ot 197.0 06/14/2015 DILIA WHITE S GOLF BALL COVER TREATER Ot 268.9 06/14/2015 DILIA WHITE S GOLF BALL COVER TREATER Ot 403.90 06/14/2015 DILIA WHITE S GOLF BALL COVER TREATER Ot 414.00 06/14/2015 DILIA WHITE S GOLF BALL COVER TREATER Ot 492.8 06/14/2015 DILIA WHITE S GOLF BALL COVER TREATER Ot 585.3 06/14/2015 DILIA WHITE S GOLF BALL COVER TREATER Ot V58.69 06/14/2015 DILIA WHITE S GOLF BALL COVER TREATER Ot 189.0 06/14/2015 WHITEDILIA Sanchez S GOLF BALL COVER TREATER Ot 189.0 06/14/2015 WHITEDILIA Sanchez S GOLF BALL COVER TREATER Ot 197.0 06/14/2015 WHITEDILIA Sanchez S GOLF BALL COVER TREATER Ot 272.4 06/14/2015 WHITEDILIA Sanchez S GOLF BALL COVER TREATER Ot V58.69 06/14/2015 JESSI RIVERA DO Ot 724.00 06/14/2015 JESSI RIVERA DO Ot V72.84 06/14/2015 WHITEDILIA Sanchez S GOLF BALL COVER TREATER Ot 189.0 06/14/2015 WHITEDILIA S GOLF BALL COVER TREATER Ot 197.0 06/14/2015 WHITEDILIA S GOLF BALL COVER TREATER Ot 189.0 06/14/2015 WHITEDILIA S GOLF BALL COVER TREATER Ot 197.0 06/14/2015 MEI GOMEZ N Ot 189.0 06/14/2015 MEI GOMEZ N Ot 197.0 06/14/2015 MEI GOMEZ N Ot 272.4 06/14/2015 MEI GOMEZ N Ot C64.9 06/14/2015 MEI GOMEZ N Ot C78.00 06/14/2015 MEI GOMEZ N Ot V58.69 06/14/2015 Ot E78.5 06/14/2015 Ot I10 06/14/2015 Ot I25.10 06/14/2015 Ot R07.89 06/14/2015 ENMANUEL BONILLA, CHANELLE Robb Ot E78.5 06/14/2015 ENMANUEL BONILLA, CHANELLE Robb Ot I10 06/14/2015 ENMANUEL BONILLA, CHANELLE Robb Ot I25.10 06/14/2015 ENMANUEL BONILLA, CHANELLE Robb Ot R07.89 06/14/2015 DILIA WHITE GOLF BALL COVER TREATER Ot D50.9 06/14/2015 DILIA WHITE GOLF BALL COVER TREATER Ot I12.9 06/14/2015 DILIA WHITE GOLF BALL COVER TREATER Ot I25.10 06/14/2015 DILIA WHITE GOLF BALL COVER TREATER Ot J43.9 06/14/2015 DILIA WHITE GOLF BALL COVER TREATER Ot L98.9 06/14/2015 DILIA WHITE GOLF BALL COVER TREATER Ot N18.9 06/14/2015 DILIA WHITE GOLF BALL COVER TREATER Ot Z08 06/14/2015 DILIA WHITE GOLF BALL COVER TREATER Ot Z79.899 06/14/2015 ASHWINI WHITEJESSICA S GOLF BALL COVER TREATER Ot Z85.118 06/14/2015 CHRISTOPHER DILIA S GOLF BALL COVER TREATER Ot Z85.528 06/14/2015 Ot 189.0 06/14/2015 Ot 197.0 06/14/2015 Ot 492.8 06/14/2015 Ot 562.10 06/14/2015 Ot 786.6 06/14/2015 DILIA WHITE GOLF BALL COVER TREATER Ot 189.0 06/14/2015 DILIA WHITE GOLF BALL COVER TREATER Ot 197.0 06/14/2015 DILIA WHITE GOLF BALL COVER TREATER Ot 403.90 06/14/2015 DILIA WHITE GOLF BALL COVER TREATER Ot 414.00 06/14/2015 DILIA WHITE GOLF BALL COVER TREATER Ot 492.8 06/14/2015 DILIA WHITE S GOLF BALL COVER TREATER Ot 585.3 06/14/2015 DILIA WHITE S GOLF BALL COVER TREATER Ot V58.69 06/14/2015 DILIA WHITE S GOLF BALL COVER TREATER Ot 189.0 06/14/2015 DILIA WHITE S GOLF BALL COVER TREATER Ot 197.0 06/14/2015 DILIA WHITE S GOLF BALL COVER TREATER Ot 268.9 06/14/2015 WHITEDILIA Sanchez S GOLF BALL COVER TREATER Ot 403.90 06/14/2015 DILIA WHITE S GOLF BALL COVER TREATER Ot 414.00 06/14/2015 DILIA WHITE S GOLF BALL COVER TREATER Ot 492.8 06/14/2015 DILIA WHITE S GOLF BALL COVER TREATER Ot 585.3 06/14/2015 DILIA WHITE S GOLF BALL COVER TREATER Ot V58.69 06/14/2015 DILIA WHITE S GOLF BALL COVER TREATER Ot 189.0 06/14/2015 DILIA WHITE S GOLF BALL COVER TREATER Ot 189.0 06/14/2015 WHITEDILIA Sanchez S GOLF BALL COVER TREATER Ot 197.0 06/14/2015 DILIA WHITE S GOLF BALL COVER TREATER Ot 272.4 06/14/2015 DILIA WHITE S GOLF BALL COVER TREATER Ot V58.69 06/14/2015 JESSI RIVERA DO Ot 724.00 06/14/2015 JESSI RIVERA DO Ot V72.84 06/14/2015 DILIA WHITE S GOLF BALL COVER TREATER Ot 189.0 06/14/2015 DILIA WHITE S GOLF BALL COVER TREATER Ot 197.0 06/14/2015 DILIA WHITE S GOLF BALL COVER TREATER Ot 189.0 06/14/2015 DILIA WHITE S GOLF BALL COVER TREATER Ot 197.0 06/14/2015 JUAN GOMEZAN N Ot 189.0 06/14/2015 JASON, BOBAN N [...] ENMANUEL BONILLA, CHANELLE Robb Ot R07.89 06/14/2015 WHITEDILIA Sanchez S GOLF BALL COVER TREATER Ot D50.9 06/14/2015 WHITE DILIA S GOLF BALL COVER TREATER Ot I12.9 06/14/2015 DILIA WHITE S GOLF BALL COVER TREATER Ot I25.10 06/14/2015 WHITEDILIA Sanchez S GOLF BALL COVER TREATER Ot J43.9 06/14/2015 WHITE, HILAH S GOLF BALL COVER TREATER Ot L98.9 06/14/2015 WHITE ASHWINIAH S GOLF BALL COVER TREATER Ot N18.9 06/14/2015 WHITEDILIA Sanchez S GOLF BALL COVER TREATER Ot Z08 06/14/2015 WHITE DILIA S GOLF BALL COVER TREATER Ot Z79.899 06/14/2015 WHITEDILIA Sanchez S GOLF BALL COVER TREATER Ot Z85.118 06/14/2015 WHITEDILIA Sanchez S GOLF BALL COVER TREATER Ot Z85.528 07/10/2015 MIGUEL HOU JESSI Baylee Ot M25.561 07/10/2015 MIGUEL HOU JESSI Baylee Ot M54.5 07/13/2015 JESSI RIVERA DO [place]lee Ot M25.561 07/13/2015 MIGUEL HOU JESSI [place] Ot M54.5 08/21/2015 JASON, BOBAN N Ot 189.0 08/21/2015 JASON, BOBAN N Ot 197.0 08/21/2015 JASON, BOBAN N Ot 272.4 08/21/2015 JASON, BOBAN N Ot C64.9 08/21/2015 JASON, BOBAN N Ot C78.00 08/21/2015 JASON, BOBAN N Ot V58.69 08/29/2015 JASON, BOBAN N Ot 189.0 08/29/2015 JASON, BOBAN N Ot 197.0 08/29/2015 JASON, BOBAN N Ot 272.4 08/29/2015 JASON, BOBAN N Ot V58.69 09/29/2015 JASON, BOBAN N Ot D50.9 IRON DEFICIENCY ANEMIA, UNSPECIFIED 09/29/2015 JASON, BOBAN N Ot I12.9 HYPERTENSIVE CHRONIC KIDNEY DISEASE W ST 09/29/2015 JASON, MEI N Ot I25.10 ATHSCL HEART DISEASE OF [place] CORONARY 09/29/2015 MEI GOMEZ Deja Ot J43.9 EMPHYSEMA, UNSPECIFIED 09/29/2015 JASON MEI N Ot L98.9 DISORDER OF THE SKIN AND SUBCUTANEOUS TI 09/29/2015 JASON JUANHUEY Deja Ot N18.9 CHRONIC KIDNEY DISEASE, UNSPECIFIED 09/29/2015 JASON MEI N Ot Z08 ENCNTR FOR FOLLOW-UP EXAM AFTER TRTMT FO 09/29/2015 JASON MEI N Ot Z79.899 OTHER SKILLED NURSING (CURRENT) DRUG THERAPY 09/29/2015 JASON, MEI N Ot Z85.118 PERSONAL HISTORY OF MALIGNANT NEOPLASM O 09/29/2015 JASONMEI N Ot Z85.528 PERSONAL HISTORY OF OTHER MALIGNANT NEOP 10/04/2015 JASONMEI N Ot D50.9 IRON DEFICIENCY ANEMIA, UNSPECIFIED 10/04/2015 JASONMEI N Ot I12.9 HYPERTENSIVE CHRONIC KIDNEY DISEASE W ST 10/04/2015 JASONMEI N Ot I25.10 ATHSCL HEART DISEASE OF [place] CORONARY 10/04/2015 JASON JUANHUEY Deja Ot J43.9 EMPHYSEMA, UNSPECIFIED 10/04/2015 JASON MEI N Ot L98.9 DISORDER OF THE SKIN AND SUBCUTANEOUS TI 10/04/2015 JASON MEI Short Ot N18.9 CHRONIC KIDNEY DISEASE, UNSPECIFIED 10/04/2015 AJSON, MEI N Ot Z08 ENCNTR FOR FOLLOW-UP EXAM AFTER TRTMT FO 10/04/2015 JASON MEI Short Ot Z79.899 OTHER WINDOW GLAZIER HELPER (CURRENT) DRUG THERAPY 10/04/2015 JASON MEI N Ot Z85.118 PERSONAL HISTORY OF MALIGNANT NEOPLASM O 10/04/2015 JASONMEI N Ot Z85.528 PERSONAL HISTORY OF OTHER MALIGNANT NEOP 11/26/2015 JASONMEI N Ot D50.9 IRON DEFICIENCY ANEMIA, UNSPECIFIED 11/26/2015 JASONMEI N Ot I12.9 HYPERTENSIVE CHRONIC KIDNEY DISEASE W ST 11/26/2015 JASONMEI N Ot I25.10 ATHSCL HEART DISEASE OF [place] CORONARY 11/26/2015 MEI GOMEZ N Ot J43.9 EMPHYSEMA, UNSPECIFIED 11/26/2015 JASONMEI JAMES N Ot L98.9 DISORDER OF THE SKIN AND SUBCUTANEOUS TI 11/26/2015 MEI GOMEZ N Ot N18.9 CHRONIC KIDNEY DISEASE, UNSPECIFIED 11/26/2015 JASONMEI JAMES N Ot Z08 ENCNTR FOR FOLLOW-UP EXAM AFTER TRTMT FO 11/26/2015 MEI GOMEZ N Ot Z79.899 OTHER SKILLED NURSING (CURRENT) DRUG THERAPY 11/26/2015 JASONMEI JAMES N Ot Z85.118 PERSONAL HISTORY OF MALIGNANT NEOPLASM O 11/26/2015 JASONMEI JAMES N Ot Z85.528 PERSONAL HISTORY OF OTHER MALIGNANT NEOP 11/28/2015 JASON, BOBHUEY N Ot D50.9 IRON DEFICIENCY ANEMIA, UNSPECIFIED 11/28/2015 JASON BOBHEUY N Ot I12.9 HYPERTENSIVE CHRONIC KIDNEY DISEASE W ST 11/28/2015 JASON MEI N Ot I25.10 ATHSCL HEART DISEASE OF [place] CORONARY 11/28/2015 MEI GOMEZ N Ot J43.9 EMPHYSEMA, UNSPECIFIED 11/28/2015 JASONMEI N Ot L98.9 DISORDER OF THE SKIN AND SUBCUTANEOUS TI 11/28/2015 MEI GOMEZ N Ot N18.9 CHRONIC KIDNEY DISEASE, UNSPECIFIED 11/28/2015 JASONMEI JAMES N Ot Z08 ENCNTR FOR FOLLOW-UP EXAM AFTER TRTMT FO 11/28/2015 MEI GOMEZ N Ot Z79.899 OTHER WINDOW GLAZIER HELPER (CURRENT) DRUG THERAPY 11/28/2015 MEI GOMEZ N Ot Z85.118 PERSONAL HISTORY OF MALIGNANT NEOPLASM O 11/28/2015 JASONMEI N Ot Z85.528 PERSONAL HISTORY OF OTHER MALIGNANT NEOP 12/01/2015 JASON JUANAN N Ot D50.9 IRON DEFICIENCY ANEMIA, UNSPECIFIED 12/01/2015 JASON, BOBAN N Ot I12.9 HYPERTENSIVE CHRONIC KIDNEY DISEASE W ST 12/01/2015 JASON BOBAN N Ot I25.10 ATHSCL HEART DISEASE OF [place] CORONARY 12/01/2015 JASONMEI N Ot J43.9 EMPHYSEMA, UNSPECIFIED 12/01/2015 JASONMEI N Ot L98.9 DISORDER OF THE SKIN AND SUBCUTANEOUS TI 12/01/2015 MEI GOMEZ Deja Ot N18.9 CHRONIC KIDNEY DISEASE, UNSPECIFIED 12/01/2015 MEI GOMEZ Ot Z08 ENCNTR FOR FOLLOW-UP EXAM AFTER TRTMT FO 12/01/2015 MEI GOMEZ Ot Z79.899 OTHER SKILLED NURSING (CURRENT) DRUG THERAPY 12/01/2015 MEI GOMEZ Ot Z85.118 PERSONAL HISTORY OF MALIGNANT NEOPLASM O 12/01/2015 MEI GOMEZ Ot Z85.528 PERSONAL HISTORY OF OTHER MALIGNANT NEOP 12/05/2015 HARSH STEARNS APRN Ot C64.2 MALIGNANT NEOPLASM OF LEFT KIDNEY, EXCEP 12/05/2015 HARSH STEARNS APRN Ot C79.9 SECONDARY MALIGNANT NEOPLASM OF UNSPECIF 12/05/2015 HARSH STEARNS APRN Ot K57.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 12/05/2015 HARSH STEARNS MATERIAL HANDLER LOADER Ot R91.1 SOLITARY PULMONARY NODULE 12/05/2015 HARSH STEARNS APRN Ot Z90.5 ACQUIRED ABSENCE OF KIDNEY 12/07/2015 HARSH STEARNS APRN Ot C64.2 MALIGNANT NEOPLASM OF LEFT KIDNEY, EXCEP 12/07/2015 HARSH STEARNS APRN Ot C79.9 SECONDARY MALIGNANT NEOPLASM OF UNSPECIF 12/07/2015 HARSH STEARNS APRN Ot K57.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 12/07/2015 HARSH STEARNS MATERIAL HANDLER LOADER Ot R91.1 SOLITARY PULMONARY NODULE 12/07/2015 HARSH STEARNS APRN Ot Z90.5 ACQUIRED ABSENCE OF KIDNEY 12/27/2015 DILIA WHITE GOLF BALL COVER TREATER Ot C64.2 MALIGNANT NEOPLASM OF LEFT KIDNEY, EXCEP 12/27/2015 DILIA WHITE GOLF BALL COVER TREATER Ot 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 01/01/2016 DILIA WHITEP Ot C64.2 MALIGNANT NEOPLASM OF LEFT KIDNEY, EXCEP 01/01/2016 DILIA WHITE GOLF BALL COVER TREATER Ot 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 01/03/2016 DILIA WHITE GOLF BALL COVER TREATER Ot D50.9 IRON DEFICIENCY ANEMIA, UNSPECIFIED 01/03/2016 DILIA WHITE GOLF BALL COVER TREATER Ot I12.9 HYPERTENSIVE CHRONIC KIDNEY DISEASE W ST 01/03/2016 DILIA WHITE GOLF BALL COVER TREATER Ot I25.10 ATHSCL HEART DISEASE OF [place] CORONARY 01/03/2016 DILIA WHITE GOLF BALL COVER TREATER Ot J43.9 EMPHYSEMA, UNSPECIFIED 01/03/2016 DILIA WHITE GOLF BALL COVER TREATER Ot L98.9 DISORDER OF THE SKIN AND SUBCUTANEOUS TI 01/03/2016 DILIA WHITE GOLF BALL COVER TREATER Ot N18.3 CHRONIC KIDNEY DISEASE, STAGE 3 (MODERAT 01/03/2016 DILIA WHITE GOLF BALL COVER TREATER Ot Z08 ENCNTR FOR FOLLOW-UP EXAM AFTER TRTMT FO 01/03/2016 DIILA WHITE GOLF BALL COVER TREATER Ot Z79.899 OTHER WINDOW GLAZIER HELPER (CURRENT) DRUG THERAPY 01/03/2016 DILIA WHITE GOLF BALL COVER TREATER Ot Z85.118 PERSONAL HISTORY OF MALIGNANT NEOPLASM O 01/03/2016 DILIA WHITE GOLF BALL COVER TREATER Ot Z85.528 PERSONAL HISTORY OF OTHER MALIGNANT NEOP 01/11/2016 ESTELLA BONILLA, MEEK Ot Z01.818 ENCOUNTER FOR OTHER PREPROCEDURAL EXAMIN 01/16/2016 DILIA WHITE GOLF BALL COVER TREATER Ot C64.2 MALIGNANT NEOPLASM OF LEFT KIDNEY, EXCEP 01/16/2016 DILIA WHITE GOLF BALL COVER TREATER Ot 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 01/17/2016 Ot 189.0 MALIG NEOPL KIDNEY 01/17/2016 Ot 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 01/17/2016 Ot 492.8 EMPHYSEMA NEC 01/17/2016 Ot 562.10 DIVERTICULOSIS COLON (W/O MENT OF HEMORR 01/17/2016 Ot 786.6 CHEST SWELLING/MASS/LUMP 01/17/2016 DILIA WHITE GOLF BALL COVER TREATER Ot 189.0 MALIG NEOPL KIDNEY 01/17/2016 DILIA WHITE S GOLF BALL COVER TREATER Ot 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 01/17/2016 DILIA WHITE S GOLF BALL COVER TREATER Ot 403.90 HYPTNSV CHR KID DIS, UNSPEC, W CHR KD ST 01/17/2016 DILIA WHITE S GOLF BALL COVER TREATER Ot 414.00 CORON ATHEROSCLER NOS TYPE VESSEL, NATIV 01/17/2016 DILIA WHITE S GOLF BALL COVER TREATER Ot 492.8 EMPHYSEMA NEC 01/17/2016 DILIA WHITE S GOLF BALL COVER TREATER Ot 585.3 CHRONIC KIDNEY DISEASE, STAGE III (MODER 01/17/2016 DILIA WHITE S GOLF BALL COVER TREATER Ot V58.69 OTH MED,LT,CURRENT USE 01/17/2016 ASHWINI WHITEAH S GOLF BALL COVER TREATER Ot 189.0 MALIG NEOPL KIDNEY 01/17/2016 WHITE, HILAH S GOLF BALL COVER TREATER Ot 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 01/17/2016 CHRISTOPHER HILAH S GOLF BALL COVER TREATER Ot 268.9 VITAMIN D DEFICIENCY NOS 01/17/2016 ASHWINI WHITEAH S GOLF BALL COVER TREATER Ot 403.90 HYPTNSV CHR KID DIS, UNSPEC, W CHR KD ST 01/17/2016 ASHWINI WHITEAH S GOLF BALL COVER TREATER Ot 414.00 CORON ATHEROSCLER NOS TYPE VESSEL, NATIV 01/17/2016 DILIA WHITE S GOLF BALL COVER TREATER Ot 492.8 EMPHYSEMA NEC 01/17/2016 DILIA WHITE S GOLF BALL COVER TREATER Ot 585.3 CHRONIC KIDNEY DISEASE, STAGE III (MODER 01/17/2016 DILIA WHITE S GOLF BALL COVER TREATER Ot V58.69 OTH MED,LT,CURRENT USE 01/17/2016 DILIA WHITE S GOLF BALL COVER TREATER Ot 189.0 MALIG NEOPL KIDNEY 01/17/2016 WHITEDILIA Sanchez S GOLF BALL COVER TREATER Ot 189.0 MALIG NEOPL KIDNEY 01/17/2016 WHITE, HILAH S GOLF BALL COVER TREATER Ot 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 01/17/2016 DILIA WHITE S GOLF BALL COVER TREATER Ot 272.4 HYPERLIPIDEMIA NEC/NOS 01/17/2016 DILIA WHITE S GOLF BALL COVER TREATER Ot V58.69 OTH MED,LT,CURRENT USE 01/17/2016 JESSI RIVERA DO Ot 724.00 SPINAL STENOSIS NOS 01/17/2016 JESSI RIVERA DO Ot V72.84 EXAM PRE-OPERATIVE NOS 01/17/2016 DILIA WHITE S GOLF BALL COVER TREATER Ot 189.0 MALIG NEOPL KIDNEY 01/17/2016 WHITEDILIA Sanchez S GOLF BALL COVER TREATER Ot 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 01/17/2016 WHITE HILAH S GOLF BALL COVER TREATER Ot 189.0 MALIG NEOPL KIDNEY 01/17/2016 WHITE, HILAH S GOLF BALL COVER TREATER Ot 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 01/17/2016 Ot E78.5 HYPERLIPIDEMIA, UNSPECIFIED 01/17/2016 Ot I10 ESSENTIAL ( PRIMARY) HYPERTENSION 01/17/2016 Ot I25.10 ATHSCL HEART DISEASE OF [place] CORONARY 01/17/2016 Ot R07.89 OTHER CHEST PAIN 01/17/2016 ENMANUEL BONILLA, CHANELLE Robb Ot E78.5 HYPERLIPIDEMIA, UNSPECIFIED 01/17/2016 ENMANUEL BONILLA, CHANELLE Robb Ot I10 ESSENTIAL (PRIMARY) HYPERTENSION 01/17/2016 CHANELLE SINGER MD Ot I25.10 ATHSCL HEART DISEASE OF [place] CORONARY 01/17/2016 ENMANUEL BONILLA, CHANELLE Robb Ot R07.89 OTHER CHEST PAIN 01/17/2016 DILIA WHITEP Ot D50.9 IRON DEFICIENCY ANEMIA, UNSPECIFIED 01/17/2016 DILIA WHITEP Ot I12.9 HYPERTENSIVE CHRONIC KIDNEY DISEASE W ST 01/17/2016 DILIA WHITEP Ot I25.10 ATHSCL HEART DISEASE OF [place] CORONARY 01/17/2016 DILIA WHITEP Ot J43.9 EMPHYSEMA, UNSPECIFIED 01/17/2016 DILIA WHITE Ot L98.9 DISORDER OF THE SKIN AND SUBCUTANEOUS TI 01/17/2016 DILIA WHITE GOLF BALL COVER TREATER Ot N18.9 CHRONIC KIDNEY DISEASE, UNSPECIFIED 01/17/2016 DIILA WHITE GOLF BALL COVER TREATER Ot Z08 ENCNTR FOR FOLLOW-UP EXAM AFTER TRTMT FO 01/17/2016 DILIA WHITEP Ot Z79.899 OTHER SKILLED NURSING (CURRENT) DRUG THERAPY 01/17/2016 DILIA WHITE GOLF BALL COVER TREATER Ot Z85.118 PERSONAL HISTORY OF MALIGNANT NEOPLASM O 01/17/2016 DILIA WHITE GOLF BALL COVER TREATER Ot Z85.528 PERSONAL HISTORY OF OTHER MALIGNANT NEOP 01/17/2016 JESSI RIVERA DO Ot M25.561 PAIN IN RIGHT KNEE 01/17/2016 JESSI RIVERA DO Ot M54.5 LOW BACK PAIN 01/17/2016 MEI GOMEZ Ot D50.9 IRON DEFICIENCY ANEMIA, UNSPECIFIED 01/17/2016 MEI GOMEZ Ot I12.9 HYPERTENSIVE CHRONIC KIDNEY DISEASE W ST 01/17/2016 MEI GOMEZ Ot I25.10 ATHSCL HEART DISEASE OF [place] CORONARY 01/17/2016 MEI GOMEZ Ot J43.9 EMPHYSEMA, UNSPECIFIED 01/17/2016 MEI GOMEZ Ot L98.9 DISORDER OF THE SKIN AND SUBCUTANEOUS TI 01/17/2016 MEI GOMEZ Deja Ot N18.9 CHRONIC KIDNEY DISEASE, UNSPECIFIED 01/17/2016 MEI GOMEZ Deja Ot Z08 ENCNTR FOR FOLLOW-UP EXAM AFTER TRTMT FO 01/17/2016 MEI GOMEZ Ot Z79.899 OTHER SKILLED NURSING (CURRENT) DRUG THERAPY 01/17/2016 MEI GOMEZ Ot Z85.118 PERSONAL HISTORY OF MALIGNANT NEOPLASM O 01/17/2016 MEI GOMEZ Deja Ot Z85.528 PERSONAL HISTORY OF OTHER MALIGNANT NEOP 01/17/2016 DILIA WHITE GOLF BALL COVER TREATER Ot C64.2 MALIGNANT NEOPLASM OF LEFT KIDNEY, EXCEP 01/17/2016 DILIA WHITE GOLF BALL COVER TREATER Ot 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 01/17/2016 DILIA WHITEP Ot D50.9 IRON DEFICIENCY ANEMIA, UNSPECIFIED 01/17/2016 DILIA WHITEP Ot I12.9 HYPERTENSIVE CHRONIC KIDNEY DISEASE W ST 01/17/2016 DILIA WHITE GOLF BALL COVER TREATER Ot I25.10 ATHSCL HEART DISEASE OF [place] CORONARY 01/17/2016 DILIA WHITE GOLF BALL COVER TREATER Ot J43.9 EMPHYSEMA, UNSPECIFIED 01/17/2016 DILIA WHITE GOLF BALL COVER TREATER Ot L98.9 DISORDER OF THE SKIN AND SUBCUTANEOUS TI 01/17/2016 DILIA WHITE GOLF BALL COVER TREATER Ot N18.3 CHRONIC KIDNEY DISEASE, STAGE 3 (MODERAT 01/17/2016 DILIA WHITEP Ot Z08 ENCNTR FOR FOLLOW-UP EXAM AFTER TRTMT FO 01/17/2016 DILIA WHITE GOLF BALL COVER TREATER Ot Z79.899 OTHER SKILLED NURSING (CURRENT) DRUG THERAPY 01/17/2016 DILIA WHITE GOLF BALL COVER TREATER Ot Z85.118 PERSONAL HISTORY OF MALIGNANT NEOPLASM O 01/17/2016 DILIA WHITE GOLF BALL COVER TREATER Ot Z85.528 PERSONAL HISTORY OF OTHER MALIGNANT NEOP 01/17/2016 MEEK SORIA MD Ot K21.0 GASTRO-ESOPHAGEAL REFLUX DISEASE WITH ES 01/17/2016 MEEK SORIA MD Ot 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 01/17/2016 MEEK SORIA MD Ot K29.70 GASTRITIS, UNSPECIFIED, WITHOUT BLEEDING 01/17/2016 MEEK SORIA MD Ot K57.90 DVRTCLOS OF INTEST, PART UNSP, W/O PERF 01/17/2016 MEEK SORIA MD, Ot K64.0 FIRST DEGREE HEMORRHOIDS 01/18/2016 MEEK SORIA MD, Ot K21.0 GASTRO-ESOPHAGEAL REFLUX DISEASE WITH ES 01/18/2016 MEEK SORIA MD, Ot 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 01/18/2016 MEEK SORIA MD Ot K29.70 GASTRITIS, UNSPECIFIED, WITHOUT BLEEDING 01/18/2016 MEEK SORIA MD Ot K57.90 DVRTCLOS OF INTEST, PART UNSP, W/O PERF 01/18/2016 MEEK SORIA MD, Ot K64.0 FIRST DEGREE HEMORRHOIDS 01/23/2016 MEEK SORIA MD, Ot K21.0 GASTRO-ESOPHAGEAL REFLUX DISEASE WITH ES 01/23/2016 MEEK SORIA MD, Ot 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 01/23/2016 MEEK SORIA MD Ot K29.70 GASTRITIS, UNSPECIFIED, WITHOUT BLEEDING 01/23/2016 MEEK SORIA MD, Ot K57.90 DVRTCLOS OF INTEST, PART UNSP, W/O PERF 01/23/2016 MEEK SORIA MD, Ot K64.0 FIRST DEGREE HEMORRHOIDS 01/23/2016 DILIA WHITE Ot D50.9 IRON DEFICIENCY ANEMIA, UNSPECIFIED 01/23/2016 DILIA WHITE Ot I12.9 HYPERTENSIVE CHRONIC KIDNEY DISEASE W ST 01/23/2016 DILIA WHITE Ot I25.10 ATHSCL HEART DISEASE OF [place] CORONARY 01/23/2016 DILIA WHITE Ot J43.9 EMPHYSEMA, UNSPECIFIED 01/23/2016 DILIA WHITE Ot L98.9 DISORDER OF THE SKIN AND SUBCUTANEOUS TI 01/23/2016 DILIA WHITE Ot N18.3 CHRONIC KIDNEY DISEASE, STAGE 3 (MODERAT 01/23/2016 DILIA WHITE Ot Z08 ENCNTR FOR FOLLOW-UP EXAM AFTER TRTMT FO 01/23/2016 DILIA WHITE Ot Z79.899 OTHER SKILLED NURSING (CURRENT) DRUG THERAPY 01/23/2016 DILIA WHITE GOLF BALL COVER TREATER Ot Z85.118 PERSONAL HISTORY OF MALIGNANT NEOPLASM O 01/23/2016 DILIA WHITEP Ot Z85.528 PERSONAL HISTORY OF OTHER MALIGNANT NEOP 01/25/2016 DILIA WHITEP Ot C64.2 MALIGNANT NEOPLASM OF LEFT KIDNEY, EXCEP 01/25/2016 DILIA WHITEP Ot 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 01/27/2016 MEEK SORIA MD Ot K21.0 GASTRO-ESOPHAGEAL REFLUX DISEASE WITH ES 01/27/2016 MEEK SORIA MD Ot 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 01/27/2016 MEEK SORIA MD Ot K29.70 GASTRITIS, UNSPECIFIED, WITHOUT BLEEDING 01/27/2016 MEEK SORIA MD Ot K57.90 DVRTCLOS OF INTEST, PART UNSP, W/O PERF 01/27/2016 MEEK SORIA MD Ot K64.0 FIRST DEGREE HEMORRHOIDS 02/01/2016 DILIA WHITEP Ot D50.9 IRON DEFICIENCY ANEMIA, UNSPECIFIED 02/01/2016 DILIA WHITEP Ot I12.9 HYPERTENSIVE CHRONIC KIDNEY DISEASE W ST 02/01/2016 DILIA WHITE Ot I25.10 ATHSCL HEART DISEASE OF [place] CORONARY 02/01/2016 DILIA WHITEP Ot J43.9 EMPHYSEMA, UNSPECIFIED 02/01/2016 DILIA WHITE Ot L98.9 DISORDER OF THE SKIN AND SUBCUTANEOUS TI 02/01/2016 DILIA WHITEP Ot N18.3 CHRONIC KIDNEY DISEASE, STAGE 3 (MODERAT 02/01/2016 DILIA WHITE GOLF BALL COVER TREATER Ot Z08 ENCNTR FOR FOLLOW-UP EXAM AFTER TRTMT FO 02/01/2016 DILIA WHITE Ot Z79.899 OTHER WINDOW GLAZIER HELPER (CURRENT) DRUG THERAPY 02/01/2016 DILIA WHITE GOLF BALL COVER TREATER Ot Z85.118 PERSONAL HISTORY OF MALIGNANT NEOPLASM O 02/01/2016 DILIA WHITEP Ot Z85.528 PERSONAL HISTORY OF OTHER MALIGNANT NEOP 02/04/2016 CAMERON MAX MD, Ot I10 ESSENTIAL (PRIMARY) HYPERTENSION 02/04/2016 CAMERON MAX MD Ot I25.10 ATHSCL HEART DISEASE OF [place] CORONARY 02/04/2016 CAMERON MAX MD, Ot I45.10 UNSPECIFIED RIGHT BUNDLE-BRANCH BLOCK 02/04/2016 CAMERON MAX MD, Ot J43.9 EMPHYSEMA, UNSPECIFIED 02/04/2016 CAMERON MAX MD, Ot K21.9 GASTRO-ESOPHAGEAL REFLUX DISEASE WITHOUT 02/04/2016 CAMERON MAX MD, Ot K57.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 02/04/2016 CAMERON MAX MD, Ot M16.12 UNILATERAL PRIMARY OSTEOARTHRITIS, LEFT 02/04/2016 CAMERON MAX MD, Ot N39.0 URINARY TRACT INFECTION, SITE NOT SPECIF 02/04/2016 CAMERON MAX MD Ot R07.89 OTHER CHEST PAIN 02/04/2016 CAMERON MAX MD, Ot Z85.528 PERSONAL HISTORY OF OTHER MALIGNANT NEOP 02/04/2016 CAMERON MAX MD, Ot Z90.49 ACQUIRED ABSENCE OF OTHER SPECIFIED PART 02/04/2016 CAMERON MAX MD, Ot Z90.5 ACQUIRED ABSENCE OF KIDNEY 02/14/2016 CHILO OCAMPO MD Ot E78.5 HYPERLIPIDEMIA, UNSPECIFIED 02/14/2016 CHILO OCAMPO MD Ot G57.91 UNSPECIFIED MONONEUROPATHY OF RIGHT LOWE 02/14/2016 CHILO OCAMPO MD Ot I10 ESSENTIAL (PRIMARY) HYPERTENSION 02/14/2016 CHILO OCAMPO MD Ot I25.10 ATHSCL HEART DISEASE OF [place] CORONARY 02/14/2016 CHILO OCAMPO MD Ot I65.23 OCCLUSION AND STENOSIS OF BILATERAL [place] 02/14/2016 CHILO OCAMPO MD Ot J18.9 PNEUMONIA, UNSPECIFIED ORGANISM 02/14/2016 CHILO OCAMPO MD Ot 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 02/14/2016 CHILO OCAMPO MD Ot M21.371 FOOT DROP, RIGHT FOOT 02/14/2016 CHILO OCAMPO MD Ot R07.9 CHEST PAIN, UNSPECIFIED 02/14/2016 CHILO OCAMPO MD Ot R91.8 OTHER NONSPECIFIC ABNORMAL FINDING OF SM[place] 02/14/2016 CHILO OCAMPO MD Ot Z85.528 PERSONAL HISTORY OF OTHER MALIGNANT NEOP 02/14/2016 CHILO OCAMPO MD Ot Z87.440 PERSONAL HISTORY OF URINARY (TRACT) INFE 02/14/2016 CHILO OCAMPO MD Ot Z87.891 PERSONAL HISTORY OF NICOTINE DEPENDENCE 02/14/2016 CHILO OCAMPO MD Ot Z90.5 ACQUIRED ABSENCE OF KIDNEY 02/14/2016 CHILO OCAMPO MD Ot Z95.5 PRESENCE OF CORONARY ANGIOPLASTY IMPLANT 05/24/2016 MEI GOMEZ Ot D50.9 IRON DEFICIENCY ANEMIA, UNSPECIFIED 05/24/2016 MEI GOMEZ Ot I12.9 HYPERTENSIVE CHRONIC KIDNEY DISEASE W ST 05/24/2016 MEI GOMEZ Ot I25.10 ATHSCL HEART DISEASE OF [place] CORONARY 05/24/2016 MEI GOMEZ Ot J43.9 EMPHYSEMA, UNSPECIFIED 05/24/2016 MEI GOMEZ Ot L98.9 DISORDER OF THE SKIN AND SUBCUTANEOUS TI 05/24/2016 MEI GOMEZ Ot N18.3 CHRONIC KIDNEY DISEASE, STAGE 3 (MODERAT 05/24/2016 MEI GOMEZ Ot Z08 ENCNTR FOR FOLLOW-UP EXAM AFTER TRTMT FO 05/24/2016 MEI GOMEZ Ot Z79.899 OTHER WINDOW GLAZIER HELPER (CURRENT) DRUG THERAPY 05/24/2016 MEI GOMEZ Ot Z85.118 PERSONAL HISTORY OF MALIGNANT NEOPLASM O 05/24/2016 MEI GOMEZ Ot Z85.528 PERSONAL HISTORY OF OTHER MALIGNANT NEOP 06/06/2016 MEI GOMEZ Ot D50.9 IRON DEFICIENCY ANEMIA, UNSPECIFIED 06/06/2016 MEI GOMEZ Ot I12.9 HYPERTENSIVE CHRONIC KIDNEY DISEASE W ST 06/06/2016 MEI GOMEZ Ot I25.10 ATHSCL HEART DISEASE OF [place] CORONARY 06/06/2016 MEI GOMEZ Ot J43.9 EMPHYSEMA, UNSPECIFIED 06/06/2016 JASON, BOBAN N Ot L98.9 DISORDER OF THE SKIN AND SUBCUTANEOUS TI 06/06/2016 MEI GOMEZ N Ot N18.3 CHRONIC KIDNEY DISEASE, STAGE 3 (MODERAT 06/06/2016 MEI GOMEZ N Ot Z08 ENCNTR FOR FOLLOW-UP EXAM AFTER TRTMT FO 06/06/2016 MEI GOMEZ N Ot Z79.899 OTHER SKILLED NURSING (CURRENT) DRUG THERAPY 06/06/2016 MEI GOMEZ N Ot Z85.118 PERSONAL HISTORY OF MALIGNANT NEOPLASM O 06/06/2016 JASON MEI N Ot Z85.528 PERSONAL HISTORY OF OTHER MALIGNANT NEOP 07/08/2016 JASON MEI N Ot D50.9 IRON DEFICIENCY ANEMIA, UNSPECIFIED 07/08/2016 JASONMEI N Ot I12.9 HYPERTENSIVE CHRONIC KIDNEY DISEASE W ST 07/08/2016 JASON MEI N Ot I25.10 ATHSCL HEART DISEASE OF [place] CORONARY 07/08/2016 JASONMEI N Ot J43.9 EMPHYSEMA, UNSPECIFIED 07/08/2016 JASONMEI N Ot L98.9 DISORDER OF THE SKIN AND SUBCUTANEOUS TI 07/08/2016 MEI GOMEZ N Ot N18.3 CHRONIC KIDNEY DISEASE, STAGE 3 (MODERAT 07/08/2016 MEI GOMEZ N Ot Z08 ENCNTR FOR FOLLOW-UP EXAM AFTER TRTMT FO 07/08/2016 MEI GOMEZ N Ot Z79.899 OTHER WINDOW GLAZIER HELPER (CURRENT) DRUG THERAPY 07/08/2016 JASON JUANHUEY N Ot Z85.118 PERSONAL HISTORY OF MALIGNANT NEOPLASM O 07/08/2016 JASON MEI N Ot Z85.528 PERSONAL HISTORY OF OTHER MALIGNANT NEOP 07/09/2016 JASONMEI N Ot D50.9 IRON DEFICIENCY ANEMIA, UNSPECIFIED 07/09/2016 JASONMEI N Ot I12.9 HYPERTENSIVE CHRONIC KIDNEY DISEASE W ST 07/09/2016 JASONMEI N Ot I25.10 ATHSCL HEART DISEASE OF [place] CORONARY 07/09/2016 JASONMEI N Ot J43.9 EMPHYSEMA, UNSPECIFIED 07/09/2016 JASON, MEI N Ot L98.9 DISORDER OF THE SKIN AND SUBCUTANEOUS TI 07/09/2016 JASONMEI N Ot N18.3 CHRONIC KIDNEY DISEASE, STAGE 3 (MODERAT 07/09/2016 MEI GOMEZ Ot Z08 ENCNTR FOR FOLLOW-UP EXAM AFTER TRTMT FO 07/09/2016 MEI GOMEZ Ot Z79.899 OTHER WINDOW GLAZIER HELPER (CURRENT) DRUG THERAPY 07/09/2016 MEI GOMEZ Ot Z85.118 PERSONAL HISTORY OF MALIGNANT NEOPLASM O 07/09/2016 MEI GOMEZ Ot Z85.528 PERSONAL HISTORY OF OTHER MALIGNANT NEOP 07/31/2016 Ot 189.0 MALIG NEOPL KIDNEY 07/31/2016 Ot 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 07/31/2016 Ot 585.9 CHRONIC KIDNEY DISEASE, UNSPECIFIED 09/02/2016 TAYLOR ESTRADA DO Ot M16.12 UNILATERAL PRIMARY OSTEOARTHRITIS, LEFT 09/02/2016 TAYLOR ESTRADA DO Ot Z01.812 ENCOUNTER FOR PREPROCEDURAL LABORATORY E 09/02/2016 NATALIE TAYLOR HOU Ot Z11.2 ENCOUNTER FOR SCREENING FOR OTHER BACTER 09/03/2016 TAYLOR ESTRADA DO Ot M16.12 UNILATERAL PRIMARY OSTEOARTHRITIS, LEFT 09/03/2016 NATALIE DO, TAYLOR Federico Ot Z01.812 ENCOUNTER FOR PREPROCEDURAL LABORATORY E 09/03/2016 NATALIE TAYLOR HOU Ot Z11.2 ENCOUNTER FOR SCREENING FOR OTHER BACTER 09/08/2016 TAYLOR ESTRADA DO Ot M16.12 UNILATERAL PRIMARY OSTEOARTHRITIS, LEFT 09/08/2016 NATALIE DO, TYALOR Federico Ot Z01.812 ENCOUNTER FOR PREPROCEDURAL LABORATORY E 09/08/2016 TAYLOR ESTRADA DO Ot Z11.2 ENCOUNTER FOR SCREENING FOR OTHER BACTER 09/18/2016 TAYLOR ESTRADA DO Ot E78.00 PURE HYPERCHOLESTEROLEMIA, UNSPECIFIED 09/18/2016 TAYLOR ESTRADA DO Ot F41.9 ANXIETY DISORDER, UNSPECIFIED 09/18/2016 TAYLOR ESTRADA DO Ot G62.9 POLYNEUROPATHY, UNSPECIFIED 09/18/2016 TAYLOR ESTRADA DO Ot I10 ESSENTIAL (PRIMARY) HYPERTENSION 09/18/2016 TAYLOR ESTRADA DO Ot I25.10 ATHSCL HEART DISEASE OF [place] CORONARY 09/18/2016 TAYLOR ESTRADA DO Ot J30.2 OTHER SEASONAL ALLERGIC RHINITIS 09/18/2016 TAYLOR ESTRADA DO Ot K21.9 GASTRO-ESOPHAGEAL REFLUX DISEASE WITHOUT 09/18/2016 NATALIE DO, TAYLOR Caballero Ot M16.12 UNILATERAL PRIMARY OSTEOARTHRITIS, LEFT 09/18/2016 NATALIE DO, TAYLOR Caballero Ot M21.371 FOOT DROP, RIGHT FOOT 09/18/2016 NATALIE DO, TAYLOR Caballero Ot M54.9 DORSALGIA, UNSPECIFIED 09/18/2016 NATALIE DO, TAYLOR Caballero Ot N40.0 BENIGN PROSTATIC HYPERPLASIA WITHOUT LOW 09/18/2016 NATALIE DO, TAYLOR Caballero Ot R30.0 DYSURIA 09/18/2016 NATALIE DO, TAYLOR Caballero Ot Z85.528 PERSONAL HISTORY OF OTHER MALIGNANT NEOP 09/18/2016 NATALIE DO, TAYLOR Caballero Ot Z87.19 PERSONAL HISTORY OF OTHER DISEASES OF TH 09/18/2016 NATALIE , TAYLOR Caballero Ot Z87.891 PERSONAL HISTORY OF NICOTINE DEPENDENCE 09/18/2016 NATALIE DO, TAYLOR Caballero Ot Z90.5 ACQUIRED ABSENCE OF KIDNEY 09/18/2016 NATALIE DO, TAYLOR Caballero Ot Z95.5 PRESENCE OF CORONARY ANGIOPLASTY IMPLANT 09/18/2016 DILIA WHITE GOLF BALL COVER TREATER Ot C64.2 MALIGNANT NEOPLASM OF LEFT KIDNEY, EXCEP 09/18/2016 DILIA WHITE GOLF BALL COVER TREATER Ot 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 09/25/2016 NICHELLE BONILLA, KATHY E Ot D64.9 ANEMIA, UNSPECIFIED 09/25/2016 NICHELLE BONILLA, KATHY E Ot E78.00 PURE HYPERCHOLESTEROLEMIA, UNSPECIFIED 09/25/2016 NICHELLE BONILLA, KATHY E Ot I10 ESSENTIAL (PRIMARY) HYPERTENSION 09/25/2016 NICHELLE BONILLA KATHY E Ot I25.10 ATHSCL HEART DISEASE OF [place] CORONARY 09/25/2016 KATHY STEWARD MD E Ot N40.0 BENIGN PROSTATIC HYPERPLASIA WITHOUT LOW 09/25/2016 NICHELLE BONILLA, KATHY E Ot R50.82 POSTPROCEDURAL FEVER 09/25/2016 NICHELLE BONILLA KATHY E Ot R91.1 SOLITARY PULMONARY NODULE 09/25/2016 KATHY STEWARD MD E Ot Z47.1 AFTERCARE FOLLOWING JOINT REPLACEMENT GREGORY 09/25/2016 KATHY STEWARD MD E Ot Z85.528 PERSONAL HISTORY OF OTHER MALIGNANT NEOP 09/25/2016 KATHY STEWARD MD E Ot Z90.5 ACQUIRED ABSENCE OF KIDNEY 09/25/2016 KATHY STEWARD MD E Ot Z96.642 PRESENCE OF LEFT ARTIFICIAL HIP JOINT 10/17/2016 DILIA WHITE GOLF BALL COVER TREATER Ot C64.2 MALIGNANT NEOPLASM OF LEFT KIDNEY, EXCEP 10/17/2016 DILIA WHITE GOLF BALL COVER TREATER Ot 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 10/17/2016 JESSI RIVERA DO Ot M25.561 PAIN IN RIGHT KNEE 10/17/2016 JESSI RIVERA DO Ot M54.5 LOW BACK PAIN 11/05/2016 JASONMEI JAMES Ot D50.9 IRON DEFICIENCY ANEMIA, UNSPECIFIED 11/05/2016 JASONMEI N Ot I12.9 HYPERTENSIVE CHRONIC KIDNEY DISEASE W ST 11/05/2016 JASONMEI N Ot I25.10 ATHSCL HEART DISEASE OF [place] CORONARY 11/05/2016 JASONMEI JAMES N Ot J43.9 EMPHYSEMA, UNSPECIFIED 11/05/2016 JASONMEI N Ot L98.9 DISORDER OF THE SKIN AND SUBCUTANEOUS TI 11/05/2016 JASONMEI N Ot N18.3 CHRONIC KIDNEY DISEASE, STAGE 3 (MODERAT 11/05/2016 JASONMEI JAMES N Ot Z08 ENCNTR FOR FOLLOW-UP EXAM AFTER TRTMT FO 11/05/2016 MEI GOMEZ N Ot Z79.899 OTHER WINDOW GLAZIER HELPER (CURRENT) DRUG THERAPY 11/05/2016 JASONMEI JAMES N Ot Z85.118 PERSONAL HISTORY OF MALIGNANT NEOPLASM O 11/05/2016 MEI GOMEZ N Ot Z85.528 PERSONAL HISTORY OF OTHER MALIGNANT NEOP 11/07/2016 JASONMEI JAMES N Ot D50.9 IRON DEFICIENCY ANEMIA, UNSPECIFIED 11/07/2016 JASONMEI N Ot I12.9 HYPERTENSIVE CHRONIC KIDNEY DISEASE W ST 11/07/2016 JASONMEI N Ot I25.10 ATHSCL HEART DISEASE OF [place] CORONARY 11/07/2016 JASONMEI N Ot J43.9 EMPHYSEMA, UNSPECIFIED 11/07/2016 JASONMEI N Ot L98.9 DISORDER OF THE SKIN AND SUBCUTANEOUS TI 11/07/2016 JASONMEI N Ot N18.3 CHRONIC KIDNEY DISEASE, STAGE 3 (MODERAT 11/07/2016 JASONMEI N Ot Z08 ENCNTR FOR FOLLOW-UP EXAM AFTER TRTMT FO 11/07/2016 MEI GOMEZ N Ot Z79.899 OTHER WINDOW GLAZIER HELPER (CURRENT) DRUG THERAPY 11/07/2016 JASONMEI N Ot Z85.118 PERSONAL HISTORY OF MALIGNANT NEOPLASM O 11/07/2016 JASONMEI N Ot Z85.528 PERSONAL HISTORY OF OTHER MALIGNANT NEOP 11/07/2016 JASON, BOBHUEY N Ot D50.9 IRON DEFICIENCY ANEMIA, UNSPECIFIED 11/07/2016 JASONMEI N Ot I12.9 HYPERTENSIVE CHRONIC KIDNEY DISEASE W ST 11/07/2016 JASONMEI N Ot I25.10 ATHSCL HEART DISEASE OF [place] CORONARY 11/07/2016 JASONMEI N Ot J43.9 EMPHYSEMA, UNSPECIFIED 11/07/2016 JASON, BOBAN N Ot L98.9 DISORDER OF THE SKIN AND SUBCUTANEOUS TI 11/07/2016 JASON, BOBHUEY N Ot N18.3 CHRONIC KIDNEY DISEASE, STAGE 3 (MODERAT 11/07/2016 JASONMEI N Ot Z08 ENCNTR FOR FOLLOW-UP EXAM AFTER TRTMT FO 11/07/2016 JASON MEI N Ot Z79.899 OTHER SKILLED NURSING (CURRENT) DRUG THERAPY 11/07/2016 JASON, MEI N Ot Z85.118 PERSONAL HISTORY OF MALIGNANT NEOPLASM O 11/07/2016 JASON, MEI N Ot Z85.528 PERSONAL HISTORY OF OTHER MALIGNANT NEOP 11/07/2016 MEI GOMEZ N Ot D50.9 IRON DEFICIENCY ANEMIA, UNSPECIFIED 11/07/2016 JASONMEI N Ot I12.9 HYPERTENSIVE CHRONIC KIDNEY DISEASE W ST 11/07/2016 JASONMEI N Ot I25.10 ATHSCL HEART DISEASE OF [place] CORONARY 11/07/2016 JASONJUANHUEY N Ot J43.9 EMPHYSEMA, UNSPECIFIED 11/07/2016 JASON, JUANAN N Ot L98.9 DISORDER OF THE SKIN AND SUBCUTANEOUS TI 11/07/2016 JASON, BOBAN N Ot N18.3 CHRONIC KIDNEY DISEASE, STAGE 3 (MODERAT 11/07/2016 JASON BOBAN N Ot Z08 ENCNTR FOR FOLLOW-UP EXAM AFTER TRTMT FO 11/07/2016 JASONMEI N Ot Z79.899 OTHER WINDOW GLAZIER HELPER (CURRENT) DRUG THERAPY 11/07/2016 JASON, BOBHUEY N Ot Z85.118 PERSONAL HISTORY OF MALIGNANT NEOPLASM O 11/07/2016 MEI GOMEZ Ot Z85.528 PERSONAL HISTORY OF OTHER MALIGNANT NEOP 11/30/2016 Ot 189.0 MALIG NEOPL KIDNEY 11/30/2016 Ot 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 11/30/2016 Ot 585.9 CHRONIC KIDNEY DISEASE, UNSPECIFIED 12/02/2016 MEEK SORIA MD, Ot H93.92 UNSPECIFIED DISORDER OF LEFT EAR 12/02/2016 MEEK SORIA MD, Ot Z01.818 ENCOUNTER FOR OTHER PREPROCEDURAL EXAMIN 12/04/2016 MEEK SORIA MD, Ot H93.92 UNSPECIFIED DISORDER OF LEFT EAR 12/04/2016 MEEK SORIA MD, Ot Z01.818 ENCOUNTER FOR OTHER PREPROCEDURAL EXAMIN 12/04/2016 JESSI RIVERA DO Ot M25.561 PAIN IN RIGHT KNEE 12/04/2016 JESSI RIVERA DO Ot M54.5 LOW BACK PAIN 12/04/2016 MEI GOMEZ Ot D50.9 IRON DEFICIENCY ANEMIA, UNSPECIFIED 12/04/2016 MEI GOMEZ Ot I12.9 HYPERTENSIVE CHRONIC KIDNEY DISEASE W ST 12/04/2016 MEI GOMEZ Ot I25.10 ATHSCL HEART DISEASE OF [place] CORONARY 12/04/2016 MEI GOMEZ Ot J43.9 EMPHYSEMA, UNSPECIFIED 12/04/2016 MEI GOMEZ Ot L98.9 DISORDER OF THE SKIN AND SUBCUTANEOUS TI 12/04/2016 MEI GOMEZ Ot N18.3 CHRONIC KIDNEY DISEASE, STAGE 3 (MODERAT 12/04/2016 MEI GOMEZ Ot Z08 ENCNTR FOR FOLLOW-UP EXAM AFTER TRTMT FO 12/04/2016 MEI GOMEZ Ot Z79.899 OTHER WINDOW GLAZIER HELPER (CURRENT) DRUG THERAPY 12/04/2016 MEI GOMEZ Ot Z85.118 PERSONAL HISTORY OF MALIGNANT NEOPLASM O 12/04/2016 MEI GOMEZ Ot Z85.528 PERSONAL HISTORY OF OTHER MALIGNANT NEOP 12/05/2016 MEEK SORIA MD Ot C44.219 BASAL CELL CARCINOMA SKIN/ LEFT EAR AND 12/05/2016 MEEK SORIA MD Ot E78.5 HYPERLIPIDEMIA, UNSPECIFIED 12/05/2016 MEEK SORIA MD Ot I10 ESSENTIAL (PRIMARY) HYPERTENSION 12/05/2016 MEEK SORIA MD, Ot I25.10 ATHSCL HEART DISEASE OF [place] CORONARY 12/05/2016 MEEK SORIA MD, Ot Z79.899 OTHER SKILLED NURSING (CURRENT) DRUG THERAPY 12/05/2016 MEEK SORIA MD, Ot Z85.528 PERSONAL HISTORY OF OTHER MALIGNANT NEOP 12/05/2016 MEEK SORIA MD, Ot Z95.5 PRESENCE OF CORONARY ANGIOPLASTY IMPLANT 12/05/2016 MEI GOMEZ Ot D50.9 IRON DEFICIENCY ANEMIA, UNSPECIFIED 12/05/2016 MEI GOMEZ Ot I12.9 HYPERTENSIVE CHRONIC KIDNEY DISEASE W ST 12/05/2016 MEI GOMEZ Ot I25.10 ATHSCL HEART DISEASE OF [place] CORONARY 12/05/2016 MEI GOMEZ Ot J43.9 EMPHYSEMA, UNSPECIFIED 12/05/2016 MEI GOMEZ Ot L98.9 DISORDER OF THE SKIN AND SUBCUTANEOUS TI 12/05/2016 MEI GOMEZ Ot N18.3 CHRONIC KIDNEY DISEASE, STAGE 3 (MODERAT 12/05/2016 MEI GOMEZ Ot Z08 ENCNTR FOR FOLLOW-UP EXAM AFTER TRTMT FO 12/05/2016 MEI GOMEZ Ot Z79.899 OTHER SKILLED NURSING (CURRENT) DRUG THERAPY 12/05/2016 MEI GOMEZ Ot Z85.118 PERSONAL HISTORY OF MALIGNANT NEOPLASM O 12/05/2016 MEI GOMEZ Ot Z85.528 PERSONAL HISTORY OF OTHER MALIGNANT NEOP 12/12/2016 MEEK SORIA MD, Ot C44.219 BASAL CELL CARCINOMA SKIN/ LEFT EAR AND 12/12/2016 MEEK SORIA MD, Ot E78.5 HYPERLIPIDEMIA, UNSPECIFIED 12/12/2016 MEEK SORIA MD Ot I10 ESSENTIAL (PRIMARY) HYPERTENSION 12/12/2016 MEEK SORIA MD, Ot I25.10 ATHSCL HEART DISEASE OF [place] CORONARY 12/12/2016 MEEK SORIA MD, Ot Z79.899 OTHER SKILLED NURSING (CURRENT) DRUG THERAPY 12/12/2016 MEEK SORIA MD, Ot Z85.528 PERSONAL HISTORY OF OTHER MALIGNANT NEOP 12/12/2016 MEEK SORIA MD, Ot Z95.5 PRESENCE OF CORONARY ANGIOPLASTY IMPLANT 12/27/2016 JASON MEI Short Ot D50.9 IRON DEFICIENCY ANEMIA, UNSPECIFIED 12/27/2016 JASON MEI Short Ot I12.9 HYPERTENSIVE CHRONIC KIDNEY DISEASE W ST 12/27/2016 JASONMEI Ot I25.10 ATHSCL HEART DISEASE OF [place] CORONARY 12/27/2016 JASON MEI Short Ot J43.9 EMPHYSEMA, UNSPECIFIED 12/27/2016 JASONMEI Ot L98.9 DISORDER OF THE SKIN AND SUBCUTANEOUS TI 12/27/2016 JASON MEI Short Ot N18.3 CHRONIC KIDNEY DISEASE, STAGE 3 (MODERAT 12/27/2016 MIE GOMEZ Ot Z08 ENCNTR FOR FOLLOW-UP EXAM AFTER TRTMT FO 12/27/2016 MEI GOMEZ N Ot Z79.899 OTHER SKILLED NURSING (CURRENT) DRUG THERAPY 12/27/2016 MEI GOMEZ N Ot Z85.118 PERSONAL HISTORY OF MALIGNANT NEOPLASM O 12/27/2016 MEI GOMEZ N Ot Z85.528 PERSONAL HISTORY OF OTHER MALIGNANT NEOP 12/31/2016 Ot 189.0 MALIG NEOPL KIDNEY 12/31/2016 Ot 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 12/31/2016 Ot 585.9 CHRONIC KIDNEY DISEASE, UNSPECIFIED 01/02/2017 JASONMEI Ot D50.9 IRON DEFICIENCY ANEMIA, UNSPECIFIED 01/02/2017 JASONMEI N Ot I12.9 HYPERTENSIVE CHRONIC KIDNEY DISEASE W ST 01/02/2017 JASONMEI Ot I25.10 ATHSCL HEART DISEASE OF [place] CORONARY 01/02/2017 JASONMEI Ot J43.9 EMPHYSEMA, UNSPECIFIED 01/02/2017 JASONMEI N Ot L98.9 DISORDER OF THE SKIN AND SUBCUTANEOUS TI 01/02/2017 JASONMEI N Ot N18.3 CHRONIC KIDNEY DISEASE, STAGE 3 (MODERAT 01/02/2017 MEI GOMEZ N Ot Z08 ENCNTR FOR FOLLOW-UP EXAM AFTER TRTMT FO 01/02/2017 MEI GOMEZ N Ot Z79.899 OTHER SKILLED NURSING (CURRENT) DRUG THERAPY 01/02/2017 MEI GOMEZ N Ot Z85.118 PERSONAL HISTORY OF MALIGNANT NEOPLASM O 01/02/2017 MEI GOMEZ N Ot Z85.528 PERSONAL HISTORY OF OTHER MALIGNANT NEOP 02/03/2017 MEI GOMEZ Deja Ot D50.9 IRON DEFICIENCY ANEMIA, UNSPECIFIED 02/03/2017 MEI GOMEZ Deja Ot I12.9 HYPERTENSIVE CHRONIC KIDNEY DISEASE W ST 02/03/2017 MEI GOMEZ Deja Ot I25.10 ATHSCL HEART DISEASE OF [place] CORONARY 02/03/2017 MEI GOMEZ Deja Ot J43.9 EMPHYSEMA, UNSPECIFIED 02/03/2017 MEI GOMEZ Deja Ot L98.9 DISORDER OF THE SKIN AND SUBCUTANEOUS TI 02/03/2017 MEI GOMEZ Deja Ot N18.3 CHRONIC KIDNEY DISEASE, STAGE 3 (MODERAT 02/03/2017 JASON JUANHUEY Deja Ot Z08 ENCNTR FOR FOLLOW-UP EXAM AFTER TRTMT FO 02/03/2017 MEI GOMEZ Deja Ot Z79.899 OTHER SKILLED NURSING (CURRENT) DRUG THERAPY 02/03/2017 MEI GOMEZ Deja Ot Z85.118 PERSONAL HISTORY OF MALIGNANT NEOPLASM O 02/03/2017 JASON, JUANHUEY Deja Ot Z85.528 PERSONAL HISTORY OF OTHER MALIGNANT NEOP 02/22/2017 FANTA BONILLA, ANDRA Sanchez Ot E78.00 PURE HYPERCHOLESTEROLEMIA, UNSPECIFIED 02/22/2017 FANTA BONILLA, ANDRA Sanchez Ot I10 ESSENTIAL (PRIMARY) HYPERTENSION 02/22/2017 FANTA BONILLA, ANDRA Sanchez Ot I25.10 ATHSCL HEART DISEASE OF [place] CORONARY 02/22/2017 FANTA BONILLA, ANDRA Sanchez Ot J44.9 CHRONIC OBSTRUCTIVE PULMONARY DISEASE, U 02/22/2017 FANTA BONILLA, ANDRA Sanchez Ot K21.9 GASTRO-ESOPHAGEAL REFLUX DISEASE WITHOUT 02/22/2017 FANTA BONILLA, ANDRA Sanchez Ot R10.84 GENERALIZED ABDOMINAL PAIN 02/22/2017 FANTA BONILLA, ANDRA Sanchez Ot Z85.528 PERSONAL HISTORY OF OTHER MALIGNANT NEOP 02/22/2017 FANTA BONILLA, ANDRA Sanchez Ot Z85.828 PERSONAL HISTORY OF OTHER MALIGNANT NEOP 02/22/2017 FANTA BONILLA, ANDRA Sanchez Ot Z86.73 PRSNL HX OF TIA (TIA), AND CEREB INFRC W 02/22/2017 FANTA BONILLA, ANDRA Sanchez Ot Z87.81 PERSONAL HISTORY OF (HEALED) TRAUMATIC F 02/22/2017 FANTA BONILLA, ANDRA Sanchez Ot Z87.891 PERSONAL HISTORY OF NICOTINE DEPENDENCE 02/22/2017 FANTA BONILLA, ANDRA Sanchez Ot Z90.49 ACQUIRED ABSENCE OF OTHER SPECIFIED PART 02/22/2017 FANTA BONILLA, ANDRA Sanchez Ot Z90.5 ACQUIRED ABSENCE OF KIDNEY 02/22/2017 FANTA BONILLA, ANDRA Sanchez Ot Z95.5 PRESENCE OF CORONARY ANGIOPLASTY IMPLANT 02/24/2017 FANTA BONILLA, ANDRA Sanchez Ot E78.00 PURE HYPERCHOLESTEROLEMIA, UNSPECIFIED 02/24/2017 FANTA BONILLA, ANDRA Sanchez Ot I10 ESSENTIAL (PRIMARY) HYPERTENSION 02/24/2017 FANTA BONILLA, ANDRA Sanchez Ot I25.10 ATHSCL HEART DISEASE OF [place] CORONARY 02/24/2017 ANDRA JEWELL MD Ot J44.9 CHRONIC OBSTRUCTIVE PULMONARY DISEASE, U 02/24/2017 ANDRA JEWELL MD Ot K21.9 GASTRO-ESOPHAGEAL REFLUX DISEASE WITHOUT 02/24/2017 ANDRA JEWELL MD Ot R10.84 GENERALIZED ABDOMINAL PAIN 02/24/2017 ANDRA JEWELL MD Ot Z85.528 PERSONAL HISTORY OF OTHER MALIGNANT NEOP 02/24/2017 ANDRA JEWELL MD Ot Z85.828 PERSONAL HISTORY OF OTHER MALIGNANT NEOP 02/24/2017 FANTA BONILLA, ANDRA Sanchez Ot Z86.73 PRSNL HX OF TIA (TIA), AND CEREB INFRC W 02/24/2017 ANDRA JEWELL MD Ot Z87.81 PERSONAL HISTORY OF (HEALED) TRAUMATIC F 02/24/2017 FANTA BONLILA, ANDRA Sanchez Ot Z87.891 PERSONAL HISTORY OF NICOTINE DEPENDENCE 02/24/2017 FANTA BONILLA, ANDRA Sanchez Ot Z90.49 ACQUIRED ABSENCE OF OTHER SPECIFIED PART 02/24/2017 FANTA BONILLA, ANDRA Sanchez Ot Z90.5 ACQUIRED ABSENCE OF KIDNEY 02/24/2017 FANTA BONILLA, ANDRA Sanchez Ot Z95.5 PRESENCE OF CORONARY ANGIOPLASTY IMPLANT 03/25/2017 ANDRA JEWELL MD Ot E78.00 PURE HYPERCHOLESTEROLEMIA, UNSPECIFIED 03/25/2017 ANDRA JEWELL MD Ot I10 ESSENTIAL (PRIMARY) HYPERTENSION 03/25/2017 ANDRA JEWELL MD Ot I25.10 ATHSCL HEART DISEASE OF [place] CORONARY 03/25/2017 ANDRA JEWELL MD Ot J44.9 CHRONIC OBSTRUCTIVE PULMONARY DISEASE, U 03/25/2017 ANDRA JEWELL MD Ot K21.9 GASTRO-ESOPHAGEAL REFLUX DISEASE WITHOUT 03/25/2017 ANDRA JEWELL MD Ot R10.84 GENERALIZED ABDOMINAL PAIN 03/25/2017 ANDRA JEWELL MD Ot Z85.528 PERSONAL HISTORY OF OTHER MALIGNANT NEOP 03/25/2017 ANDRA JEWELL MD Ot Z85.828 PERSONAL HISTORY OF OTHER MALIGNANT NEOP 03/25/2017 ANDRA JEWELL MD Ot Z86.73 PRSNL HX OF TIA (TIA), AND CEREB INFRC W 03/25/2017 ANDRA JEWELL MD Ot Z87.81 PERSONAL HISTORY OF (HEALED) TRAUMATIC F 03/25/2017 ANDRA JEWELL MD Ot Z87.891 PERSONAL HISTORY OF NICOTINE DEPENDENCE 03/25/2017 ANDRA JEWELL MD Ot Z90.49 ACQUIRED ABSENCE OF OTHER SPECIFIED PART 03/25/2017 ANDRA JEWELL MD Ot Z90.5 ACQUIRED ABSENCE OF KIDNEY 03/25/2017 ANDRA JEWELL MD Ot Z95.5 PRESENCE OF CORONARY ANGIOPLASTY IMPLANT 06/05/2017 MEI GOMEZ Ot D50.9 IRON DEFICIENCY ANEMIA, UNSPECIFIED 06/05/2017 MEI GOMEZ Ot E55.9 VITAMIN D DEFICIENCY, UNSPECIFIED 06/05/2017 MEI GOMEZ Ot I12.9 HYPERTENSIVE CHRONIC KIDNEY DISEASE W ST 06/05/2017 MEI GOMEZ Ot I25.10 ATHSCL HEART DISEASE OF [place] CORONARY 06/05/2017 MEI GOMEZ Ot J43.9 EMPHYSEMA, UNSPECIFIED 06/05/2017 MEI GOMEZ Ot L98.9 DISORDER OF THE SKIN AND SUBCUTANEOUS TI 06/05/2017 MEI GOMEZ Ot N18.3 CHRONIC KIDNEY DISEASE, STAGE 3 (MODERAT 06/05/2017 MEI GOMEZ Ot Z08 ENCNTR FOR FOLLOW-UP EXAM AFTER TRTMT FO 06/05/2017 MEI GOMEZ Ot Z79.899 OTHER W[employer]OW G[employer] HELPER (CURRENT) DRUG THERAPY 06/05/2017 MEI GOMEZ Ot Z85.118 PERSONAL HISTORY OF MALIGNANT NEOPLASM O 06/05/2017 MEI GOMEZ Ot Z85.528 PERSONAL HISTORY OF OTHER MALIGNANT NEOP 07/28/2017 JASON, BOBAN N Ot D50.9 IRON DEFICIENCY ANEMIA, UNSPECIFIED 07/28/2017 JASON MEI N Ot E55.9 VITAMIN D DEFICIENCY, UNSPECIFIED 07/28/2017 JASON MEI N Ot I12.9 HYPERTENSIVE CHRONIC KIDNEY DISEASE W ST 07/28/2017 JASON MEI N Ot I25.10 ATHSCL HEART DISEASE OF [place] CORONARY 07/28/2017 JASONMEI Ot J43.9 EMPHYSEMA, UNSPECIFIED 07/28/2017 JASON MEI Short Ot L98.9 DISORDER OF THE SKIN AND SUBCUTANEOUS TI 07/28/2017 JASON MEI N Ot N18.3 CHRONIC KIDNEY DISEASE, STAGE 3 (MODERAT 07/28/2017 MEI GOMEZ Ot Z08 ENCNTR FOR FOLLOW-UP EXAM AFTER TRTMT FO 07/28/2017 JASONMEI Ot Z79.899 OTHER SKILLED NURSING (CURRENT) DRUG THERAPY 07/28/2017 MEI GOMEZ N Ot Z85.118 PERSONAL HISTORY OF MALIGNANT NEOPLASM O 07/28/2017 MEI GOMEZ N Ot Z85.528 PERSONAL HISTORY OF OTHER MALIGNANT NEOP 09/01/2017 JASONMEI Ot D50.9 IRON DEFICIENCY ANEMIA, UNSPECIFIED 09/01/2017 JASONMEI Ot E55.9 VITAMIN D DEFICIENCY, UNSPECIFIED 09/01/2017 JASON, MEI Short Ot I12.9 HYPERTENSIVE CHRONIC KIDNEY DISEASE W ST 09/01/2017 JASON MEI Short Ot I25.10 ATHSCL HEART DISEASE OF [place] CORONARY 09/01/2017 JASONMEI Ot J43.9 EMPHYSEMA, UNSPECIFIED 09/01/2017 JASONMEI Ot L98.9 DISORDER OF THE SKIN AND SUBCUTANEOUS TI 09/01/2017 JASON MEI Short Ot N18.3 CHRONIC KIDNEY DISEASE, STAGE 3 (MODERAT 09/01/2017 MEI GOMEZ Ot Z08 ENCNTR FOR FOLLOW-UP EXAM AFTER TRTMT FO 09/01/2017 JASONMEI Ot Z79.899 OTHER WINDOW G[employer] HELPER (CURRENT) DRUG THERAPY 09/01/2017 MEI GOEMZ N Ot Z85.118 PERSONAL HISTORY OF MALIGNANT NEOPLASM O 09/01/2017 MEI GOMEZ N Ot Z85.528 PERSONAL HISTORY OF OTHER MALIGNANT NEOP 09/02/2017 MEI GOMEZ N Ot D50.9 IRON DEFICIENCY ANEMIA, UNSPECIFIED 09/02/2017 JASON MEI N Ot E55.9 VITAMIN D DEFICIENCY, UNSPECIFIED 09/02/2017 JASON MEI N Ot I12.9 HYPERTENSIVE CHRONIC KIDNEY DISEASE W ST 09/02/2017 JASON JUANHUEY N Ot I25.10 ATHSCL HEART DISEASE OF [place] CORONARY 09/02/2017 JASONMEI Ot J43.9 EMPHYSEMA, UNSPECIFIED 09/02/2017 JASON MEI N Ot L98.9 DISORDER OF THE SKIN AND SUBCUTANEOUS TI 09/02/2017 JASON, MEI N Ot N18.3 CHRONIC KIDNEY DISEASE, STAGE 3 (MODERAT 09/02/2017 JASONMEI N Ot Z08 ENCNTR FOR FOLLOW-UP EXAM AFTER TRTMT FO 09/02/2017 JASONMEI N Ot Z79.899 OTHER W[employer] G[employer] HELPER (CURRENT) DRUG THERAPY 09/02/2017 JASONMEI N Ot Z85.118 PERSONAL HISTORY OF MALIGNANT NEOPLASM O 09/02/2017 JASONMEI N Ot Z85.528 PERSONAL HISTORY OF OTHER MALIGNANT NEOP 12/30/2017 JASON JUANHUEY N Ot D50.9 IRON DEFICIENCY ANEMIA, UNSPECIFIED 12/30/2017 JASONMEI N Ot E55.9 VITAMIN D DEFICIENCY, UNSPECIFIED 12/30/2017 JASON, JUANHUEY N Ot I12.9 HYPERTENSIVE CHRONIC KIDNEY DISEASE W ST 12/30/2017 JASON JUANHUEY N Ot I25.10 ATHSCL HEART DISEASE OF [place] CORONARY 12/30/2017 JASONMEI N Ot J43.9 EMPHYSEMA, UNSPECIFIED 12/30/2017 JASON MEI N Ot L98.9 DISORDER OF THE SKIN AND SUBCUTANEOUS TI 12/30/2017 JASON MEI N Ot N18.3 CHRONIC KIDNEY DISEASE, STAGE 3 (MODERAT 12/30/2017 MEI GOMEZ N Ot Z08 ENCNTR FOR FOLLOW-UP EXAM AFTER TRTMT FO 12/30/2017 JASONMEI N Ot Z79.899 OTHER W[employer] G[employer] HELPER (CURRENT) DRUG THERAPY 12/30/2017 JASONJUANAN N Ot Z85.118 PERSONAL HISTORY OF MALIGNANT NEOPLASM O 12/30/2017 JASONMEI N Ot Z85.528 PERSONAL HISTORY OF OTHER MALIGNANT NEOP 01/20/2018 MEI GOMEZ N Ot D50.9 IRON DEFICIENCY ANEMIA, UNSPECIFIED 01/20/2018 JASON, JUANHUEY N Ot E55.9 VITAMIN D DEFICIENCY, UNSPECIFIED 01/20/2018 JASON JUANHUEY N Ot I12.9 HYPERTENSIVE CHRONIC KIDNEY DISEASE W ST 01/20/2018 JASON JUANHUEY N Ot I25.10 ATHSCL HEART DISEASE OF [place] CORONARY 01/20/2018 JASON MEI N Ot J43.9 EMPHYSEMA, UNSPECIFIED 01/20/2018 JASON, JUANHUEY N Ot L98.9 DISORDER OF THE SKIN AND SUBCUTANEOUS TI 01/20/2018 JASON, JUANHUEY N Ot N18.3 CHRONIC KIDNEY DISEASE, STAGE 3 (MODERAT 01/20/2018 JASONMEI N Ot Z08 ENCNTR FOR FOLLOW-UP EXAM AFTER TRTMT FO 01/20/2018 JASONJUANHUEY N Ot Z79.899 OTHER SKILLED NURSING (CURRENT) DRUG THERAPY 01/20/2018 JASONMEI N Ot Z85.118 PERSONAL HISTORY OF MALIGNANT NEOPLASM O 01/20/2018 JASONMEI N Ot Z85.528 PERSONAL HISTORY OF OTHER MALIGNANT NEOP 01/29/2018 JASON JUANHUEY N Ot D50.9 IRON DEFICIENCY ANEMIA, UNSPECIFIED 01/29/2018 JASON, JUANHUEY N Ot E55.9 VITAMIN D DEFICIENCY, UNSPECIFIED 01/29/2018 JASON JUANHUEY N Ot I12.9 HYPERTENSIVE CHRONIC KIDNEY DISEASE W ST 01/29/2018 JASON JUANHUEY N Ot I25.10 ATHSCL HEART DISEASE OF [place] CORONARY 01/29/2018 JASONMEI N Ot J43.9 EMPHYSEMA, UNSPECIFIED 01/29/2018 JASON, JUANHUEY N Ot L98.9 DISORDER OF THE SKIN AND SUBCUTANEOUS TI 01/29/2018 JASON MEI N Ot N18.3 CHRONIC KIDNEY DISEASE, STAGE 3 (MODERAT 01/29/2018 JASONMEI N Ot Z08 ENCNTR FOR FOLLOW-UP EXAM AFTER TRTMT FO 01/29/2018 JASONMEI N Ot Z79.899 OTHER SKILLED NURSING (CURRENT) DRUG THERAPY 01/29/2018 JASONMEI N Ot Z85.118 PERSONAL HISTORY OF MALIGNANT NEOPLASM O 01/29/2018 JASONMEI JAMES N Ot Z85.528 PERSONAL HISTORY OF OTHER MALIGNANT NEOP 03/21/2018 JASONMEI JAMES N Ot D50.9 IRON DEFICIENCY ANEMIA, UNSPECIFIED 03/21/2018 JASONMEI N Ot E55.9 VITAMIN D DEFICIENCY, UNSPECIFIED 03/21/2018 JASON BOBHUEY N Ot I12.9 HYPERTENSIVE CHRONIC KIDNEY DISEASE W ST 03/21/2018 JASON JUANHUEY N Ot I25.10 ATHSCL HEART DISEASE OF [place] CORONARY 03/21/2018 JASON BOBAN N Ot J43.9 EMPHYSEMA, UNSPECIFIED 03/21/2018 JASON, BOBAN N Ot L98.9 DISORDER OF THE SKIN AND SUBCUTANEOUS TI 03/21/2018 JASON, BOBAN N Ot N18.3 CHRONIC KIDNEY DISEASE, STAGE 3 (MODERAT 03/21/2018 JASON, BOBAN N Ot Z08 ENCNTR FOR FOLLOW-UP EXAM AFTER TRTMT FO 03/21/2018 JASONJUANHUEY N Ot Z79.899 OTHER W[employer] G[employer] HELPER (CURRENT) DRUG THERAPY 03/21/2018 JASON, BOBAN N Ot Z85.118 PERSONAL HISTORY OF MALIGNANT NEOPLASM O 03/21/2018 JASON BOBAN N Ot Z85.528 PERSONAL HISTORY OF OTHER MALIGNANT NEOP 03/21/2018 JASON, BOBHUEY N Ot D50.9 IRON DEFICIENCY ANEMIA, UNSPECIFIED 03/21/2018 JASON, BOBAN N Ot E55.9 VITAMIN D DEFICIENCY, UNSPECIFIED 03/21/2018 JASON JUANHUEY N Ot I12.9 HYPERTENSIVE CHRONIC KIDNEY DISEASE W ST 03/21/2018 JASON JUANHUEY N Ot I25.10 ATHSCL HEART DISEASE OF [place] CORONARY 03/21/2018 JASON BOBAN N Ot J43.9 EMPHYSEMA, UNSPECIFIED 03/21/2018 JASON, BOBAN N Ot L98.9 DISORDER OF THE SKIN AND SUBCUTANEOUS TI 03/21/2018 JASON, BOBAN N Ot N18.3 CHRONIC KIDNEY DISEASE, STAGE 3 (MODERAT 03/21/2018 JASON, BOBAN N Ot Z08 ENCNTR FOR FOLLOW-UP EXAM AFTER TRTMT FO 03/21/2018 JASON BOBAN N Ot Z79.899 OTHER SKILLED NURSING (CURRENT) DRUG THERAPY 03/21/2018 JASON, BOBAN N Ot Z85.118 PERSONAL HISTORY OF MALIGNANT NEOPLASM O 03/21/2018 MEI GOMEZ Deja Ot Z85.528 PERSONAL HISTORY OF OTHER MALIGNANT NEOP 03/23/2018 ANDRA HILL MD Ot E78.00 PURE HYPERCHOLESTEROLEMIA, UNSPECIFIED 03/23/2018 ANDRA HILL MD, Ot G62.9 POLYNEUROPATHY, UNSPECIFIED 03/23/2018 ANDRA HILL MD Ot I10 ESSENTIAL (PRIMARY) HYPERTENSION 03/23/2018 ANDRA HILL MD, Ot I25.10 ATHSCL HEART DISEASE OF [place] CORONARY 03/23/2018 ANDRA HILL MD, Ot K20.9 ESOPHAGITIS, UNSPECIFIED 03/23/2018 ANDRA HILL MD, Ot K21.9 GASTRO-ESOPHAGEAL REFLUX DISEASE WITHOUT 03/23/2018 ANDRA HILL MD, Ot K52.9 NONINFECTIVE GASTROENTERITIS AND COLITIS 03/23/2018 ANDRA HILL MD Ot L03.113 CELLULITIS OF RIGHT UPPER LIMB 03/23/2018 ANDRA HILL MD Ot R91.8 OTHER NONSPECIFIC ABNORMAL FINDING OF SMITHA 03/23/2018 ANDRA HILL MD Ot Z79.891 W[employer] HELPER (CURRENT) USE OF OPIATE ANALGE 03/23/2018 ANDRA HILL MD, Ot Z85.528 PERSONAL HISTORY OF OTHER MALIGNANT NEOP 03/23/2018 ANDRA HILL MD, Ot Z85.828 PERSONAL HISTORY OF OTHER MALIGNANT NEOP 03/23/2018 ANDRA IHLL MD, Ot Z87.19 PERSONAL HISTORY OF OTHER DISEASES OF TH 03/23/2018 ANDRA HILL MD Ot Z90.5 ACQUIRED ABSENCE OF KIDNEY 03/23/2018 ANDRA HILL MD Ot Z95.5 PRESENCE OF CORONARY ANGIOPLASTY IMPLANT 03/23/2018 ANDRA HILL MD Ot Z96.649 PRESENCE OF UNSPECIFIED ARTIFICIAL HIP J 06/04/2018 AMAYA ROONEY MD Ot E78.00 PURE HYPERCHOLESTEROLEMIA, UNSPECIFIED 06/04/2018 AMAYA ROONEY MD Ot E78.5 HYPERLIPIDEMIA, UNSPECIFIED 06/04/2018 AMAYA ROONEY MD Ot I10 ESSENTIAL (PRIMARY) HYPERTENSION 06/04/2018 AMAYA ROONEY MD Ot I25.10 ATHSCL HEART DISEASE OF [place] CORONARY 06/04/2018 AMAYA ROONEY MD Ot I65.23 OCCLUSION AND STENOSIS OF BILATERAL [place] 06/04/2018 AMAYA ROONEY MD Ot K21.9 GASTRO-ESOPHAGEAL REFLUX DISEASE WITHOUT 06/04/2018 AMAYA ROONEY MD Ot 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 06/04/2018 AMAYA ROONEY MD, Ot K58.9 IRRITABLE BOWEL SYNDROME WITHOUT DIARRHE 06/04/2018 AMAYA ROONEY MD Ot M25.552 PAIN IN LEFT HIP 06/04/2018 AMAYA ROONEY MD Ot R07.9 CHEST PAIN, UNSPECIFIED 06/04/2018 AMAYA ROONEY MD Ot R11.0 NAUSEA 06/04/2018 AMAYA ROONEY MD Ot R51 HEADACHE 06/04/2018 AMAYA ROONEY MD, Ot Z79.82 SKILLED NURSING (CURRENT) USE OF ASPIRIN 06/04/2018 AMAYA ROONEY MD, Ot Z79.899 OTHER W[employer] G[employer] HELPER (CURRENT) DRUG THERAPY 06/04/2018 AMAYA ROONEY MD, Ot Z85.528 PERSONAL HISTORY OF OTHER MALIGNANT NEOP 06/04/2018 AMAYA ROONEY MD Ot Z86.2 PRSNL HISTORY OF DIS OF THE BLD/BLD-FORM 06/04/2018 AMAYA ROONEY MD Ot Z86.73 PRSNL HX OF TIA (TIA), AND CEREB INFRC W 06/04/2018 AMAYA ROONEY MD Ot Z87.891 PERSONAL HISTORY OF NICOTINE DEPENDENCE 06/04/2018 AMAYA ROONEY MD Ot Z90.5 ACQUIRED ABSENCE OF KIDNEY 06/04/2018 AMAYA ROONEY MD Ot Z95.5 PRESENCE OF CORONARY ANGIOPLASTY IMPLANT 06/04/2018 AMAYA ROONEY MD Ot Z96.649 PRESENCE OF UNSPECIFIED ARTIFICIAL HIP J 06/10/2018 Ot C64.2 MALIGNANT NEOPLASM OF LEFT KIDNEY, EXCEP 06/10/2018 Ot 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 06/10/2018 Ot C64.2 MALIGNANT NEOPLASM OF LEFT KIDNEY, EXCEP 06/10/2018 Ot 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 06/10/2018 TAYLOR ESTRADA DO Ot M17.11 UNILATERAL PRIMARY OSTEOARTHRITIS, RIGHT 06/10/2018 TAYLOR ESTRADA DO Ot M79.661 PAIN IN RIGHT LOWER LEG 06/10/2018 TAYLOR ESTRADA DO Ot Z01.818 ENCOUNTER FOR OTHER PREPROCEDURAL EXAMIN 06/10/2018 TAYLOR ESTRADA DO Ot Z11.2 ENCOUNTER FOR SCREENING FOR OTHER BACTER Procedures Code Description Performed By Performed On 77.79 11/28/2014 81.37 11/28/2014 81.62 11/28/2014 84.51 11/28/2014 [id number] REPLACE L HIP JT W METAL ON POLY, UNCEME 09/16/2016 Results Test Result Range Complete blood count (CBC) with automated white blood cell (WBC) differential - 02/04/16 11:01 Blood leukocytes automated count (number/volume) 8.0 10*3/uL 4.3-11.0 Blood erythrocytes automated count (number/volume) 5.72 10*6/uL 4.35-5.85 Venous blood hemoglobin measurement (mass/volume) 17.3 [...] Automated blood platelet mean volume measurement 9.4 [foz_us] 7.4-10.4 Automated blood neutrophils/100 leukocytes 64 % [...] Serum or plasma sodium measurement (moles/volume) 141 mmol/L 135-145 Serum or plasma potassium measurement (moles/volume) 3.9 mmol/L 3.6-5.0 Serum or plasma chloride measurement (moles/volume) 107 mmol/L 98-107 Carbon dioxide 23 mmol/L 21-32 Serum or plasma anion gap determination (moles/volume) 11 mmol/L 5-14 Serum or plasma urea nitrogen measurement (mass/volume) 13 mg/dL 7-18 Serum or plasma creatinine measurement (mass/volume) 1.39 mg/dL 0.60-1.30 Serum or plasma urea nitrogen/creatinine mass [...] or plasma troponin i.cardiac measurement (mass/volume) < ng/ mL <0.30 Myoglobin, serum - 02/04/16 11:01 Myoglobin, [...] Urine pH measurement by test strip 6.5 5-9 Specific gravity of urine by test strip 1.010 1.016- 1.022 Urine protein assay by test strip, semi-quantitative [...] 11:05 Blood leukocytes automated count (number/volume) 8.1 10*3/uL 4.3-11.0 Blood erythrocytes automated count (number/volume) 5.72 10*6/uL 4.35-5.85 Venous blood hemoglobin measurement (mass/volume) 17.3 [...] Automated blood platelet mean volume measurement 9.5 [foz_us] 7.4-10.4 Automated blood neutrophils/100 leukocytes 49 % [...] Serum or plasma sodium measurement (moles/volume) 140 mmol/L 135-145 Serum or plasma potassium measurement (moles/volume) 3.4 mmol/L 3.6-5.0 Serum or plasma chloride measurement (moles/volume) 106 mmol/L 98-107 Carbon dioxide 21 mmol/L 21-32 Serum or plasma anion gap determination (moles/volume) 13 mmol/L 5-14 Serum or plasma urea nitrogen measurement (mass/volume) 15 mg/dL 7-18 Serum or plasma creatinine measurement (mass/volume) 1.53 mg/dL 0.60-1.30 Serum or plasma urea nitrogen/creatinine mass [...] or plasma troponin i.cardiac measurement (mass/volume) < ng/ mL <0.30 Serum or plasma troponin i.cardiac measurement (mass/volume) - 02/11/16 16:53 Serum or plasma troponin i.cardiac measurement (mass/volume) < ng/ mL <0.30 Complete urinalysis with reflex to culture - 02/11/16 18:55 Urine color determination YELLOW NRG Urine clarity determination CLEAR NRG Urine pH measurement by test strip 6 5-9 Specific gravity of urine by test strip 1.015 1.016- 1.022 Urine protein assay by test strip, semi-quantitative [...] 04:35 Blood leukocytes automated count (number/volume) 8.1 10*3/uL 4.3-11.0 Blood erythrocytes automated count (number/volume) 4.98 10*6/uL 4.35-5.85 Venous blood hemoglobin measurement (mass/volume) 15.2 [...] Automated blood platelet mean volume measurement 9.6 [foz_us] 7.4-10.4 Automated blood neutrophils/100 leukocytes 90 % [...] blood base excess by calculation -3.2 mmol/L - 2.5-2.5 Arterial blood oxygen saturation measurement 95 % 94-100 * Inhaled oxygen flow rate NC NRG Arterial blood pH measurement with patient temperature correction 7.42 7.37-7.43 Arterial blood carbon dioxide, total measurement (moles/volume) 21.5 mmol/L 21.0-31.0 Body site RT RAD NRG Assessment of wrist artery patency prior to arterial puncture YES- POS NRG Setting of ventilation mode NO NRG Measurement of body temperature 97.6 NRG Capillary blood glucose measurement by glucometer (mass/volume) - 02/12/16 16: 13 Capillary blood glucose measurement by glucometer (mass/volume) 142 mg/dL 70-110 Complete blood count (CBC) with automated white blood cell (WBC) differential - 02/13/16 04:30 Blood leukocytes automated count (number/volume) 16.5 10*3/uL 4.3-11.0 Blood erythrocytes automated count (number/volume) 4.74 10*6/uL 4.35-5.85 Venous blood hemoglobin measurement (mass/volume) 14.7 [...] Automated blood platelet mean volume measurement 9.6 [foz_us] 7.4-10.4 Automated blood neutrophils/100 leukocytes 81 % [...] Serum or plasma sodium measurement (moles/volume) 142 mmol/L 135-145 Serum or plasma potassium measurement (moles/volume) 4.1 mmol/L 3.6-5.0 Serum or plasma chloride measurement (moles/volume) 113 mmol/L 98-107 Carbon dioxide 21 mmol/L 21-32 Serum or plasma anion gap determination (moles/volume) 8 mmol/L 5-14 Serum or plasma urea nitrogen measurement (mass/volume) 19 mg/dL 7-18 Serum or plasma creatinine measurement (mass/volume) 1.23 mg/dL 0.60-1.30 Serum or plasma urea nitrogen/creatinine mass [...] 04:50 Blood leukocytes automated count (number/volume) 8.2 10*3/uL 4.3-11.0 Blood erythrocytes automated count (number/volume) 4.60 10*6/uL 4.35-5.85 Venous blood hemoglobin measurement (mass/volume) 14.2 [...] Automated blood platelet mean volume measurement 9.6 [foz_us] 7.4-10.4 Automated blood neutrophils/100 leukocytes 54 % [...] Serum or plasma sodium measurement (moles/volume) 142 mmol/L 135-145 Serum or plasma potassium measurement (moles/volume) 3.9 mmol/L 3.6-5.0 Serum or plasma chloride measurement (moles/volume) 111 mmol/L 98-107 Carbon dioxide 21 mmol/L 21-32 Serum or plasma anion gap determination (moles/volume) 10 mmol/L 5-14 Serum or plasma urea nitrogen measurement (mass/volume) 20 mg/dL 7-18 Serum or plasma creatinine measurement (mass/volume) 1.21 mg/dL 0.60-1.30 Serum or plasma urea nitrogen/creatinine mass [...] 12:20 Blood leukocytes automated count (number/volume) 6.5 10*3/uL 4.3-11.0 Blood erythrocytes automated count (number/volume) 5.51 10*6/uL 4.35-5.85 Venous blood hemoglobin measurement (mass/volume) 17.1 [...] Automated blood platelet mean volume measurement 9.7 [foz_us] 7.4-10.4 Automated blood neutrophils/100 leukocytes 62 % [...] Serum or plasma sodium measurement (moles/volume) 141 mmol/L 135-145 Serum or plasma potassium measurement (moles/volume) 4.0 mmol/L 3.6-5.0 Serum or plasma chloride measurement (moles/volume) 108 mmol/L 98-107 Carbon dioxide 25 mmol/L 21-32 Serum or plasma anion gap determination (moles/volume) 8 mmol/L 5-14 Serum or plasma urea nitrogen measurement (mass/volume) 17 mg/dL 7-18 Serum or plasma creatinine measurement (mass/volume) 1.31 mg/dL 0.60-1.30 Serum or plasma urea nitrogen/creatinine mass [...] Urine pH measurement by test strip 6 5-9 Specific gravity of urine by test strip 1.025 1.016- 1.022 Urine protein assay by test strip, semi-quantitative [...] ABO+Rh group OP NRG Transfusion band number [id number] NRG Blood group antibody screen NEGATIVE NRG Automated blood complete blood count (hemogram) panel - 09/17/16 06:25 Blood leukocytes automated count (number/volume) 12.4 10*3/uL 4.3-11.0 Blood erythrocytes automated count (number/volume) 3.92 10*6/uL 4.35-5.85 Venous blood hemoglobin measurement (mass/volume) 12.0 [...] Automated blood platelet mean volume measurement 9.6 [foz_us] 7.4-10.4 Whole blood basic metabolic panel - 09/17/16 06:25 Serum or plasma sodium measurement (moles/volume) 139 mmol/L 135-145 Serum or plasma potassium measurement (moles/volume) 3.7 mmol/L 3.6-5.0 Serum or plasma chloride measurement (moles/volume) 107 mmol/L 98-107 Carbon dioxide 25 mmol/L 21-32 Serum or plasma anion gap determination (moles/volume) 7 mmol/L 5-14 Serum or plasma urea nitrogen measurement (mass/volume) 13 mg/dL 7-18 Serum or plasma creatinine measurement (mass/volume) 1.24 mg/dL 0.60-1.30 Serum or plasma urea nitrogen/creatinine mass ratio 10 NRG Serum or plasma creatinine measurement with calculation of estimated glomerular filtration rate 58 NRG Serum or plasma glucose measurement (mass/volume) 104 mg/dL 70-105 Serum or plasma calcium measurement (mass/volume) 7.7 mg/dL 8.5-10.1 Automated blood complete blood count (hemogram) panel - 09/18/16 05:43 Blood leukocytes automated count (number/volume) 11.3 10*3/uL 4.3-11.0 Blood erythrocytes automated count (number/volume) 3.49 10*6/uL 4.35-5.85 Venous blood hemoglobin measurement (mass/volume) 10.7 [...] Automated blood platelet mean volume measurement 9.6 [foz_us] 7.4-10.4 Whole blood basic metabolic panel - 09/18/16 05:43 Serum or plasma sodium measurement (moles/volume) 136 mmol/L 135-145 Serum or plasma potassium measurement (moles/volume) 3.7 mmol/L 3.6-5.0 Serum or plasma chloride measurement (moles/volume) 104 mmol/L 98-107 Carbon dioxide 24 mmol/L 21-32 Serum or plasma anion gap determination (moles/volume) 8 mmol/L 5-14 Serum or plasma urea nitrogen measurement (mass/volume) 17 mg/dL 7-18 Serum or plasma creatinine measurement (mass/volume) 1.24 mg/dL 0.60-1.30 Serum or plasma urea nitrogen/creatinine mass [...] Urine pH measurement by test strip 6 5-9 Specific gravity of urine by test strip 1.010 1.016- 1.022 Urine protein assay by test strip, semi-quantitative [...] 09:42 Blood leukocytes automated count (number/volume) 8.4 10*3/uL 4.3-11.0 Blood erythrocytes automated count (number/volume) 3.74 10*6/uL 4.35-5.85 Venous blood hemoglobin measurement (mass/volume) 11.5 [...] Automated blood platelet mean volume measurement 9.6 [foz_us] 7.4-10.4 Automated blood neutrophils/100 leukocytes 70 % [...] Serum or plasma sodium measurement (moles/volume) 139 mmol/L 135-145 Serum or plasma potassium measurement (moles/volume) 4.1 mmol/L 3.6-5.0 Serum or plasma chloride measurement (moles/volume) 107 mmol/L 98-107 Carbon dioxide 20 mmol/L 21-32 Serum or plasma anion gap determination (moles/volume) 12 mmol/L 5-14 Serum or plasma urea nitrogen measurement (mass/volume) 15 mg/dL 7-18 Serum or plasma creatinine measurement (mass/volume) 1.09 mg/dL 0.60-1.30 Serum or plasma urea nitrogen/creatinine mass [...] plasma albumin measurement (mass/volume) 3.0 g/dL 3.2-4.5 Methicillin resistant Staphylococcus aureus (MRSA) screening culture - 06:40 Methicillin resistant Staphylococcus aureus (MRSA) screening culture NEG NRG Complete blood count (CBC) with automated white blood cell (WBC) differential - 02/22/17 17:20 Blood leukocytes automated count (number/volume) 7.2 10*3/uL 4.3-11.0 Blood erythrocytes automated count (number/volume) 5.00 10*6/uL 4.35-5.85 Venous blood hemoglobin measurement (mass/volume) 15.0 g/dL 13.3-17.7 Blood hematocrit (volume fraction) 44 % 40-54 Automated erythrocyte mean corpuscular volume 88 [foz_us] 80-99 Automated erythrocyte mean corpuscular hemoglobin (mass per erythrocyte) 30 pg 25-34 Automated erythrocyte mean corpuscular hemoglobin concentration measurement ( mass/volume) 34 g/dL 32-36 Automated erythrocyte distribution width ratio 14.5 % 10.0-14.5 Automated blood platelet count (count/volume) 206 10*3/uL 130-400 Automated blood platelet mean volume measurement 9.4 [foz_us] 7.4-10.4 Automated blood neutrophils/100 leukocytes 63 % 42-75 Automated blood lymphocytes/100 leukocytes 27 % 12-44 Blood monocytes/100 leukocytes 8 % 0-12 Automated blood eosinophils/100 leukocytes 2 % 0-10 Automated blood basophils/100 leukocytes 0 % 0-10 Blood neutrophils automated count (number/volume) 4.5 10*3 1.8-7.8 Blood lymphocytes automated count (number/volume) 2.0 10*3 1.0-4.0 Blood monocytes automated count (number/volume) 0.5 10*3 0.0-1.0 Automated eosinophil count 0.2 10*3/uL 0.0-0.3 Automated blood basophil count (count/volume) 0.0 10*3/uL 0.0-0.1 PT panel in platelet poor plasma by coagulation assay - 02/22/17 17:20 Prothrombin time (PT) in platelet poor plasma by coagulation assay 14.0 s 12.2-14.7 INR in platelet poor plasma or blood by coagulation assay 1.1 0.8-1.4 Activated partial thromboplastin time (aPTT) in platelet poor plasma bycoagulation assay - 02/22/17 17:20 Activated partial thromboplastin time (aPTT) in platelet poor plasma bycoagulation assay 28 s 24-35 Comprehensive metabolic panel - 02/22/17 17:20 Serum or plasma sodium measurement (moles/volume) 139 mmol/L 135-145 Serum or plasma potassium measurement (moles/volume) 4.0 mmol/L 3.6-5.0 Serum or plasma chloride measurement (moles/volume) 107 mmol/L 98-107 Carbon dioxide 21 mmol/L 21-32 Serum or plasma anion gap determination (moles/volume) 11 mmol/L 5-14 Serum or plasma urea nitrogen measurement (mass/volume) 14 mg/dL 7-18 Serum or plasma creatinine measurement (mass/volume) 1.22 mg/dL 0.60-1.30 Serum or plasma urea nitrogen/creatinine mass ratio 11 NRG Serum or plasma creatinine measurement with calculation of estimated glomerular filtration rate 59 NRG Serum or plasma glucose measurement (mass/volume) 98 mg/dL 70-105 Serum or plasma calcium measurement (mass/volume) 9.2 mg/dL 8.5-10.1 Serum or plasma total bilirubin measurement (mass/volume) 0.7 mg/dL 0.1-1.0 Serum or plasma alkaline phosphatase measurement (enzymatic activity/volume) 52 U/L 40-136 Serum or plasma aspartate aminotransferase measurement (enzymatic activity/ volume) 17 U/L 5-34 Serum or plasma alanine aminotransferase measurement (enzymatic activity/volume ) 14 U/L 0-55 Serum or plasma protein measurement (mass/volume) 6.4 g/dL 6.4-8.2 Serum or plasma albumin measurement (mass/volume) 3.7 g/dL 3.2-4.5 Magnesium - 02/22/17 17:20 Magnesium 1.8 mg/dL 1.8-2.4 Serum or plasma troponin i.cardiac measurement (mass/volume) - 02/22/17 17:20 Serum or plasma troponin i.cardiac measurement (mass/volume) < ng/ mL <0.30 Myoglobin, serum - 02/22/17 17:20 Myoglobin, serum 48.8 ng/mL 10.0-92.0 Complete blood count (CBC) with automated white blood cell (WBC) differential - 03/21/18 15:13 Blood leukocytes automated count (number/volume) 9.5 10*3/uL 4.3-11.0 Blood erythrocytes automated count (number/volume) 5.11 10*6/uL 4.35-5.85 Venous blood hemoglobin measurement (mass/volume) 15.9 g/dL 13.3-17.7 Blood hematocrit (volume fraction) 47 % 40-54 Automated erythrocyte mean corpuscular volume 92 [foz_us] 80-99 Automated erythrocyte mean corpuscular hemoglobin (mass per erythrocyte) 31 pg 25-34 Automated erythrocyte mean corpuscular hemoglobin concentration measurement ( mass/volume) 34 g/dL 32-36 Automated erythrocyte distribution width ratio 14.2 % 10.0-14.5 Automated blood platelet count (count/volume) 257 10*3/uL 130-400 Automated blood platelet mean volume measurement 9.0 [foz_us] 7.4-10.4 Automated blood neutrophils/100 leukocytes 71 % 42-75 Automated blood lymphocytes/100 leukocytes 21 % 12-44 Blood monocytes/100 leukocytes 6 % 0-12 Automated blood eosinophils/100 leukocytes 2 % 0-10 Automated blood basophils/100 leukocytes 0 % 0-10 Blood neutrophils automated count (number/volume) 6.7 10*3 1.8-7.8 Blood lymphocytes automated count (number/volume) 2.0 10*3 1.0-4.0 Blood monocytes automated count (number/volume) 0.6 10*3 0.0-1.0 Automated eosinophil count 0.2 10*3/uL 0.0-0.3 Automated blood basophil count (count/volume) 0.0 10*3/uL 0.0-0.1 Blood lactic acid measurement (moles/volume) - 03/21/18 15:13 Blood lactic acid measurement (moles/volume) 2.12 mmol/L 0.50-2.00 Comprehensive metabolic panel - 03/21/18 15:13 Serum or plasma sodium measurement (moles/volume) 138 mmol/L 135-145 Serum or plasma potassium measurement (moles/volume) 3.8 mmol/L 3.6-5.0 Serum or plasma chloride measurement (moles/volume) 103 mmol/L 98-107 Carbon dioxide 23 mmol/L 21-32 Serum or plasma anion gap determination (moles/volume) 12 mmol/L 5-14 Serum or plasma urea nitrogen measurement (mass/volume) 20 mg/dL 7-18 Serum or plasma creatinine measurement (mass/volume) 1.46 mg/dL 0.60-1.30 Serum or plasma urea nitrogen/creatinine mass ratio 14 NRG Serum or plasma creatinine measurement with calculation of estimated glomerular filtration rate 48 NRG Serum or plasma glucose measurement (mass/volume) 108 mg/dL 70-105 Serum or plasma calcium measurement (mass/volume) 9.7 mg/dL 8.5-10.1 Serum or plasma total bilirubin measurement (mass/volume) 0.5 mg/dL 0.1-1.0 Serum or plasma alkaline phosphatase measurement (enzymatic activity/volume) 49 U/L 40-136 Serum or plasma aspartate aminotransferase measurement (enzymatic activity/ volume) 15 U/L 5-34 Serum or plasma alanine aminotransferase measurement (enzymatic activity/volume ) 14 U/L 0-55 Serum or plasma protein measurement (mass/volume) 7.8 g/dL 6.4-8.2 Serum or plasma albumin measurement (mass/volume) 4.5 g/dL 3.2-4.5 CALCIUM CORRECTED 9.3 mg/dL 8.5-10.1 Serum or plasma C reactive protein measurement (mass/volume) - 03/21/18 15:13 Serum or plasma C reactive protein measurement (mass/volume) 1.56 mg /dL 0.00-0.50 Bacterial blood culture - 03/21/18 15:13 Bacterial blood culture NG NRG Bacterial blood culture - 03/21/18 15:35 Bacterial blood culture NG NRG Serum or plasma lactate measurement (moles/volume) - 03/21/18 17:10 Serum or plasma lactate measurement (moles/volume) 0.76 mmol/L 0.50-2.00 Complete blood count (CBC) with automated white blood cell (WBC) differential - 03/22/18 04:07 Blood leukocytes automated count (number/volume) 7.5 10*3/uL 4.3-11.0 Blood erythrocytes automated count (number/volume) 4.36 10*6/uL 4.35-5.85 Venous blood hemoglobin measurement (mass/volume) 13.4 g/dL 13.3-17.7 Blood hematocrit (volume fraction) 40 % 40-54 Automated erythrocyte mean corpuscular volume 91 [foz_us] 80-99 Automated erythrocyte mean corpuscular hemoglobin (mass per erythrocyte) 31 pg 25-34 Automated erythrocyte mean corpuscular hemoglobin concentration measurement ( mass/volume) 34 g/dL 32-36 Automated erythrocyte distribution width ratio 14.2 % 10.0-14.5 Automated blood platelet count (count/volume) 209 10*3/uL 130-400 Automated blood platelet mean volume measurement 9.1 [foz_us] 7.4-10.4 Automated blood neutrophils/100 leukocytes 59 % 42-75 Automated blood lymphocytes/100 leukocytes 28 % 12-44 Blood monocytes/100 leukocytes 9 % 0-12 Automated blood eosinophils/100 leukocytes 4 % 0-10 Automated blood basophils/100 leukocytes 0 % 0-10 Blood neutrophils automated count (number/volume) 4.4 10*3 1.8-7.8 Blood lymphocytes automated count (number/volume) 2.1 10*3 1.0-4.0 Blood monocytes automated count (number/volume) 0.7 10*3 0.0-1.0 Automated eosinophil count 0.3 10*3/uL 0.0-0.3 Automated blood basophil count (count/volume) 0.0 10*3/uL 0.0-0.1 Whole blood basic metabolic panel - 03/22/18 04:07 Serum or plasma sodium measurement (moles/volume) 139 mmol/L 135-145 Serum or plasma potassium measurement (moles/volume) 4.0 mmol/L 3.6-5.0 Serum or plasma chloride measurement (moles/volume) 110 mmol/L 98-107 Carbon dioxide 19 mmol/L -32 Serum or plasma anion gap determination (moles/volume) 10 mmol/L 5-14 Serum or plasma urea nitrogen measurement (mass/volume) 19 mg/dL 7-18 Serum or plasma creatinine measurement (mass/volume) 1.31 mg/dL 0.60-1.30 Serum or plasma urea nitrogen/creatinine mass ratio 15 NRG Serum or plasma creatinine measurement with calculation of estimated glomerular filtration rate 54 NRG Serum or plasma glucose measurement (mass/volume) 95 mg/dL 70-105 Serum or plasma calcium measurement (mass/volume) 8.7 mg/dL 8.5-10.1 PT panel in platelet poor plasma by coagulation assay - 05/30/18 19:40 Prothrombin time (PT) in platelet poor plasma by coagulation assay 13.7 s 12.2-14.7 INR in platelet poor plasma or blood by coagulation assay 1.1 0.8-1.4 Activated partial thromboplastin time (aPTT) in platelet poor plasma bycoagulation assay - 05/30/18 19:40 Activated partial thromboplastin time (aPTT) in platelet poor plasma bycoagulation assay 32 s 24-35 Comprehensive metabolic panel - 05/30/18 19:40 Serum or plasma sodium measurement (moles/volume) 135 mmol/L 135-145 Serum or plasma potassium measurement (moles/volume) 3.8 mmol/L 3.6-5.0 Serum or plasma chloride measurement (moles/volume) 102 mmol/L 98-107 Carbon dioxide 22 mmol/L -32 Serum or plasma anion gap determination (moles/volume) 11 mmol/L 5-14 Serum or plasma urea nitrogen measurement (mass/volume) 19 mg/dL 7-18 Serum or plasma creatinine measurement (mass/volume) 1.14 mg/dL 0.60-1.30 Serum or plasma urea nitrogen/creatinine mass ratio 17 NRG Serum or plasma creatinine measurement with calculation of estimated glomerular filtration rate > NRG Serum or plasma glucose measurement (mass/volume) 131 mg/dL 70-105 Serum or plasma calcium measurement (mass/volume) 9.2 mg/dL 8.5-10.1 Serum or plasma total bilirubin measurement (mass/volume) 0.6 mg/dL 0.1-1.0 Serum or plasma alkaline phosphatase measurement (enzymatic activity/volume) 54 U/L 40-136 Serum or plasma aspartate aminotransferase measurement (enzymatic activity/ volume) 21 U/L 5-34 Serum or plasma alanine aminotransferase measurement (enzymatic activity/volume ) 18 U/L 0-55 Serum or plasma protein measurement (mass/volume) 7.3 g/dL 6.4-8.2 Serum or plasma albumin measurement (mass/volume) 4.3 g/dL 3.2-4.5 CALCIUM CORRECTED 9.0 mg/dL 8.5-10.1 Magnesium - 05/30/18 19:40 Magnesium 2.2 mg/dL 1.8-2.4 Complete blood count (CBC) with automated white blood cell (WBC) differential - 05/30/18 19:40 Blood leukocytes automated count (number/volume) 10.8 10*3/uL 4.3-11.0 Blood erythrocytes automated count (number/volume) 5.19 10*6/uL 4.35-5.85 Venous blood hemoglobin measurement (mass/volume) 15.9 g/dL 13.3-17.7 Blood hematocrit (volume fraction) 47 % 40-54 Automated erythrocyte mean corpuscular volume 90 [foz_us] 80-99 Automated erythrocyte mean corpuscular hemoglobin (mass per erythrocyte) 31 pg 25-34 Automated erythrocyte mean corpuscular hemoglobin concentration measurement ( mass/volume) 34 g/dL 32-36 Automated erythrocyte distribution width ratio 13.9 % 10.0-14.5 Automated blood platelet count (count/volume) 213 10*3/uL 130-400 Automated blood platelet mean volume measurement 9.1 [foz_us] 7.4-10.4 Automated blood neutrophils/100 leukocytes 80 % 42-75 Automated blood lymphocytes/100 leukocytes 14 % 12-44 Blood monocytes/100 leukocytes 5 % 0-12 Automated blood eosinophils/100 leukocytes 0 % 0-10 Automated blood basophils/100 leukocytes 0 % 0-10 Blood neutrophils automated count (number/volume) 8.6 10*3 1.8-7.8 Blood lymphocytes automated count (number/volume) 1.6 10*3 1.0-4.0 Blood monocytes automated count (number/volume) 0.6 10*3 0.0-1.0 Automated eosinophil count 0.0 10*3/uL 0.0-0.3 Automated blood basophil count (count/volume) 0.0 10*3/uL 0.0-0.1 Serum or plasma troponin i.cardiac measurement (mass/volume) - 05/30/18 19:40 Serum or plasma troponin i.cardiac measurement (mass/volume) < ng/ mL <0.30 Serum or plasma lithium measurement (moles/volume) - 05/30/18 19:40 BNP level 27.8 pg/mL <100.0 Myoglobin, serum - 05/30/18 19:40 Myoglobin, serum 75.1 ng/mL 10.0-92.0 Whole blood basic metabolic panel - 05/31/18 01:55 Serum or plasma sodium measurement (moles/volume) 137 mmol/L 135-145 Serum or plasma potassium measurement (moles/volume) 3.4 mmol/L 3.6-5.0 Serum or plasma chloride measurement (moles/volume) 107 mmol/L 98-107 Carbon dioxide 18 mmol/L 21-32 Serum or plasma anion gap determination (moles/volume) 12 mmol/L 5-14 Serum or plasma urea nitrogen measurement (mass/volume) 16 mg/dL 7-18 Serum or plasma creatinine measurement (mass/volume) 1.07 mg/dL 0.60-1.30 Serum or plasma urea nitrogen/creatinine mass ratio 15 NRG Serum or plasma creatinine measurement with calculation of estimated glomerular filtration rate > NRG Serum or plasma glucose measurement (mass/volume) 141 mg/dL 70-105 Serum or plasma calcium measurement (mass/volume) 8.2 mg/dL 8.5-10.1 Serum or plasma troponin i.cardiac measurement (mass/volume) - 05/31/18 01:55 Serum or plasma troponin i.cardiac measurement (mass/volume) < ng/ mL <0.30 Complete blood count (CBC) with automated white blood cell (WBC) differential - 05/31/18 08:36 Blood leukocytes automated count (number/volume) 7.4 10*3/uL 4.3-11.0 Blood erythrocytes automated count (number/volume) 4.47 10*6/uL 4.35-5.85 Venous blood hemoglobin measurement (mass/volume) 13.6 g/dL 13.3-17.7 Blood hematocrit (volume fraction) 41 % 40-54 Automated erythrocyte mean corpuscular volume 92 [foz_us] 80-99 Automated erythrocyte mean corpuscular hemoglobin (mass per erythrocyte) 30 pg 25-34 Automated erythrocyte mean corpuscular hemoglobin concentration measurement ( mass/volume) 33 g/dL 32-36 Automated erythrocyte distribution width ratio 13.7 % 10.0-14.5 Automated blood platelet count (count/volume) 172 10*3/uL 130-400 Automated blood platelet mean volume measurement 9.2 [foz_us] 7.4-10.4 Automated blood neutrophils/100 leukocytes 55 % 42-75 Automated blood lymphocytes/100 leukocytes 34 % 12-44 Blood monocytes/100 leukocytes 7 % 0-12 Automated blood eosinophils/100 leukocytes 3 % 0-10 Automated blood basophils/100 leukocytes 0 % 0-10 Blood neutrophils automated count (number/volume) 4.1 10*3 1.8-7.8 Blood lymphocytes automated count (number/volume) 2.5 10*3 1.0-4.0 Blood monocytes automated count (number/volume) 0.5 10*3 0.0-1.0 Automated eosinophil count 0.2 10*3/uL 0.0-0.3 Automated blood basophil count (count/volume) 0.0 10*3/uL 0.0-0.1 Whole blood basic metabolic panel - 05/31/18 08:36 Serum or plasma sodium measurement (moles/volume) 141 mmol/L 135-145 Serum or plasma potassium measurement (moles/volume) 3.7 mmol/L 3.6-5.0 Serum or plasma chloride measurement (moles/volume) 110 mmol/L 98-107 Carbon dioxide 22 mmol/L 21-32 Serum or plasma anion gap determination (moles/volume) 9 mmol/L 5-14 Serum or plasma urea nitrogen measurement (mass/volume) 16 mg/dL 7-18 Serum or plasma creatinine measurement (mass/volume) 1.10 mg/dL 0.60-1.30 Serum or plasma urea nitrogen/creatinine mass ratio 15 NRG Serum or plasma creatinine measurement with calculation of estimated glomerular filtration rate > NRG Serum or plasma glucose measurement (mass/volume) 92 mg/dL 70-105 Serum or plasma calcium measurement (mass/volume) 8.3 mg/dL 8.5-10.1 Serum or plasma troponin i.cardiac measurement (mass/volume) - 05/31/18 08:36 Serum or plasma troponin i.cardiac measurement (mass/volume) < ng/ mL <0.30 Lipid 1996 panel - 05/31/18 08:36 Serum or plasma triglyceride measurement (mass/volume) 48 mg/dL <150 Serum or plasma cholesterol measurement (mass/volume) 109 mg/dL < 200 Serum or plasma cholesterol in HDL measurement (mass/volume) 46 mg/ dL 40-60 Cholesterol in LDL [mass/volume] in serum or plasma by direct assay 50 mg/dL 1-129 Serum or plasma cholesterol in VLDL measurement (mass/volume) 10 mg/ dL 5-40 Complete urinalysis with reflex to culture - 06/09/18 13:15 Urine color determination YELLOW NRG Urine clarity determination CLEAR NRG Urine pH measurement by test strip 6 5-9 Specific gravity of urine by test strip 1.010 1.016- 1.022 Urine protein assay by test strip, semi-quantitative [...] urine sediment by light microscopy NEGATIVE NRG Squamous epithelial cells detection in urine sediment by light microscopy RARE NRG Crystals detection in urine sediment by light microscopy NONE NRG Casts detection in urine sediment by light microscopy NONE NRG Mucus detection in urine sediment by light microscopy NEGATIVE NRG Complete urinalysis with reflex to culture NO NRG Methicillin resistant Staphylococcus aureus (MRSA) screening culture - 13:15 Methicillin resistant Staphylococcus aureus (MRSA) screening culture NEG NRG Encounters ACCT No. Visit Date/Time Discharge Status Pt. Type Provider Facility Loc./Unit Complaint [id number] 06/09/2018 13:47:00 06/09/2018 23:59:59 CLS Outpatient MEI GOMEZ [facility] [id number] 06/09/2018 12:41:00 06/09/2018 13:40:00 DIS Outpatient TAYLOR ESTRADA DO [facility] PREOP RIGHT TOTAL KNEE [id number] 05/30/2018 22:25:00 05/31/2018 11:07:00 DIS Inpatient AMAYA ROONEY MD [facility] 4TH HEART PAIN,SOB CP R/O ACS [id number] 03/21/2018 16:21:00 03/23/2018 15:50:00 DIS Inpatient LIZ BONILLA, ANDRA Abbott [facility] 4TH RT ARM CELLULITIS [id number] 12/09/2017 12:55:00 12/30/2017 00:01:00 DIS Outpatient MEI GOMEZ [facility] ONC [id number] 06/03/2017 12:32:00 09/01/2017 00:01:00 DIS Outpatient MEI GOMEZ [facility] ONC [id number] 02/22/2017 16:39:00 02/22/2017 20:23:00 DIS Emergency ANDRA JEWELL MD [facility] ER CP [id number] 11/05/2016 12:34:00 02/03/2017 00:01:00 DIS Outpatient MEI GOMEZ [facility] ONC [id number] 12/05/2016 09:59:00 12/05/2016 14:54:00 DIS Outpatient MEEK SORIA MD [facility] SDC LESION LEFT EAR [id number] 12/02/2016 05:31:00 12/02/2016 10:20:00 DIS Outpatient MEEK SORIA MD [facility] PREOP LESION LEFT EAR [id number] 09/18/2016 11:00:00 09/25/2016 17:17:00 DIS Inpatient KATHY STEWARD MD [facility] IRF LEFT HIP OA S/P LEFT THR [id number] 09/16/2016 06:00:00 09/18/2016 11:05:00 DIS Inpatient TAYLOR ESTRADA DO [facility] 4TH LEFT HIP POA [id number] 09/02/2016 11:31:00 09/02/2016 12:30:00 DIS Outpatient TAYLOR ESTRADA DO F [facility] PREOP LEFT HIP POA [id number] 07/08/2016 14:02:00 07/08/2016 00:01:00 DIS Outpatient MEI GOMEZ [facility] ONC [id number] 02/11/2016 12:28:00 02/14/2016 13:10:00 DIS Inpatient DAMARIS BONILLA, CHILO R [facility] 4TH MULTILOBAR LUNG INFILTRATE/SOB [id number] 02/04/2016 10:55:00 02/04/2016 14:00:00 DIS Emergency WINTER BONILLA, CAMERON Boggs [facility] ER CHEST PAIN, ABD PAIN, NAUSEA [id number] 01/17/2016 09:01:00 01/17/2016 12:45:00 DIS Outpatient MEEK SORIA MD [facility] SDC SCREENING,CIRO [id number] 01/11/2016 05:36:00 01/11/2016 11:02:00 DIS Outpatient MEEK SORIA MD [facility] PREOP SCREENING,CIRO [id number] 01/02/2016 12:34:00 01/02/2016 23:59:59 CLS Outpatient DILIA WHITE [facility] ONC [id number] 12/26/2015 13:07:00 12/26/2015 23:59:59 CLS Outpatient DILIA WHITE [employer] [facility] RAD PULMONARY NODULE, RENAL CELL CARCINOMA [id number] 12/05/2015 17:08:00 12/05/2015 19:23:00 DIS Emergency HARSH STEARNS APRN [facility] ER CHEST PAIN [id number] 08/28/2015 14:39:00 11/26/2015 00:01:00 DIS Outpatient MEI GOMEZ [facility] ONC [id number] 06/14/2015 14:31:00 06/14/2015 23:59:59 CLS Outpatient JESSI RIVERA DO [facility] RAD KNEE PAIN, BACK PAIN [id number] 04/25/2015 12:24:00 04/25/2015 23:59:59 CLS Outpatient WHITEDILIA Sanchez S [employer] [facility] ONC [id number] 03/22/2015 07:53:00 03/22/2015 23:59:59 CLS Outpatient CHANELLE SINGER MD [facility] CARD CAD,HTN,HLD [id number] 02/28/2015 13:06:00 03/01/2015 00:01:00 DIS Outpatient MEI GOMEZ [facility] ONC [id number] 02/21/2015 09:09:00 02/21/2015 23:59:59 CLS Outpatient DILIA WHITE S [employer] [facility] RAD RENAL CELL CARCINOMA W/LUNG METS [id number] 02/13/2015 10:44:00 02/13/2015 23:59:59 CLS Outpatient DILIA WHITE S [employer] [facility] RAD RENAL CELL CARCINOMA [id number] 01/31/2015 12:41:00 01/31/2015 23:59:59 CLS Outpatient DILIA WHITE S [employer] [facility] ONC [id number] 10/04/2014 12:49:00 01/02/2015 00:01:00 DIS Outpatient MEI GOMEZ [facility] ONC [id number] 11/29/2014 08:55:00 12/06/2014 09:40:00 DIS Inpatient JESSI RIVERA DO [facility] SURGICAL STENOSIS [id number] 11/16/2014 15:47:00 11/16/2014 23:59:59 CLS Outpatient JESSI RIVERA DO [facility] PREOP STENOSIS [id number] 10/17/2014 14:08:00 10/17/2014 17:10:00 DIS Emergency HARSH STEARNS APRN [facility] ER BACK PAIN [id number] 06/16/2014 12:41:00 09/14/2014 00:01:00 DIS Outpatient MEI GOMEZ [facility] ONC [id number] 06/07/2014 13:04:00 06/07/2014 23:59:59 CLS Outpatient DILIA WHITE [employer] [facility] RAD RENAL CELL CARCINOMA [id number] 03/08/2014 12:32:00 03/08/2014 23:59:59 CLS Outpatient DILIA WHITE [employer] [facility] ONC [id number] 10/04/2013 13:25:00 01/02/2014 00:01:00 DIS Outpatient MEI GOMEZ [facility] ONC [id number] 11/30/2013 12:58:00 11/30/2013 23:59:59 CLS Outpatient DILIA WHITE [employer] [facility] ONC [id number] 08/23/2013 13:06:00 09/06/2013 00:01:00 DIS Outpatient [id number] 06/08/2013 10:28:00 06/08/2013 23:59:59 CLS Outpatient [id number] 05/18/2013 12:22:00 05/18/2013 23:59:59 CLS Outpatient [id number] 02/23/2013 12:26:00 02/23/2013 23:59:59 CLS Outpatient [id number] 01/26/2013 05:59:00 01/26/2013 08:27:00 DIS Emergency [id number] 01/19/2013 14:04:00 01/19/2013 23:59:59 CLS Outpatient [id number] 12/17/2012 14:27:00 12/17/2012 23:59:59 CLS Outpatient [id number] 10/21/2012 15:13:00 12/16/2012 12:58:00 DIS Outpatient [id number] 10/13/2012 12:22:00 10/13/2012 23:59:59 CLS Outpatient [id number] 06/16/2018 05:58:00 ACT Inpatient TAYLOR ESTRADA DO [facility] SURG PRIMARY OA RIGHT KNEE [id number] 06/09/2018 15:03:00 Document Registration [id number] 03/20/2015 12:34:00 Document Registration [id number] 11/16/2014 16:08:00 Document Registration [id number] 11/16/2014 16:08:00 Document Registration [id number] 08/16/2013 09:53:00 Document Registration [id number] 02/24/2012 16:00:00 Document Registration
[2018-06-16] MEDS ORDERED: diphenhydrAMINE 50 MG/ML INJ (BENADRYL) IV PRN (08:00)
[2018-06-16] MEDS ORDERED: D5 1/2 NS 1000 ML IV SOLUTION 1,000 ML IV SCH ×2 (08:00→12:15)
[2018-06-16] MEDS ORDERED: BISACODYL 10 MG SUPP (DULCOLAX) PR PRN (08:00)
[2018-06-16] MEDS ORDERED: INTRA-ARTICULAR IU ONE ×4 (08:00)
[2018-06-16] MEDS ORDERED: ONDANSETRON 4 MG/2 ML (SDV) Z0FRAN ONE (08:24)
[2018-06-16] MEDS ORDERED: PROPOFOL INJECTION 50 ML IV ONE (08:24)
[2018-06-16] MEDS ORDERED: LIDOCAINE PF 2% 5 ML (XYLOCAINE) VIAL ONE (08:24)
[2018-06-16] MEDS ORDERED: TRANEXAMIC ACID 100 MG/ML 10 ML INJECTION IV ONE (08:25)
[2018-06-16] MEDS ORDERED: SEVOFLURANE (ULTANE) 15 ML INHAL SOLN ONE ×5 (08:44→09:51)
[2018-06-16] MEDS ORDERED: ASPIRIN E.C. 81 MG (ECOTRIN) TAB PO SCH (09:00)
--- NOTE | 2018-06-16 10:12 | Progress Note-Post Operative ---
Post-Operative Progess Note Surgeon (s)/Guest Services Representative (s) Surgeon TAYLOR ESTRADA DO Guest Services Representative: Duarte Bob MEDIA RELATIONS SPECIALIST-C Pre-Operative Diagnosis Primary Osteoarthritis Right Knee Post-Operative Diagnosis same Procedure & Operative Findings Date of Procedure 06/16/18 Procedure Performed/Findings Right Total Knee Arthroplasty Anesthesia Type General with femoral and IPACKS regional nerve block Estimated Blood Loss Estimated blood loss (mL): 150 ml Specimens/Packing Specimens Removed none TAYLOR ESTRADA DO Jun 16, 2018 10:12
[2018-06-16] MEDS ORDERED: morphine INJ 10 MG/ML 1ML (SYR OR VIAL) ONE (10:18)
[2018-06-16] MEDS ORDERED: SUCRALFATE 1 GM (CARAFATE) TAB PO PRN (10:30)
[2018-06-16] MEDS ORDERED: ONDANSETRON 4 MG/2 ML (SDV) Z0FRAN IVP PRN (10:30)
[2018-06-16] MEDS ORDERED: cloNIDine 0.1 MG (CATAPRES) TAB PO PRN (10:30)
[2018-06-16] MEDS ORDERED: morphine INJ 10 MG/ML 1ML (SYR OR VIAL) IVP ONE (10:30)
[2018-06-16] MEDS ORDERED: HYDROmorphone 2 MG/ML VIAL (DILAUDID) IV ONE (10:30)
[2018-06-16] MEDS ORDERED: PHENYLEPHRINE 100 MCG/ML 10 ML (ANESTHESIA) SYR ONE (10:34)
[2018-06-16 11:10] VITALS: BP 87/57
--- NOTE | 2018-06-16 11:10 | NUR ---
PT TO FLOOR FROM RECOVERY W/ ROTARY DRILLER PROSPECTING -- REPORT WAS GIVEN TO THE RN -- NOTE THAT ROTARY DRILLER PROSPECTING VOICED PT'S HAVING LOWER B/P SBP RUNNING IN HIGH 80S AND 90S
[2018-06-16 11:22] VITALS: BP 91/60
[2018-06-16] MEDS: ONDANSETRON 4 MG/2 ML (SDV) Z0FRAN IVP PRN (11:29)
[2018-06-16 11:45] VITALS: BP 86/58
[2018-06-16] MEDS: morphine INJ 10 MG/ML 1ML (SYR OR VIAL) IVP PRN (12:03)
[2018-06-16] MEDS ORDERED: NS IV 1000 ML 1,000 ML ONE (12:51)
[2018-06-16] MEDS: NS IV 1000 ML 1,000 ML IV SCH ×2 (13:05→21:00)
--- NOTE | 2018-06-16 14:38 | Consultation-Hospitalist ---
HPI History of Present Illness: HPI/Chief Complaint Pt is a 72CM with a PMH CAD s/p stenting, CVA, HTN, and nephrectomy who is admitted following elective TKA. I am consulted for medical management. His only concern during my interview is that he is very sleeping from that pain medicine. He denies much pain from his surgical site. He states his blood pressure is well controlled but he is very strict about taking his medications on schedule. Discussed with RN and he is having some mild hypotension since arrival to the floor from the PACU, otherwise no concerns. Patient also expresses concern about making sure to receive 60 ounce of fluid per day due to his nephrectomy. Source: patient, family Date Seen 06/16/18 Attending Physician Giacomo Fischer Floyd R MD Referring Physician Date of Admission Jun 16, 2018 at 05:58 Home Medications & Allergies Home Medications Reviewed patient Home Medication Reconciliation performed by pharmacy medication reconciliations chief ophthalmic technician and/or nursing. Patients Allergies have been reviewed. Allergies Allergies Coded Allergies amoxicillin (Verified Allergy, Severe, 03/21/18) clavulanic acid (Verified Allergy, Severe, 03/21/18) prochlorperazine (Verified Allergy, Mild, 09/08/12) Iodinated Contrast- Oral and IV Dye (Verified Allergy, Unknown, R/T KIDNEY FUNCTION, 06/15/18) Metronidazole HCl (Verified Allergy, Unknown, 11/16/14) NSAIDS (Non-Steroidal Anti-Inflamma (Verified Allergy, Unknown, R/T KIDNEY FUNCTION, 06/15/18) Pgiacsq-Sqx-Aie Reductase Inhibitor (Unverified Allergy, Unknown, R/T KIDNEY FUNCTION, 11/16/14) clopidogrel bisulfate (Verified Allergy, Unknown, 11/16/14) metronidazole (Verified Allergy, Unknown, 11/16/14) Past Dkmdoqx-Twduvs-Ocecub Hx Past Med/Social Hx: Reviewed Nursing Past Med/Soc Hx Patient Social History Marrital Status: Alcohol Use: Denies Use Recreational Drug Use: No Smoking Status: Former Smoker Former Smoker, Quit: Mar 21, 2010 Type Used: Cigarettes Physical Abuse Screen: No Sexual Abuse: No Recent Foreign Travel: No Contact w/other who traveled: No Recent Hopitalizations: No Recent Infectious Disease Expo: No Immunizations Up To Date Tetanus Booster (TDap): Unknown Date of Pneumonia Vaccine: Mar 11, 2016 Date of Influenza Vaccine: Mar 03, 2018 Seasonal Allergies Seasonal Allergies: Yes Past Medical History Surgeries: Appendectomy, Coronary Stent, Gallbladder, Orthopedic Currently Using CPAP: No Currently Using BIPAP: No Cardiac: Coronary Artery Disease, High Cholesterol, Hypertension Neurological: Stroke, TIA Reproductive: No Sexually Transmitted Disease: No HIV/AIDS: No Gastrointestinal: Gastroesophageal Reflux, Guadarrama's Esophagus, Diverticulosis , Chronic Diarrhea, Esophagitis, Irritable Bowel Musculoskeletal: Arthritis, Foot Drop, Chronic Back Pain, Fractures Cancer: Skin, Kidney What Type of Treatment Did You: Surgical Intervention History of Blood Disorders: No Adverse Reaction to Blood Degroot: No (HAS HAD BLOOD WITH NO REACTION) Family History Reviewed Nursing Family Hx No Family History of: AIDS Alzheimer's disease Cardiovascular disease Colon cancer Completed stroke Diabetes mellitus Drug abuse Hypertension Kidney disease Myocardial infarction Parkinson's disease Prostate cancer Psychosocial problem Respiratory disorder Seizure disorder Thyroid disease Tuberculosis Visual disorder No Pertinent Family Hx Review of Systems Constitutional: no symptoms reported Musculoskeletal: joint pain All Other Systems Reviewed Negative Unless Noted: Yes (Negative excepted noted.) Physical Exam Physical Exam Vital Signs Vital Signs - First Documented 06/16/18 06/16/18 06/16/18 06:15 11:15 11:43 Temp 97.9 Pulse 75 Resp 18 B/P (MAP) 93/73 (80) Pulse Ox 94 O2 Delivery Room Air O2 Flow Rate 2.00 FiO2 28 Capillary Refill : Height, Weight, BMI Height: 5'10.00" Weight: 220lbs. 0.0oz. 99.211461vb; 31.6 BMI Method:Stated General Appearance: No Apparent Distress, WD/WN HEENT: PERRL/EOMI, Moist Mucous Membranes Neck: Non Tender, Supple Respiratory: Lungs Clear, No Respiratory Distress Cardiovascular: Regular Rate, Rhythm, No Murmur Gastrointestinal: Normal Bowel Sounds, Non Tender, Soft Extremity: Normal Capillary Refill, No Calf Tenderness Neurologic/Psychiatric: Alert, Oriented x3, Normal Mood/Affect Skin: Normal Color, Warm/Dry Results Results/Procedures Labs Patient resulted labs reviewed. Assessment/Plan Assessment and Plan Assess & Plan/Chief Complaint s/p TKA Diagnosis/Problems Diagnosis/Problems (1) Primary osteoarthritis of right knee Assessment & Plan: s/p TKA Management per primary (2) CAD (coronary artery disease) Assessment & Plan: CAD s/p stenting Continue home meds No chest pain Qualifiers: Coronary Disease-Associated Artery/Lesion type: [place] artery [place] vs. transplanted heart: [place] heart Associated angina: without angina Qualified Codes: I25.10 - Atherosclerotic heart disease of [place] coronary artery without angina pectoris (3) Essential (primary) hypertension Assessment & Plan: Mildly hypotensive Hold home BP meds (4) History of renal cell carcinoma Status: Acute Assessment & Plan: s/p nephrectomy roughly 10 years ago Continue IVF Monitor creatinine GISSEL MURILLO MD Jun 16, 2018 14:38
--- NOTE | 2018-06-16 14:53 | Diagnostic Imaging Report ---
EXAMINATION: Right knee in OR at 10:52 a.m. INDICATION: Postop total knee. FINDINGS: AP and lateral views were obtained from the OR. There are no prior studies available for comparison. There is a total knee prosthesis in place. The prosthetic components appear to be in good position. There is also gas along the anterior aspect of the knee joint and there are skin stevie evident as well. There is no fracture or acute abnormality noted. In addition, there does appear to be a roughly 3 cm bony excrescence along the posterolateral aspect of the distal femur. The lateral view also shows that there is a 1.2 x 2.4 cm faintly calcified density along the posterior aspect of the proximal tibia and fibula. This finding is not as densely calcified as the density along the posterior aspect of the distal femur. This could be bony in nature. It would be less likely that this is related to a calcified aneurysm of the popliteal artery. Even so, it may prove worthwhile to obtain an ultrasound exam of the popliteal fossa for further study. If previous exams are available, they would be helpful for comparison as well. IMPRESSION: 1. Stable postoperative right knee. 2. There are calcific densities along the posterior aspect of the distal femur and proximal tibia. These are probably due to degenerative bony disease, but the density along the posterior aspect of the proximal tibia and fibula could be vascular in nature. Recommendations as above. Dictated by: Dictated on workstation # [id number]
[2018-06-16] MEDS ORDERED: DICYCLOMINE 10 MG (BENTYL) CAP PO PRN (15:00)
[2018-06-16] MEDS ORDERED: NON-FORMULARY MEDICATION 1 EA EA (Dicyclomine HCl 20 MG) PO PRN (15:00)
--- NOTE | 2018-06-16 15:05 | OPERATIVE REPORT ---
DATE OF SERVICE: 06/16/2018 PREOPERATIVE DIAGNOSIS: Primary osteoarthritis, right knee. POSTOPERATIVE DIAGNOSIS: Primary osteoarthritis, right knee. PROCEDURE: Right total knee arthroplasty. SURGEON: Taylor Estrada DO OYSTERMAN: AL[place] Rose SURGICAL RESEARCH ADVISOR DUTIES: Duarte Bob, web press operator assistant, was utilized throughout the entire procedure for patient positioning, soft tissue retraction, placement of total knee implants, wound closure, dressing application and the patient transfer. ANESTHESIA: General with femoral and IPACKS nerve block. ESTIMATED BLOOD LOSS: 150 mL. COMPLICATIONS: None. INDICATIONS AND FINDINGS: The patient is a 72-year-old male seen with chief complaint of progressive right knee pain nonresponsive to conservative treatment. The patient had a significant varus deformity of the right knee and lacked 15 degrees of full extension of his right knee with approximately 100 degrees of knee flexion. The patient was taken to surgery where total knee arthroplasty was performed on the right utilizing the [employer] total knee system with a press fit 72.5 mm femoral component, a cemented 79 mm fixed I-beam tibial component, a 10 mm anterior stabilized tibial bearing implant with a 34 mm 3-pronged all polyethylene cemented thin patellar component. [place]acos bone cement with gentamicin was used. PROCEDURE IN DETAIL: The patient was seen by anesthesia preoperatively and under ultrasound guidance, a femoral and IPACKS nerve block was performed on the right to decrease postop pain and decrease the amount of medication required during the surgical procedure. The patient was transported to the operating room where general inhalation anesthetic was administered. A well-padded pneumatic tourniquet was placed about the upper aspect of the right thigh. A ChloraPrep and sterile drape of the right lower extremity was performed. The right leg was elevated, exsanguinated and the tourniquet was inflated to 300 mmHg pressure. An anterior longitudinal midline incision was made over the anterior surface of the knee. The incision was deepened through a medial parapatellar incision. The patella was subluxed laterally. Osteophytes from the distal femur were removed with a bone rongeur. A nuisance animal damage control agent hole was then drilled in the distal femur. An intramedullary tae was inserted using a 5-degree valgus cutting angle a distal femoral cutting guide was assembled and distal femoral osteotomy was completed through the proximal cutting slot. The distal femur was sized to a 72.5 mm femoral component, a 4-way cutting block was assembled, anterior, posterior and chamfer cuts of the distal femur were made. The tibia was subluxed anteriorly. Remnants of the anterior cruciate ligament as well as the medial and lateral menisci were excised. A nuisance animal damage control agent hole was then drilled in the proximal tibia. An intramedullary tae was inserted, measuring off the exposed bone over the proximal medial tibia. A proximal tibial cutting guide was assembled and a proximal tibial osteotomy was completed. Additional osteophyte formation was removed from the proximal medial tibia. Additional subperiosteal dissection was performed and the knee could be fully extended with a 10 mm gap sizer. Osteophytes were removed with a rongeur from the rim of the patella. The posterior aspect of the patella was resected through a cutting guide and drilled through the drill guide. Provisional components and knee was cycled through a range of motion. Rotation of the tibial component was noted and marked on the proximal tibia. The proximal tibia was then broached to accept the I-beam stem portion of the tibial implant. The bony surfaces were irrigated extensively with normal saline solution. Palacos bone cement was then mixed. The cement was then pressurized in the proximal tibia and the tibial component was cemented in place. The femoral component was press fit in place. The knee was taken into full extension with a provisional tibial bearing implant. The patellar component was cemented into place and held with a clamp. Excess of cement was removed and the cement was allowed to set. The tourniquet was released during this time and hemostasis was obtained with electrocautery. The knee was reexamined and was found to be stable and with a 10 mm spacer in full flexion, midrange flexion. The provisional tibial bearing implant was removed and anterior stabilized tibial bearing implant was then inserted and locked anteriorly with a locking bar. The knee was placed in 90 degrees of flexion. The medial retinaculum was closed with multiple interrupted [id number] sutures of #1 Vicryl reinforced with a running suture of #1 Stratafix. The subcutaneous tissues were closed in layers with 0 and 2-0 Vicryl suture. The skin was closed with stainless steel stevie and Adaptic Neosporin bulky dressing was placed about the right knee. The patient was awakened and was transported to postop recovery with anesthesia personnel present in satisfactory condition. Job ID: [id number] DocumentID: [id number] Dictated Date: 06/16/2018 10:27:20 Public Health Veterinarian Date: 06/16/2018 15:04:51 Dictated By: TAYLOR ESTRADA DO
--- NOTE | 2018-06-16 16:15 | NUR ---
PT HAS NOT BEEN ABLE TO VOID -- BRADLY DURBINNNED PT AND HE HAD 387ML IN -- THIS RN ENCOURAGED PT TO DRINK FLUIDS AND TO TRY AND URINATE -- PT VOICED HE WOULD
[2018-06-16 16:20] VITALS: BP 99/59
[2018-06-16] MEDS: CLINDAMYCIN 900 MG/50 ML IVPB 50 ML IV SCH (16:34)
[2018-06-16] MEDS ORDERED: AST PO SCH (17:00)
[2018-06-16] MEDS ORDERED: NON-FORMULARY MEDICATION 1 EA EA (Cholecalciferol (Vitamin D3) (Vitamin D) 5,000 UNIT) PO SCH (17:00)
[2018-06-16] MEDS ORDERED: DHA PO SCH (17:00)
[2018-06-16] MEDS ORDERED: EPA PO SCH (17:00)
[2018-06-16] MEDS ORDERED: KRILL PO SCH (17:00)
[2018-06-16] MEDS ORDERED: NON-FORMULARY MEDICATION 1 EA EA (Amlodipine Besylate 5 MG) PO SCH (17:00)
[2018-06-16] MEDS ORDERED: [UNRECOGNIZED DRUG - OTHER] PO SCH (17:00)
[2018-06-16] MEDS ORDERED: NON-FORMULARY MEDICATION 1 EA EA (Fenofibrate Nanocrystallized (Fenofibrate) 145 MG) PO SCH (17:00)
[2018-06-16] MEDS ORDERED: amLODIPine 5 MG (NORVASC) TAB PO SCH (17:00)
[2018-06-16] MEDS ORDERED: PHOSPHO PO SCH (17:00)
[2018-06-16] MEDS: FENOFIBRATE 134 MG (LOFIBRA) CAPSULE PO SCH (18:02)
[2018-06-16] MEDS: VITAMIN D3 5,000 UNITS (CHOLECALCIFEROL ) CAPSULE PO SCH (18:02)
[2018-06-16] MEDS: ALPRAZolam 1 MG (XANAX) TAB PO PRN (18:02)
[2018-06-16] MEDS ORDERED: LIDOCAINE UROJET 2% GEL 10 ML PKG ONE (18:06)
[2018-06-16] MEDS ORDERED: LIDOCAINE UROJET 2% GEL 10 ML PKG TOP ONE (18:15)
[2018-06-16 20:50] VITALS: BP 109/70
[2018-06-16] MEDS: HYDROcodone/APAP 10 MG/325 MG (LORTAB) TAB PO PRN (20:56)
[2018-06-16] MEDS: SUCRALFATE 1 GM (CARAFATE) TAB PO SCH (20:57)
[2018-06-16] MEDS: MIRTAZAPINE 15 MG (REMERON) TAB PO SCH (20:57)
[2018-06-16] MEDS: ALPRAZolam 1 MG (XANAX) TAB PO SCH (20:57)
[2018-06-16] MEDS: FINASTERIDE (PROSCAR) 5 MG TAB PO SCH (20:57)
[2018-06-16] MEDS ORDERED: NON-FORMULARY MEDICATION 1 EA EA (Mirtazapine 15 MG) PO SCH (21:00)
[2018-06-17 00:06] VITALS: BP 116/59
[2018-06-17] MEDS: CLINDAMYCIN 900 MG/50 ML IVPB 50 ML IV SCH ×2 (00:13→08:34)
[2018-06-17 04:08] VITALS: BP 128/67
[2018-06-17 05:47] LABS: HEMOGLOBIN 12.5 G/DL (13.3-17.7); RED BLOOD COUNT 4.03 10^6/uL (4.35-5.85); RED CELL DISTRIBUTION WIDTH 13.9 % (10.0-14.5); WHITE BLOOD COUNT 12.6 10^3/uL (4.3-11.0)
[2018-06-17] MEDS: NS IV 1000 ML 1,000 ML IV SCH ×2 (05:51→12:55)
[2018-06-17 06:05] LABS: CALCIUM 7.9 MG/DL (8.5-10.1); CREATININE SERUM 1.21 MG/DL (0.60-1.30); POTASSIUM 4.3 MMOL/L (3.6-5.0)
[2018-06-17] MEDS: ALPRAZolam 1 MG (XANAX) TAB PO SCH ×2 (06:15→20:06)
[2018-06-17] MEDS: PANTOPRAZOLE 40 MG (PROTONIX) TAB PO SCH (06:15)
--- NOTE | 2018-06-17 07:53 | Progress Note (SOAP) ---
Subjective Date Seen by a Provider: Jun 17, 2018 Time Seen by a Provider: 07:49 Subjective/Events-last exam Currently no complaints, doing well and states pain is controlled. happy so far with results of replacement. Objective Exam Vital Signs Date Time Temp Pulse Resp B/P (MAP) Pulse Ox O2 Delivery O2 Flow Rate FiO2 06/17/18 04:08 97.9 70 18 128/67 (87) 98 Nasal Cannula 2.00 06/17/18 01:24 Nasal Cannula 2.50 06/17/18 00:06 97.8 77 18 116/59 (78) 97 Nasal Cannula 2.00 06/16/18 21:18 93 Nasal Cannula 2.00 06/16/18 20:50 97.2 85 16 109/70 (83) 100 Nasal Cannula 2.00 06/16/18 18:56 93 Nasal Cannula 2.00 06/16/18 16:50 92 2.00 28 06/16/18 16:20 96.2 72 12 99/59 (72) 96 Nasal Cannula 06/16/18 12:35 97.9 06/16/18 11:45 97.9 71 18 86/58 (67) 99 Room Air 06/16/18 11:43 92 2.00 28 06/16/18 11:22 97.9 79 18 91/60 (70) 97 Room Air 06/16/18 11:15 92 Nasal Cannula 2.00 06/16/18 11:10 97.9 87 18 87/57 (67) 98 Room Air I & O 06/17/18 07:00 Intake Total 6530 ml Output Total 1050 ml Balance 5480 ml Capillary Refill : General Appearance: No Apparent Distress Extremity: Normal Capillary Refill, Normal Inspection, No Calf Tenderness, No Pedal Edema Neurologic/Psychiatric: Alert, Oriented x3, No Motor/Sensory Deficits, Normal Mood/Affect Skin: Normal Color, Warm/Dry (dressing right knee CDI) Results Lab Laboratory Tests 06/17/18 05:23: White Blood Count 12.6H, Red Blood Count 4.03L, Hemoglobin 12.5L, Hematocrit 38L , Mean Corpuscular Volume 93, Mean Corpuscular Hemoglobin 31, Mean Corpuscular Hemoglobin Concent 33, Red Cell Distribution Width 13.9, Platelet Count 204, Mean Platelet Volume 9.0, Sodium Level 139, Potassium Level 4.3, Chloride Level 108H, Carbon Dioxide Level 21, Anion Gap 10, Blood Urea Nitrogen 24H, Creatinine 1.21, Estimat Glomerular Filtration Rate 59, BUN/Creatinine Ratio 20 , Glucose Level 114H, Calcium Level 7.9L Assessment/Plan Assessment/Plan Assess & Plan/Chief Complaint A: s/p right TKA urinary retention (post op) chronic renal insufficiency P: Continue current treatment. start therapy today and CPM. DC catheter and start bladder training. Hopefully, plan to DC tomorrow with HHC therapy to start friday. Clinical Quality Measures DVT/VTE Risk/Contraindication: Risk Factor Score Per Nursin RFS Level Per Nursing on Admit: 4+=Very High OSITO CONCEPCION TIE MILL OPERATOR Jun 17, 2018 07:53
[2018-06-17 08:00] VITALS: BP 115/57
[2018-06-17] MEDS: SENNA W/DOCUSATE (SENOKOT S) TABLET PO SCH ×2 (08:33→20:06)
[2018-06-17] MEDS: ASPIRIN 81 MG CHEW (CHILDREN'S ASA) PO SCH (08:34)
[2018-06-17] MEDS: ENOXAPARIN 40 MG/0.4 ML (LOVENOX) SYR SC SCH (08:34)
--- NOTE | 2018-06-17 09:39 | Physical Therapy Evaluation ---
PT Evaluation-General Medical Diagnosis Admission Date Jun 16, 2018 at 05:58 Medical Diagnosis: right TKA Onset Date: Jun 16, 2018 Therapy Diagnosis Therapy Diagnosis: impaired mobility, strength, endurance, ROM Height/Weight Height (Feet): 5 Height (Inches): 10.00 Weight (Pounds): 220 Weight (Ounces): 0.0 Precautions Precautions/Isolations: Fall Prevention, Standard Precautions Weight Bear Status Right Lower Extremity: Right Full Weight Bearing Left Lower Extremity: Left Full Weight Bearing Referral Physician: Duarte Bob APRN Reason for Referral: Evaluation/Treatment Medical History Pertinent Medical History: CAD, GERD, HTN, Neuropathy, OA Additional Medical History Past Medical History Surgeries: Appendectomy, Coronary Stent, Gallbladder, Orthopedic Currently Using CPAP: No Currently Using BIPAP: No Cardiac: Coronary Artery Disease, High Cholesterol, Hypertension Neurological: Stroke, TIA Reproductive: No Sexually Transmitted Disease: No HIV/AIDS: No Gastrointestinal: Gastroesophageal Reflux, Guadarrama's Esophagus, Diverticulosis , Chronic Diarrhea, Esophagitis, Irritable Bowel Musculoskeletal: Arthritis, Foot Drop, Chronic Back Pain, Fractures Cancer: Skin, Kidney Reviewed History: Yes Social History Home: Single Level Current Living Status: Spouse Entry Into Home: Stairs With Railing (patient states he actually has grab bars) PT Steps Into Home: 2 Prior/Core FIM Prior Level of Function Therapy Code Descriptions/Definitions Functional [place] Measure: 0=Not Assessed/NA 4=Minimal Assistance 1=Total Assistance 5=Supervision or Setup 2=Maximal Assistance 6=Modified [place] 3=Moderate Assistance 7=Complete [place] Therapy Quality Codes: 6 Independent with activity with or without an assistive device 5 Patient requires set up or clean up by helper. Patient completes activity by themselves 4 Supervision or touching assist (CGA). [place] provide cues , steadying assist 3 The helper provides less than half the effort to complete the activity 2 The helper provides more than half the effort to complete the activity 1 Dependent. The helper does all the effort to complete an activity 7 Patient refused to complete or attempt activity 9 The patient did not perform the activity before the current illness or injury 88 Not attempted due to Medical conditions or safety concerns Functional Abilities and Goals: Independent: Patient completed the activities by him/herself, with or without an assistive device, with no assistance from a helper. Needed Some Help: Patient needed partial assistance from another person to complete activities. Dependent: A helper completed the activities for the patient. Unknown: Not Applicable: Bed Mobility: 6 Transfers (B,C,W/C) (FIM): 6 Gait: 6 Stairs: 6 Indoor Mobility (Ambulation): Independent Stairs: Independent Patient states he used a single point cane previously PT Evaluation-Current Subjective Patient in bed pre tx, agrees to PT, has 2/10 pain in right knee. Patient states that his right foot drop is from previous back issues and that it has gotten a lot better. Pt/Family Goals to be independent at home Objective Patient Orientation: Person, Place, Situation Attachments: Oxygen, Wisdom Catheter, IV ROM/Strength ROM Lower Extremities right knee flexion 90 degrees, extension +5 degrees Strength Lower Extremities NT Neuromuscular (Tone, Coordination, Reflexes) NT Sensory Vision: Functional Hearing: Functional Sensation Right Lower Extremit: Impaired Sensation Left Lower Extremity: Intact Sensation Lower Extremities Patient has some numbness on his right anterior leg he states from his back issues. Transfers Therapy Code Descriptions/Definitions Functional [place] Measure: 0=Not Assessed/NA 4=Minimal Assistance 1=Total Assistance 5=Supervision or Setup 2=Maximal Assistance 6=Modified [place] 3=Moderate Assistance 7=Complete [place] Transfers (B, C, W/C) (FIM): 4 Scootin Rollin Supine to/from Sit: 5 Sit to/from Stand: 4 bed t/f WC(FIM only if WC use): 4 Patient states that he feels weak after sitting at the edge of the bed but no nausea or light headedness. Gait Mode of Locomotion: Walk Anticipated Mode of Locomotion: Walk Gait (FIM): 2 Distance: 100' Gait Level of Assist: 4 Gait Persons Needed: 1 Gait Assistive Device: FWW Comments/Gait Description Patient had some right knee buckling at the beginning of ambulation but it quickly stopped and he was able to bear weight after a few steps. Patient has antalgic ambulation with right knee flexed. Balance Sitting Static: Normal Sitting Dynamic: Normal Standing Static: Good Standing Dynamic: Good Treatment Right TKA protocol x10 (AP, QS, HS, SAQ, SLR), CPM was donned and fit to patient 's leg and set to 70/-2. Assessment/Needs Patient has impaired mobility, strength, endurance, ROM post TKA. Patient in bed post tx with nurse call, phone, tray, O2 on, CPM donned, polar care on, all needs met. Rehab Potential: Fair PT Short Term Goals Short Term Goals Time Frame: Jun 24, 2018 Transfers (B,C,W/C) (FIM): 5 Gait (FIM): 5 Gait Distance Comment: 150' Gait Level of Assist: 5 Gait Assistive Device: FWW PT Plan Problem List Problem List: Activity Tolerance, Functional Strength, Safety, Balance, Gait, Transfer, Bed Mobility, ROM Treatment/Plan Treatment Plan: Continue Plan of Care Treatment Plan: Bed Mobility, Education, Functional Activity Vaishali, Functional Strength, Gait, Safety, Therapeutic Exercise, Transfers Treatment Duration: Jun 24, 2018 Frequency: 11 times per week Estimated Hrs Per Day: .25 hour per day (15-30') Patient and/or Family Agrees t: Yes Safety Risks/Education Patient Education: Gait Training, Transfer Techniques, Correct Positioning, Safety Issues Teaching Recipient: Patient Teaching Methods: Demonstration, Discussion Response to Teaching: Reinforcement Needed Discharge Recommendations Plan Patient will perform bed mobility and transfer training, balance and endurance training, functional strengthening, stair training, gait training, and education , to improve functional mobility and independence at home. Therapy D/C Recommendations: Home w/ Family Support Time/GCodes Time In: 0900 Time Out: 929 Total Billed Treatment Time: 30 Total Billed Treatment 1 visit CAMRYN 15' GT 15' LYNETTE FONTANEZ PT Jun 17, 2018 09:39
--- NOTE | 2018-06-17 10:13 | NUR ---
CM/SS, respond to consult, right knee replacement. Interviewed patient, he plans home with his spouse at discharge, tentatively planned for tomorrow. HHC: Coordinated with patient preferred agency, [facility] ([facility]). Admission Coordinator Anjelica has confirmed receipt and that services will be provided. DME: Patient has history of hip replacement and has a FWW for home use. [employer] was consulted directly by surgeon staff and home CPM was delivered today to patient. Patient's spouse is employed in [employer] and works [phone]. She will be at home with him to assist, patient identifies no other needs at this time.
[2018-06-17 12:00] VITALS: BP 115/57
[2018-06-17] MEDS: HYDROcodone/APAP 10 MG/325 MG (LORTAB) TAB PO PRN ×2 (12:55→20:06)
[2018-06-17] MEDS: ALPRAZolam 1 MG (XANAX) TAB PO PRN (12:56)
[2018-06-17] MEDS ORDERED: diphenhydrAMINE 25 MG TAB (BENADRYL) PO PRN (13:15)
--- NOTE | 2018-06-17 13:31 | Physical Therapy Daily Note ---
PT Daily Note-Current Subjective Pt was upright in bed and agreed to PT. Reports that he just took a pain med and xanax due to his neck and back hurting. He also reports that had the nurse remove the CPM. Pain Numeric Pain Scale: 5-Moderate Pain Location: Right Location Body Site: Knee Mental Status Patient Orientation: Person, Place, Situation, Normal For Age Attachments: Wisdom Catheter, IV Transfers Therapy Code Descriptions/Definitions Functional Price Measure: 0=Not Assessed/NA 4=Minimal Assistance 1=Total Assistance 5=Supervision or Setup 2=Maximal Assistance 6=Modified Price 3=Moderate Assistance 7=Complete Price Therapy Quality Codes: 6 Independent with activity with or without an assistive device 5 Patient requires set up or clean up by helper. Patient completes activity by themselves 4 Supervision or touching assist (CGA). [place] provide cues , steadying assist 3 The helper provides less than half the effort to complete the activity 2 The helper provides more than half the effort to complete the activity 1 Dependent. The helper does all the effort to complete an activity 7 Patient refused to complete or attempt activity 9 The patient did not perform the activity before the current illness or injury 88 Not attempted due to Medical conditions or safety concerns Transfers (B, C, W/C) (FIM): 6 Scootin Rollin Supine to/from Sit: 6 Sit to/from Stand: 5 Weight Bearing Right Lower Extremity: Right Full Weight Bearing Left Lower Extremity: Left Full Weight Bearing Gait Training Gait (FIM): 4 Distance (FIM): 3=150 ft Distance: 300' Gait Level of Assist: 4 Gait Persons Needed: 1 Gait Assistive Device: FWW Pt is able to make more of a heel strike during amb than he was this morning. Pt reports that he is able to put equal wt through LE. Exercises Supine Ex: Ankle pumps, Quad Set, Heel Slides, Short Arc Quads, Straight leg raise Supine Reps: 10 Treatments bed mobility and transfers, ambulation, functional strengthening Assessment Current Status: Good Progress Pt was able to perform supine LE ex with little cues for correction. Pt performs bed mobility mod indep. and was able to sit<>stand SBA. Pt amb with FWW and CGA for 300'. Pt attempted to amb backward without warning to PT and had LOB with self correction. Pt returned to bed with nurse call, phone, and all needs met. PT Short Term Goals Short Term Goals Time Frame: Jun 24, 2018 Transfers (B,C,W/C) (FIM): 5 Gait (FIM): 5 Gait Distance Comment: 150' Gait Level of Assist: 5 Gait Assistive Device: FWW PT Plan Problem List Problem List: Activity Tolerance, Functional Strength, Safety, Balance, Gait, Transfer, Bed Mobility, ROM Treatment/Plan Treatment Plan: Continue Plan of Care Treatment Plan: Bed Mobility, Education, Functional Activity Vaishali, Functional Strength, Gait, Safety, Therapeutic Exercise, Transfers Treatment Duration: Jun 24, 2018 Frequency: 11 times per week Estimated Hrs Per Day: .25 hour per day (15-30') Patient and/or Family Agrees t: Yes Safety Risks/Education Patient Education: Gait Training, Transfer Techniques, Correct Positioning, Safety Issues Teaching Recipient: Patient Teaching Methods: Demonstration, Discussion Response to Teaching: Reinforcement Needed Time/GCodes Time In: 1309 Time Out: 1325 Total Billed Treatment Time: 16 Total Billed Treatment 1 visit GT 16 min LYNETTE FONTANEZ PT Jun 17, 2018 13:31
--- NOTE | 2018-06-17 14:03 | Anesthesia-General Post-Op ---
General Patient Condition Mental Status/LOC: Same as Preop Cardiovascular: Satisfactory Nausea/Vomiting: Absent Respiratory: Satisfactory Pain: Controlled Complications: Absent Post Op Complications Complications None Follow Up Care/Instructions Patient Instructions None needed. Anesthesia/Patient Condition Patient Condition Patient is doing well, no complaints, stable vital signs, no apparent adverse anesthesia problems. Peripheral nerve block has "essentially worn off" per patient and he is happy with his pain control. Will be available if needed. GUADALUPE RAMIREZ DO Jun 17, 2018 14:03
--- NOTE | 2018-06-17 14:29 | NUR ---
Pt is L[employer]-Day and will notify agriculture scientist if he desires spiritual care.
--- NOTE | 2018-06-17 14:43 | Occupational Therapy Eval ---
OT Evaluation-General/PLF Medical Diagnosis Admission Date Jun 16, 2018 at 05:58 Medical Diagnosis: right TKA Onset Date: Jun 16, 2018 Therapy Diagnosis Therapy Diagnosis: debility Height/Weight Height (Feet): 5 Height (Inches): 10.00 Weight (Pounds): 220 Weight (Ounces): 0.0 Precautions Precautions/Isolations: Fall Prevention, Standard Precautions Safety Interventions: None Referral Physician: Duarte Bob APRN Medical History Pertinent Medical History: CAD, GERD, HTN, Neuropathy, OA Additional Medical History CVA, high cholesterol, poe's esophagus, diverticulosis, irritable bowel, esophagitis, arthritis, footdrop, chronic back pain, nephrectomy Current History pt s/p right TKA Reviewed History: Yes Social History Home: Single Level Current Living Status: Spouse Entry Into Home: Stairs With Railing (patient states he actually has grab bars) Steps Into Home: 2 ADL-Prior Level of Function Therapy Code Descriptions/Definitions Functional [place] Measure: 0=Not Assessed/NA 4=Minimal Assistance 1=Total Assistance 5=Supervision or Setup 2=Maximal Assistance 6=Modified [place] 3=Moderate Assistance 7=Complete [place] Therapy Quality Codes: 6 Independent with activity with or without an assistive device 5 Patient requires set up or clean up by helper. Patient completes activity by themselves 4 Supervision or touching assist (CGA). [place] provide cues , steadying assist 3 The helper provides less than half the effort to complete the activity 2 The helper provides more than half the effort to complete the activity 1 Dependent. The helper does all the effort to complete an activity 7 Patient refused to complete or attempt activity 9 The patient did not perform the activity before the current illness or injury 88 Not attempted due to Medical conditions or safety concerns Functional Abilities and Goals: Independent: Patient completed the activities by him/herself, with or without an assistive device, with no assistance from a helper. Needed Some Help: Patient needed partial assistance from another person to complete activities. Dependent: A helper completed the activities for the patient. Unknown: Not Applicable: ADL PLOF Comments Pt reports being independent with self care and mobility Self Care: Independent Functional Cognition: Independent DME/Equipment: Grab Bars, Reachers, Sock Aid, Tub/Shower OT Current Status Subjective Pt in bed, states he is having very little pain. Mental Status/Objective Patient Orientation: Person, Place, Situation Attachments: Wisdom Catheter, IV Current Upper Extremity ROM Grossly WFL Upper Extremity Coordination Intact ADL-Treatment ADL-Current Pt in bed, declined OOB activity at this time. Pt states he was able to don shorts without assist this morning. Pt states he had a NNAMDI and is familiar with adaptive equipment for LE dressing and has the adaptive equipment at home. Also has a FWW. Pt reports spouse will home with him initially and will be able to assist as needed. In depth discussion regarding ADL completion, home safety and adaptive equipment use. Pt states understanding of education and has no questions or concerns. Declined to practice ADLs at this time. Pt states he does not feel he needs any further OT intervention. States he will be going home tomorrow with spouse. Pt in bed with needs met after session. Therapy Code Descriptions/Definitions Functional [place] Measure: 0=Not Assessed/NA 4=Minimal Assistance 1=Total Assistance 5=Supervision or Setup 2=Maximal Assistance 6=Modified [place] 3=Moderate Assistance 7=Complete [place] Therapy Quality Codes: 6 Independent with activity with or without an assistive device 5 Patient requires set up or clean up by helper. Patient completes activity by themselves 4 Supervision or touching assist (CGA). [place] provide cues , steadying assist 3 The helper provides less than half the effort to complete the activity 2 The helper provides more than half the effort to complete the activity 1 Dependent. The helper does all the effort to complete an activity 7 Patient refused to complete or attempt activity 9 The patient did not perform the activity before the current illness or injury 88 Not attempted due to Medical conditions or safety concerns Education OT Patient Education: Modified ADL techniques, Rehab process Teaching Recipient: Patient Teaching Methods: Discussion Response to Teaching: Verbalize Understanding OT Education/Plan Problem List/Assessment Assessment: No Skilled OT Needs ID'd Pt declined further OT intervention at this time. Pt states he had a NNAMDI and is familiar with adaptive equipment, ADL technique and safety. Pt reports having the needed adaptive equipment. Has no questions or concerns at this time. Pt will be discharging home with support from spouse. D/C OT at this time. Discharge Recommendations Plan/Recommendations: Discontinue OT Treatment Plan/Plan of Care Treatment,Training & Education: No Treatment Duration: Jun 17, 2018 Frequency: 1 time per week (one time-evaluation only) Estimated Hrs Per Day: Other (evaluation only) Rehab Potential: Good Time/GCodes Start Time: 11:16 Stop Time: 11:34 Total Time Billed (hr/min): 18 Billed Treatment Time 1 visit, EVL(18minutes) YENI BERGERON OT Jun 17, 2018 14:43
[2018-06-17 16:00] VITALS: BP 98/56
[2018-06-17] MEDS: VITAMIN D3 5,000 UNITS (CHOLECALCIFEROL ) CAPSULE PO SCH (16:22)
[2018-06-17] MEDS: FENOFIBRATE 134 MG (LOFIBRA) CAPSULE PO SCH (16:22)
[2018-06-17] MEDS: FINASTERIDE (PROSCAR) 5 MG TAB PO SCH (20:05)
[2018-06-17] MEDS: SUCRALFATE 1 GM (CARAFATE) TAB PO SCH (20:06)
[2018-06-17] MEDS: MIRTAZAPINE 15 MG (REMERON) TAB PO SCH (20:06)
[2018-06-17 20:22] VITALS: BP 92/57
[2018-06-17] MEDS: morphine INJ 10 MG/ML 1ML (SYR OR VIAL) IVP PRN (22:52)
[2018-06-18] MEDS: NS IV 1000 ML 1,000 ML IV SCH ×3 (00:03→17:44)
[2018-06-18 00:11] VITALS: BP 120/57
[2018-06-18] MEDS: HYDROcodone/APAP 10 MG/325 MG (LORTAB) TAB PO PRN ×3 (02:12→17:48)
[2018-06-18] MEDS: ONDANSETRON 4 MG/2 ML (SDV) Z0FRAN IVP PRN (03:52)
[2018-06-18 04:08] VITALS: BP 116/59
[2018-06-18 04:38] LABS: HEMOGLOBIN 11.9 G/DL (13.3-17.7); MEAN PLATELET VOLUME 9.4 FL (7.4-10.4); RED BLOOD COUNT 3.9 10^6/uL (4.35-5.85); RED CELL DISTRIBUTION WIDTH 13.8 % (10.0-14.5); WHITE BLOOD COUNT 9.6 10^3/uL (4.3-11.0)
[2018-06-18 04:59] LABS: BUN/CREATININE RATIO 18; CALCIUM 8.1 MG/DL (8.5-10.1); CARBON DIOXIDE 22 MMOL/L (21-32); CHLORIDE 111 MMOL/L (98-107); CREATININE SERUM 1.12 MG/DL (0.60-1.30); GFR ESTIMATED > 60; GLUCOSE 108 MG/DL (70-105); SODIUM 139 MMOL/L (135-145)
[2018-06-18] MEDS: PANTOPRAZOLE 40 MG (PROTONIX) TAB PO SCH (06:21)
[2018-06-18] MEDS ORDERED: MAGNESIUM CITRATE 300 ML BTL PO STA (07:00)
[2018-06-18] MEDS ORDERED: BISACODYL 10 MG SUPP (DULCOLAX) PR ONE (07:00)
[2018-06-18] MEDS ORDERED: METOCLOPRAMIDE INJ 10 MG/2 ML (REGLAN) IVP ONE (07:00)
--- NOTE | 2018-06-18 07:00 | Progress Note (SOAP) ---
Subjective Date Seen by a Provider: Jun 18, 2018 Time Seen by a Provider: 06:58 Subjective/Events-last exam pod 2 s/p right TKA. No complaints. Had fever last night but improved this morning. Has not yet had BM. Hoping for discharge today Objective Exam Vital Signs Date Time Temp Pulse Resp B/P (MAP) Pulse Ox O2 Delivery O2 Flow Rate FiO2 06/18/18 04:08 100.1 98 20 116/59 (78) 93 Room Air 06/18/18 00:11 99.8 83 18 120/57 (78) 95 Room Air 06/17/18 20:22 101.8 105 18 92/57 (69) 97 Room Air 06/17/18 20:06 101.4 06/17/18 20:00 Room Air 06/17/18 16:00 99.5 83 19 98/56 (70) 96 Room Air 06/17/18 12:00 98.7 80 18 115/57 (76) 98 Room Air 06/17/18 08:30 99 Nasal Cannula 2.00 06/17/18 08:00 99.0 71 18 115/57 (76) 99 Room Air I & O 06/18/18 07:00 Intake Total 3150 ml Output Total 3065 ml Balance 85 ml Capillary Refill : General Appearance: No Apparent Distress Extremity: Normal Capillary Refill, Normal Inspection, No Calf Tenderness, No Pedal Edema (dressing right knee CDI) Neurologic/Psychiatric: Alert, Oriented x3, No Motor/Sensory Deficits, Normal Mood/Affect Skin: Normal Color, Cool Results Lab Laboratory Tests 06/18/18 04:05: White Blood Count 9.6, Red Blood Count 3.90L, Hemoglobin 11.9L, Hematocrit 36L, Mean Corpuscular Volume 92, Mean Corpuscular Hemoglobin 31, Mean Corpuscular Hemoglobin Concent 33, Red Cell Distribution Width 13.8, Platelet Count 164, Mean Platelet Volume 9.4, Sodium Level 139, Potassium Level 4.0, Chloride Level 111H, Carbon Dioxide Level 22, Anion Gap 6, Blood Urea Nitrogen 20H, Creatinine 1.12, Estimat Glomerular Filtration Rate > 60, BUN/Creatinine Ratio 18, Glucose Level 108H, Calcium Level 8.1L Assessment/Plan Assessment/Plan Assess & Plan/Chief Complaint A: s/p right TKA urinary retention (post op) chronic renal insufficiency P: see orders. If he improves and fever does not return then he can be discharged to home with home healthcare this afternoon. Would like to see bowel movement if possible before discharge. Clinical Quality Measures DVT/VTE Risk/Contraindication: Risk Factor Score Per Nursin RFS Level Per Nursing on Admit: 4+=Very High OSITO CONCEPCION APRN Jun 18, 2018 07:00
--- NOTE | 2018-06-18 07:07 | D/C HH Face to Face Order ---
D/C Face to Face Orders Instructions for Patient Via [facility], Patient Instructions/FollowUp: f/u [address] Fischer's TKA DC instructions Physician to follow Patient: Dr. Fischer Discharge Diet for Home: Regular Diet Patient Problems: Right knee primary OA right TKA Goals for Patient: improve ambulation and increase knee ROM with hoahaoism of ADL Patient Data-Allergies,Ht & Wt Patient Allergies: Coded Allergies: amoxicillin (Verified Allergy, Severe, 03/21/18) clavulanic acid (Verified Allergy, Severe, 03/21/18) prochlorperazine (Verified Allergy, Mild, 09/08/12) Iodinated Contrast- Oral and IV Dye (Verified Allergy, Unknown, R/T KIDNEY FUNCTION, 06/15/18) Metronidazole HCl (Verified Allergy, Unknown, 11/16/14) NSAIDS (Non-Steroidal Anti-Inflamma (Verified Allergy, Unknown, R/T KIDNEY FUNCTION, 06/15/18) Fuvtoek-Dca-Amm Reductase Inhibitor (Unverified Allergy, Unknown, R/T KIDNEY FUNCTION, 11/16/14) clopidogrel bisulfate (Verified Allergy, Unknown, 11/16/14) metronidazole (Verified Allergy, Unknown, 11/16/14) Height (Feet): 5 Height (Inches): 10.00 Weight (Pounds): 220 Weight (Ounces): 0.0 Home Health Need/Face to Face Date of Face to Face: Jun 18, 2018 Clinical Findings: Muscle weakness, Pain with ambulation, Unsteady gait I have seen Pt [id number]: Yes Discharged To: Home Diagnosis/Conditions: Right knee primary OA right TKA Patient is Homebound due to: Reggie fall risk due to instabilty, Pain w/ ambulation Homebound Status Due to the above stated illness, injury or surgical procedure (medical condition or diagnosis) and associated clinical findings, the patient is homebound because of his/her inability to leave home except with aid of a supportive device and/or person AND leaving the home requires a considerable and taxing effort or is medically contraindicated. Pt req the following assistanc: Cane, Walker Home Health Nursing Orders Home Health Services Order: Physical Therapy-Evaluate & Treat physical therapy 5x/week x 2 weeks to treat ROM and gait s/p right TKA Remove stevie on 06/25/18 and apply steri strips Home Health Infusion Therapy Line Start Date: Jun 16, 2018 Line Type: Saline Lock Site Location: Forearm Therapy Orders Therapy Orders: Physical Therapy Therapy Specific Orders: Gait training, Increase strength/endurance, Restore ROM Certify Stmt I certify that this patient is under my care and that I, a nurse practitioner or a physician; a life enrichment assistant working with me, had a face to face encounter that - meets the physician face to face encounter requirements with this patient as dated. OSITO CONCEPCION APRN Jun 18, 2018 07:07
[2018-06-18] MEDS ORDERED: HYDR-3820 PO (07:11)
[2018-06-18] MEDS ORDERED: SENN-20 PO (07:11)
[2018-06-18 08:00] VITALS: BP 112/61
[2018-06-18] MEDS: ALPRAZolam 1 MG (XANAX) TAB PO SCH (08:33)
[2018-06-18] MEDS: ASPIRIN 81 MG CHEW (CHILDREN'S ASA) PO SCH (08:33)
[2018-06-18] MEDS: ENOXAPARIN 40 MG/0.4 ML (LOVENOX) SYR SC SCH (08:34)
[2018-06-18] MEDS: SENNA W/DOCUSATE (SENOKOT S) TABLET PO SCH (08:34)
[2018-06-18 09:16] VITALS: BP 112/61
--- NOTE | 2018-06-18 09:16 | Physical Therapy Daily Note ---
PT Daily Note-Current Subjective Pt was in bed and did not want to have PT due to pain. After PT explained importance of moving pt finally ageed, but informed PT he was not going to do very much. Pain Numeric Pain Scale: 10-Worst Possible Pain Location: Right Location Body Site: Knee Mental Status Patient Orientation: Normal For Age Transfers Therapy Code Descriptions/Definitions Functional [place] Measure: 0=Not Assessed/NA 4=Minimal Assistance 1=Total Assistance 5=Supervision or Setup 2=Maximal Assistance 6=Modified [place] 3=Moderate Assistance 7=Complete [place] Therapy Quality Codes: 6 Independent with activity with or without an assistive device 5 Patient requires set up or clean up by helper. Patient completes activity by themselves 4 Supervision or touching assist (CGA). [place] provide cues , steadying assist 3 The helper provides less than half the effort to complete the activity 2 The helper provides more than half the effort to complete the activity 1 Dependent. The helper does all the effort to complete an activity 7 Patient refused to complete or attempt activity 9 The patient did not perform the activity before the current illness or injury 88 Not attempted due to Medical conditions or safety concerns Transfers (B, C, W/C) (FIM): 4 Scootin Supine to/from Sit: 5 Sit to/from Stand: 4 Weight Bearing Right Lower Extremity: Right Full Weight Bearing Left Lower Extremity: Left Full Weight Bearing Gait Training Gait (FIM): 1 Distance (FIM): 1=up to 49 ft Distance: 20' Gait Level of Assist: 5 Gait Persons Needed: 1 Gait Assistive Device: FWW Pt amb with FWW and SBA from bed to bathroom and then bathroom to chair. Exercises Supine Ex: Ankle pumps, Quad Set, Heel Slides, Short Arc Quads, Straight leg raise Supine Reps: 10 Assessment Current Status: Fair Progress Pt was very argumentative during the whole tx session. Pt is also self limiting due to pain. He had not received his normal home med for anxiety since last night per RN. Med nurse was able to give him med during tx. Pt performed LE ex in bed and bed mobility. He was able to transfer sit<>stand EOB and toilet to FWW with min A needing cues for safety. Pt would not listen to cues. Pt amb to bathroom and was indep with bathroom skills. Pt is now in chair with all needs met. Pt reports he would not be using the CPM in his bed today due to how uncomfortable it is. Patient required time to complete all functional tasks and took multiple recovery periods due to uncontrolled right knee pain. PT Short Term Goals Short Term Goals Time Frame: Jun 24, 2018 Gait (FIM): 5 Gait Distance Comment: 150' Gait Level of Assist: 5 Gait Assistive Device: FWW PT Plan Problem List Problem List: Activity Tolerance, Functional Strength, Safety, Balance, Gait, Transfer, Bed Mobility, ROM Treatment/Plan Treatment Plan: Continue Plan of Care Treatment Plan: Bed Mobility, Education, Functional Activity Vaishali, Functional Strength, Gait, Safety, Therapeutic Exercise, Transfers Treatment Duration: Jun 24, 2018 Frequency: 11 times per week Estimated Hrs Per Day: .25 hour per day (15-30') Patient and/or Family Agrees t: Yes Time/GCodes Time In: 800 Time Out: 845 Total Billed Treatment Time: 45 Total Billed Treatment 1 visit Ex x1 20 min FA x2 25 min DORY CORRALES PT Jun 18, 2018 09:16
--- NOTE | 2018-06-18 12:26 | NUR ---
CM/SS. VC C notified that patient has pending discharge orders.
[2018-06-18] MEDS ORDERED: ACETAMINOPHEN 500 MG TAB (TYLENOL) PO PRN (13:30)
--- NOTE | 2018-06-18 13:53 | Physical Therapy Daily Note ---
PT Daily Note-Current Subjective Pt is in bed and reports that he just returned to bed from using bathroom. Pt's is also in the room. Pt agrees to PT reluctantly. Pain Numeric Pain Scale: 10-Worst Possible Pain Location: Right Location Body Site: Knee Mental Status Patient Orientation: Person, Place, Normal For Age Transfers Therapy Code Descriptions/Definitions Functional [place] Measure: 0=Not Assessed/NA 4=Minimal Assistance 1=Total Assistance 5=Supervision or Setup 2=Maximal Assistance 6=Modified [place] 3=Moderate Assistance 7=Complete [place] Therapy Quality Codes: 6 Independent with activity with or without an assistive device 5 Patient requires set up or clean up by helper. Patient completes activity by themselves 4 Supervision or touching assist (CGA). [place] provide cues , steadying assist 3 The helper provides less than half the effort to complete the activity 2 The helper provides more than half the effort to complete the activity 1 Dependent. The helper does all the effort to complete an activity 7 Patient refused to complete or attempt activity 9 The patient did not perform the activity before the current illness or injury 88 Not attempted due to Medical conditions or safety concerns Transfers (B, C, W/C) (FIM): 5 Scootin Supine to/from Sit: 6 Sit to/from Stand: 5 Weight Bearing Right Lower Extremity: Right Full Weight Bearing Left Lower Extremity: Left Full Weight Bearing Gait Training Gait (FIM): 5 Distance (FIM): 5=467-75 ft Distance: 75' Gait Level of Assist: 5 Gait Persons Needed: 1 Gait Assistive Device: FWW Exercises Supine Ex: Ankle pumps, Quad Set, Heel Slides, Short Arc Quads, Straight leg raise Supine Reps: 10 Treatments CPM 0-[address] Assessment Current Status: Fair Progress Pt continues to be difficult to work with. He currently has a 101 temp per the nurse. ordered that pt stay other night and not be discharged due to fever. Pt insists that something is wrong such as an infection. Pt was able to perform supine LE ex. Pt is indep with bed mobility but requires max effort by pt. Pt sit<>stand x2 EOB to FWW SBA. Pt amb 75' with FWW and SBA. Pt required many recovery periods during tx. Pt returned to bed with CPM and has all needs met. PT Short Term Goals Short Term Goals Time Frame: Jun 24, 2018 Gait (FIM): 5 Gait Distance Comment: 150' Gait Level of Assist: 5 Gait Assistive Device: FWW PT Plan Problem List Problem List: Activity Tolerance, Functional Strength, Safety, Balance, Gait, Transfer, Bed Mobility Treatment/Plan Treatment Plan: Continue Plan of Care Treatment Plan: Bed Mobility, Education, Functional Activity Vaishali, Functional Strength, Gait, Safety, Therapeutic Exercise, Transfers Treatment Duration: Jun 24, 2018 Frequency: 11 times per week Estimated Hrs Per Day: .25 hour per day (15-30') Patient and/or Family Agrees t: Yes Time/GCodes Time In: 1310 Time Out: 1338 Total Billed Treatment Time: 28 Total Billed Treatment 1 visit Ex 10 min FA 18 min DORY CORRALES PT Jun 18, 2018 13:53
[2018-06-18 16:00] VITALS: BP 122/59
[2018-06-18] MEDS ORDERED: LOPERAMIDE 2 MG (IMODIUM) CAP PO PRN (17:30)
[2018-06-18] MEDS: VITAMIN D3 5,000 UNITS (CHOLECALCIFEROL ) CAPSULE PO SCH (17:44)
[2018-06-18] MEDS: FENOFIBRATE 134 MG (LOFIBRA) CAPSULE PO SCH (17:44)
--- NOTE | 2018-06-19 16:27 | Discharge Summary ---
Diagnosis/Chief Complaint Date of Admission Jun 16, 2018 at 05:58 Date of Discharge Jun 18, 2018 at 18:30 Discharge Date: Jun 18, 2018 Discharge Time: 1800 Admission Diagnosis Admission Diagnosis Primary OA right knee Discharge Diagnosis Primary OA right knee Reason Hospital Visit Right total knee arthroplasty Discharge Summary Procedures: Right total Knee arthroplasty Consultations Dr. Desir - Internal medicine Discharge Physical Examination Allergies: Coded Allergies: amoxicillin (Verified Allergy, Severe, 03/21/18) clavulanic acid (Verified Allergy, Severe, 03/21/18) prochlorperazine (Verified Allergy, Mild, 09/08/12) Iodinated Contrast- Oral and IV Dye (Verified Allergy, Unknown, R/T KIDNEY FUNCTION, 06/15/18) Metronidazole HCl (Verified Allergy, Unknown, 11/16/14) NSAIDS (Non-Steroidal Anti-Inflamma (Verified Allergy, Unknown, R/T KIDNEY FUNCTION, 06/15/18) Fcwgteg-Qzb-Etj Reductase Inhibitor (Unverified Allergy, Unknown, R/T KIDNEY FUNCTION, 11/16/14) clopidogrel bisulfate (Verified Allergy, Unknown, 11/16/14) metronidazole (Verified Allergy, Unknown, 11/16/14) Vitals & I&Os Vital Signs Date Time Temp Pulse Resp B/P (MAP) Pulse Ox O2 Delivery O2 Flow Rate FiO2 06/18/18 18:13 06/18/18 17:25 99.8 06/18/18 16:00 89 20 96 Room Air 06/17/18 08:30 2.00 06/16/18 16:50 28 General Appearance: Alert, Oriented X3, No Acute Distress HEENT: Atraumatic, PERRLA Respiratory: Clear to Auscultation Cardiovascular: Regular Rate Abdominal: Normal Bowel Sounds, Soft, No Tenderness Extremities: No Clubbing, No Cyanosis, No Edema, Normal Pulses Skin: No Rashes, No Breakdown, Other (dressing to right knee CDI) Neuro: Normal Gait, Normal Speech Psych/Mental Status: Mental Status NL Hospital Course Was the Problem List Reviewed?: Yes The patient was seen in the clinic setting and had failed conservative treatment for primary OA of the right knee. On the admission date he was taken to the OR and the above procedure was performed without complications. Postoperatively he was maintained with DVT prophylaxis and IV antibiotic prophylaxis. Overall he progressed well and improved daily with therapy. He was discharged to home with home healthcare on POD #2. Radiology Reviewed Normal Post op TKA xrays Discharge Condition at discharge Good Instructions to patient/family Please see electronic discharge instructions given to patient. Discharge Medications Reviewed and agree with Discharge Medication list on patient's Discharge Instruction sheet Clinical Quality Measures DVT/VTE Risk/Contraindication: Risk Factor Score Per Nursin RFS Level Per Nursing on Admit: 4+=Very High OSITO CONCEPCION APRN Jun 19, 2018 16:27
== END 2018-06-18 18:30 | disposition home health service (06) | DRG 470 ==
LOC: 4TH 05:58 → SURG 05:59 → 4TH 11:10
PROVIDERS: ADMIT Orthopaedic Surgery; ATTEND Orthopaedic Surgery
PROC: 0SRC0J9 Replacement of Right Knee Joint with Synthetic Substitute, Cemented, Open Approach (ICD-10-PCS; principal; 2018-06-16 07:50)
DX: M17.11 Unilateral primary osteoarthritis, right knee (principal); I12.9 Hypertensive chronic kidney disease with stage 1 through stage 4 chronic kidney disease, or unspecified chronic kidney disease; N18.9 Chronic kidney disease, unspecified; I25.10 Atherosclerotic heart disease of native coronary artery without angina pectoris; I95.9 Hypotension, unspecified; R33.9 Retention of urine, unspecified; F41.9 Anxiety disorder, unspecified; F40.240 Claustrophobia; G62.9 Polyneuropathy, unspecified; R91.8 Other nonspecific abnormal finding of lung field; E78.5 Hyperlipidemia, unspecified; I49.3 Ventricular premature depolarization; I44.0 Atrioventricular block, first degree; I45.10 Unspecified right bundle-branch block; K21.9 Gastro-esophageal reflux disease without esophagitis; K22.70 Barrett's esophagus without dysplasia; K58.9 Irritable bowel syndrome, unspecified; Z85.528 Personal history of other malignant neoplasm of kidney; Z90.5 Acquired absence of kidney; Z95.5 Presence of coronary angioplasty implant and graft; Z86.73 Personal history of transient ischemic attack (TIA), and cerebral infarction without residual deficits; Z87.891 Personal history of nicotine dependence; Z79.02 Long term (current) use of antithrombotics/antiplatelets
CPT/HCPCS: 36415; 73560; 80048; 85027; 86850; 86900; 86901; 94664; 94760

== ENCOUNTER 2018-12-08 12:53 | Outpatient (RCR) | payer MEDICARE ==
[2018-12-08 13:23] LABS: BASOPHILS % (AUTO) 1 % (0-10); EOSINOPHILS # (AUTO) 0.2 10^3/uL (0.0-0.3); EOSINOPHILS % (AUTO) 4 % (0-10); HEMATOCRIT 46 % (40-54); HEMOGLOBIN 15.1 G/DL (13.3-17.7); LYMPHOCYTES # (AUTO) 1.7 X 10^3 (1.0-4.0); LYMPHOCYTES % (AUTO) 28 % (12-44); MEAN CORPUSCULAR HEMOGLOBIN 30 PG (25-34); MEAN CORPUSCULAR HGB CONC 33 G/DL (32-36); MEAN CORPUSCULAR VOLUME 93 FL (80-99); MEAN PLATELET VOLUME 9.9 FL (7.4-10.4); MONOCYTES # (AUTO) 0.5 X 10^3 (0.0-1.0); MONOCYTES % (AUTO) 8 % (0-12); NEUTROPHILS # (AUTO) 3.7 X 10^3 (1.8-7.8); NEUTROPHILS % (AUTO) 60 % (42-75); PLATELET COUNT 133 10^3/uL (130-400); RED CELL DISTRIBUTION WIDTH 14.9 % (10.0-14.5); WHITE BLOOD COUNT 6.2 10^3/uL (4.3-11.0)
[2018-12-08 13:44] LABS: BILIRUBIN,TOTAL 0.4 MG/DL (0.1-1.0); CALCIUM 9.5 MG/DL (8.5-10.1); CREATININE SERUM 1.24 MG/DL (0.60-1.30); POTASSIUM 4.4 MMOL/L (3.6-5.0); TOTAL PROTEIN 6.6 GM/DL (6.4-8.2)
== END 2019-03-08 | disposition home or self-care (01) ==
LOC: ONC 12:53
PROVIDERS: ATTEND Internal Medicine Hematology & Oncology
DX: Z08 Encounter for follow-up examination after completed treatment for malignant neoplasm (principal); Z85.528 Personal history of other malignant neoplasm of kidney; Z85.118 Personal history of other malignant neoplasm of bronchus and lung; D50.9 Iron deficiency anemia, unspecified; E55.9 Vitamin D deficiency, unspecified; L98.9 Disorder of the skin and subcutaneous tissue, unspecified; I25.10 Atherosclerotic heart disease of native coronary artery without angina pectoris; I12.9 Hypertensive chronic kidney disease with stage 1 through stage 4 chronic kidney disease, or unspecified chronic kidney disease; N18.3 Chronic kidney disease, stage 3 (moderate); J43.9 Emphysema, unspecified; Z79.899 Other long term (current) drug therapy
CPT/HCPCS: 36415; 80053; 83615; 85025; 99213

== ENCOUNTER → 2018-12-08 | Outpatient (CLI) | payer MEDICARE ==
[~2018-12-08] MED LIST changes: -AMLO5TAB7 PO; +AMLO5TAB9 PO
--- NOTE | 2018-12-08 14:44 | Diagnostic Imaging Report ---
INDICATION: Renal cell carcinoma with metastases to lung. Time of exam 1:01 p.m. COMPARISON: Comparison is made with prior chest radiograph from 06/09/2018. FINDINGS: Heart size is stable. Nodular densities in the right upper lobe appear stable. The largest more medial nodule in the right upper lobe measures 15 mm compared with 18 mm. Micronodules lateral to this are stable. No new nodular opacities are seen. Left lung is clear. No effusion or pneumothorax is identified. IMPRESSION: Stable right upper lobe nodules when compared with the exam from 06/09/2018. Dictated by: Dictated on workstation # [id number]
== END ==
LOC: RAD 12:48
PROVIDERS: ATTEND Nurse Practitioner Adult Health
DX: C64.9 Malignant neoplasm of unspecified kidney, except renal pelvis (principal); C78.01 Secondary malignant neoplasm of right lung
CPT/HCPCS: 71046

== ENCOUNTER → 2019-05-31 | Outpatient (CLI) | payer MEDICARE ==
--- NOTE | 2019-05-31 14:41 | Diagnostic Imaging Report ---
PROCEDURE: CT chest and abdomen without contrast. TECHNIQUE: Axial images were obtained from the thoracic inlet through the iliac crest without the administration of intravenous contrast. Auto Exposure Controls were utilized during the CT exam to meet ALARA standards for radiation dose reduction. INDICATION: Renal cell carcinoma. Patient presents for six-month follow-up. Correlation is made with prior CT chest from 02/04/[address] abdomen from 02/22/2017. CT Chest: FINDINGS: No axillary lymphadenopathy is detected. Mediastinal and hilar evaluation is limited without intravenous contrast, but no gross abnormality is seen. There are surgical clips in the right hilum. Diffuse coronary arterial calcifications are present. There is no pericardial or pleural fluid identified. Centrilobular emphysematous changes are noted. Hyperdense lesion in the right upper lobe measures 2.4 x 1.5 cm compared with 2.6 x 1.8 cm. Adjacent smaller nodules in the right upper lobe also appear stable. Previously noted nodule in the posteromedial left lower lobe is no longer visualized. No new pulmonary mass is detected. IMPRESSION: Decrease in size of right upper lobe nodule with resolution of left lower lobe nodule when compared with exam from 02/04/2016. No definite thoracic lymphadenopathy is detected. CT Abdomen: FINDINGS: There is an 11 mm circumscribed low density in the right lobe of the liver near the dome, not definitely seen on prior study. Density measurements are low and this may represent a cyst. No other liver lesions are seen. Gallbladder is surgically absent. No biliary ductal dilatation is seen. Pancreas and spleen are unremarkable. Right adrenal gland is unremarkable. Exophytic low density arising from the lower pole right kidney measures approximately 2.1 cm compared with 1.8 cm when measured by similar technique. Density measurements remain somewhat low and again may represent a cyst. No other renal masses on the right are identified. No calculus or hydronephrosis is seen. Left kidney is surgically absent. No residual or recurrent mass is detected. Aorta is calcified but nonaneurysmal. No central retroperitoneal or mesenteric lymphadenopathy is identified. The bowel loops are normal caliber. There is no ascites. Postsurgical changes of posterior instrumented fusion in the lower lumbar spine are noted. IMPRESSION: 1. Status post left nephrectomy. No residual or recurrent neoplasm or evidence of abdominal lymphadenopathy is identified. 2. Slight increase in size of an exophytic right lower pole renal mass, perhaps slightly enlarging cyst. Continued follow-up is recommended. No other significant abnormality is seen apart from a developing small low density in the right lobe of the liver, also likely a small cyst. Continued follow-up is recommended. Dictated by: Dictated on workstation # [id number]
== END ==
LOC: RAD 13:34
PROVIDERS: ATTEND Internal Medicine Hematology & Oncology
DX: C64.2 Malignant neoplasm of left kidney, except renal pelvis (principal); C78.01 Secondary malignant neoplasm of right lung; K76.89 Other specified diseases of liver; Z90.49 Acquired absence of other specified parts of digestive tract; Z90.5 Acquired absence of kidney
CPT/HCPCS: 71250; 74150

== ENCOUNTER 2019-06-10 12:34 | Outpatient (RCR) | payer MEDICARE ==
[~2019-06-10 12:34] MED LIST changes: +ACHYD1T PO; +FENO145T26 PO; -FENO145T37 PO; -HYDR-3820 PO; +ONDA-105 PO; -ONDA4TAB10 PO; -ONDA8TAB12 PO; +ONDA8TAB15 PO; -TRAM50TA2 PO; +TRM50T PO
[2019-06-10 12:49] LABS: BASOPHILS % (AUTO) 1 % (0-10); EOSINOPHILS # (AUTO) 0.2 10^3/uL (0.0-0.3); EOSINOPHILS % (AUTO) 3 % (0-10); HEMATOCRIT 46 % (40-54); LYMPHOCYTES # (AUTO) 1.8 X 10^3 (1.0-4.0); LYMPHOCYTES % (AUTO) 30 % (12-44); MEAN CORPUSCULAR HEMOGLOBIN 31 PG (25-34); MEAN CORPUSCULAR HGB CONC 32 G/DL (32-36); MEAN CORPUSCULAR VOLUME 94 FL (80-99); MEAN PLATELET VOLUME 9.2 FL (7.4-10.4); MONOCYTES # (AUTO) 0.4 X 10^3 (0.0-1.0); MONOCYTES % (AUTO) 7 % (0-12); NEUTROPHILS # (AUTO) 3.4 X 10^3 (1.8-7.8); NEUTROPHILS % (AUTO) 59 % (42-75); PLATELET COUNT 199 10^3/uL (130-400); RED CELL DISTRIBUTION WIDTH 14.3 % (10.0-14.5); WHITE BLOOD COUNT 5.8 10^3/uL (4.3-11.0)
[2019-06-10 13:07] LABS: ALBUMIN 3.9 GM/DL (3.2-4.5); BILIRUBIN,TOTAL 0.5 MG/DL (0.1-1.0); CREATININE SERUM 1.2 MG/DL (0.60-1.30); POTASSIUM 4.2 MMOL/L (3.6-5.0); TOTAL PROTEIN 6.5 GM/DL (6.4-8.2)
== END 2019-09-08 | disposition home or self-care (01) ==
LOC: ONC 12:34
PROVIDERS: ATTEND Internal Medicine Hematology & Oncology
DX: C78.01 Secondary malignant neoplasm of right lung (principal); M19.90 Unspecified osteoarthritis, unspecified site; I25.10 Atherosclerotic heart disease of native coronary artery without angina pectoris; J44.9 Chronic obstructive pulmonary disease, unspecified; I12.9 Hypertensive chronic kidney disease with stage 1 through stage 4 chronic kidney disease, or unspecified chronic kidney disease; D63.1 Anemia in chronic kidney disease; D50.0 Iron deficiency anemia secondary to blood loss (chronic); N18.3 Chronic kidney disease, stage 3 (moderate); E78.5 Hyperlipidemia, unspecified; Z85.528 Personal history of other malignant neoplasm of kidney; Z90.5 Acquired absence of kidney; Z96.642 Presence of left artificial hip joint; Z98.890 Other specified postprocedural states
CPT/HCPCS: 80053; 83615; 85025; 99213

== ENCOUNTER 2019-09-26 16:26 | Emergency (ER) | payer MEDICARE ==
[~2019-09-26] VITALS: Ht 177.8 cm; Wt 102.0 kg
--- NOTE | 2019-09-26 16:51 | ED Fall/Injury ---
General Chief Complaint: Trauma-Non Activation Stated Complaint: FALL Nursing Triage Note: Hematoma L calf, abrasion L calf, skin tear L thumb, multiple skin tears R arm Source: patient Exam Limitations: no limitations History of Present Illness Date Seen by Provider: Sep 26, 2019 Time Seen by Provider: 16:30 Initial Comments Patient presents to pr emergency room after falling backward off of his writing lower. His left calf struck the mower and he now has a hematoma there. He has skin tears on the right forearm and of the left hand which are bandaged. He reports cleaning them with peroxide and soap and water prior to arriving to the ER. He denies any head injury. He reports being up-to-date on his tetanus immunization within the past 5 years. Location Injury Occurred: home Allergies and Home Medications Allergies Coded Allergies: amoxicillin (Verified Allergy, Severe, 03/21/18) clavulanic acid (Verified Allergy, Severe, 03/21/18) prochlorperazine (Verified Allergy, Mild, 09/08/12) Iodinated Contrast- Oral and IV Dye (Verified Allergy, Unknown, R/T KIDNEY FUNCTION, 06/15/18) Metronidazole HCl (Verified Allergy, Unknown, 11/16/14) NSAIDS (Non-Steroidal Anti-Inflamma (Verified Allergy, Unknown, R/T KIDNEY FUNCTION, 06/15/18) Idxlrgw-Xaa-Xen Reductase Inhibitor (Unverified Allergy, Unknown, R/T KIDNEY FUNCTION, 11/16/14) clopidogrel bisulfate (Verified Allergy, Unknown, 11/16/14) metronidazole (Verified Allergy, Unknown, 11/16/14) Home Medications Alprazolam 1 Mg Tablet, 1 MG PO BID PRN for ANXIETY, (Reported) Alprazolam 1 Mg Tablet, 1 MG PO 0800,2100, (Reported) Amlodipine Besylate 5 Mg Tablet, 5 MG PO 1700, (Reported) Aspirin 81 Mg Tab.chew, 81 MG PO DAILY, (Reported) Cholecalciferol (Vitamin D3) 5,000 Unit Capsule, 5,000 UNIT PO 1700, (Reported) Clonidine HCl 0.1 Mg Tablet, 0.1 MG PO DAILY PRN for BP>160/90, (Reported) Dicyclomine HCl 20 Mg Tablet, 20 MG PO TID PRN for ABDOMINAL PAIN, (Reported) Fenofibrate Nanocrystallized 145 Mg Tablet, 145 MG PO 1700, (Reported) Finasteride 5 Mg Tablet, 5 MG PO HS, (Reported) Hydrocodone Bit/Acetaminophen 1 Each Tablet, 1 EA PO Q4H PRN for PAIN-MODERATE Prescribed by: OSITO CONCEPCION on 06/18/18710 Krill/Om-3/Dha/Epa/Phospho/Ast 1 Each Capsule, 1 CAP PO 1700, (Reported) Mirtazapine 15 Mg Tablet, 15 MG PO HS, (Reported) Ondansetron HCl 8 Mg Tablet, 8 MG PO Q4H PRN for NAUSEA/VOMITING, (Reported) Pantoprazole Sodium 40 Mg Tablet.dr, 40 MG PO DAILY, (Reported) Sennosides/Docusate Sodium 1 Each Tablet, 1 EA PO BID Prescribed by: OSITO CONCEPCION on 06/18/18710 Sucralfate 1 Gm Tablet, 1 GM PO TID PRN for HEARTBURN, (Reported) Sucralfate 1 Gm Tablet, 1 GM PO HS, (Reported) Patient Home Medication List Home Medication List Reviewed: Yes Review of Systems Review of Systems Constitutional: no symptoms reported Eyes: No Symptoms Reported Ears, Nose, Mouth, Throat: no symptoms reported Respiratory: no symptoms reported Cardiovascular: no symptoms reported Gastrointestinal: no symptoms reported Genitourinary: no symptoms reported Musculoskeletal: see HPI Skin: see HPI Psychiatric/Neurological: No Symptoms Reported Past Vilbcou-Cmqwny-Hvdcmj Hx Patient Social History Alcohol Use: Denies Use Recreational Drug Use: No Smoking Status: Former Smoker Type Used: Cigarettes Former Smoker, Quit: Mar 21, 2010 Recent Foreign Travel: No Contact w/Someone Who Travel: No Recent Hopitalizations: No Immunizations Up To Date Tetanus Booster (TDap): Unknown Date of Pneumonia Vaccine: Mar 11, 2016 Date of Influenza Vaccine: Mar 03, 2018 Seasonal Allergies Seasonal Allergies: Yes Past Medical History Surgeries: Yes (LEFT NEPHRECTOMY,BACK L4-L5 X2, HIP REPLACEMENT) Appendectomy, Coronary Stent, Gallbladder, Orthopedic Respiratory: Yes (NODULE IN RIGHT LUNG-DR GOMEZ) Pneumonia Currently Using CPAP: No Currently Using BIPAP: No Cardiac: Yes (STENT IN HIS LAD) Coronary Artery Disease, High Cholesterol, Hypertension Neurological: Yes Stroke, TIA Reproductive Disorders: No Sexually Transmitted Disease: No HIV/AIDS: No Genitourinary: Yes (left kidney removed, ) Gastrointestinal: Yes (SPASTIC COLON/DIVERTICULITIS) Gastroesophageal Reflux, Guadarrama's Esophagus, Diverticulosis, Chronic Diarrhea, Esophagitis, Irritable Bowel Musculoskeletal: Yes (FX.L4-L5,S1,TAILBONE-SURGERY/ARTHRITIS/NEUROPATHY R LE G/FOOT DROP) Arthritis, Foot Drop, Chronic Back Pain, Fractures Endocrine: No HEENT: No Cancer: Yes Skin, Kidney What Type of Treatment Did You: Surgical Intervention Psychosocial: No Integumentary: No Blood Disorders: No Adverse Reaction/Blood Tranf: No (HAS HAD BLOOD WITH NO REACTION) Family Medical History No Family History of: AIDS Alzheimer's disease Cardiovascular disease Colon cancer Completed stroke Diabetes mellitus Drug abuse Hypertension Kidney disease Myocardial infarction Parkinson's disease Prostate cancer Psychosocial problem Respiratory disorder Seizure disorder Thyroid disease Tuberculosis Visual disorder No Pertinent Family Hx Physical Exam Vital Signs Vital Signs - First Documented 09/26/19 16:26 Temp 36.2 Pulse 73 Resp 19 B/P (MAP) 101/76 (84) Pulse Ox 92 O2 Delivery Room Air Capillary Refill : Height, Weight, BMI Height: 5'10.00" Weight: 220lbs. 0.0oz. [id number]; 31.6 BMI Method:Stated General Appearance: WD/WN, mild distress HEENT: PERRL/EOMI, normal ENT inspection, pharynx normal Neck: normal inspection Cardiovascular: regular rate, rhythm, no edema, no murmur Respiratory: lungs clear, normal breath sounds, no respiratory distress, no accessory muscle use Gastrointestinal: non tender, soft Extremities: other (numerous small skin tears on the right forearm. No apparent bony injury. No pain with range of motion. Nickel-sized skin tear to the left hand between the first and second finger. Fairly large superficial hematoma on the medial left calf with a small abrasion over the top. Range of motion in the ankle unaffected. Tibia and fibula are not tender.) Neurologic/Psychiatric: multicultural internship II-XII nml as tested, no motor/sensory deficits, alert, normal mood/affect, oriented x 3 Skin: normal color, warm/dry French Coma Score Best Eye Response: (4) Open Spontaneously Best Verbal Response: (5) Oriented Best Motor Response: (6) Obeys Commands Alvarado Total: 15 Progress/Results/Core Measures Results/Orders My Orders Orders - CAMERON MAX MD Tramadol Tablet (Ultram Tablet) (09/26/19 17:00) Medications Given in ED Current Medications Medications Dose Ordered Sig/Oscar Route Start Time Stop Time Status Last Admin Dose Admin Tramadol HCl 50 mg ONCE ONCE PO 09/26/19 17:00 09/26/19 17:01 DC 09/26/19 17:03 50 MG Vital Signs/I&O 09/26/19 09/26/19 16:26 17:11 Temp 36.2 36.2 Pulse 73 73 Resp 19 19 B/P (MAP) 101/76 (84) 101/76 (84) Pulse Ox 92 92 O2 Delivery Room Air Room Air Progress Progress Note : Progress Note Pain was treated with Ultram. Patient did not seem to have any bony injuries. There was no tenderness over bony portions of the extremities or pain with axial loading or weightbearing. Wounds Hartey been cleaned at home. Xeroform dressing was applied and they were wrapped. A compressive wrapping was applied over the hematoma. Departure Impression Primary Impression: Hematoma of left lower extremity Qualified Codes: S80.12XA - Contusion of left lower leg, initial encounter Additional Impressions: Skin tear of right upper extremity Skin tear of left hand without complication Qualified Codes: S61.412A - Laceration without foreign body of left hand, initial encounter Fall from stationary vehicle Qualified Codes: W17.89XA - Other fall from one level to another, initial encounter Disposition: HOME, SELF-CARE Condition: Improved Departure-Patient Inst. Referrals: LOUIS DURAN DO (PCP/Family) Primary Care Physician Patient Instructions: HEMATOMA Add. Discharge Instructions: For pain you may take a combination of Tylenol (acetaminophen) and your prescribed Ultram. Elevate the hematoma and ice it in 20 minute intervals to reduce pain and swelling. A light compressive wrap may also help reduce pain and swelling. Monitor your leg for worsening symptoms. Return to care if you suspect decreased blood flow or loss of feeling to your foot. Keep your wounds clean and dry except for normal showering. You may leave the wounds open to air when at rest but cover when active or in dirty environments. You may use nonstick dressing, Vaseline, or antibiotic ointment to prevent dressing from sticking to the wounds. Monitor your wounds for signs of infection such as increasing redness, fever, or puslike drainage. Return to care if you notice any of these symptoms. All discharge instructions reviewed with patient and/or family. Voiced understanding. Copy Copies To 1: LOUIS DURAN JOSHUA T MD Sep 26, 2019 16:51
[2019-09-26 17:11] VITALS: BP 101/76
== END 2019-09-26 17:15 | disposition home or self-care (01) ==
LOC: EDUNIT# 16:26 → ER 16:27
DX: S51.811A Laceration without foreign body of right forearm, initial encounter (principal); S61.412A Laceration without foreign body of left hand, initial encounter; S80.12XA Contusion of left lower leg, initial encounter; I10 Essential (primary) hypertension; I25.10 Atherosclerotic heart disease of native coronary artery without angina pectoris; E78.00 Pure hypercholesterolemia, unspecified; K21.0 Gastro-esophageal reflux disease with esophagitis; R40.2142 Coma scale, eyes open, spontaneous, at arrival to emergency department; R40.2252 Coma scale, best verbal response, oriented, at arrival to emergency department; R40.2362 Coma scale, best motor response, obeys commands, at arrival to emergency department; Z85.828 Personal history of other malignant neoplasm of skin; Z85.528 Personal history of other malignant neoplasm of kidney; Z86.73 Personal history of transient ischemic attack (TIA), and cerebral infarction without residual deficits; Z88.1 Allergy status to other antibiotic agents; Z88.6 Allergy status to analgesic agent; Z91.041 Radiographic dye allergy status; Z79.82 Long term (current) use of aspirin; Z95.5 Presence of coronary angioplasty implant and graft; W17.89XA Other fall from one level to another, initial encounter
CPT/HCPCS: 99283

== ENCOUNTER → 2019-10-08 | Outpatient (CLI) | payer MEDICARE ==
--- NOTE | 2019-10-08 13:30 | Diagnostic Imaging Report ---
INDICATION: Left leg pain. COMPARISON: None. TECHNIQUE: Duplex, yepez-scale and color-flow imaging of the left lower extremity venous system was performed. FINDINGS: The common femoral vein, superficial femoral vein, profunda femoris, and popliteal veins are normal. These vessels show normal compressibility, color flow, and doppler augmentation. The deep calf veins, although not very well seen, demonstrate no distinct intraluminal thrombus. IMPRESSION: Negative venous Doppler of the left lower extremity. Dictated by: Dictated on workstation # [id number]
== END ==
LOC: RAD 12:39
PROVIDERS: ATTEND Internal Medicine
DX: M79.605 Pain in left leg (principal)

== ENCOUNTER → 2019-12-06 | Outpatient (CLI) | payer MEDICARE ==
--- NOTE | 2019-12-06 17:22 | Diagnostic Imaging Report ---
PROCEDURE: CT chest and abdomen without contrast. TECHNIQUE: Axial images were obtained from the thoracic inlet through the iliac crest without the administration of intravenous contrast. Auto Exposure Controls were utilized during the CT exam to meet ALARA standards for radiation dose reduction. INDICATION: Follow-up renal cell carcinoma. History of left nephrectomy. COMPARISON: 05/31/2019. CT chest: The heart size is within normal limits. No pericardial effusion is present. There is calcified aortic and coronary atherosclerotic plaque without aneurysm. There is no mediastinal, hilar, or axillary lymphadenopathy. Centrilobular and paraseptal emphysema is again seen throughout the lungs, greatest in the apices. There is continued decrease in size in the nodule within the right upper lobe measuring 2.2 x 1.4 cm on today's exam, previously measuring 2.4 x 1.5 cm. Additional smaller nodules are unchanged. Multiple calcified granulomas are seen throughout the lungs. No new suspicious pulmonary nodules or masses. No pneumothoraces are present. No central endobronchial obstructing lesions are identified. There are no pleural effusions. Surgical changes are again seen in the right hilar region. The osseous structures demonstrate degenerative changes without focal lytic or blastic lesions. CT abdomen: Left nephrectomy changes are again seen. No evidence of mass recurrence in the surgical bed. The right kidney demonstrates a stable exophytic cyst measuring 2.2 x 1.9 cm. No new renal lesions are identified. No evidence of hydronephrosis or renal calculi. The liver, spleen, pancreas, and adrenal glands have an unremarkable noncontrast CT appearance without acute abnormalities. The hypoattenuating focus in the right hepatic lobe is unchanged measuring 1.0 cm on today's exam. The gallbladder is surgically absent.. There is no pathologically enlarged mesenteric or retroperitoneal adenopathy. The included loops of bowel are nondistended. Scattered diverticuli are present without evidence of acute diverticulitis. There is no free fluid or free air. No acute fracture or dislocation is seen in the included osseous structures. Posterior fusion changes are again seen in the lumbar spine. There is calcified aortic and iliac atherosclerotic plaque without aneurysm. IMPRESSION: 1. Stable postsurgical changes of left nephrectomy without evidence of soft tissue mass in the surgical bed. The right kidney is stable in appearance with a stable exophytic cyst present. Recommend continued follow-up as indicated. 2. Slight decrease in size in the nodule in the right upper lobe. No new suspicious pulmonary nodules or masses. No lymphadenopathy in the chest. 3. Stable focus of hypoattenuation in the right hepatic lobe, favored to represent cyst or hemangioma. No new focal hepatic lesions are seen. No lymphadenopathy in the upper abdomen. Dictated by: Dictated on workstation # [id number]
== END ==
LOC: RAD 15:11
PROVIDERS: ATTEND Nurse Practitioner Adult Health
DX: C78.01 Secondary malignant neoplasm of right lung (principal); C64.2 Malignant neoplasm of left kidney, except renal pelvis; N28.1 Cyst of kidney, acquired; K76.89 Other specified diseases of liver; R91.1 Solitary pulmonary nodule; Z90.5 Acquired absence of kidney; Z90.49 Acquired absence of other specified parts of digestive tract
CPT/HCPCS: 71250; 74150

== ENCOUNTER → 2019-12-09 | Outpatient (CLI) | payer MEDICARE ==
[2019-12-09 13:01] LABS: BASOPHILS % (AUTO) 1 % (0-10); EOSINOPHILS # (AUTO) 0.2 10^3/uL (0.0-0.3); EOSINOPHILS % (AUTO) 3 % (0-10); HEMATOCRIT 47 % (40-54); HEMOGLOBIN 15.3 G/DL (13.3-17.7); LYMPHOCYTES # (AUTO) 1.6 X 10^3 (1.0-4.0); LYMPHOCYTES % (AUTO) 22 % (12-44); MEAN CORPUSCULAR HEMOGLOBIN 30 PG (25-34); MEAN CORPUSCULAR HGB CONC 32 G/DL (32-36); MEAN CORPUSCULAR VOLUME 91 FL (80-99); MEAN PLATELET VOLUME 9.4 FL (7.4-10.4); MONOCYTES # (AUTO) 0.6 X 10^3 (0.0-1.0); MONOCYTES % (AUTO) 8 % (0-12); NEUTROPHILS % (AUTO) 67 % (42-75); PLATELET COUNT 214 10^3/uL (130-400); RED CELL DISTRIBUTION WIDTH 14.9 % (10.0-14.5); WHITE BLOOD COUNT 7.4 10^3/uL (4.3-11.0)
[2019-12-09 13:24] LABS: ALBUMIN 3.9 GM/DL (3.2-4.5); BILIRUBIN,TOTAL 0.4 MG/DL (0.1-1.0); CALCIUM 8.9 MG/DL (8.5-10.1); CREATININE SERUM 1.38 MG/DL (0.60-1.30); POTASSIUM 4.3 MMOL/L (3.6-5.0); TOTAL PROTEIN 6.9 GM/DL (6.4-8.2)
== END ==
LOC: EDSTATUS 09-09 16:40 → ONC 12:45
PROVIDERS: ATTEND Internal Medicine Hematology & Oncology
DX: C64.2 Malignant neoplasm of left kidney, except renal pelvis (principal); C78.01 Secondary malignant neoplasm of right lung; I25.10 Atherosclerotic heart disease of native coronary artery without angina pectoris; E78.2 Mixed hyperlipidemia; M19.90 Unspecified osteoarthritis, unspecified site; J44.9 Chronic obstructive pulmonary disease, unspecified; I12.9 Hypertensive chronic kidney disease with stage 1 through stage 4 chronic kidney disease, or unspecified chronic kidney disease; N18.3 Chronic kidney disease, stage 3 (moderate); Z90.5 Acquired absence of kidney; Z98.1 Arthrodesis status; Z96.642 Presence of left artificial hip joint
CPT/HCPCS: 80053; 83615; 85025; G0463; 99213

== ENCOUNTER → 2019-12-15 | Outpatient (CLI) | payer MEDICARE | LOC: CARD 11:24 | PROVIDERS: ATTEND Internal Medicine Cardiovascular Disease | DX: I11.9 Hypertensive heart disease without heart failure (principal); E78.5 Hyperlipidemia, unspecified; E66.9 Obesity, unspecified; C64.2 Malignant neoplasm of left kidney, except renal pelvis | CPT/HCPCS: 93306 ==

== ENCOUNTER → 2020-01-05 | Outpatient (CLI) | payer MEDICARE ==
[~2020-01-05] MED LIST changes: +CATHETER FLUSH 10 ML SYR IV PRN; +REGADENOSON 0.4 MG/5 ML SYR (LEXISCAN) IV ONE
[2020-01-05 10:15] VITALS: BP 115/69
--- NOTE | 2020-01-05 14:13 | Cardiology Stress Test Report ---
Stress Test Report Date of Procedure/Referring: Date of Procedure: Jan 05, 2020 PCP Chanelle Vásquez MD Admitting Physician Kassidy Vuong DO Indications: Hypertension Baseline Heart Rate: 67 Baseline Blood Pressure: Blood Pressure Systolic: 115 Blood Pressure Diastolic: 69 Baseline Vitals Vital Signs Date Time Temp Pulse Resp B/P (MAP) Pulse Ox O2 Delivery O2 Flow Rate FiO2 01/05/20 10:15 67 115/69 (84) 99 Baseline EKG: Baseline EKG: Sinus rhythm, right bundle branch block Summary After explaining the procedure to the patient, he signed a consent and then brought to the stress nuclear laboratory. Patient received 0.4 mg Lexiscan for stress test, ECG, heart rate and blood pressure were monitored continuously. Resting and stress dose of radio tracer were injected, imaging was acquired and reviewed in short axis, horizontal long axis and vertical long axis views. TID: 0.8 SSS: 4 SDS: 2 EF: 54 1. Patient tolerated Lexiscan well 2. Baseline right bundle branch block persisted during test 3. Diaphragmatic attenuation with typical male pattern with no significant ischemia or infarction 4. Normal LV size, EF 54 percent CHANELLE VÁSQUEZ MD Jan 05, 2020 14:13
== END ==
LOC: CARD 08:21
PROVIDERS: ATTEND Internal Medicine Cardiovascular Disease
DX: I45.10 Unspecified right bundle-branch block (principal); I25.10 Atherosclerotic heart disease of native coronary artery without angina pectoris; C64.2 Malignant neoplasm of left kidney, except renal pelvis; J98.6 Disorders of diaphragm; E78.2 Mixed hyperlipidemia; E66.9 Obesity, unspecified; I10 Essential (primary) hypertension
CPT/HCPCS: 78452; 93017; A9502

== ENCOUNTER → 2020-12-11 | Outpatient (CLI) | payer MEDICARE ==
[~2020-12-11] MED LIST changes: +AMLO-250 PO; -AMLO5TAB9 PO; -CATHETER FLUSH 10 ML SYR IV PRN; +CLN.1T PO; +MIRT-68 PO; -PANT40TA3 PO; +PANT40TA52 PO; -POLY17PO31 PO; +POLY17PO54 PO; -REGADENOSON 0.4 MG/5 ML SYR (LEXISCAN) IV ONE; -SULF1TAB35 PO; +SULF1TAB38 PO
--- NOTE | 2020-12-11 16:05 | Diagnostic Imaging Report ---
EXAMINATION: CT chest and abdomen without contrast. TECHNIQUE: Multiple contiguous axial images were obtained through the chest and abdomen without the use of intravenous contrast. All CT scans use one or more of the following dose optimizing techniques: automated exposure control, MA and/or KvP adjustment based on patient size and exam type or iterative reconstruction. HISTORY: Kidney cancer and lung cancer. COMPARISON: 12/06/2019 FINDINGS: There is no edema or pneumonia. No pleural effusion. No pneumothorax. There are stable calcified nodules in the right upper lobe. Lungs are moderately emphysematous. There is no axillary or supraclavicular lymphadenopathy. There is no mediastinal lymphadenopathy. Heart size is normal. There are severe coronary artery calcifications. No pericardial effusion. Aorta is normal in caliber. There is a stable cyst in the central liver. There is no biliary ductal dilation. Gallbladder is surgically absent. Pancreas is normal. Spleen is normal. Adrenal glands are normal. Left kidney is surgically absent. There is a simple cyst in the right kidney. There is no hydronephrosis. Visualized bowel is normal in caliber without obstruction or inflammation. No free fluid or air. No abdominal lymphadenopathy. Aorta is normal in caliber without aneurysm. There are no suspicious osseous lesions. There has been instrumented fusion of the lumbar spine. IMPRESSION: 1. No metastatic disease is seen in the chest or abdomen. Dictated by: Dictated on workstation # [id number]
== END ==
LOC: RAD 11:54
PROVIDERS: ATTEND Internal Medicine Hematology & Oncology
DX: C64.2 Malignant neoplasm of left kidney, except renal pelvis (principal); C78.01 Secondary malignant neoplasm of right lung; Z90.5 Acquired absence of kidney
CPT/HCPCS: 71250; 74150

== ENCOUNTER → 2020-12-21 | Outpatient (CLI) | payer MEDICARE ==
[2020-12-21 10:58] LABS: BASOPHILS # (AUTO) 0.1 10^3/uL (0.0-0.1); BASOPHILS % (AUTO) 1 % (0-10); EOSINOPHILS # (AUTO) 0.3 10^3/uL (0.0-0.3); EOSINOPHILS % (AUTO) 4 % (0-10); HEMATOCRIT 49 % (40-54); LYMPHOCYTES # (AUTO) 1.8 10^3/uL (1.0-4.0); LYMPHOCYTES % (AUTO) 24 % (12-44); MEAN CORPUSCULAR HEMOGLOBIN 29 pg (25-34); MEAN CORPUSCULAR HGB CONC 31 g/dL (32-36); MEAN CORPUSCULAR VOLUME 95 fL (80-99); MEAN PLATELET VOLUME 9.7 fL (9.0-12.2); MONOCYTES # (AUTO) 0.5 10^3/uL (0.0-1.0); MONOCYTES % (AUTO) 7 % (0-12); NEUTROPHILS # (AUTO) 4.6 10^3/uL (1.8-7.8); NEUTROPHILS % (AUTO) 63 % (42-75); PLATELET COUNT 217 10^3/uL (130-400); WHITE BLOOD COUNT 7.3 10^3/uL (4.3-11.0)
[2020-12-21 11:24] LABS: ALBUMIN 3.6 GM/DL (3.2-4.5); BILIRUBIN,TOTAL 0.3 MG/DL (0.1-1.0); CREATININE SERUM 1.32 MG/DL (0.60-1.30); POTASSIUM 4.9 MMOL/L (3.6-5.0); TOTAL PROTEIN 6.4 GM/DL (6.4-8.2)
== END ==
LOC: ONC 10:50
PROVIDERS: ATTEND Internal Medicine Hematology & Oncology
DX: C64.2 Malignant neoplasm of left kidney, except renal pelvis (principal); C78.01 Secondary malignant neoplasm of right lung; M81.0 Age-related osteoporosis without current pathological fracture; I12.9 Hypertensive chronic kidney disease with stage 1 through stage 4 chronic kidney disease, or unspecified chronic kidney disease; N18.30 Chronic kidney disease, stage 3 unspecified; J44.9 Chronic obstructive pulmonary disease, unspecified; I25.10 Atherosclerotic heart disease of native coronary artery without angina pectoris; E55.9 Vitamin D deficiency, unspecified; D50.9 Iron deficiency anemia, unspecified; D63.1 Anemia in chronic kidney disease; E78.2 Mixed hyperlipidemia; M48.061 Spinal stenosis, lumbar region without neurogenic claudication; Z98.890 Other specified postprocedural states; Z90.5 Acquired absence of kidney
CPT/HCPCS: 80053; 83615; 85025; G0463; 99213

== ENCOUNTER → 2022-06-12 | Outpatient (CLI) | payer MEDICARE ==
[~2022-06-12] VITALS: Ht 177.8 cm; Wt 106.0 kg
[~2022-06-12] MED LIST changes: +DICY20TA PO; +LOSA25TA41 PO; +MULT-1136 PO; +ONDA-106 PO; -ONDA8TAB15 PO
== END | disposition home or self-care (01) ==
LOC: PREOP 05:33
PROVIDERS: ATTEND Surgery
DX: Z01.818 Encounter for other preprocedural examination (principal)

== ENCOUNTER 2022-06-19 11:25 | Day surgery (SDC) | payer MEDICARE ==
--- NOTE | 2022-06-12 07:12 | HISTORY AND PHYSICAL ---
ATTENDING PRIMARY CARE PHYSICIAN: Dr. Kassidy Vuong. HISTORY OF PRESENT ILLNESS: The patient is a 76-year-old male known to us. He had a history of gastroesophageal reflux disease as well as Guadarrama's esophagus and status post hiatal hernia repair as well as Hill gastropexy in 2008. His followup EGD in 01/2016 did show a focus of Guadarrama's esophagus as well as high-grade dysplasia. He was referred to Gastroenterology and underwent an endoscopic esophageal ablative therapy in 2019. We have also seen him for the removal of several skin lesions. On this visit, he reports that he is in need for a followup EGD to reevaluate his gastroesophageal junction and signs and symptoms of reflux. He also reports that he has had some change in bowel habits including looser stools. He also did have a history of diverticulitis approximately one year ago, which was medically treated. His last colonoscopy was approximately 5 years ago. He does not report any red blood per rectum, nor any dark tarry stools. He also does not report any family history of colon cancer. 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 PAST SURGICAL HISTORY: Left nephrectomy in 08/06, laparoscopic cholecystectomy and umbilical hernia repair in 2006, cardiac catheterization and stent placement in 04/2007 hiatal hernia repair and Hill gastropexy in 09/2008, appendectomy, back surgery 1988, basal cell skin cancer removal from nose in 1988, L4-L5 fusion in 11/2014, teeth extraction in 2015, total hip arthroplasty in 2016, right total knee arthroplasty in 2019, endoscopic esophageal ablation in 2019. ALLERGIES: PLAVIX, STATINS, AUGMENTIN. MEDICATIONS: Aspirin 81 mg daily, Protonix 40 mg daily, alprazolam 1 mg p.r.n., amlodipine 10 mg daily, Proscar daily, clonidine 0.1 mg p.r.n., Bentyl 20 mg q. 4 hours p.r.n. SOCIAL HISTORY: Previous smoker, quit in 2008. Previous alcohol. FAMILY HISTORY: Mother with stroke. VITAL SIGNS: Blood pressure 151/86, currently 260 pounds at 5 feet 10 inches. REVIEW OF SYSTEMS: Well-nourished male, currently in no acute distress. He is not experiencing any shortness of breath or difficulty breathing. No chest pain, palpitations, diaphoresis. No nausea or vomiting; however, does have some intermittent episodes of reflux type of symptoms with epigastric burning sensation as well as crampy pain. No hematemesis, no coffee-ground emesis. He has had a change in bowel habits including looser stools. He does not report any red blood per rectum, nor any dark tarry stools. He also did have an episode of diverticulitis approximately one year ago. No fever or chills. No recent inadvertent weight loss. All other review of systems negative. PHYSICAL EXAMINATION: CHEST: Few scattered rales and rhonchi bilaterally. HEART: Regular, no murmurs. EXTREMITIES: No lower extremity edema. Negative Homans sign. HEENT: No scleral icterus. No cervical lymphadenopathy. ABDOMEN: Soft, nondistended. There is mild discomfort in the epigastric region upon deep palpation. No hernias. SKIN: Warm and dry. ASSESSMENT AND PLAN: A 76-year-old male with a history of Guadarrama's esophagus and high-grade dysplasia and status post esophageal endoscopic ablation and in need of a followup EGD as well as biopsies as appropriate. He also has had an episode of diverticulitis and has had some change in bowel habits, encompassing looser stools and we will schedule him for a colonoscopy as well. The date of admission will be 06/19/2022. Job ID: [id number] DocumentID: [id number] Dictated Date: 06/05/2022 17:18:48 Dyslexia Teacher Date: 06/05/2022 18:06:00 Dictated By: MEEK SORIA MD
[~2022-06-19] VITALS: Ht 178 cm; Wt 106.0 kg
[2022-06-19] MEDS ORDERED: LACTATED RINGERS 1,000 ML IV STA (11:26)
[2022-06-19] MEDS ORDERED: NS IV 500 ML 500 ML ONE (11:28)
[2022-06-19] MEDS ORDERED: LIDOCAINE JELLY 2% 6 ML SYRINGE MM PRN (11:30)
[2022-06-19] MEDS ORDERED: NS IV 500 ML 500 ML IV ONE (11:30)
[2022-06-19] MEDS ORDERED: HURRICAINE EXT TUBE (BENZOCAINE) XX PRN (11:30)
--- NOTE | 2022-06-19 11:44 | Progress Note-Pre Operative ---
Pre-Operative Progress Note Date of Available H&P: Jun 19, 2022 Date H&P Reviewed: Jun 19, 2022 Time H&P Reviewed: 11:30 History & Physical: No changes noted Pre-Operative Diagnosis: hx lower esopageal low grade dysp, screening colo MEEK SORIA MD Jun 19, 2022 11:44
[2022-06-19] MEDS ORDERED: ONDANSETRON 4 MG (ZOFRAN) ORAL DISSOLVE TAB PO PRN (11:45)
[2022-06-19] MEDS ORDERED: ONDANSETRON 4 MG/2 ML (SDV) Z0FRAN IVP PRN (11:45)
--- NOTE | 2022-06-19 11:45 | Discharge Inst-Surgical ---
D/C Lap Instructions-ESTELLA Follow Up Activity as tolerated High Fiber Diet 25g or more per day Avoid Alcohol, Caffeine, Spicy [place] and Acid foods. Drink 64 fluid oz or more of fluids per day. Symptoms to Report: Fever over 101 degree F, Nausea/Vomiting If any problems/questions: Contact your physician or go to Emergency Room MEEK SORIA MD Jun 19, 2022 11:45
[2022-06-19] MEDS ORDERED: LIDOCAINE JELLY 2% 6 ML SYRINGE ONE (11:57)
[2022-06-19 12:10] VITALS: BP 99/69
[2022-06-19] MEDS ORDERED: PROPOFOL INJECTION 50 ML IV ONE ×2 (12:40→13:19)
[2022-06-19 13:45] VITALS: BP 121/71
[2022-06-19 13:50] VITALS: BP 116/65
[2022-06-19] MEDS ORDERED: fentaNYL INJ 100 MCG/2 ML AMP ONE (13:59)
[2022-06-19] MEDS: fentaNYL INJ 100 MCG/2 ML AMP IVP ONE (14:01)
--- NOTE | 2022-06-19 14:03 | Progress Note-Post Operative ---
Post-Operative Progess Note Surgeon (s)/Ice Hockey Coach (s) Surgeon MEEK SORIA MD Ice Hockey Coach: none Pre-Operative Diagnosis hx lower esopageal low grade dysp, screening colo Post-Operative Diagnosis reflux esophagitis(grade B-C), intact wrap, moderate gastritis. mild chronic stage 2 ext and int hemorrhoids. Procedure & Operative Findings Date of Procedure 06/19/22 Procedure Performed/Findings EGD with bx. colonoscopy. Anesthesia Type mac Estimated Blood Loss Estimated blood loss (mL): minimal Specimens/Packing Specimens Removed ge jxn, antrum MEEK SORIA MD Jun 19, 2022 14:03
[2022-06-19 14:30] VITALS: BP_SYST 55
--- NOTE | 2022-06-19 20:06 | OPERATIVE REPORT ---
DATE OF SERVICE: 06/19/2022 ATTENDING PRIMARY CARE PHYSICIAN: Dr. Kassidy Vuong. PREOPERATIVE DIAGNOSES: History of Guadarrama's esophagus and low-grade dysplasia, screening colonoscopy. POSTOPERATIVE DIAGNOSES: Reflux esophagitis, [place] between grade B and C, no strictures, intact previous wrap, moderate gastritis, chronic stage II external and internal hemorrhoids, moderate to severe sigmoid diverticulosis. PROCEDURE: EGD with biopsy, colonoscopy. SURGEON: Meek Leyva MD. ANESTHESIA: Monitored anesthesia care. ESTIMATED BLOOD LOSS: Minimal. FINDINGS:. Same as postoperative diagnoses. DISPOSITION: The patient tolerated the procedure well. INDICATIONS: The patient is a 76-year-old male known to us. He has a history of gastroesophageal reflux disease as well as Guadarrama's esophagus and status post hiatal hernia repair as well as [place] gastropexy in 2008. His followup EGD in 01/2016 did show a focus of Guadarrama's esophagus as well as low-grade dysplasia. He was referred to Gastroenterology, underwent an endoscopic esophageal ablative therapy in 2019. He is in need of a followup EGD as well as a screening colonoscopy. He did have an episode of diverticulitis approximately 1 year ago. DESCRIPTION OF PROCEDURE: The patient was brought to the endoscopy suite and laid in the left lateral decubitus position. After adequate IV pain and sedative medications and monitored anesthesia care, the mouthpiece was applied. Endoscope was placed in the mouth, visualized the pharynx and hypopharyngeal region. Vocal cords, epiglottis and vallecula identified and appeared to be normal. The endoscope was then gently intubated in the esophageal opening. Esophagus was insufflated. The endoscope was then advanced into the first, second and third portion of the esophagus at the level of the GE junction. Reflux esophagitis, [place] between grade B and C identified. There were no strictures identified in this region and multiple biopsies were taken with forceps with visualization of good hemostasis. Endoscope was then advanced in the stomach. The endoscope was retroflexed, visualizing intact previous hiatal hernia repair and antireflux procedure. There was a moderate severity gastritis, more towards the stomach antrum, no formal ulcerations or any neoplasms. A biopsy was taken of the antrum to rule out H. pylori with visualization with good hemostasis. The endoscope was then advanced through the pylorus and the first and second portion of the duodenum, which appeared normal. The endoscope was fully withdrawn while taking second look and suctioning of residual air with no additional findings. A digital rectal examination was performed, which revealed mild chronic stage II, external, internal hemorrhoids, not actively edematous or inflamed. No bleeding. Normal sphincter tone was felt and there were no palpable masses. Prostate gland was palpable and appeared normal. The endoscope was then intubated in the anus and the rectum gently insufflated. The endoscope was then advanced through the valves of [place] of the rectum with no polyps or neoplasms identified. Throughout the sigmoid and descending colon, moderate to severe diverticulosis was identified. There were no mucosal inflammatory changes to indicate any active diverticulitis. The endoscope was then advanced through the remainder of the descending, transverse and ascending colon to the cecum, which were normal. The endoscope was then slowly withdrawn, while taking a second look and suctioning of residual air with no additional findings. The patient tolerated the procedure well. We will recommend continued medical management with the necessary lifestyle and dietary accommodations including small and more frequent meals, avoidance of eating at night as well as head elevation while lying supine. He also needs to avoid caffeinated beverages, spicy, greasy and acidic foods and to continue to take his Protonix daily and any modality of weight loss and maintenance that would also be beneficial in terms of for prevention of reflux. We will also recommend high fiber diet with the fiber supplement, which should equal or exceed 30 grams daily as well as significant amounts of water to promote soft consistency stools on a daily basis. He does have a significant diverticulosis and has had an episode of diverticulitis and with continued soft stools, this should decrease the pressures within the lumen of the colon along the sigmoid colon, which should decrease the likelihood of developing diverticulitis as well as the other severe complications associated with it. No polyps were identified and he does not have a first-degree family history of colon cancer and if he is asymptomatic, he does not need another colonoscopy in 10 years. Job ID: [id number] DocumentID: [id number] Dictated Date: 06/19/2022 13:55:19 Leadership Development Consultant Date: 06/19/2022 20:05:00 Dictated By: MEEK LEYVA MD [email or web address]
== END 2022-06-19 15:13 | disposition home or self-care (01) ==
LOC: ENDO 11:25
PROVIDERS: ATTEND Surgery
DX: Z12.11 Encounter for screening for malignant neoplasm of colon (principal); K21.00 Gastro-esophageal reflux disease with esophagitis, without bleeding; K22.70 Barrett's esophagus without dysplasia; K29.70 Gastritis, unspecified, without bleeding; K64.1 Second degree hemorrhoids; K64.4 Residual hemorrhoidal skin tags; K57.30 Diverticulosis of large intestine without perforation or abscess without bleeding; Z87.19 Personal history of other diseases of the digestive system; Z79.899 Other long term (current) drug therapy; Z95.5 Presence of coronary angioplasty implant and graft; Z87.891 Personal history of nicotine dependence; Z85.528 Personal history of other malignant neoplasm of kidney; Z85.828 Personal history of other malignant neoplasm of skin
CPT/HCPCS: 43239; G0121

== ENCOUNTER → 2023-01-21 | Outpatient (CLI) | payer MEDICARE | LOC: CARD 12:47 | PROVIDERS: ATTEND Internal Medicine Cardiovascular Disease | DX: I11.9 Hypertensive heart disease without heart failure (principal) | CPT/HCPCS: 93306 ==